=== PATIENT | male | born 1940 | race Caucasian/White ===

== ENCOUNTER 2019-03-30 12:53 | Outpatient (CLI) | payer MEDICARE, SELFPAY ==
--- NOTE | 2019-03-30 13:05 | XR_ITS ---
WS: [id number] Chest 2 views, 03/30/2019 Clinical Data: SHORTNESS OF BREATH Comparison: PA and lateral chest, 04/01/2018. Findings: No nodules, masses or effusions are seen. The heart is normal. The pulmonary vascularity is not increased. No pneumonia or pneumothorax is seen. There is scarring in the left upper lobe unchan ged. Multiple left rib fractures from the third to the 10th ribs has not changed. Aortic arch and chance cending aorta are slightly tortuous. XR/XR chest 2V* [id number] Impression: 1. Negative for acute cardiopulmonary disease. 2. No change in multiple left rib fractures and left upper lobe scarring.
== END 2019-03-30 12:54 | disposition home or self-care (01) ==
PROVIDERS: Family Provider Family Medicine; PCP Family Medicine; Visit Provider Family Medicine
DX: R06.02 Shortness of breath (principal)
CPT/HCPCS: 71046

== ENCOUNTER 2019-04-11 09:40 | Outpatient (CLI) | payer MEDICARE, SELFPAY ==
--- NOTE | 2019-04-11 09:30 | USCV_ITS ---
Elpidio Hoffmann Age: 78 Gender: M : 1940 Exam Date: 04/11/2019 09:46 Ordering Phys: Alicia Barrera DO Technologist: Claudia Arevalo Exam Location: [facility] – [place] Indication: DYSPNEA ON EXERTION BP: / HR: 74 Rhythm: Sinus Technical Quality: Adequate MEASUREMENTS (Male / Female) Normal Values 2D ECHO LV Diastolic Diameter PLAX 3.5 cm 4.2 - 5.9 / 3.9 - 5.3 cm LV Systolic Diameter PLAX 1.6 cm LV Chamber Size 2.9 cm IVS Diastolic Thickness 1.1 cm 0.6 - 1.0 / 0.6 - 0.9 cm IVS Systolic Thickness 1.6 cm LVPW Diastolic Thickness 1.8 cm 0.6 - 1.0 / 0.6 - 0.9 cm LVPW Systolic Thickness 2.1 cm RV Chamber Size 2.5 cm LVOT Diameter 2.0 cm LV Ejection Fraction 2D Teich 86.0 % LV Ejection Fraction MOD 2C 54.3 % LV Ejection Fraction 2C AL 52.4 % LA Diameter 3.0 cm LA Width 3.2 cm LA Height 5.0 cm RA Width 3.1 cm RA Height 3.9 cm Aorta at Sinotubular Diameter 2.9 cm M-MODE LV Diastolic Diameter MM 4.4 cm 4.2 - 5.9 / 3.9 - 5.3 cm LV Systolic Diameter MM 2.4 cm LV Ejection Fraction MM Teich 77.1 % IVS Diastolic Thickness MM 0.7 cm 0.6 - 1.0 / 0.6 - 0.9 cm IVS Systolic Thickness MM 1.2 cm LVPW Diastolic Thickness MM 1.2 cm 0.6 - 1.0 / 0.6 - 0.9 cm LVPW Systolic Thickness MM 1.3 cm Aortic Annulus Diameter 3.5 cm LA Ao Ratio MM 0.9 MV E Point Septal Separation 0.7 cm DOPPLER AV Peak Velocity 124.0 cm/s LVOT Peak Velocity 109.0 cm/s AV Area Cont Eq vti 3.0 cm squared AV Area Cont Eq pk 2.9 cm squared MV Area PHT 3.6 cm squared Mitral E to A Ratio 0.7 MV E' Velocity 14.0 cm/s Mitral E to MV E' Ratio 5.5 Mitral E to LV E' Lateral Ratio 4.6 Mitral E to LV E' Septal Ratio 7.0 TR Peak Velocity 135.0 cm/s TR Peak Gradient 7.3 mmHg TV Peak E Velocity 68.0 cm/s Right Atrial Pressure 3.0 mmHg Pulmonary Artery Systolic Pressu 10.3 mmHg PV Peak Velocity 91.0 cm/s RV Acceleration Time 0.2 s RV Ejection Time 0.3 s RV AcT/ET 0.5 FINDINGS Left Ventricle Normal left ventricular cavity size. Normal left ventricular systolic function. No regional wall motion abnormalities. Left ventricular ejection fraction is estimated at 65 %. Grade I/IV diastolic dysfunction (abnormal relaxation filling pattern), normal to mildly elevated filling pressures. Right Ventricle The right ventricle is normal in size and function. Right Atrium The right atrium is normal in size. Left Atrium The left atrium is normal in size. Mitral Valve Moderately thickened mitral valve. Mitral annular calcification. Mild mitral valve regurgitation. Aortic Valve Severe aortic valve calcification. No aortic valve stenosis. No aortic valve regurgitation. Tricuspid Valve Structurally normal tricuspid valve without significant stenosis or regurgitation. Pulmonary artery systolic pressure is normal. Pulmonic Valve Structurally normal pulmonic valve without significant stenosis. There is no pulmonic regurgitation. Pericardium Normal pericardium without effusion. Aorta Normal ascending aorta dimension. CONCLUSIONS 1-Normal left ventricular cavity size. Normal left ventricular systolic function. No regional wall motion abnormalities. Left ventricular ejection fraction is estimated at 65 %. Grade I/IV diastolic dysfunction (abnormal relaxation filling pattern), normal to mildly elevated filling pressures. 2-Severe aortic valve calcification. No aortic valve stenosis. No aortic valve regurgitation. 3-There is no pericardial effusion. 4-Right atrial pressure is around 5 mm of mercury. 5-When compared to the prior echocardiogram 08/10/2013 aortic valve appeared to be thickened calcified without any significant stenosis , otherwise there is no significant change Willard Day MD (Electronically Signed) Final Date: 11 April 2019 19:10 S
== END 2019-04-11 09:41 | disposition home or self-care (01) ==
LOC: RAD 09:44
PROVIDERS: Family Provider Family Medicine; PCP Family Medicine; Visit Provider Family Medicine
DX: I70.0 Atherosclerosis of aorta (principal); R06.09 Other forms of dyspnea
CPT/HCPCS: 93306

== ENCOUNTER 2019-04-14 11:31 | Outpatient (CLI) | payer MEDICARE, SELFPAY ==
[2019-04-14 12:02] LABS: Basophils % 0.6 %; Eosinophils # 0.1 10^3/uL (0.0-0.8); Eosinophils % 1.8 %; Hemoglobin 11.7 g/dL (11.7-16.6); Lymphocytes # 1.3 10^3/uL (0.8-4.8); Lymphocytes % 26.8 %; Mean Corpuscular HGB Conc 33.4 g/dL (30.0-36.0); Mean Corpuscular Hemoglobin 32.3 pg (28.0-34.0); Mean Corpuscular Volume 96.7 fL (80-94); Mean Platelet Volume 9.1 fL (7.4-10.4); Monocytes # 0.6 10^3/uL (0.2-0.9); Monocytes % 12.2 %; Neutrophils # 2.9 10^3/uL (1.8-7.7); Neutrophils % 58.6 %; Nucleated Red Blood Cells % 0 %; Platelet Count 180 10^3/cmm (130-400); Red Blood Count 3.62 10^6/uL (4.1-5.3); Red Cell Distribution Width 13.6 % (12.1-15.1); White Blood Count 4.9 10^3/uL (4.0-10.0)
[2019-04-14 12:19] LABS: Albumin Level 4.7 g/dL (3.5-5.2); Anion Gap 19.5 (5-19); Blood Urea Nitrogen 26 mg/dL (8-23); Carbon Dioxide 26 mmol/L (22-29); Chloride 101 mmol/L (98-107); Glucose 130 mg/dL (74-106); Phosphorus 3.8 mg/dL (2.5-4.5); Potassium 3.5 mmol/L (3.5-5.1); Sodium 143 mmol/L (136-145)
[2019-04-14 12:22] LABS: Urine Creatinine 253 mg/dL (39-259); Urine Protein Random 17 mg/dL
[2019-04-14 13:02] LABS: Calcium 9.8 mg/dL (8.8-10.2); Parathyroid Hormone 116.3 pg/mL (15-65)
[2019-04-14 13:03] LABS: UPRO/UCREAT Ratio 0.07 mg/mg CR
[2019-04-14 13:35] LABS: 25 Hydroxy Vitamin D 65 ng/mL (30-100)
== END 2019-04-14 11:32 | disposition home or self-care (01) ==
LOC: LAB 11:35
PROVIDERS: Family Provider Family Medicine; PCP Family Medicine; Visit Provider Nurse Practitioner Family
DX: I12.9 Hypertensive chronic kidney disease with stage 1 through stage 4 chronic kidney disease, or unspecified chronic kidney disease (principal); E11.22 Type 2 diabetes mellitus with diabetic chronic kidney disease; N18.3 Chronic kidney disease, stage 3 (moderate)
CPT/HCPCS: 80069; 82306; 82310; 82570; 83970; 84156; 85025

== ENCOUNTER 2019-05-04 19:36 | Inpatient (IN) | payer OTHER, MEDICARE, SELFPAY ==
[2019-05-04] VITALS (39 sets, daily range): BP systolic 106–142; BP diastolic 59–99; PULSE 77–88; RESP 16–18; TEMP 36.9; O2SAT 85–99; BMI 25.0
--- NOTE | 2019-05-04 19:45 | ED_ITS ---
Entered by Isabel Castellanos, acting as scribe for Rosina Ferris MD HPI - Abdominal Pain General: Chief Complaint: Abdominal Pain Stated Complaint: abd pain Time Seen by Provider: 05/04/19 19:45 Source: patient Mode of arrival: ambulatory Limitations: no limitations History of Present Illness: HPI narrative: 78 yo m came to the er pov for abd pain. Onset was tonight. Pt states that has been having some abd pain and that today the pain is almost severe. Pt states that he has had a bowel obstruction many times. Pt also has a colostomy at this time. MD elicited complaint: abdominal pain Pertinent past history: diverticulitis Location: RLQ and LLQ Severity: mild Quality: sharp Radiation: none Exacerbating factors: nothing Relieving factors: nothing Associated Symptoms: Reports vomiting; Denies chills, diarrhea, dysuria and fever(s) Related Data: Patient : No Review of Systems General: Reports: other (negative unless marked) Const: Denies: fever, chills, body aches or change in appetite Eyes: Denies: blurry vision or eye discomfort ENMT: Denies: throat pain or dental pain Card: Denies: chest pain Resp: Denies: shortness of breath GI: Reports: abdominal pain and vomiting; Denies: diarrhea : Denies: painful urination Musc: Denies: neck pain or back pain Skin/Breast: Denies: rash Neuro: Denies: headache Psych: Denies: depression Trae/Lymph: Denies: easy bruising All/Imm: Denies: hives PFSH ED PFSH: Statuses (acute, chronic, etc) shown below reflect problem list status as previously entered and may not be historically accurate Social History Smoking and tobacco status: former smoker Physical Exam Const: COMMON NORMALS: no apparent distress, oriented x3 and healthy appearing HENMT: COMMON NORMALS: normocephalic and head/scalp atraumatic HEAD & SCALP: normocephalic and atraumatic Eye: COMMON NORMALS: PERRL and EOMs intact bilaterally PUPIL: Yes PERRL Neck/C-Spine: COMMON NORMALS: full ROM and supple Chest: COMMONS NORMALS: inspection of chest normal and palpation of chest normal Resp: COMMON NORMALS: normal respiratory effort, no retractions, no use of accessory muscles and clear to auscultation bilaterally AUSCULTATION: clear to auscultation bilaterally Cardio: COMMON NORMALS: regular rate, regular rhythm and no murmurs RATE: regular rate RHYTHM: regular rhythm GI: COMMON NORMALS: soft to palpation, non-tender and no masses PALPATION: Yes soft OTHER: distention along with decreased bowel sounds Extremity: COMMON NORMALS: normal to inspection and full ROM Neuro: COMMON NORMALS: oriented x3, moves all extremities and no focal motor deficits Psych: COMMON NORMALS: mental status grossly normal, thought process normal and cooperative THOUGHT PROCESS: normal thought process Skin: COMMON NORMALS: no rashes or lesions noted and no wounds GENERAL SKIN EXAM: no rashes or lesions noted Course Vital Signs: Vital signs: Vital Signs Temperature 98.4 F 05/04/19 19:46 Pulse Rate 88 05/04/19 20:30 Respiratory Rate 16 05/04/19 23:42 Blood Pressure 121/82 05/04/19 22:35 Pulse Oximetry 90 05/04/19 22:35 MDM - Abdominal Pain MDM Narrative: Medical decision making narrative: Patient presents here with small bowel obstruction along with hernia. Spoke to hospitalist will admit. Spoke to surgeon Dr. 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 Patient has been stable while here. Lab Data: Labs: Lab Results 05/04/19 05/04/19 05/04/19 Range/Units 19:54 20:10 20:10 WBC 6.2 (4.0-10.0) 10^3/ uL RBC 4.10 (4.1-5.3) 10^6/u L Hgb 13.1 (11.7-16.6) g/dL Hct 38.0 L (42.0-52.0) % MCV 92.7 (80-94) fL MCH 32.0 (28.0-34.0) pg MCHC 34.5 (30.0-36.0) g/dL RDW 12.7 (12.1-15.1) % Plt Count 231 (130-400) 10^3/c mm MPV 8.8 (7.4-10.4) fL Neut % (Auto) 72.3 % Lymph % (Auto) 17.0 % Haskell % (Auto) 9.2 % Eos % (Auto) 0.8 % Baso % (Auto) 0.5 % Neut # (Auto) 4.5 (1.8-7.7) 10^3/u L Lymph # (Auto) 1.1 (0.8-4.8) 10^3/u L Haskell # (Auto) 0.6 (0.2-0.9) 10^3/u L Eos # (Auto) 0.1 (0.0-0.8) 10^3/u L Baso # (Auto) 0.0 (0.0-0.1) 10^3/u L Nucleated RBC % (a uto) 0 % Nucleated RBCs # 0.0 /100WBC Sodium 137 (136-145) mmol/L Potassium 3.1 L (3.5-5.1) mmol/L Chloride 94 L (98-107) mmol/L Carbon Dioxide 26 (22-29) mmol/L Anion Gap 20.1 H (5-19) BUN 28 H (8-23) mg/dL Creatinine 2.2 H (0.7-1.2) mg/dL Glucose 145 H (65-115) mg/dL Calcium 10.3 (8.5-10.5) mg/dL Total Bilirubin 0.7 (0.15-1.2) mg/dL AST 37 (0-40) U/L ALT 23 (0-41) U/L Alkaline Phosphata se 74 (40-130) IU/L Total Protein 8.3 (6.6-8.7) g/dL Albumin 4.6 (3.5-5.2) g/dL Globulin 3.7 (1.3-4.6) g/dL Lipase 16 (13-60) U/L Urine Color Yellow (Yellow) Urine Appearance Clear (CLEAR) Urine pH 5 (5-7) Ur Specific Gravit y 1.015 (1.005-1.030) Urine Protein Neg (Negative) Urine Glucose (UA) Norm (Normal) Urine Ketones Negative (Negative) Urine Occult Blood Neg (Negative) Urine Nitrate Negative (Negative) Urine Bilirubin Neg (NEGATIVE) Urine Urobilinogen Norm (Negative) mg/dL Ur Leukocyte Marianne ase Negative (Negative) Imaging Data ^: CT Abd/Pel: Radiologist's impression: [address] [address] [address] Scan Report Signed with Addjewel Patient: Elpidio Hoffmann #: [id number] : 1940Acct#:[id number] Age/Sex: 78 / MADM Date: 05/04/19 Loc: ERRoom/Bed: Attending Dr: Ordering Provider/Ordering MD: Rosina Ferris MD Date of Service: 05/04/19 Procedure(s): CT abdomen pelvis wo con [id number] Accession Number(s): [id number] Report Number: [id number]/CT abdomen pelvis wo con [id number] THIS REPORT CONTAINS FINDINGS THAT MAY BE CRITICAL TO PATIENT CARE. The findings were verbally communicated via telephone conference with rosina Ferris at 11:23 PM SCARFER on 05/04/2019. The findings were acknowledged and understood. Radiation Dose CTDIVOL = (mGy): DLP = 832.92 (mGy-cm) Addendum Dictated By: Lisandra Jim Addendum Signed By: Susan Jim Date/Time:05/04/192324 Addendum Cosigned By: PROCEDURE INFORMATION: Exam: CT Abdomen And Pelvis Without Contrast Exam date and time: 05/04/2019 8:55 PM Age: 78 years old Clinical indication: Abdominal pain; Prior surgery; Surgery type: Ileostomy, colon; Additional info: Abdominal pain possible sbo TECHNIQUE: Imaging protocol: Computed tomography of the abdomen and pelvis without contrast. Total DLP: 832.92 mGy-cm Radiation optimization: All CT scans at this facility use at least one of these dose optimization techniques: automated exposure control; mA and/or kV adjustment per patient size (includes targeted exams where dose is matched to clinical indication); or iterative reconstruction. COMPARISON: CT Chest/Abdomen/Pelvis wo IV 11/22/2018 12:25 PM FINDINGS: Lungs: Severe emphysematous changes are noted. There is mild basilar volume loss. Liver: There is a diffuse decrease in hepatic parenchymal density, consistent with fatty infiltration. Gallbladder and bile ducts: Multiple calcified gallstones are present. No evidence of cholecystitis. Pancreas: Normal. No ductal dilation. Spleen: Normal. No splenomegaly. Adrenals: Normal. No mass. Kidneys and ureters: There is punctate nephrolithiasis. No hydronephrosis. Stomach and bowel: There is a right lower quadrant ostomy. There is a large right peristomal hernia containing multiple loops of small bowel and mesenteric fat. The loops of bowel within the hernia are mildly dilated with air-fluid levels concerning for early partial small bowel obstruction of the loops of small bowel within the hernia. There is also induration of the fat adjacent to the loops of bowel within the hernia. There is some mild wall edema of a loop of small bowel within the hernia. The exiting loop of small bowel does not contain contrast and is collapsed. Diverticulosis without diverticulitis is identified. Appendix: No evidence of appendicitis. Intraperitoneal space: Unremarkable. No free air. No significant fluid collection. Vasculature: The aorta demonstrates mild atherosclerotic calcification. There are numerous benign phleboliths in the pelvis. Lymph nodes: Unremarkable.No enlarged lymph nodes. Bladder: There is nonspecific bladder wall thickening. This may be related to incomplete distention. Reproductive: Unremarkable as visualized. Bones/joints: Postoperative changes in the right femur/hip are noted. There are moderate degenerative changes in the hip joints and spine. No acute bony fracture. Soft tissues: Tiny fat filled inguinal hernias are noted. Other findings: Abdomen window CT/CT abdomen pelvis wo con [id number] IMPRESSION: Large right peristomal hernia containing high-grade partially obstructed loops of small with mild bowel wall edema and induration of the fat within the hernia concerning for early incarceration of the hernia contents. Radiation Dose CTDIVOL = (mGy): DLP = 832.92 (mGy-cm) Dictated By:Lisandra Jim Signed By:Susan Jim Date/Time:05/04/192322 DD/ 21 Discharge Plan Discharge Patient Disposition: Admitted As Inpatient Admit Provider: Murphy Mcgarry Clinical Impression: Small bowel obstruction Condition: Stable Coding Level of Care Code ED [employer] [place] Roller for Chg Fwd Exam Problem Focused The documentation recorded by the Emanuel harris Stephanie Lyn, accurately reflects the service I personally performed and the decisions made by Barrington so Korby, MD May 04, 2019 19:36
--- NOTE | 2019-05-04 19:50 | CTR_ITS ---
PROCEDURE INFORMATION: Exam: CT Abdomen And Pelvis Without Contrast Exam date and time: 05/04/2019 8:55 PM Age: 78 years old Clinical indication: Abdominal pain; Prior surgery; Surgery type: Ileostomy, colon; Additional info: Abdominal pain possible sbo TECHNIQUE: Imaging protocol: Computed tomography of the abdomen and pelvis without contrast. Total DLP: 832.92 mGy-cm Radiation optimization: All CT scans at this facility use at least one of these dose optimization techniques: automated exposure control; mA and/or kV adjustment per patient size (includes targeted exams where dose is matched to clinical indication); or iterative reconstruction. COMPARISON: CT Chest/Abdomen/Pelvis wo IV 11/22/2018 12:25 PM FINDINGS: Lungs: Severe emphysematous changes are noted. There is mild basilar volume loss. Liver: There is a diffuse decrease in hepatic parenchymal density, consistent with fatty infiltration. Gallbladder and bile ducts: Multiple calcified gallstones are present. No evidence of cholecystitis. Pancreas: Normal. No ductal dilation. Spleen: Normal. No splenomegaly. Adrenals: Normal. No mass. Kidneys and ureters: There is punctate nephrolithiasis. No hydronephrosis. Stomach and bowel: There is a right lower quadrant ostomy. There is a large right peristomal hernia containing multiple loops of small bowel and mesenteric fat. The loops of bowel within the hernia are mildly dilated with air-fluid levels concerning for early partial small bowel obstruction of the loops of small bowel within the hernia. There is also induration of the fat adjacent to the loops of bowel within the hernia. There is some mild wall edema of a loop of small bowel within the hernia. The exiting loop of small bowel does not contain contrast and is collapsed. Diverticulosis without diverticulitis is identified. Appendix: No evidence of appendicitis. Intraperitoneal space: Unremarkable. No free air. No significant fluid collection. Vasculature: The aorta demonstrates mild atherosclerotic calcification. There are numerous benign phleboliths in the pelvis. Lymph nodes: Unremarkable.No enlarged lymph nodes. Bladder: There is nonspecific bladder wall thickening. This may be related to incomplete distention. Reproductive: Unremarkable as visualized. Bones/joints: Postoperative changes in the right femur/hip are noted. There are moderate degenerative changes in the hip joints and spine. No acute bony fracture. Soft tissues: Tiny fat filled inguinal hernias are noted. Other findings: Abdomen window CT/CT abdomen pelvis wo con [id number] IMPRESSION: Large right peristomal hernia containing high-grade partially obstructed loops of small with mild bowel wall edema and induration of the fat within the hernia concerning for early incarceration of the hernia contents. Radiation Dose CTDIVOL = (mGy): DLP = 832.92 (mGy-cm)
--- NOTE | 2019-05-04 20:15 | PC.NURSE ---
Introduced self to patient and initiated vital signs. Pt is A&O x 4 and agreeable. Pt states that the reason for the ER visit today is due to abdominal pain bilaterally for 3 days which has progressed to a /. Reassured patient of needs and will continue to monitor. Awaiting provider at bedside.
[2019-05-04 20:17] LABS: Basophils % 0.5 %; Eosinophils # 0.1 10^3/uL (0.0-0.8); Eosinophils % 0.8 %; Hemoglobin 13.1 g/dL (11.7-16.6); Lymphocytes # 1.1 10^3/uL (0.8-4.8); Mean Corpuscular HGB Conc 34.5 g/dL (30.0-36.0); Mean Corpuscular Volume 92.7 fL (80-94); Mean Platelet Volume 8.8 fL (7.4-10.4); Monocytes # 0.6 10^3/uL (0.2-0.9); Monocytes % 9.2 %; Neutrophils # 4.5 10^3/uL (1.8-7.7); Neutrophils % 72.3 %; Nucleated Red Blood Cells % 0 %; Platelet Count 231 10^3/cmm (130-400); Red Cell Distribution Width 12.7 % (12.1-15.1); White Blood Count 6.2 10^3/uL (4.0-10.0)
[2019-05-04 20:21] LABS: Add Urine Microscopic? NO
[2019-05-04 20:29] LABS: Bilirubin Urine Neg (NEGATIVE); Blood Urine Neg (Negative); Glucose Urine UA Norm (Normal); Ketones Urine Negative (Negative); Leukocyte Esterase Urine Negative (Negative); Nitrate Urine Negative (Negative); Protein Urine Neg (Negative); Specific Gravity, Urine 1.015 (1.005-1.030); Urine Appearance Clear (CLEAR); Urine Color Yellow (Yellow); Urobilinogen Urine Norm (Negative); pH Urine 5 (5-7)
[2019-05-04 20:42] LABS: Alanine Aminotransferase 23 U/L (0-41); Albumin Level 4.6 g/dL (3.5-5.2); Alkaline Phosphatase 74 IU/L (40-130); Anion Gap 20.1 (5-19); Aspartate Amino Transferase 37 U/L (0-40); Blood Urea Nitrogen 28 mg/dL (8-23); Calcium 10.3 mg/dL (8.5-10.5); Carbon Dioxide 26 mmol/L (22-29); Chloride 94 mmol/L (98-107); Globulin 3.7 g/dL (1.3-4.6); Glucose 145 mg/dL (65-115); Lipase 16 U/L (13-60); Potassium 3.1 mmol/L (3.5-5.1); Sodium 137 mmol/L (136-145); Total Bilirubin 0.7 mg/dL (0.15-1.2); Total Protein 8.3 g/dL (6.6-8.7)
[2019-05-04] MEDS: HYDROmorphone 1 mg/mL INJ 1 mL IVP (23:42)
[2019-05-05] VITALS (52 sets, daily range): BP systolic 83–151; BP diastolic 60–93; PULSE 66–103; RESP 10–20; TEMP 36.5–37.3; O2SAT 75–100
--- NOTE | 2019-05-05 00:38 | PM.HP ---
Providers/Chief Complaint Admitting Physician: Murphy Mcgarry MD Primary Care Provider: Alicia Barrera DO Chief Complaint: abd pain History of Present Illness Elpidio Hoffmann is a 78 year old male with a past medical history of insulin-dependent type 2 diabetes mellitus, hypertension, hyperlipidemia, CKD stage III, history of anal squamous cell carcinoma (in 2013, status post chemotherapy and radiation), history of perforated diverticulitis status post Judd procedure, colostomy takedown with diverting ileostomy, history of Port-A-Cath placement and removal, right lower lobe squamous cell carcinoma status post status post wedge excisional biopsy, left upper lobe pulmonary nodule status post SBRT who presents to the emergency room due to complaints of abdominal pain. Patient states that he has history of small bowel obstruction in the past secondary to his parastomal hernia, patient states that 3 days ago he developed abdominal pain associate with some nausea, no vomiting, no fevers, no chills, he still continues good output from his colostomy. Patient states that this afternoon he had dinner, had [place] food, no nausea, no vomiting, continues to have colostomy output in the ER, abdominal pain he has improved with Dilaudid. Review of Systems Const: Denies: fever, chills, fatigue or malaise Eyes: Denies: change in vision or blurry vision ENMT: Denies: nasal congestion Resp: Denies: shortness of breath, productive cough, non-productive cough or wheezing GI: Reports: abdominal pain; Denies: nausea, vomiting, vomiting blood, diarrhea, constipation, blood in stool or black tarry stool : Denies: flank pain, difficulty urinating, painful urination or urinary frequency Musc: Denies: neck pain or back pain Skin/Breast: Denies: rash Neuro: Denies: headache, dizziness or vertigo Psych: Denies: anxiety or depression Endo: Denies: excessive urination or excessive thirst Medications/Allergies Allergies Allergy/AdvReac Type Severity Reaction Status Date / Time No Known Allergies Allergy Verified 05/04/19 19:46 Additional Medication Information Additional Medication Information: Aspirin 81 mg once daily Chlorthalidone 12.5 mg in the evening Norvasc 10 mg in the evening Crestor 10 mg in the evening Protonix 40 mg in the morning Novolin 20 units twice daily Vitamin E Vitamin A Vitamin C Vitamin B12 Multivitamin Cardizem 180 mg in the evening PFSH Acute PFSH: Statuses (acute, chronic, etc) shown below reflect problem list status as previously entered and may not be historically accurate Medical History (Updated 05/05/19 @ 01:05 by Murphy Mcgarry MD) Anal squamous cell carcinoma (Acute) Chronic kidney disease (Acute) GERD (gastroesophageal reflux disease) (Acute) Hyperlipidemia (Acute) Hypertension (Acute) Insulin dependent type 2 diabetes mellitus (Acute) Parastomal hernia (Acute) Perforation of intestine due to diverticulitis of gastrointestinal tract (Acute) 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) Surgical History (Updated 05/05/19 @ 01:05 by Murphy Mcgarry MD) S/P tonsillectomy (Acute) Status post Judd procedure (Acute) Family History (Updated 05/05/19 @ 01:05 by Murphy Mcgarry MD) Other Diabetes Hypertension Social History (Updated 05/05/19 @ 01:05 by Murphy Mcgarry MD) Smoking and tobacco status: former smoker Alcohol intake: current Alcohol intake frequency: 0-2 Drinks per Day Substance/Drug Use: never Vitals/I&O/Wt Last Vital Signs Temp 98.4 F 05/04/19 19:46 Pulse 75 05/05/19 00:31 Resp 16 05/04/19 23:42 BP 119/74 05/05/19 00:31 Pulse Ox 75 L 05/05/19 00:31 Weight last 48 hrs Weight 79.016 kg Physical Exam Const: COMMON NORMALS: no apparent distress and oriented x3 GENERAL APPEARANCE: cooperative and comfortable HENMT: COMMON NORMALS: normocephalic HEAD & SCALP: normocephalic Eye: COMMON NORMALS: PERRL, EOMs intact bilaterally and no papilledema GENERAL EYE: normal appearance of both eyes PUPIL: Yes PERRL DIRECT OPHTHALMOSCOPY: Yes no papilledema Neck/C-Spine: COMMON NORMALS: full ROM, no lymphadenopathy, no JVD and thyroid normal THYROID: thyroid normal Lymph: LYMPHATIC: no lymphadenopathy noted Resp: COMMON NORMALS: normal respiratory effort, no retractions, no use of accessory muscles and clear to auscultation bilaterally AUSCULTATION: clear to auscultation bilaterally Cardio: COMMON NORMALS: no JVD, regular rate, regular rhythm, S1 normal heart sound, S2 normal heart sound, no gallops, no clicks and no murmurs RATE: regular rate RHYTHM: regular rhythm HEART SOUNDS: S1 normal and S2 normal GI: COMMON NORMALS: normal to inspection, nondistended, normoactive bowel sounds, soft to palpation, non-tender and no hepatosplenomegaly OTHER: Colostomy in place, with good output Right parastomal hernia Extremity: COMMON NORMALS: normal to inspection, full ROM and no pedal edema Neuro: COMMON NORMALS: oriented x3, CN's II-XII intact bilaterally, moves all extremities and no focal motor deficits Psych: COMMON NORMALS: mental status grossly normal, thought process normal and cooperative THOUGHT PROCESS: normal thought process Data : 05/04/19 20:10 05/04/19 20:10 CT Abd/Pel: Radiologist's impression: Liver: There is a diffuse decrease in hepatic parenchymal density, consistent with fatty infiltration. Gallbladder and bile ducts: Multiple calcified gallstones are present. No evidence of cholecystitis. Pancreas: Normal. No ductal dilation. Spleen: Normal. No splenomegaly. Adrenals: Normal. No mass. Kidneys and ureters: There is punctate nephrolithiasis. No hydronephrosis. Stomach and bowel: There is a right lower quadrant ostomy. There is a large right peristomal hernia containing multiple loops of small bowel and mesenteric fat. The loops of bowel within the hernia are mildly dilated with air-fluid levels concerning for early partial small bowel obstruction of the loops of small bowel within the hernia. There is also induration of the fat adjacent to the loops of bowel within the hernia. There is some mild wall edema of a loop of small bowel within the hernia. The exiting loop of small bowel does not contain contrast and is collapsed. Diverticulosis without diverticulitis is identified. Appendix: No evidence of appendicitis. Intraperitoneal space: Unremarkable. No free air. No significant fluid collection. Vasculature: The aorta demonstrates mild atherosclerotic calcification. There are numerous benign phleboliths in the pelvis. Lymph nodes: Unremarkable.No enlarged lymph nodes. Bladder: There is nonspecific bladder wall thickening. This may be related to incomplete distention. Reproductive: Unremarkable as visualized. Bones/joints: Postoperative changes in the right femur/hip are noted. There are moderate degenerative changes in the hip joints and spine. No acute bony fracture. Soft tissues: Tiny fat filled inguinal hernias are noted. Other findings: Abdomen window CT/CT abdomen pelvis wo con [id number] IMPRESSION: Large right peristomal hernia containing high-grade partially obstructed loops of small with mild bowel wall edema and induration of the fat within the hernia concerning for early incarceration of the hernia contents. A&P Assessment and plan (1) Small bowel obstruction: -CT scan of the abdomen shows a large right parastomal hernia containing high-grade partially obstructed loops of small intestine with mild bowel wall edema and induration of fat within the hernia concerning for early castration of the hernia contents -Currently colostomy has good output -Patient is in minimal pain Plan: -Patient is n.p.o. -Receiving IV hydration, potassium replacement -Nausea medication, pain control -Surgery has been consulted, Dr. 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: Status: Acute Code(s): C34.31 - Malignant neoplasm of lower lobe, right bronchus or lung (3) Anal squamous cell carcinoma: Status: Acute Code(s): C21.0 - Malignant neoplasm of anus, unspecified (4) GERD (gastroesophageal reflux disease): Status: Acute Code(s): K21.9 - Gastro-esophageal reflux disease without esophagitis (5) Chronic kidney disease: Creatinine is 2.2, receiving IV hydration Status: Acute Code(s): N18.9 - Chronic kidney disease, unspecified (6) Insulin dependent type 2 diabetes mellitus: Moderate dose sliding scale Status: Acute Code(s): E11.9 - Type 2 diabetes mellitus without complications; Z79.4 - correction (current) use of insulin (7) Hyperlipidemia: Status: Acute Code(s): E78.5 - Hyperlipidemia, unspecified (8) Hypertension: Status: Acute Code(s): I10 - Essential (primary) hypertension (9) Perforation of intestine due to diverticulitis of gastrointestinal tract: Status post Judd procedure, colostomy takedown with diverting ileostomy Status: Acute Code(s): K57.80 - Diverticulitis of intestine, part unspecified, with perforation and abscess without bleeding (10) Parastomal hernia: Status: Acute Code(s): K43.5 - Parastomal hernia without obstruction or gangrene Attestations Medical Necessity Statement*: Patient requires hospitalization, inpatient, greater than 2 midnights, for partial small bowel obstruction Coding Level of Care Code 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
--- NOTE | 2019-05-05 01:06 | XR_ITS ---
WS: [id number] Portable AP upright chest, 05/05/2019 Clinical Data: ng Comparison: PA and lateral chest, 03/30/2019 Findings: Nasogastric tube appears to end in the stomach. The heart and lungs show no change from bef ore. Impression: Satisfactory placement of nasogastric tube.
[2019-05-05] MEDS: potassium chloride premix 40 MEQ/100 ML PREMIX 25 MEQ IV (02:35)
[2019-05-05] MEDS: sodium chloride 0.9% 1,000 ML 100 ML IV ×2 (02:35→11:58)
[2019-05-05 04:58] LABS: Basophils % 0.3 %; Eosinophils % 0.5 %; Hematocrit 36.2 % (42.0-52.0); Hemoglobin 12.4 g/dL (11.7-16.6); Lymphocytes # 0.9 10^3/uL (0.8-4.8); Lymphocytes % 15.7 %; Mean Corpuscular HGB Conc 34.3 g/dL (30.0-36.0); Mean Corpuscular Hemoglobin 32.9 pg (28.0-34.0); Monocytes # 0.6 10^3/uL (0.2-0.9); Monocytes % 9.9 %; Neutrophils # 4.2 10^3/uL (1.8-7.7); Neutrophils % 73.4 %; Nucleated Red Blood Cells % 0 %; Platelet Count 213 10^3/cmm (130-400); Red Blood Count 3.77 10^6/uL (4.1-5.3); Red Cell Distribution Width 12.9 % (12.1-15.1); White Blood Count 5.7 10^3/uL (4.0-10.0)
[2019-05-05 05:19] LABS: Alanine Aminotransferase 20 U/L (0-41); Albumin Level 3.8 g/dL (3.5-5.2); Alkaline Phosphatase 62 IU/L (40-130); Anion Gap 17.9 (5-19); Aspartate Amino Transferase 33 U/L (0-40); Blood Urea Nitrogen 23 mg/dL (8-23); Calcium 9.8 mg/dL (8.5-10.5); Carbon Dioxide 29 mmol/L (22-29); Chloride 92 mmol/L (98-107); Globulin 3.1 g/dL (1.3-4.6); Glucose 67 mg/dL (65-115); Potassium 2.9 mmol/L (3.5-5.1); Sodium 136 mmol/L (136-145); Total Bilirubin 0.7 mg/dL (0.15-1.2); Total Protein 6.9 g/dL (6.6-8.7)
[2019-05-05 05:22] LABS: Partial Thromboplastin Time 35.4 SECONDS (23.9-36.7)
[2019-05-05] MEDS: morphine 4 mg/mL SDV 1 mL 1 MG IVP (05:29)
[2019-05-05 05:47] LABS: Magnesium 1.6 mg/dL (1.7-2.3); Phosphorus 4.1 mg/dL (2.5-4.5)
[2019-05-05 07:39] LABS: Glucose Point of Care 108 mg/dL (70-110)
--- NOTE | 2019-05-05 07:39 | PC.NURSE ---
Physician in patient room assessing/discussing plan of care with patient. New orders received.
[2019-05-05] MEDS: ondansetron 2 mg/ML SDV 2 mL 4 MG IVP ×2 (07:43→15:15)
[2019-05-05] MEDS: morphine 4 mg/mL SDV 1 mL 2 MG IVP (07:44)
--- NOTE | 2019-05-05 10:18 | PC.NURSE ---
Pt pulled NG tube out on accident while sitting on side of bed urinating. 0 trauma noted to nare. Will replace NG tube
[2019-05-05 10:45] LABS: Glucose Point of Care 139 mg/dL (70-110)
--- NOTE | 2019-05-05 11:40 | XR_ITS ---
WS: [id number] PORTABLE CHEST HISTORY: NG placement COMPARISON: 6 05/05/2019. Nasogastric tube has been slightly retracted and needs to be advanced. The tip is just within the sto mach and the proximal port is in the distal esophagus. Recommend advancing at least 10 cm for more op timal positioning. Lungs are clear and well expanded. No pleural effusion or pneumothorax. Cardiac size: Mildly enlarged cardiac silhouette. Mediastinum/Aorta: Mild atherosclerosis aorta. Remote healed rib fractures in the posterior LEFT thorax. 2. NG tube has been retracted slightly since 05/05/2019 1:48 AM. XR/XR chest 1V portable [id number] IMPRESSION: 1. Nasogastric tube needs to be advanced at least 10 cm for more optimal posit ioning.
--- NOTE | 2019-05-05 11:52 | PC.NURSE ---
14 F NG tube placed at this time. Pt tolerated well.
--- NOTE | 2019-05-05 12:07 | PC.CHAP ---
Pastoral Care Encounter/Spiritual Assessment Type of Contact [] Declined section leader visit [] Patient/Family/Request visit [] Outpatient visit [] Follow-up visit [] Physician referral [] Code/Alert [] Routine visit [] Staff referral [] Actively dying [] Patient sleeping [] Family support [] [] Out of room [] Palliative care [] [] Receiving care in room [] Pre-surgical visit [] Trauma [] Long length of stay [] ICU visit [x] Other: Follow up visit needed Relational/Emotional Strength [] Patient feels connected with others/family/visitors/staff [] Distress [] Loneliness/isolation [] Abandonment Spirituality of Patient [] Person of Radha [] Attends Sikh of their Radha [] Believes in Prayer [] Reads Bible or Restorationism materials [] There are Spiritual issues to be addressed Sfdc Architect Interventions [] Prayer [] Active listening [] Non-anxious presence [] Spiritual/emotional support [] Crisis/trauma care [] Spiritual counseling [] Bereavement support [] Provided bereavement packet [] Provided Bible/devotional materials [] Provided toy/stuffed animal, coloring book to patient or family member [] Provided Communion [] Anointing/[place] [] Salvation [] Completed spiritual assessment [] Other: Impact on Illness or Injury [] Angry [] Fearful [] Anxious [] Often cries [] Exhaustion [] Unable to work [] Unable to attend anabaptist [] Unable to walk/stand [] Unable to read [] Unable to drive [] Unable to eat/drink [] Unable to sleep [] Unable to be with family [] Patient intubated [] Other: Summary Medical staff & equipment prevented section leader visit. Sfdc Architect Elvia Bledsoe Time spent with patient 2 min
--- NOTE | 2019-05-05 12:12 | XR_ITS ---
WS: [id number] PORTABLE CHEST HISTORY: NG advancement COMPARISON: Study earlier the same day. Advancement of the nasogastric tube. NG tube is now in good position with the proximal port and tip w ell within the stomach. LEFT upper lobe fibrotic changes has been present on prior exams. XR/XR chest 1V portable [id number] IMPRESSION: Nasogastric tube has been advanced into satisfactory position.
--- NOTE | 2019-05-05 12:23 | PC.NURSE ---
Dr Lay in patient room. New orders received.
[2019-05-05] MEDS: morphine 4 mg/mL SDV 1 mL 3 MG IVP (12:26)
[2019-05-05] MEDS: LORazepam 2 mg/mL INJ 1 mL 0.5 MG IVP (12:27)
--- NOTE | 2019-05-05 13:15 | P.CONIM_ITS ---
Providers/Reason For Consult Consulting Physican/Specialty*: Dr. Page Reason for Consult*: Small bowel obstruction secondary to incarcerated parastomal hernia Requesting Physcian: Parastomal hernia with small bowel obstruction Attending Physician: Kar Jensen MD Primary Care Provider: Alicia Barrera DO History of Present Illness History of Present Illness Elpidio Hoffmann is a 78 year old male who has had a complicated course the past. Patient had initially undergone sigmoid colectomy for diverticulitis with colostomy. 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 He subsequently developed bowel obstruction secondary to the stricture and he has been seen in [facility] where the stricture could not be repaired. Patient therefore had a loop ileostomy in place for a few years now. Patient presented to the hospital on multiple occasions with incarcerated parastomal hernia which is always been reduced. Considering his age, and the fact that he has always been able to reduce the hernia we have managed conservatively until now. He presented to the ER last night with pain, tender swelling around the ostomy. The ostomy itself is functioning. Review of Systems General: Reports: 10 or more systems reviewed and unremarkable except in HPI and below Meds/Allergies Home Medications and Allergies Home Medications Medication Instructions Recorded Confirmed Type aspirin 81 mg tablet,delayed 81 mg PO BEDTIME 05/03/19 05/05/19 History release chlorthalidone 25 mg tablet 25 mg PO BEDTIME 05/03/19 05/05/19 History diltiazem HCl 180 mg 180 mg PO BEDTIME 05/03/19 05/05/19 History tablet,extended release 24 hr insulin NPH isoph U-100 human 100 20 unit SUBCUT BID 05/03/19 05/05/19 History unit/mL (3 mL) subcutaneous pen pantoprazole 40 mg tablet,delayed 40 mg PO DAILY 05/03/19 05/05/19 History release rosuvastatin 10 mg tablet 5 mg PO BEDTIME 05/03/19 05/05/19 History acetaminophen 500 mg PO Q6H 05/05/19 05/05/19 History amlodipine 10 mg PO BEDTIME 05/05/19 05/05/19 History ascorbic acid (vitamin C) [Vitamin 1,000 mg PO 1315 05/05/19 05/05/19 History C] cholecalciferol (vitamin D3) 2,000 unit PO 1830 05/05/19 05/05/19 History [Vitamin D3] cyanocobalamin (vitamin B-12) 1,000 mcg PO 1315 05/05/19 05/05/19 History [Vitamin B-12] lisinopril 40 mg PO DAILY 05/05/19 05/05/19 History magnesium 250 mg PO BIDWM 05/05/19 05/05/19 History multivitamin 1 tab PO DAILY 05/05/19 05/05/19 History vitamin A 2,400 mcg PO 1830 05/05/19 05/05/19 History vitamin B complex 1 tab PO 0 05/05/19 05/05/19 History vitamin E 400 unit PO DAILY 05/05/19 05/05/19 History Allergies Allergy/AdvReac Type Severity Reaction Status Date / Time No Known Allergies Allergy Verified 05/04/19 19:46 Current Medications Current Medications Generic Name Dose Route Start Last Admin Trade Name Freq PRN Reason Stop Dose Admin Sodium Chloride 1,000 mls @ 100 mls/hr 05/05/19 02:08 05/05/19 11:58 Sodium Chloride 0.9% IV 100 mls/hr .Q10H ADAM Administration Insulin Aspart 0 unit 05/05/19 11:20 05/05/19 11:44 Novolog SUBCUT Not Given Q6H ADAM Protocol Morphine Sulfate 1 mg 05/05/19 02:08 05/05/19 05:29 Morphine IVP 1 mg Q4H PRN Administration SEVERE PAIN Ondansetron HCl 4 mg 05/05/19 02:08 05/05/19 07:43 Zofran IVP 4 mg Q8H PRN Administration vomiting, or N/V if npo PFSH Acute PFSH: Statuses (acute, chronic, etc) shown below reflect problem list status as previously entered and may not be historically accurate Medical History Anal squamous cell carcinoma (Acute) Chronic kidney disease (Acute) GERD (gastroesophageal reflux disease) (Acute) Hyperlipidemia (Acute) Hypertension (Acute) Insulin dependent type 2 diabetes mellitus (Acute) Para-ileostomy hernia (Acute) Parastomal hernia (Resolved) Perforation of intestine due to diverticulitis of gastrointestinal tract (Acute) 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) Surgical History H/O ileostomy (Acute) S/P colostomy takedown (Acute) S/P tonsillectomy (Acute) Status post Judd procedure (Acute) Family History Other Diabetes Hypertension Social History Smoking and tobacco status: former smoker Alcohol intake: current Alcohol intake frequency: 0-2 Drinks per Day Substance/Drug Use: never Vitals/I&O/Wt Last Vital Signs Temp 97.8 F 05/05/19 12:00 Pulse 97 05/05/19 12:00 Resp 16 05/05/19 12:26 BP 148/74 05/05/19 12:00 Pulse Ox 97 05/05/19 12:00 05/04/19 05/05/19 05/05/19 22:59 06:59 14:59 Intake Total 1038.333 / 1038.333 Output Total 125 / 125 300 / 300 Balance -125 / -125 738.333 / 738.333 Weight last 48 hrs Weight 174 lb 3.2 oz Physical Exam Narrative: EXAM NARRATIVE: HEENT: Normocephalic Eye: Sclera /conjunctiva normal Respiratory and chest: Bilateral clear breath sounds on auscultation Cardiovascular: Normal S1 and S2 heart sounds Abdomen: Soft to palpation, well-healed midline scar with an incarcerated parastomal hernia Neurological: Oriented to place person and time Skin: Intact, no lesions appreciated on gross exam review A&P Assessment and plan (1) Para-ileostomy hernia: Incarcerated parastomal hernia with small bowel obstruction. Attempted reduction at the bedside with morphine and Ativan which is unsuccessful. Plan for diagnostic laparoscopy, possible laparotomy, parastomal hernia repair, possible bowel resection Procedure, risks, benefits and alternatives have been discussed with the patient who wishes to proceed with surgery. 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
--- NOTE | 2019-05-05 13:31 | PC.NURSE ---
Consent for surgery signed and witnessed at this time
--- NOTE | 2019-05-05 14:22 | ANES.PREANE2 ---
Pre-Anesthetic Assessment Pre-Anesthetic Assessment: Height/Weight: Height 1.78 m Weight 79.016 kg Temp Pulse Resp BP Pulse Ox 97.8 F 97 16 148/74 97 05/05/19 12:00 05/05/19 12:00 05/05/19 12:26 05/05/19 12:00 05/05/19 12:00 Preop Diagnosis: sbo parastomal hernia Proposed Procedure: Operation Date: 05/05/19 14:15 Proposed Procedures p Laparoscopic parastomal Hernia Repair(Not Applicable) - Nishant Lay MD Last Intake: 18:00 Social: Packs per day: 1 Pack years: 56 Comment: quit 12y Exam: Pre-Anes Outpt Exam: alert and oriented x 3 Pulmonary: Comments: hx lung CA rx'd c/XRT CV/HEM: CV/HEM: HTN GI: Comments: bowel obstruction s/p colon rection and ileostomy Metabolic: Metabolic: DM (rx'd 40y) Musc/skel: Musc/skel: Lower Back Pain Anesthetic Plan: ASA status: 3E Anesthesia: General Meds/Allergies Current Medications: Current Medications Generic Name Dose Route Start Last Admin Trade Name Freq PRN Reason Stop Dose Admin Sodium Chloride 1,000 mls @ 100 m ls/hr 05/05/19 02:08 05/05/19 11:58 Sodium Chloride 0.9% IV 100 mls/hr .Q10H ADAM Administration Insulin Aspart 0 unit 05/05/19 11:20 05/05/19 11:44 Novolog SUBCUT Not Given Q6H ADAM Protocol Morphine Sulfate 1 mg 05/05/19 02:08 05/05/19 05:29 Morphine IVP 1 mg Q4H PRN Administration SEVERE PAIN Ondansetron HCl 4 mg 05/05/19 02:08 05/05/19 07:43 Zofran IVP 4 mg Q8H PRN Administration vomiting, or N/V if npo PFSH Anesthesia PFSH: Medical History Anal squamous cell carcinoma (Acute) Chronic kidney disease (Acute) GERD (gastroesophageal reflux disease) (Acute) Hyperlipidemia (Acute) Hypertension (Acute) Insulin dependent type 2 diabetes mellitus (Acute) Para-ileostomy hernia (Acute) Parastomal hernia (Resolved) Perforation of intestine due to diverticulitis of gastrointestinal tract (Acute) 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) Surgical History H/O ileostomy (Acute) S/P colostomy takedown (Acute) S/P tonsillectomy (Acute) Status post Judd procedure (Acute) Family History Other Diabetes Hypertension Social History Smoking and tobacco status: former smoker Alcohol intake: current Alcohol intake frequency: 0-2 Drinks per Day Substance/Drug Use: never Data Anesthesia CBC & Chem 7: 05/05/19 04:00 05/05/19 08:34 Other Labs: Laboratory Results - last 48 hr 05/04/19 05/04/19 05/04/19 19:54 20:10 20:10 WBC 6.2 RBC 4.10 Hgb 13.1 Hct 38.0 L MCV 92.7 MCH 32.0 MCHC 34.5 RDW 12.7 Plt Count 231 MPV 8.8 Neut % (Auto) 72.3 Lymph % (Auto) 17.0 [place] % (Auto) 9.2 Eos % (Auto) 0.8 Baso % (Auto) 0.5 Neut # (Auto) 4.5 Lymph # (Auto) 1.1 [place] # (Auto) 0.6 Eos # (Auto) 0.1 Baso # (Auto) 0.0 Nucleated RBC % (auto) 0 Nucleated RBCs # 0.0 APTT Sodium 137 Potassium 3.1 L Chloride 94 L Carbon Dioxide 26 Anion Gap 20.1 H BUN 28 H Creatinine 2.2 H Glucose 145 H POC Glucose Calcium 10.3 Phosphorus Magnesium Total Bilirubin 0.7 AST 37 ALT 23 Alkaline Phosphatase 74 Total Protein 8.3 Albumin 4.6 Globulin 3.7 Lipase 16 Urine Color Yellow Urine Appearance Clear Urine pH 5 Ur Specific [place] 1.015 Urine Protein Neg Urine Glucose (UA) Norm Urine Ketones Negative Urine Occult Blood Neg Urine Nitrate Negative Urine Bilirubin Neg Urine Urobilinogen Norm Ur Leukocyte Esterase Negative 05/05/19 05/05/19 05/05/19 04:00 04:00 04:00 WBC 5.7 RBC 3.77 L Hgb 12.4 Hct 36.2 L MCV 96.0 H MCH 32.9 MCHC 34.3 RDW 12.9 Plt Count 213 MPV 9.0 Neut % (Auto) 73.4 Lymph % (Auto) 15.7 [place] % (Auto) 9.9 Eos % (Auto) 0.5 Baso % (Auto) 0.3 Neut # (Auto) 4.2 Lymph # (Auto) 0.9 [place] # (Auto) 0.6 Eos # (Auto) 0.0 Baso # (Auto) 0.0 Nucleated RBC % (auto) 0 Nucleated RBCs # 0.0 APTT 35.4 Sodium 136 Potassium 2.9 L Chloride 92 L Carbon Dioxide 29 Anion Gap 17.9 BUN 23 Creatinine 1.9 H Glucose 67 POC Glucose Calcium 9.8 Phosphorus Magnesium Total Bilirubin 0.7 AST 33 ALT 20 Alkaline Phosphatase 62 Total Protein 6.9 Albumin 3.8 Globulin 3.1 Lipase Urine Color Urine Appearance Urine pH Ur Specific [place] Urine Protein Urine Glucose (UA) Urine Ketones Urine Occult Blood Urine Nitrate Urine Bilirubin Urine Urobilinogen Ur Leukocyte Esterase 05/05/19 05/05/19 05/05/19 04:00 07:37 08:34 WBC RBC Hgb Hct MCV MCH MCHC RDW Plt Count MPV Neut % (Auto) Lymph % (Auto) [place] % (Auto) Eos % (Auto) Baso % (Auto) Neut # (Auto) Lymph # (Auto) [place] # (Auto) Eos # (Auto) Baso # (Auto) Nucleated RBC % (auto) Nucleated RBCs # APTT Sodium Potassium 3.0 L Chloride Carbon Dioxide Anion Gap BUN Creatinine Glucose POC Glucose 108 Calcium Phosphorus 4.1 Magnesium 1.6 L Total Bilirubin AST ALT Alkaline Phosphatase Total Protein Albumin Globulin Lipase Urine Color Urine Appearance Urine pH Ur Specific [place] Urine Protein Urine Glucose (UA) Urine Ketones Urine Occult Blood Urine Nitrate Urine Bilirubin Urine Urobilinogen Ur Leukocyte Esterase 05/05/19 10:36 WBC RBC Hgb Hct MCV MCH MCHC RDW Plt Count MPV Neut % (Auto) Lymph % (Auto) [place] % (Auto) Eos % (Auto) Baso % (Auto) Neut # (Auto) Lymph # (Auto) [place] # (Auto) Eos # (Auto) Baso # (Auto) Nucleated RBC % (auto) Nucleated RBCs # APTT Sodium Potassium Chloride Carbon Dioxide Anion Gap BUN Creatinine Glucose POC Glucose 139 Calcium Phosphorus Magnesium Total Bilirubin AST ALT Alkaline Phosphatase Total Protein Albumin Globulin Lipase Urine Color Urine Appearance Urine pH Ur Specific [place] Urine Protein Urine Glucose (UA) Urine Ketones Urine Occult Blood Urine Nitrate Urine Bilirubin Urine Urobilinogen Ur Leukocyte Esterase Cardiac Studies: No Data to Display
--- NOTE | 2019-05-05 14:26 | PC.NURSE ---
Pt to OR at this time for scheduled procedure
[2019-05-05] MEDS: sodium chloride 0.9% 1,000 ML 30 ML IV (14:41)
[2019-05-05] MEDS: metroNIDAZOLE IV 500 MG/100 ML PREMIX 100 MG IV (15:25)
--- NOTE | 2019-05-05 18:00 | P.OP_ITS ---
Operative Report Date of procedure: May 05, 2019 Pre-op Diagnosis: sbo parastomal hernia Post-op Diagnosis: Incarcerated parastomal hernia causing small bowel obstruction Procedure Done: Laparoscopic lysis of adhesions for 1 hour Laparoscopic repair of incarcerated parastomal hernia with [place] mesh Pathology: none sent Surgeon: Nishant Lay Anesthesia: General Estimated blood loss (mL): 25 IV fluids (mL): 800 Condition: stable Disposition: floor Procedure: The patient was taken to the operating room and intubated under general anesthesia after IV antibiotic had been administered. A Galaviz catheter was placed and NG tube was already in place. The abdomen was prepped and draped in a sterile manner after the ostomy had been covered with 4 x 4 gauze and Tegaderm. Using 15 blade 1 cm incision was made in the left upper quadrant and using open [place] technique the peritoneal cavity was entered and a 10 mm port was placed and 15 mm of pneumoperitoneum was created. A 10 mm 30 degree scope was introduced and examination of the peritoneal cavity revealed dense adhesions of the transverse colon as well as small bowel loops along with the omentum to the abdominal wall. Using LigaSure lysis of adhesions was performed for 1 hour until the adhesions of the small bowel loops to the abdominal wall were taken down and the parastomal hernia was identified. The parastomal hernia was reduced without much difficulty and the couple of segments of small bowel which were dusky initially but appeared to be viable on later observation. The abdominal wall around the hernia defect was then freed up from the adherent omentum using LigaSure. The hernia defect measured about 5 x 5 cm after the loop ileostomy was pulled to the medial edge of the defect. 2-0 [place] sutures were passed through the skin and through the abdominal wall to approximate the edges of the hernia defect. A [place] bioabsorbable mesh was introduced approximated to the abdominal wall using Securestraps after creating a tunnel for the loop ileostomy on the medial aspect of the hernia defect. 20 cc of saline mixed with 20 0.5% Marcaine mixed with 20 cc of Exparel was injected under laparoscopic visualization in the midclavicular line bilaterally for a TAP block. The ports were removed under direct visualization and there was no bleeding from the port sites. The fascia of the 1cm port in the left upper quadrant was closed using [id number] Vicryl suture, subcutaneous tissue approximated using interrupted 3-0 Vicryl suture and skin was closed using running subcuticular 4-0 Monocryl suture and surgical glue. The patient was extubated and transferred to recovery room in stable condition
--- NOTE | 2019-05-05 18:02 | SUR.PHASEI ---
1753 PATIENT TO PACU AT THIS TIME. RR EVEN AND UNLABORED. PLACED ON SIMPLE MASK AT 8L, SPO2 99%. NG TUBE IN PLACE TO R NARE, PLACED TO LIS. MODI IN PLACE, DRAINING CLEAR YELLOW URINE, SECURED TO LEFT LEG. 3 STABS NOTED TO ABDOMEN, COLOSTOMY BAG NOTED. PATIENT OPENS EYES TO VERBAL STIMULI, DENIES PAIN.
--- NOTE | 2019-05-05 18:20 | SUR.PHASEI ---
NO FAMILY IN THE WAITING ROOM TO UPDATE.
--- NOTE | 2019-05-05 18:43 | P.PN_ITS ---
Subjective Subjective: Interval history: Admitted last night. H&P and labs noted. This morning on evaluation patient is sitting comfortably in bed. Patient has an NG tube. Earlier this morning patient was seen by Dr. Lay who will try to manually reduce the hernia but was not able to. At present patient complains of mild abdominal pain but denies of having any nausea vomiting, headache, palpitations, shortness of breath. Medications: Medication Review Details: Aspirin 81 mg once daily Chlorthalidone 12.5 mg in the evening Norvasc 10 mg in the evening Crestor 10 mg in the evening Protonix 40 mg in the morning Novolin 20 units twice daily Vitamin E Vitamin A Vitamin C Vitamin B12 Multivitamin Cardizem 180 mg in the evening Vitals/I&O/Wt Last Vital Signs Temp 99.1 F 05/05/19 18:40 Pulse 95 05/05/19 18:40 Resp 10 L 05/05/19 18:40 BP 117/69 05/05/19 18:40 Pulse Ox 93 05/05/19 18:40 05/05/19 05/05/19 05/05/19 06:59 14:59 22:59 Intake Total 1038.333 / 1038.333 150 / 1188.333 Output Total 125 / 125 300 / 300 525 / 825 Balance -125 / -125 738.333 / 738.333 -375 / 363.333 Weight last 48 hrs Weight 79.016 kg Physical Exam Narrative: EXAM NARRATIVE: HEENT: Normocephalic Eye: Sclera /conjunctiva normal Respiratory and chest: Bilateral clear breath sounds on auscultation Cardiovascular: Normal S1 and S2 heart sounds Abdomen: Soft to palpation, well-healed midline scar with an incarcerated parastomal hernia Neurological: Oriented to place person and time Skin: Intact, no lesions appreciated on gross exam review Urinary Catheter Management^: Galaviz Latex: Cath Placed During This Visit: yes Urethral Indwelling: No Urinary Catheter Date of Insertion: 05/05/19 Urinary Catheter Time of Insertion: 15:45 Data : 05/05/19 04:00 05/05/19 08:34 A&P Assessment and plan (1) Para-ileostomy hernia: Status: Acute Code(s): K94.19 - Other complications of enterostomy (2) Incarcerated hernia: Status: Acute Code(s): K46.0 - Unspecified abdominal hernia with obstruction, without gangrene (3) Small bowel obstruction: Status: Acute Code(s): K56.609 - Unspecified intestinal obstruction, unspecified as to partial versus complete obstruction (4) GERD (gastroesophageal reflux disease): Status: Acute Code(s): K21.9 - Gastro-esophageal reflux disease without esophagitis (5) Chronic kidney disease: Status: Acute Code(s): N18.9 - Chronic kidney disease, unspecified (6) Insulin dependent type 2 diabetes mellitus: Status: Acute Code(s): E11.9 - Type 2 diabetes mellitus without complications; Z79.4 - detention (current) use of insulin (7) Hyperlipidemia: Status: Acute Code(s): E78.5 - Hyperlipidemia, unspecified (8) Hypertension: Status: Acute Code(s): I10 - Essential (primary) hypertension (9) H/O ileostomy: Status: Acute Code(s): Z98.890 - Other specified postprocedural states Additional A&P Information Incarcerated hernia: Patient seen by Dr. Lay. If hernia remains unreducible patient would most li romeo rate surgery today. Surgical recommendations appreciated. Keep n.p.o. Continue with NGT. Continue IV hydration with normal saline at 75 cc/h. Zofran 4 mg IV every 6 hours as needed for nausea. Morphine 1 mg every 4 hours as needed for pain control. Type 2 diabetes mellitus: We will change fingersticks to every 6 hours as patient is n.p.o. Continue with insulin sliding scale at moderate sliding scale. N.p.o. status. Hypertension: Patient at home is on amlodipine, lisinopril for hypertension. We will hold off on antihypertensives right now given the n.p.o. status to avoid hypotension for possible surgery. We will monitor blood pressures. Can start patient on hydralazine 5 mg as needed every 4 hours for blood pressure more than 160 systolics. Patient is on Cardizem at home. Patient can go into withdrawal tachycardia. We will start patient on Lopressor 5 mg every 4 hours as needed for heart rate of more than 110 with systolic blood pressure more than 110 as well. Full code N.p.o. SCDs for DVT prophylaxis. Will avoid any therapeutic DVT prophylaxis right now for possible surgery later in the day. Attestations Medical Necessity Statement*: Incarcerated hernia Time Spent in Patient Care: 16 - 35 minutes Coding Level of Care Code Acute Hims Manager for [facility] Fwd Diagnoses Para-ileostomy hernia K94.19 Incarcerated hernia K46.0 Small bowel obstruction K56.609 GERD (gastroesophageal reflux disease) K21.9 Chronic kidney disease N18.9 Insulin dependent type 2 diabetes mellitus E11.9; Z79.4 Hyperlipidemia E78.5 Hypertension I10 H/O ileostomy Z98.890
--- NOTE | 2019-05-05 19:07 | SUR.PHASEI ---
1844 PATIENT TO MED SURG AT THIS TIME. RR EVEN AND UNLABORED. PWD. RATES PAIN 4/10, DOESN'T WANT IV PAIN MEDICATION. NG TUBE TO RIGHT NARE. 3 STABS TO ABDOMEN, CDI. MODI IN PLACE AND SECURED TO LEFT LEG.
[2019-05-05 20:41] LABS: Glucose Point of Care 207 mg/dL (70-110)
[2019-05-05 23:39] LABS: Glucose Point of Care 218 mg/dL (70-110)
[2019-05-06] VITALS (15 sets, daily range): BP systolic 90–134; BP diastolic 60–78; PULSE 80–104; RESP 14–20; TEMP 36.3–37.5; O2SAT 90–99
[2019-05-06] MEDS: metroNIDAZOLE IV 500 MG/100 ML PREMIX 100 MG IV ×2 (01:56→10:08)
[2019-05-06 02:03] LABS: Albumin Level 3.1 g/dL (3.5-5.2); Anion Gap 17.4 (5-19); Blood Urea Nitrogen 36 mg/dL (8-23); Calcium 8.4 mg/dL (8.5-10.5); Carbon Dioxide 26 mmol/L (22-29); Chloride 97 mmol/L (98-107); Glucose 216 mg/dL (65-115); Phosphorus 4.6 mg/dL (2.5-4.5); Potassium 3.4 mmol/L (3.5-5.1); Sodium 137 mmol/L (136-145)
[2019-05-06 05:05] LABS: Glucose Point of Care 211 mg/dL (70-110)
[2019-05-06] MEDS: sodium chloride 0.9% 1,000 ML 100 ML IV ×2 (05:09→15:45)
[2019-05-06 06:10] LABS: Basophils % 0.2 %; Hematocrit 26.5 % (42.0-52.0); Hemoglobin 8.8 g/dL (11.7-16.6); Lymphocytes # 0.8 10^3/uL (0.8-4.8); Lymphocytes % 12.7 %; Mean Corpuscular HGB Conc 33.2 g/dL (30.0-36.0); Mean Corpuscular Hemoglobin 31.5 pg (28.0-34.0); Mean Platelet Volume 9.6 fL (7.4-10.4); Monocytes # 0.8 10^3/uL (0.2-0.9); Monocytes % 12.9 %; Neutrophils # 4.7 10^3/uL (1.8-7.7); Nucleated Red Blood Cells % 0 %; Platelet Count 206 10^3/cmm (130-400); Red Blood Count 2.79 10^6/uL (4.1-5.3); Red Cell Distribution Width 13.3 % (12.1-15.1); White Blood Count 6.3 10^3/uL (4.0-10.0)
[2019-05-06 06:35] LABS: Alanine Aminotransferase 11 U/L (0-41); Albumin Level 3.1 g/dL (3.5-5.2); Alkaline Phosphatase 46 IU/L (40-130); Anion Gap 18.4 (5-19); Aspartate Amino Transferase 20 U/L (0-40); Carbon Dioxide 26 mmol/L (22-29); Chloride 97 mmol/L (98-107); Globulin 2.9 g/dL (1.3-4.6); Glucose 202 mg/dL (65-115); Phosphorus 5.1 mg/dL (2.5-4.5); Potassium 3.4 mmol/L (3.5-5.1); Sodium 138 mmol/L (136-145); Total Bilirubin 0.5 mg/dL (0.15-1.2)
[2019-05-06 06:57] LABS: Blood Urea Nitrogen 40 mg/dL (8-23); Calcium 8.5 mg/dL (8.5-10.5); Magnesium 1.6 mg/dL (1.7-2.3)
[2019-05-06 12:32] LABS: Glucose Point of Care 202 mg/dL (70-110)
[2019-05-06] MEDS: sodium chloride 0.9% 500 ML 999 ML IV (13:09)
[2019-05-06] MEDS: sodium chloride 0.9% 100 ML 125 ML (15:44)
[2019-05-06 17:15] LABS: Glucose Point of Care 217 mg/dL (70-110)
--- NOTE | 2019-05-06 17:37 | PC.NURSE ---
SHIFT SUMMARY PATIENT HAS RESTED THE MAJORITY OF THE DAY. I ATTEMPTED TO AMBULATE PATIENT AND PATIENT WAS ONLY ABLE TO MAKE IT TO THE DOOR AND BACK. PATIENT BECAME VERY WEAK AND SHORT OF BREATH. BLOOD PRESSURE ON THE LOW SIDE (90'S/60'S). DR. EWING CONTACTED. 500ML BOLUS ORDERED AND FLUID RATE CHANGED TO 150ML/HR. DR. CARDOZA ALSO ORDERED 1 UNIT OF PRBC'S TO BE GIVEN. AFTER ADMINISTRATION PATIENT'S BP NOW 114/71. PATIENT HAS ONLY HAD 250ML OF URINE OUTPUT. DR. CARDOZA NOTIFIED. PATIENT'S NG TUBE HAS BEEN CLAMPED SINCE 914. PATIENT TOLERATING WELL. PATIENT STARTED ON CLEAR LIQUID DIET AND TOLERATING WELL. ACTIVE BOWEL SOUNDS. 550ML OF STOOL OUTPUT THROUGH ILEOSTOMY. PATIENT CURRENTLY RESTING IN BED. NO COMPLAINTS AT THIS TIME.
--- NOTE | 2019-05-06 17:57 | P.PN_ITS ---
Subjective Subjective: Interval history: In last 24 hours as patient's incarcerated hernia could not be reduced manually patient was taken to the OR. His surgery was unremarkable. Overnight patient's blood pressure has remained soft with occasional episodes of tachycardia. His urine output since last night has been on lower side and was 200 cc. Labs today morning reviewed and consistent for postoperative anemia. Medications: Medication Review Details: Aspirin 81 mg once daily Chlorthalidone 12.5 mg in the evening Norvasc 10 mg in the evening Crestor 10 mg in the evening Protonix 40 mg in the morning Novolin 20 units twice daily Vitamin E Vitamin A Vitamin C Vitamin B12 Multivitamin Cardizem 180 mg in the evening Vitals/I&O/Wt Last Vital Signs Temp 98.2 F 05/06/19 17:26 Pulse 93 05/06/19 17:26 Resp 16 05/06/19 17:26 BP 114/71 05/06/19 17:26 Pulse Ox 98 05/06/19 17:26 05/06/19 05/06/19 05/06/19 06:59 14:59 22:59 Intake Total 150 / 2338.333 890 / 890 1350 / 2240 Output Total 380 / 1480 650 / 650 Balance -230 / 858.333 890 / 890 700 / 1590 Weight last 48 hrs Weight 79.016 kg Physical Exam Narrative: EXAM NARRATIVE: HEENT: Normocephalic Eye: Sclera /conjunctiva normal, pallor present Respiratory and chest: Bilateral clear breath sounds on auscultation Cardiovascular: Normal S1 and S2 heart sounds Abdomen: Soft to palpation, bowel sounds sluggish. Neurological: Oriented to place person and time Skin: Intact, no lesions appreciated on gross exam review Urinary Catheter Management^: Galaviz Latex: Cath Placed During This Visit: yes Urethral Indwelling: No Reason for Continuing Indwelling Catheter: Acute Urinary Retention or Obstruction Urinary Catheter Date of Insertion: 05/05/19 Urinary Catheter Time of Insertion: 15:45 Data : 05/06/19 05:39 05/06/19 05:39 A&P Assessment and plan (1) Para-ileostomy hernia: Status: Acute Code(s): K94.19 - Other complications of enterostomy (2) Incarcerated hernia: Status: Acute Code(s): K46.0 - Unspecified abdominal hernia with obstruction, without gangrene (3) Small bowel obstruction: Status: Acute Code(s): K56.609 - Unspecified intestinal obstruction, unspecified as to partial versus complete obstruction (4) GERD (gastroesophageal reflux disease): Status: Acute Code(s): K21.9 - Gastro-esophageal reflux disease without esophagitis (5) Chronic kidney disease: Creatinine is 2.2, receiving IV hydration Status: Acute Code(s): N18.9 - Chronic kidney disease, unspecified (6) Insulin dependent type 2 diabetes mellitus: Moderate dose sliding scale Status: Acute Code(s): E11.9 - Type 2 diabetes mellitus without complications; Z79.4 - retirement (current) use of insulin (7) Hyperlipidemia: Status: Acute Code(s): E78.5 - Hyperlipidemia, unspecified (8) Hypertension: Status: Acute Code(s): I10 - Essential (primary) hypertension (9) H/O ileostomy: Status: Acute Code(s): Z98.890 - Other specified postprocedural states Additional A&P Information Incarcerated hernia: Postop day 1. Patient underwent Laparoscopic lysis of adhesions along with Laparoscopic repair of incarcerated parastomal hernia with [place] mesh Keep n.p.o. Continue with NGT. Diet advancement as per Dr. Lay. Increased IV hydration to 125 cc/h. Zofran 4 mg IV every 6 hours as needed for nausea. Morphine 1 mg every 4 hours as needed for pain control. Anemia: Postoperatively patient's hemoglobin today morning is 8.8. Given the soft blood pressures will transfuse patient 1 unit of PRBC. We will recheck hemoglobin after 1 unit of transfusion. Check iron panel. Will replace iron as per the results. Type 2 diabetes mellitus: Continue fingerstick every 6 hours along with moderate sliding scale. N.p.o. status. Hypertension: Patient at home is on amlodipine, lisinopril for hypertension. We will hold off on antihypertensives right now given the n.p.o. status and soft blood pressure. We will monitor blood pressures. Patient is on Cardizem at home. Patient can go into withdrawal tachycardia. We will start patient on Lopressor 5 mg every 4 hours as needed for heart rate of more than 110 with systolic blood pressure more than 110 as well. Full code N.p.o. SCDs for DVT prophylaxis. Will avoid any therapeutic DVT prophylaxis right now for possible surgery later in the day. Attestations Medical Necessity Statement*: Further hospitalization for postoperative management of incarcerated hernia repair. Time Spent in Patient Care: 16 - 35 minutes Coding Level of Care Code Acute Technology Integration Specialist for [facility] Fwd Diagnoses Para-ileostomy hernia K94.19 Incarcerated hernia K46.0 Small bowel obstruction K56.609 GERD (gastroesophageal reflux disease) K21.9 Chronic kidney disease N18.9 Insulin dependent type 2 diabetes mellitus E11.9; Z79.4 Hyperlipidemia E78.5 Hypertension I10 H/O ileostomy Z98.890
[2019-05-06 18:45] LABS: Iron 19 ug/dL (59-158); Total Iron Binding Capacity 210 mcg/dl; Unsaturated Iron Binding 191 ug/dL (112-347)
[2019-05-06 20:59] LABS: Glucose Point of Care 185 mg/dL (70-110)
[2019-05-06] MEDS: morphine 4 mg/mL SDV 1 mL 1 MG IVP (21:31)
[2019-05-06] MEDS: sodium chloride 0.9% 1,000 ML 150 ML IV (22:06)
--- NOTE | 2019-05-06 22:12 | P.PN_ITS ---
Subjective Subjective: Interval history: Patient denies any significant abdominal pain, stoma is functioning, but sleepy today. NG output is not significant. Medications: Reviewed: Yes Vitals/I&O/Wt Last Vital Signs Temp 99.2 F 05/06/19 20:00 Pulse 97 05/06/19 20:00 Resp 20 H 05/06/19 21:31 BP 112/71 05/06/19 20:00 Pulse Ox 95 05/06/19 20:00 05/06/19 05/06/19 05/06/19 06:59 14:59 22:59 Intake Total 150 / 2338.333 890 / 2875 1985 / 2875 Output Total 380 / 1480 950 / 950 Balance -230 / 858.333 890 / 1925 1035 / 1925 Physical Exam Narrative: EXAM NARRATIVE: Abdomen: Soft, slightly distended, tender, incision clean dry and intact, stoma is functioning Urinary Catheter Management^: Galaviz Latex: Cath Placed During This Visit: yes Urethral Indwelling: No Reason for Continuing Indwelling Catheter: Acute Urinary Retention or Obstruction Urinary Catheter Date of Insertion: 05/05/19 Urinary Catheter Time of Insertion: 15:45 Data : 05/07/19 06:32 05/07/19 06:32 A&P Assessment and plan (1) History of hernia repair: Postop day 1 status post laparoscopic repair of incarcerated parastomal hernia Clamp NG tube, start clear liquid diet Continue IV fluids Heparin for DVT prophylaxis Ambulate with physical therapy Status: Acute Code(s): Z98.890 - Other specified postprocedural states; Z87.19 - Personal history of other diseases of the digestive system Attestations Medical Necessity Statement*: Patient will need 2 nights of inpatient stent to resolution of ileus Coding Level of Care Code Acute Table Games Dealer for [facility] Fwd Diagnoses History of hernia repair Z98.890; Z87.19
[2019-05-07] MEDS: famotidine 20 mg Tablet PO (00:35)
[2019-05-07 04:00] VITALS: BP 134/69; PULSE 95; RESP 18; TEMP 37.2; O2SAT 94
[2019-05-07] MEDS: sodium chloride 0.9% 1,000 ML 150 ML IV ×3 (04:30→16:56)
[2019-05-07 05:05] LABS: Glucose Point of Care 173 mg/dL (70-110)
[2019-05-07 05:05] LABS: Glucose Point of Care 189 mg/dL (70-110)
[2019-05-07 06:48] LABS: Basophils % 0.2 %; Hemoglobin 9.4 g/dL (11.7-16.6); Lymphocytes # 0.8 10^3/uL (0.8-4.8); Lymphocytes % 15.9 %; Mean Corpuscular HGB Conc 33.6 g/dL (30.0-36.0); Mean Corpuscular Hemoglobin 32.4 pg (28.0-34.0); Mean Corpuscular Volume 96.6 fL (80-94); Mean Platelet Volume 9.2 fL (7.4-10.4); Monocytes % 18.8 %; Neutrophils # 3.4 10^3/uL (1.8-7.7); Neutrophils % 64.3 %; Nucleated Red Blood Cells % 0 %; Platelet Count 168 10^3/cmm (130-400); White Blood Count 5.2 10^3/uL (4.0-10.0)
[2019-05-07 07:05] LABS: Alanine Aminotransferase 6 U/L (0-41); Albumin Level 3.2 g/dL (3.5-5.2); Alkaline Phosphatase 44 IU/L (40-130); Anion Gap 16.1 (5-19); Aspartate Amino Transferase 27 U/L (0-40); Blood Urea Nitrogen 49 mg/dL (8-23); Calcium 8.3 mg/dL (8.5-10.5); Carbon Dioxide 24 mmol/L (22-29); Chloride 103 mmol/L (98-107); Globulin 2.7 g/dL (1.3-4.6); Glucose 142 mg/dL (65-115); Magnesium 1.7 mg/dL (1.7-2.3); Phosphorus 3.1 mg/dL (2.5-4.5); Potassium 3.1 mmol/L (3.5-5.1); Sodium 140 mmol/L (136-145); Total Bilirubin 0.8 mg/dL (0.15-1.2); Total Protein 5.9 g/dL (6.6-8.7)
[2019-05-07 07:31] VITALS: BP 122/71; PULSE 102; RESP 20; TEMP 36.6; O2SAT 96
[2019-05-07 10:52] LABS: Glucose Point of Care 183 mg/dL (70-110)
[2019-05-07 11:18] VITALS: BP 138/82; PULSE 97; RESP 18; TEMP 37; O2SAT 97
--- NOTE | 2019-05-07 11:25 | PC.SOCIAL ---
IMM Page 2 of IMM explained to and signed by patient. He verbalizes understanding. Initialed, dated, and timed and placed in chart. Copy provided to patient.
--- NOTE | 2019-05-07 11:50 | PM.PN ---
Subjective Subjective: Interval history: Patient denies any significant abdominal pain, stoma is functioning, but sleepy today. Patient denies any nausea or vomiting, pulled his NG tube out Medications: Reviewed: Yes Vitals/I&O/Wt Last Vital Signs Temp 98.6 F 05/07/19 11:18 Pulse 97 05/07/19 11:18 Resp 18 05/07/19 11:18 BP 138/82 05/07/19 11:18 Pulse Ox 97 05/07/19 11:18 05/06/19 05/07/19 05/07/19 22:59 06:59 14:59 Intake Total 2085 / 4685 1710 / 4685 2009 Output Total 950 / 1550 600 / 1550 400 / 400 Balance 1135 / 3135 1110 / 3135 1610 / 1610 Physical Exam Narrative: EXAM NARRATIVE: Abdomen: Soft, distended, nontender, incision clean dry intact, stoma appears to be functioning Urinary Catheter Management^: Galaviz Latex: Cath Placed During This Visit: yes Urethral Indwelling: No Reason for Continuing Indwelling Catheter: Acute Urinary Retention or Obstruction Urinary Catheter Date of Insertion: 05/05/19 Urinary Catheter Time of Insertion: 15:45 Data : 05/07/19 06:32 05/07/19 06:32 A&P Assessment and plan (1) History of hernia repair: Postop day 2 status post laparoscopic repair of incarcerated parastomal hernia Continue clear liquid diet, leave NG tube out for now since patient is not nauseated Continue IV fluids Heparin for DVT prophylaxis Ambulate with physical therapy Status: Acute Code(s): Z98.890 - Other specified postprocedural states; Z87.19 - Personal history of other diseases of the digestive system Attestations Medical Necessity Statement*: Patient will need continued inpatient stay until resolution of obstruction Coding Level of Care Code Acute Analytical Lab Technician for [facility] Fwthomas Diagnoses History of hernia repair Z98.890; Z87.19
--- NOTE | 2019-05-07 13:18 | P.PN_ITS ---
Subjective Subjective: Interval history: No acute events overnight. Patient is doing a lot better today morning. His vitals have improved. In last 24 hours patient required transfusion of 1 unit of PRBC for postoperative anemia. On examination this morning patient complains of feeling weak but states have improved since yesterday. He had a bowel movement yesterday evening. NG tube was pulled earlier this morning but as patient is tolerating clear liquid diet well has been advanced to full liquid diet as per surgical recommendations. Patient denies of having any nausea, vomiting, abdominal pain. States he is passing flatus on and off and is having dyspepsia. Medications: Medication Review Details: Aspirin 81 mg once daily Chlorthalidone 12.5 mg in the evening Norvasc 10 mg in the evening Crestor 10 mg in the evening Protonix 40 mg in the morning Novolin 20 units twice daily Vitamin E Vitamin A Vitamin C Vitamin B12 Multivitamin Cardizem 180 mg in the evening Vitals/I&O/Wt Last Vital Signs Temp 98.6 F 05/07/19 11:18 Pulse 97 05/07/19 11:18 Resp 18 05/07/19 11:18 BP 138/82 05/07/19 11:18 Pulse Ox 97 05/07/19 11:18 05/06/19 05/07/19 05/07/19 22:59 06:59 14:59 Intake Total 2085 / 2975 1710 / 4685 2009 Output Total 950 / 950 600 / 1550 400 / 400 Balance 1135 / 2025 1110 / 3135 1610 / 1610 Physical Exam Narrative: EXAM NARRATIVE: HEENT: Normocephalic Eye: Sclera /conjunctiva normal, pallor present Respiratory and chest: Bilateral clear breath sounds on auscultation Cardiovascular: Normal S1 and S2 heart sounds Abdomen: Soft to palpation, bowel sounds present . Neurological: Oriented to place person and time Skin: Intact, no lesions appreciated on gross exam review Urinary Catheter Management^: Galaviz Latex: Cath Placed During This Visit: yes Urethral Indwelling: No Reason for Continuing Indwelling Catheter: Acute Urinary Retention or Obstruction Urinary Catheter Date of Insertion: 05/05/19 Urinary Catheter Time of Insertion: 15:45 Data : 05/07/19 06:32 05/07/19 06:32 A&P Assessment and plan (1) Para-ileostomy hernia: Status: Acute Code(s): K94.19 - Other complications of enterostomy (2) Incarcerated hernia: Status: Acute Code(s): K46.0 - Unspecified abdominal hernia with obstruction, without gangrene (3) Small bowel obstruction: Status: Acute Code(s): K56.609 - Unspecified intestinal obstruction, unspecified as to partial versus complete obstruction (4) GERD (gastroesophageal reflux disease): Status: Acute Code(s): K21.9 - Gastro-esophageal reflux disease without esophagitis (5) Chronic kidney disease: Creatinine is 2.2, receiving IV hydration Status: Acute Code(s): N18.9 - Chronic kidney disease, unspecified (6) Insulin dependent type 2 diabetes mellitus: Moderate dose sliding scale Status: Acute Code(s): E11.9 - Type 2 diabetes mellitus without complications; Z79.4 - [facility] (current) use of insulin (7) Hyperlipidemia: Status: Acute Code(s): E78.5 - Hyperlipidemia, unspecified (8) Hypertension: Status: Acute Code(s): I10 - Essential (primary) hypertension (9) H/O ileostomy: Status: Acute Code(s): Z98.890 - Other specified postprocedural states Additional A&P Information Incarcerated hernia: Postop day 2. Patient underwent Laparoscopic lysis of adhesions along with Laparoscopic repair of incarcerated parastomal hernia with Laurel mesh Keep n.p.o. Continue with NGT. Diet advancement as per Dr. Lay. Patient is tolerating diet today. Diet advanced to clear liquid diet as per surgical recommendations We will decrease IV hydration to 100 cc/h. Zofran 4 mg IV every 6 hours as needed for nausea. Morphine 1 mg every 4 hours as needed for pain control. Anemia: Hemoglobin has improved appropriately after 1 unit of transfusion yesterday. Iron pressure stable severe iron deficiency anemia. We will start patient on Venofer today and can plan to discharge on oral iron supplementation We will continue to trend CBC daily. Type 2 diabetes mellitus: Can change fingersticks to AC at bedtime. Continue with insulin sliding scale at mild protocol. N.p.o. status. Hypertension: As patient is tolerating oral well will start patient on home dose of Cardizem but in divided doses. We will hold off on starting lisinopril and amlodipine for now to avoid hypotension and as kidney functions are resolving now. Given the fluctuance in the kidney functions in the last 1 year as per the old records patient should most likely be discharged on only amlodipine and lisinopril should be discontinued. Will discuss this with patient in detail. Full code Clear liquid diet Heparin for DVT prophylaxis Attestations Medical Necessity Statement*: Needs further hospitalization for postoperative management. Time Spent in Patient Care: 16 - 35 minutes Coding Level of Care Code Acute Loss Control Representative for [facility] Fwd Diagnoses Para-ileostomy hernia K94.19 Incarcerated hernia K46.0 Small bowel obstruction K56.609 GERD (gastroesophageal reflux disease) K21.9 Chronic kidney disease N18.9 Insulin dependent type 2 diabetes mellitus E11.9; Z79.4 Hyperlipidemia E78.5 Hypertension I10 H/O ileostomy Z98.890
[2019-05-07] MEDS: docusate sodium 100 mg Capsule PO (13:32)
[2019-05-07] MEDS: sennosides-docusate Tablet 1 TAB PO (13:32)
[2019-05-07] MEDS: heparin 5,000 unit/mL INJ 1 mL 5000 UNIT SUBCUT (14:12)
[2019-05-07] MEDS: dilTIAZem 60 mg Tablet PO ×2 (14:12→22:09)
[2019-05-07 15:52] VITALS: BP 129/72; PULSE 79; RESP 18; TEMP 36.7; O2SAT 98
[2019-05-07 16:42] LABS: Glucose Point of Care 200 mg/dL (70-110)
[2019-05-07] MEDS: ondansetron 2 mg/ML SDV 2 mL 4 MG IVP (17:07)
--- NOTE | 2019-05-07 17:50 | NUR.SHIFT ---
PATIENT HAS DONE BETTER TODAY. HE HAS AMBULATED IN THE [facility] TODAY. PATIENT IS PASSING GAS AND HAS HAD 100ML OF STOOL OUTPUT IN ILEOSTOMY. PATIENT IS SLIGHTLY DISTENDED AND DID HAVE 150ML OF EMESIS. DR. EWING NOTIFIED. ORDERS TO KEEP NG OUT AT THIS TIME. GOOD URINE OUTPUT. 1000ML TOTAL. CONTINUE TO ENCOURAGE AMBULATION. BP MUCH BETTER TODAY.
[2019-05-07 20:00] VITALS: BP 125/75; PULSE 81; RESP 24; TEMP 37.3; O2SAT 94
[2019-05-07 21:48] LABS: Glucose Point of Care 126 mg/dL (70-110)
[2019-05-08] VITALS (7 sets, daily range): BP systolic 108–133; BP diastolic 54–73; PULSE 73–85; RESP 16–28; TEMP 36.7–37.6; O2SAT 91–97
[2019-05-08] MEDS: heparin 5,000 unit/mL INJ 1 mL 5000 UNIT SUBCUT ×2 (01:48→13:26)
[2019-05-08] MEDS: sodium chloride 0.9% 1,000 ML 150 ML IV (04:08)
[2019-05-08 05:06] LABS: Glucose Point of Care 133 mg/dL (70-110)
[2019-05-08 09:10] LABS: Basophils % 0.2 %; Eosinophils % 0.2 %; Hematocrit 27.6 % (42.0-52.0); Hemoglobin 9.3 g/dL (11.7-16.6); Lymphocytes # 1.1 10^3/uL (0.8-4.8); Lymphocytes % 16.7 %; Mean Corpuscular HGB Conc 33.7 g/dL (30.0-36.0); Mean Corpuscular Hemoglobin 31.7 pg (28.0-34.0); Mean Corpuscular Volume 94.2 fL (80-94); Mean Platelet Volume 9.2 fL (7.4-10.4); Monocytes # 0.9 10^3/uL (0.2-0.9); Monocytes % 14.3 %; Neutrophils # 4.3 10^3/uL (1.8-7.7); Neutrophils % 67.8 %; Nucleated Red Blood Cells % 0 %; Platelet Count 193 10^3/cmm (130-400); Red Blood Count 2.93 10^6/uL (4.1-5.3); Red Cell Distribution Width 15.4 % (12.1-15.1); White Blood Count 6.3 10^3/uL (4.0-10.0)
[2019-05-08] MEDS: docusate sodium 100 mg Capsule PO (09:24)
[2019-05-08] MEDS: dilTIAZem 60 mg Tablet PO ×3 (09:24→21:51)
[2019-05-08 09:25] LABS: Blood Urea Nitrogen 36 mg/dL (8-23); Calcium 8.7 mg/dL (8.5-10.5); Carbon Dioxide 25 mmol/L (22-29); Chloride 100 mmol/L (98-107); Glucose 174 mg/dL (65-115); Osmolality Calculated 290 mOsm/kg (285-295); Sodium 139 mmol/L (136-145)
[2019-05-08] MEDS: sennosides-docusate Tablet 1 TAB PO (09:25)
[2019-05-08 11:11] LABS: Glucose Point of Care 211 mg/dL (70-110)
--- NOTE | 2019-05-08 11:22 | P.PN_ITS ---
Subjective Subjective: Interval history: Patient had about 1200 cc out of the ostomy, abdominal distention is better, denies any nausea or vomiting, tolerating clear liquid diet. Improved urine output Medications: Reviewed: Yes Vitals/I&O/Wt Last Vital Signs Temp 98.3 F 05/08/19 07:31 Pulse 76 05/08/19 07:31 Resp 16 05/08/19 07:31 BP 108/54 05/08/19 07:31 Pulse Ox 95 05/08/19 07:31 05/07/19 05/08/19 05/08/19 22:59 06:59 14:59 Intake Total 1145 / 4265 1000 / 4265 1320 / 1320 Output Total 850 / 3050 1800 / 3050 400 / 400 Balance 295 / 1215 -800 / 1215 920 / 920 Physical Exam Narrative: EXAM NARRATIVE: Abdomen: Soft, less distended, minimally tender, incision clean dry and intact, ostomy pink and functioning Urinary Catheter Management^: Galaviz Latex: Cath Placed During This Visit: yes Urethral Indwelling: No Reason for Continuing Indwelling Catheter: Acute Urinary Retention or Obstruction Urinary Catheter Date of Insertion: 05/05/19 Urinary Catheter Time of Insertion: 15:45 Data : 05/08/19 08:54 05/08/19 08:54 A&P Assessment and plan (1) History of hernia repair: Advance to full liquid diet DC IV fluids since creatinine is down to 1.6 Ambulate with physical therapy KCl 80 mEq p.o. x1 for hypokalemia Bronson for pain control Senna for bowel regimen DC Galaviz Status: Acute Code(s): Z98.890 - Other specified postprocedural states; Z87.19 - Personal history of other diseases of the digestive system Attestations Medical Necessity Statement*: Hopefully I I can advance him to GI soft diet with planned discharge tomorrow Coding Level of Care Code Acute New Patient Escort for Stephanie Fwd Diagnoses History of hernia repair Z98.890; Z87.19
[2019-05-08 17:15] LABS: Glucose Point of Care 153 mg/dL (70-110)
--- NOTE | 2019-05-08 18:35 | P.PN_ITS ---
Subjective Subjective: Interval history: Elpidio reports he is feeling better. No nausea. Tolerating liquid diet. Medications: Reviewed: Yes Vitals/I&O/Wt Last Vital Signs Temp 98.7 F 05/08/19 16:00 Pulse 73 05/08/19 16:00 Resp 16 05/08/19 16:00 BP 125/71 05/08/19 16:00 Pulse Ox 96 05/08/19 16:00 05/08/19 05/08/19 05/08/19 06:59 14:59 22:59 Intake Total 1000 / 4265 2110 / 2110 240 / 2350 Output Total 1800 / 3050 1350 / 1350 525 / 1875 Balance -800 / 1215 760 / 760 -285 / 475 Physical Exam Narrative: EXAM NARRATIVE: General exam no apparent distress Cardiovascular regular rate and rhythm without murmur Lungs clear Abdomen is soft, positive bowel sounds Extremities no cyanosis clubbing or edema Urinary Catheter Management^: Galaviz Latex: Cath Placed During This Visit: yes, but has since been removed by the nurse Urethral Indwelling: No Reason for Continuing Indwelling Catheter: Acute Urinary Retention or Obstruction Urinary Catheter Date of Insertion: 05/05/19 Urinary Catheter Time of Insertion: 15:45 Date Urinary Catheter Removed: 05/08/19 Time Urinary Catheter Discontinued: 12:42 Data : 05/08/19 08:54 05/08/19 08:54 A&P Assessment and plan (1) Para-ileostomy hernia: Status post hernia repair laparoscopically with adhesion lysis Status: Resolved Code(s): K94.19 - Other complications of enterostomy (2) Incarcerated hernia: See above, postoperative day #3 Status: Resolved Code(s): K46.0 - Unspecified abdominal hernia with obstruction, without gangrene (3) Small bowel obstruction: Resolved following surgery. Reintroducing diet. Tolerating well. Status: Resolved Code(s): K56.609 - Unspecified intestinal obstruction, unspecified as to partial versus complete obstruction (4) GERD (gastroesophageal reflux disease): Stable Status: Acute Code(s): K21.9 - Gastro-esophageal reflux disease without esophagitis (5) Chronic kidney disease: Acute on chronic kidney failure, improving Status: Acute Code(s): N18.9 - Chronic kidney disease, unspecified (6) Insulin dependent type 2 diabetes mellitus: Sliding scale insulin Status: Acute Code(s): E11.9 - Type 2 diabetes mellitus without complications; Z79.4 - care home (current) use of insulin (7) Hyperlipidemia: Status: Acute Code(s): E78.5 - Hyperlipidemia, unspecified (8) Hypertension: Stable Status: Acute Code(s): I10 - Essential (primary) hypertension (9) H/O ileostomy: Status: Acute Code(s): Z98.890 - Other specified postprocedural states Additional A&P Information Anemia. Status post transfusion. Now appears stable Hypokalemia, supplemented this morning by surgery Heparin for DVT prophylaxis Attestations Medical Necessity Statement*: Needs continued hospitalization for close monitoring following hernia surgery. Likely DC tomorrow. Coding Level of Care Code Acute Granulating Machine Operator for [facility] Fwd Diagnoses Para-ileostomy hernia K94.19 Incarcerated hernia K46.0 Small bowel obstruction K56.609 GERD (gastroesophageal reflux disease) K21.9 Chronic kidney disease N18.9 Insulin dependent type 2 diabetes mellitus E11.9; Z79.4 Hyperlipidemia E78.5 Hypertension I10 H/O ileostomy Z98.890
[2019-05-08 20:46] LABS: Glucose Point of Care 179 mg/dL (70-110)
[2019-05-09] MEDS: heparin 5,000 unit/mL INJ 1 mL 5000 UNIT SUBCUT (01:01)
[2019-05-09 05:00] VITALS: BP 112/68; PULSE 75; RESP 18; TEMP 36.9; O2SAT 92
[2019-05-09 06:57] LABS: Basophils % 0.2 %; Eosinophils % 0.6 %; Hematocrit 25.2 % (42.0-52.0); Hemoglobin 8.3 g/dL (11.7-16.6); Lymphocytes # 1.1 10^3/uL (0.8-4.8); Lymphocytes % 17.1 %; Mean Corpuscular HGB Conc 32.9 g/dL (30.0-36.0); Mean Corpuscular Hemoglobin 32.2 pg (28.0-34.0); Mean Corpuscular Volume 97.7 fL (80-94); Monocytes # 0.9 10^3/uL (0.2-0.9); Monocytes % 13.2 %; Neutrophils # 4.3 10^3/uL (1.8-7.7); Neutrophils % 67.5 %; Nucleated Red Blood Cells % 0.3 %; Platelet Count 168 10^3/cmm (130-400); Red Blood Count 2.58 10^6/uL (4.1-5.3); Red Cell Distribution Width 14.8 % (12.1-15.1); White Blood Count 6.4 10^3/uL (4.0-10.0)
[2019-05-09 07:08] LABS: Anion Gap 16.7 (5-19); Blood Urea Nitrogen 28 mg/dL (8-23); Calcium 8.7 mg/dL (8.5-10.5); Carbon Dioxide 23 mmol/L (22-29); Chloride 102 mmol/L (98-107); Glucose 126 mg/dL (65-115); Magnesium 1.7 mg/dL (1.7-2.3); Osmolality Calculated 285 mOsm/kg (285-295); Potassium 3.7 mmol/L (3.5-5.1); Sodium 138 mmol/L (136-145)
[2019-05-09 07:12] LABS: Glucose Point of Care 194 mg/dL (70-110)
[2019-05-09 07:14] LABS: Glucose Point of Care 113 mg/dL (70-110)
[2019-05-09 07:52] VITALS: BP 131/68; PULSE 72; RESP 18; TEMP 37.2; O2SAT 96
[2019-05-09] MEDS: sennosides-docusate Tablet 1 TAB PO (08:30)
[2019-05-09] MEDS: dilTIAZem 60 mg Tablet PO (08:30)
[2019-05-09] MEDS: docusate sodium 100 mg Capsule PO (08:30)
--- NOTE | 2019-05-09 09:14 | PM.DCS ---
Discharge Providers Date of Admission: 05/04/19 23:35 Date of Discharge: May 09, 2019 Attending Provider at Admission: Murphy Mcgarry MD Attending Provider at Discharge: Amado Ely MD Primary Care Provider: Alicia Barrera DO Diagnoses at Discharge Discharge Diagnosis (1) Para-ileostomy hernia: Status: Resolved Problem details: Postoperative surgical repair, by Dr. Lay. Now tolerating p.o. feedings without difficulty. (2) Incarcerated hernia: Status: Resolved Problem details: See above (3) Small bowel obstruction: Status: Resolved Problem details: See above (4) GERD (gastroesophageal reflux disease): Status: Acute Problem details: Continue home medication (5) Chronic kidney disease: Status: Acute Problem details: Renal function stable (6) Insulin dependent type 2 diabetes mellitus: Status: Acute Problem details: Bring list of blood sugars to primary care provider (7) Hyperlipidemia: Status: Acute Problem details: Continue current meds (8) Hypertension: Status: Acute Problem details: Continue current medications (9) H/O ileostomy: Status: Acute Reason for Visit Reason for Visit: Reason For Visit: abd pain Hospital Course Hospital Course: Elpidio is a 78-year-old white male who presented to the hospital with a small bowel obstruction, right parastomal hernia. He was placed on hydration, and surgical consultation was obtained. Surgery performed hernia reduction and repair, laparoscopic lysis of adhesions, on May 05. Postoperatively patient required 1 unit of blood secondary to anemia. He steadily progressed as far as his ability to tolerate p.o. intake and was discharged on May 09. Physical Exam Narrative: EXAM NARRATIVE: General exam no apparent distress Cardiovascular regular in rhythm without murmur Lungs clear Abdomen is soft, stoma pink and viable. Stool in bag. Extremities no cyanosis clubbing or edema Urinary Catheter Management^: Galaviz Latex: Cath Placed During This Visit: yes, but has since been removed by the nurse Urethral Indwelling: No Reason for Continuing Indwelling Catheter: Acute Urinary Retention or Obstruction Urinary Catheter Date of Insertion: 05/05/19 Urinary Catheter Time of Insertion: 15:45 Date Urinary Catheter Removed: 05/08/19 Time Urinary Catheter Discontinued: 12:42 Discharge Data Data Completed and Pending: Completed Studies During Hospitalization Category Date Time Status CT abdomen pelvis wo con [id number] Urge nt Cat Scan 05/04/19 19:50 Completed XR chest 1V sita ble [id number] Routine Exams 05/05/19 01:06 Completed XR chest 1V sita ble [id number] Stat Exams 05/05/19 11:40 Completed XR chest 1V sita ble [id number] Stat Exams 05/05/19 12:12 Completed Labs from last 24 hours 05/09/19 05/09/19 05/09/19 07:12 06:32 06:32 WBC 6.4 RBC 2.58 L Hgb 8.3 L Hct 25.2 L MCV 97.7 H MCH 32.2 MCHC 32.9 RDW 14.8 Plt Count 168 MPV 10.0 Neut % (Auto) 67.5 Lymph % (Auto) 17.1 [place] % (Auto) 13.2 Eos % (Auto) 0.6 Baso % (Auto) 0.2 Neut # (Auto) 4.3 Lymph # (Auto) 1.1 [place] # (Auto) 0.9 Eos # (Auto) 0.0 Baso # (Auto) 0.0 Nucleated RBC % (a uto) 0.3 Nucleated RBCs # 0.0 Sodium 138 Potassium 3.7 Chloride 102 Carbon Dioxide 23 Anion Gap 16.7 BUN 28 H Creatinine 1.3 H Glucose 126 H POC Glucose 113 Calculated Osmolal ity 285 Calcium 8.7 Magnesium 1.7 05/08/19 05/08/19 05/08/19 23:08 20:43 16:56 WBC RBC Hgb Hct MCV MCH MCHC RDW Plt Count MPV Neut % (Auto) Lymph % (Auto) [place] % (Auto) Eos % (Auto) Baso % (Auto) Neut # (Auto) Lymph # (Auto) [place] # (Auto) Eos # (Auto) Baso # (Auto) Nucleated RBC % (a uto) Nucleated RBCs # Sodium Potassium Chloride Carbon Dioxide Anion Gap BUN Creatinine Glucose POC Glucose 194 179 153 Calculated Osmolal ity Calcium Magnesium 05/08/19 05/08/19 11:00 08:54 WBC RBC Hgb Hct MCV MCH MCHC RDW Plt Count MPV Neut % (Auto) Lymph % (Auto) [place] % (Auto) Eos % (Auto) Baso % (Auto) Neut # (Auto) Lymph # (Auto) [place] # (Auto) Eos # (Auto) Baso # (Auto) Nucleated RBC % (a uto) Nucleated RBCs # Sodium 139 Potassium 3.0 L Chloride 100 Carbon Dioxide 25 Anion Gap 17.0 BUN 36 H Creatinine 1.6 H Glucose 174 H POC Glucose 211 Calculated Osmolal ity 290 Calcium 8.7 Magnesium Vitals: Last Vital Signs Temp 99.0 F 05/09/19 07:52 Pulse 72 05/09/19 07:52 Resp 18 05/09/19 07:52 BP 131/68 05/09/19 07:52 Pulse Ox 96 05/09/19 07:52 Discharge Plan Discharge Patient Disposition: Home Health Service Condition: Stable Prescriptions: [place] 5-325 mg tablet 1 tab PO Q6H 7 Days Qty: 20 RF: 0 Continued aspirin [Adult Low Dose Aspirin] 81 mg tablet,delayed release (DR/EC) 81 mg PO BEDTIME RF: 0 diltiazem HCl [Cardizem LA] 180 mg tablet extended release 24 hr 180 mg PO BEDTIME RF: 0 chlorthalidone 25 mg tablet 25 mg PO BEDTIME RF: 0 rosuvastatin [Crestor] 10 mg tablet 5 mg PO BEDTIME RF: 0 Humulin N NPH Insulin KwikPen 100 unit/mL (3 mL) insulin pen 20 unit SUBCUT BID RF: 0 pantoprazole [Protonix] 40 mg tablet,delayed release (DR/EC) 40 mg PO DAILY RF: 0 (DME) Accu-Chek Guide Strip See Rx Instructions .ROUTE .MEDSUPPLY Qty: 50 RF: 3 acetaminophen 500 mg Tablet 500 mg PO Q6H RF: 0 multivitamin Tablet 1 tab PO DAILY RF: 0 ascorbic acid (vitamin C) [Vitamin C] 1,000 mg Tablet 1,000 mg PO 1315 RF: 0 cyanocobalamin (vitamin B-12) [Vitamin B-12] 1,000 mcg Tablet 1,000 mcg PO 1315 RF: 0 amlodipine 10 mg Tablet 10 mg PO BEDTIME RF: 0 vitamin B complex Tablet 1 tab PO 1830 RF: 0 magnesium 250 mg Tablet 250 mg PO BIDWM RF: 0 vitamin E 400 unit Capsule 400 unit PO DAILY RF: 0 cholecalciferol (vitamin D3) [Vitamin D3] 2,000 unit Tablet 2,000 unit PO 1830 RF: 0 vitamin A 2,400 mcg PO 1830 RF: 0 Discontinued lisinopril 40 mg Tablet 40 mg PO DAILY RF: 0 Discharge Orders: Discharge Order (Routine); Ordered 05/09/19 Ordered By: Amado Ely Referrals: [facility] [Outside] Nishant Lay MD [Physician] - 2 weeks Alicia Barrera DO [Primary Care Provider] - 4-7 days Discharge Diet: GI Soft Discharge Activity: Increase activity as tolerated Activity Restrictions/Additional Instructions: Take all medicine as prescribed. Discharge Attestations Time Spent in Discharge Care*: greater than 30 min Quality Metrics Clinical Quality Measures During this hospital stay, did patient experience: None Coding Level of Care Code Acute Insurance Account Representative for [facility] Fwd Diagnoses Para-ileostomy hernia K94.19 Incarcerated hernia K46.0 Small bowel obstruction K56.609 GERD (gastroesophageal reflux disease) K21.9 Chronic kidney disease N18.9 Insulin dependent type 2 diabetes mellitus E11.9; Z79.4 Hyperlipidemia E78.5 Hypertension I10 H/O ileostomy Z98.890
[2019-05-09 09:44] VITALS: BP 131/68; PULSE 72; RESP 18; TEMP 37.2; O2SAT 96
--- NOTE | 2019-05-09 09:50 | PC.SOCIAL ---
IMM Updated Page 2 of IMM updated and given to patient. Initialed, dated, and timed and placed back in chart.
--- NOTE | 2019-05-09 10:25 | PC.NURSE ---
Discharge Discharge instructions given per physician's orders. Patient verbalized understanding and did not have any further questions.
[2019-05-09 11:25] VITALS: BP 128/75; PULSE 76; RESP 18; TEMP 36.8; O2SAT 98
[2019-05-09 12:03] LABS: Glucose Point of Care 217 mg/dL (70-110)
--- NOTE | 2019-05-09 12:08 | PC.NURSE ---
0800. Ostomy bag leaking. Former bag removed. Stoma beefy red, asymptomatic. Site cleansed and patted dry. Skin prep and new ostomy kit applied. Patient tolerated well.
--- NOTE | 2019-05-09 12:10 | PC.NURSE ---
Ostomy bag leaking. Former bag removed, site cleansed and patted dry. Skin prep and new ostomy kit applied. Patient tolerated well.
--- NOTE | 2019-05-09 12:11 | P.PN_ITS ---
Subjective Subjective: Interval history: Patient did well overnight, no nausea or vomiting, tolerating GI soft diet, had large ostomy output Vitals/I&O/Wt Last Vital Signs Temp 98.3 F 05/09/19 11:25 Pulse 76 05/09/19 11:25 Resp 18 05/09/19 11:25 BP 128/75 05/09/19 11:25 Pulse Ox 98 05/09/19 11:25 05/08/19 05/09/19 05/09/19 22:59 06:59 14:59 Intake Total 840 / 2950 360 / 360 Output Total 1225 / 2850 275 / 2850 Balance -385 / 100 -275 / 100 360 / 360 Physical Exam Narrative: EXAM NARRATIVE: Abdomen: Soft, nontender, nondistended incisions healing well, ostomy pink and functioning Urinary Catheter Management^: Galaviz Latex: Cath Placed During This Visit: yes, but has since been removed by the nurse Urethral Indwelling: No Reason for Continuing Indwelling Catheter: Acute Urinary Retention or Obstruction Urinary Catheter Date of Insertion: 05/05/19 Urinary Catheter Time of Insertion: 15:45 Date Urinary Catheter Removed: 05/08/19 Time Urinary Catheter Discontinued: 12:42 Data : 05/09/19 06:32 05/09/19 06:32 A&P Assessment and plan (1) History of hernia repair: Doing well Follow-up 2 weeks Status: Resolved Code(s): Z98.890 - Other specified postprocedural states; Z87.19 - Personal history of other diseases of the digestive system Attestations Medical Necessity Statement*: DC home today Coding Level of Care Code Acute [employer] Practitioner for Stephanie Mazariegos Diagnoses History of hernia repair Z98.890; Z87.19
== END 2019-05-09 12:30 | disposition home health service (06) | DRG 336 ==
LOC: ER 19:55 → MEDSURG 23:43
PROVIDERS: Student in an Organized Health Care Education/Training Program; Surgery; Admitting Provider Family Medicine; Emergency Provider Emergency Medicine; Family Provider Family Medicine; PCP Family Medicine; Visit Provider Internal Medicine
PROC: 0WQF4ZZ Repair Abdominal Wall, Percutaneous Endoscopic Approach (ICD-10-PCS; principal; 2019-05-05 14:15)
DX: K43.5 Parastomal hernia without obstruction or gangrene (principal); K56.609 Unspecified intestinal obstruction, unspecified as to partial versus complete obstruction; C34.31 Malignant neoplasm of lower lobe, right bronchus or lung; C21.0 Malignant neoplasm of anus, unspecified; K57.80 Diverticulitis of intestine, part unspecified, with perforation and abscess without bleeding; D62 Acute posthemorrhagic anemia; K21.9 Gastro-esophageal reflux disease without esophagitis; E11.22 Type 2 diabetes mellitus with diabetic chronic kidney disease; I12.9 Hypertensive chronic kidney disease with stage 1 through stage 4 chronic kidney disease, or unspecified chronic kidney disease; Z79.4 Long term (current) use of insulin; E78.5 Hyperlipidemia, unspecified; Z79.82 Long term (current) use of aspirin; E87.6 Hypokalemia; N18.3 Chronic kidney disease, stage 3 (moderate); Z92.21 Personal history of antineoplastic chemotherapy; Z92.3 Personal history of irradiation; Z87.891 Personal history of nicotine dependence
CPT/HCPCS: 12345; 36415; 36416; 51702; 71045; 74176; 80048; 80053; 80069; 81003; 82962; 83540; 83550; 83690; 83735; 84100; 84132; 85025; 85730; 86850; 86900; 94664; 96372; 96374; 96375; 99284; C1713; C9290; J0330; J0690; J1170; J1644; J1756; J1815; J2060; J2270; J2370; J2405; J2704; J2710; J3010; J3480; J3490; J7030; J7040; P9016; S0030

== ENCOUNTER 2019-05-26 09:14 | Outpatient (CLI) | payer MEDICARE, SELFPAY ==
[2019-05-26 09:57] LABS: Basophils % 0.2 %; Eosinophils # 0.1 10^3/uL (0.0-0.8); Eosinophils % 1.6 %; Hematocrit 31.5 % (42.0-52.0); Lymphocytes # 0.9 10^3/uL (0.8-4.8); Mean Corpuscular HGB Conc 31.7 g/dL (30.0-36.0); Mean Corpuscular Hemoglobin 32.4 pg (28.0-34.0); Mean Corpuscular Volume 101.9 fL (80-94); Mean Platelet Volume 9.4 fL (7.4-10.4); Monocytes # 0.7 10^3/uL (0.2-0.9); Monocytes % 15.1 %; Neutrophils # 2.8 10^3/uL (1.8-7.7); Neutrophils % 62.9 %; Nucleated Red Blood Cells % 0 %; Platelet Count 308 10^3/cmm (130-400); Red Blood Count 3.09 10^6/uL (4.1-5.3); Red Cell Distribution Width 15.8 % (12.1-15.1); White Blood Count 4.5 10^3/uL (4.0-10.0)
[2019-05-26 10:09] LABS: Alanine Aminotransferase 15 U/L (0-41); Albumin Level 3.6 g/dL (3.5-5.2); Alkaline Phosphatase 74 IU/L (40-130); Anion Gap 16.8 (5-19); Aspartate Amino Transferase 23 U/L (0-40); Blood Urea Nitrogen 26 mg/dL (8-23); Calcium 9.4 mg/dL (8.5-10.5); Carbon Dioxide 25 mmol/L (22-29); Chloride 101 mmol/L (98-107); Globulin 3.3 g/dL (1.3-4.6); Glucose 102 mg/dL (65-115); Potassium 3.8 mmol/L (3.5-5.1); Sodium 139 mmol/L (136-145); Total Bilirubin 0.6 mg/dL (0.15-1.2); Total Protein 6.9 g/dL (6.6-8.7)
--- NOTE | 2019-05-26 11:00 | ONC FU_ITS ---
Dr. 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 He subsequently had biopsy-proven recurrent disease in lung. He has multiple medical problems including insulin dependent diabetes and hypertension. He has a prior history of perforated diverticulitis, status post Judd's procedure in 2010 followed by unsuccessful colostomy revision due to significant bowel stricture, requiring ileostomy placement in 2011. The patient had presented with a three-month history of anal pruritis, irritation, pain and occasional bleeding. His anoscopy under anesthesia on 04/21/13 showed 4 x 3 cm mass firmly adherent to the anal wall at 9 -12 o'clock position extending from anal verge to 4 cm. The biopsy revealed squamous cell carcinoma with basilar growth pattern. He was first seen by Dr. Montague on 05/08/13. He had significant renal insufficiency with GFR of about 40 mg/dL. PET/CT on 05/17/13 showed an uptake in the anal region and the right inguinal nodes with SUV of 13.8. Thus, clinical stage IIIB (T2, N2, M0). HIV screen was negative. Concurrent radiation treatment together with mitomycin and infusional 5-FU was initiated on 05/25/13. Day 29 on 06/19/2013 was complicated with significant hematological toxicities including neutropenic fever, anemia, thrombocytopenia, and diarrhea. He eventually completed 5400 cGy radiation treatment on 07/18/2013. He established care with a [employer] for the renal insufficiency. PET/CT on 11/15/2013 showed a complete response to treatment. He underwent endoscopy on 05/28/14 which was negative for recurrent disease. The patient presented with a small bowel obstruction in September of 2014. A CT of the abdomen and pelvis on 10/06/2014 showed parastomal hernia which improved and resolved with mechanical manipulation. However, the patient was found to have an asymptomatic right lower lobe nodule. PET/CT was performed on 01/05/2015, concerning for malignant disease. It showed 2 FDG positive pulmonary nodules, 1.1 cm in the left upper lobe and 1.0 cm in the right lower lobe. An open excisional wedge biopsy of the right lower lobe nodule on 04/08/2015 revealed 1.5 cm poorly differentiated squamous cell carcinoma, completely excised. A post-operative CT of the chest, abdomen, and pelvis on 04/24/2014 showed smaller left upper lobe pulmonary nodule measuring 12 mm. There was no disease progression in the abdomen. The patient completed SBRT to the left upper lobe lesion on 05/22/2015. A follow-up CT of the chest, abdomen, and pelvis on 07/31/2015 showed decrease in the left upper lobe nodule down to 10 mm, but there was new interstitial opacity surrounding it which was nonspecific. Restaging CT of the chest performed on 11/05/2015 showed left upper lobe bandlike patchy groundglass attenuation, which appeared more consolidated, but with similar extent. Primary consideration felt to be progression of post therapeutic change or subsegmental atelectasis. There were no definite findings of disease progression in the chest. Restaging CT of the chest performed on 02/11/2016 showed a very minimal increase in the soft tissue in the left apex at the postsurgical and post radiation site. There was no adenopathy noted. CT scan of chest abdomen pelvis done on 10/28/2017 showed postoperative changes of rectosigmoid region of colon. Right lower quadrant loop ileostomy and with parastomal herniation of small ball and postradiation changes left upper lobe of lung stable from 11/19/2016. Postoperative changes right lower lobe Healed left third sixth rib fracture and ununited remote left seventh and eighth rib fractures. CT scan of the chest without contrast done on 11/22/2018 showed stable left upper lobe area fibrosis and consolidation over multiple prior studies dating back to 11/19/2016, No recurrent mass or new nodule in the lungs and no adenopathy in the chest abdomen or pelvis. 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 No metastatic disease to the liver or adrenal gland .Recently diagnosed with renal insufficiency now being followed by [employer]. Came for follow-up, complaining of generalized weakness and fatigue, no melena or hematochezia, no nausea or vomiting, no hemoptysis or hematemesis, no jaundice, chronic muscle skeleton pain. Colostomy bag is functioning fine. No palpitation or shortness of breath at rest.taking B12 supplement home. But not taking oral iron . Medications: Acetaminophen 1 (325 mg) Tablet Oral PRN, amLODIPine Besylate 1 Tablet (of 10 mg) Oral daily, Aspirin 1 Tablet (of 81 mg) Tablet, chewable Oral at bedtime, CeleBREX 1 Capsule (of 200 mg) Oral daily, [facility] Vitamin E 1 (1000 Units) Capsule Oral daily, Daily Vitamin 1 Tablet Oral daily, DiltiaZEM HCl ER 1 Tablet (of 180 mg) Capsule SR 12 HR Oral daily, HumuLIN N 20 Units Subcutaneous daily PRN, Magnesium Tablet Oral daily, Protonix Tablet, enteric coated Oral daily, Vitamin A 1 (06879 Units) Tablet Oral daily, Vitamin B-12 Tablet Oral daily, Vitamin C 1 Capsule (of 500 mg) Oral daily, Vitamin D3 1 Tablet (of 1000 Units) Capsule Oral b.i.d. Allergies: No Known Allergies. Review of Systems: Constitutional - His energy level is good. His appetite is good and weight is stable. No fever, chills, hot flashes, or night sweats, ENMT - He has sinus congestion/drainage. No mouth sores. No sore throat or difficulty swallowing, Hematologic/Lymphatic - No abnormal bruising or bleeding, Respiratory - He has shortness of breath with exertion. No cough. No pleuritic pain, Cardiovascular - No angina pain, Gastrointestinal - No nausea or vomiting. No heartburn or acid reflux. Pt has colostomy, Genitourinary (M) - No dysuria or hematuria. No urinary frequency. No urgency or incontinence, Musculoskeletal - No joint or bone pain, Neurologic - No headache or dizziness. He has neuropathy in his feet, Psychiatric - No anxiety or depression. No insomnia. Vital Signs: Performed on May 26, 2019 10:26 Height - 70.00 in Weight - 171.0 lbs (LOW) BSA - 1.95 sq.m BMI - 24.54 Temperature - 97.8 F (LOW) Pulse - 97 /min Respiration - 24 /min BP - 112/66 mm(hg) O2 Sat - 100 % Pain - 5 Performance Status: 0 - Fully active, able to carry on all predisease activities without restrictions. (ECOG) Physical Examination: ENMT - No oral exudates, ulcers, masses, thrush or mucositis. Oropharynx clear. Tongue normal, Respiratory - Lungs are clear to auscultation without rhonchi or wheezing, Cardiovascular - Regular rate and rhythm of heart, Abdomen - Non-tender, non-distended, no masses, . Good bowel sounds. No guarding or rebound tenderness. No pulsatile masses., colostomy bag functioning fine, Extremities - no edema. Lab/Imaging: Most recent lab results are not available for this patient. Impression: 1. Patient with squamous cell carcinoma of the anal canal, clinical stage IIIB (T2, N2, M0) at initial diagnosis in March 2013. He completed definitive chemotherapy and radiation treatment with infusional 5-FU and mitomycin from 05/25/13 to 07/18/13. It was complicated with significant hematological toxicities including neutropenic fever, anemia, thrombocytopenia, and by diarrhea and worsening renal disease. PET/CT on 11/15/13 showed complete response. 2. Right lower lobe squamous cell ca of lung. Restaging PET/CT on 01/05/2015 revealed 2 suspicious FDG positive pulmonary nodules. A wedge excisional biopsy of the right lower lobe nodule on 04/08/2014 confirmed poorly differentiated squamous cell carcinoma. 3. Repeat CT scans on 04/24/2014 showed single left upper lobe pulmonary nodule measuring 12 mm and no disease progression in the abdomen/pelvis. He received SBRT to the left lung lesion on 05/22/2015. He has since then been followed on observation. CT scan of Chest abdomen pelvis done on 11/19/2016 showed no new changes except subacute left third through eighth rib fractures compared to CT scan on 06/02/2016 otherwise no new lesion seen His other medical illnesses include: 4. Hypertension. 5. Hyperlipidemia. 6. Type II diabetes, insulin-dependent. 7. Chronic kidney disease. 8. GERD. 9. Degenerative arthritis. 10. He underwent a Camarena's procedure for perforated diverticulitis in 2010. He required ileostomy placement 2011 following unsuccessful colostomy revision. Overall, his clinical status remains stable with no evidence of further progression of the anal canal cancer. CT scan of the chest done on 11/08/2017 showed postradiation changes left upper lobe and right lower lobe, stable from 11/19/2016 healed left third through sixth rib fractures and unUnited remote left seventh and eighth rib fractures, extensive thoracic and upper lumbar spondylosis and intervertebral osteochondrosis with associated spinal canal encroachment at T8 and L1-L2 .Macrocytic anemia etiology unclear could be B12 deficiency or considering his age early myelodysplasia cannot be ruled out. CT scan of chest done without contrast on 11/22/2018 showed stable left upper lobe area fibrosis and consolidation probably posttreatment fibrosis No recent mass or new nodule in the lungs No adenopathy in the chest abdomen pelvis, no metastatic disease to the liver or adrenal glands. Mild renal insufficiency, now being followed by nephrology. 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 No obstruction. Plan: Discussed with patient regarding his labs white blood count 4.5 hemoglobin 10 g compared to 12.3 g on 11/22/2018 crit 31.5 platelets 300,000 MCV 101.9 Clinically, patient is doing well now with generalized weakness and fatigue could be due to progressive anemia, his follow-up lab showed hemoglobin 10 g compared to 12.3 g in October 2018. Patient denies any evidence of gross bleeding or jaundice. Etiology could be multifactorial including anemia due to chronic renal insufficiency or considering his age underlying myelodysplasia cannot be ruled out or nutritional like iron or B12 deficiency. At this point we'll check his iron and B12 folic acid level reticulocyte count and if it shows deficiency consider supplements, patient is on oral B12 supplements and used to take iron before but not in recent past. We will also schedule him for follow-up CT scan of chest abdomen, and pelvis patient has history of lung cancer and anal cancer, Return to clinic in one month with CT scan of chest abdomen pelvis and CBC. If his anemia workup shows deficiency we'll call him for supplements. Signed By: Gita Ariza M.D. <<Signature on File>>
[2019-05-26 11:53] LABS: Ferritin 750 ng/mL (30-400); Iron 44 ug/dL (59-158); Percent Saturation 20.5 % (20-50); Total Iron Binding Capacity 214 mcg/dl; Unsaturated Iron Binding 170 ug/dL (112-347)
[2019-05-26 12:10] LABS: Vitamin B12 1773 pg/mL (232-1245)
== END 2019-05-26 09:15 | disposition home or self-care (01) ==
LOC: ONCMED 09:15
PROVIDERS: Family Provider Family Medicine; PCP Family Medicine; Visit Provider Internal Medicine Hematology & Oncology
DX: Z08 Encounter for follow-up examination after completed treatment for malignant neoplasm (principal); Z85.048 Personal history of other malignant neoplasm of rectum, rectosigmoid junction, and anus; E11.22 Type 2 diabetes mellitus with diabetic chronic kidney disease; I12.9 Hypertensive chronic kidney disease with stage 1 through stage 4 chronic kidney disease, or unspecified chronic kidney disease; N18.2 Chronic kidney disease, stage 2 (mild); D64.9 Anemia, unspecified; Z79.4 Long term (current) use of insulin; Z79.82 Long term (current) use of aspirin; Z93.2 Ileostomy status; Z90.2 Acquired absence of lung [part of]; Z92.3 Personal history of irradiation
CPT/HCPCS: 36415; 80053; 82607; 82728; 83540; 83550; 85025; 85045; G0463

== ENCOUNTER 2019-06-14 08:53 | Outpatient (CLI) | payer MEDICARE, SELFPAY ==
[2019-06-14 09:15] VITALS: BMI 28.6
--- NOTE | 2019-06-14 09:20 | ECG_ITS ---
NAME OF STUDY: LEXISCAN SESTAMIBI STRESS TEST INDICATION: [Shortness of Breath] Please note that this is a electrocardiogram portion of the Lexiscan sestamibi stress test. Perfusion imaging will be documented on a separate report. Data At baseline heart rate was noted to be 118 bpm. Baseline blood pressure noted to be 153/78 Target heart rate was 120. Maximum Heart rate achieved was 88. Maximum blood pressure achieved pia753/80 mmHg. Reason for, ending this test was completion of the stress protocol. Patient did not have any symptoms during this procedure Electrocardiogram Baseline atrial fibrillation with rapid response with no ST changes. Exercise EKG at peak exercise reveals Atrial fibrillation with no new ST changes . No cardiac arrhythmias noted. Conclusions 1. Electrocardiographic component of this cardiac stress test is negative for cardiac ischemia. 2. Please see separate report for report for the myocardial perfusion imaging Electronically Signed On 06-15-2019 12:12:33 CDT by Eli Day [id number]
--- NOTE | 2019-06-14 09:20 | NMCV_ITS ---
NM salvador perf SPECT r/s* [id number] Elpidio Hoffmann Age: 78 Gender: M : 1940 Exam Date: 06/14/2019 09:20 Ordering Phys: Willard Day MD ([email or web address]) Technologist: CHICA Norwood Exam Location: [facility] Indications: SOB STRESS TEST Please see separate stress test report in [facility] for full findings IMAGE PROTOCOL Rest/Stress 1 Lexiscan Day Radiopharmaceutical Dose (mCi) Administration Site Administered by Rest: Tc-99m 10.8 IV CHICA Norwood Sestamibi Stress:Tc-99m 32.7 IV CHICA Norwood Sestamibi Rest: 14-Jun-2019 60 Discovery 630 Stress: 14-Jun-2019 30 Discovery 630 0.4mg Lexiscan. Supine position only as patient was unable to lay prone. SPECT RESULTS Technical Quality: Excellent Raw Data Analysis: Normal Image Corrections: No attenuation or motion correction applied Summed Stress Score: 3 Summed Rest Score: 2 Summed Difference Score: 1 PERFUSION FINDINGS Small area of fixed perfusion defect noted in the apical region of the left ventricle suggestive of apical thinning artifact. FUNCTIONAL RESULTS (calculated via Gated SPECT) Stress Image LV EF (%): 73 Stress EDV (mL):80 TID: 0.89 Stress ESV (mL):22 Rest Image LV EF (%): 73 FUNCTIONAL FINDINGS: There is normal left ventricular systolic function. IMPRESSIONS Myocardial perfusion imaging is normal and low probability of obstructive coronary artery disease. EKG segment will be documented separately. Willard Day MD (Electronically Signed) Final Date: 15 June 2019 13:33 S
--- NOTE | 2019-06-14 11:23 | SUR.PREOP ---
Patient reports no pain or discomfort prior to the start of the procedure.
[2019-06-14] MEDS: regadenoson 0.4 Mg/5 ml Syringe IVP (11:26)
[2019-06-14 11:48] VITALS: BP 121/78; PULSE 77
== END 2019-06-14 08:54 | disposition home or self-care (01) ==
LOC: CDL 08:58
PROVIDERS: Family Provider Family Medicine; PCP Family Medicine; Visit Provider Internal Medicine Cardiovascular Disease
DX: R06.02 Shortness of breath (principal)
CPT/HCPCS: 78452; 93017; A9500; J2785

== ENCOUNTER 2019-06-21 14:28 | Outpatient (CLI) | payer MEDICARE, SELFPAY ==
--- NOTE | 2019-06-21 15:00 | USCV_ITS ---
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
== END 2019-06-21 14:29 | disposition home or self-care (01) ==
LOC: RAD 14:33
PROVIDERS: Family Provider Family Medicine; PCP Family Medicine; Visit Provider Internal Medicine Cardiovascular Disease
DX: I73.9 Peripheral vascular disease, unspecified (principal)
CPT/HCPCS: 93922

== ENCOUNTER 2019-06-23 12:27 | Outpatient (CLI) | payer MEDICARE, SELFPAY ==
--- NOTE | 2019-06-23 12:43 | CT_ITS ---
WS: [id number] CT scan of the chest With IV contrast, CT scan of the abdomen and pelvis with IV contrast and with oral contrast. Additional two-dimensional coronal and sagittal reconstruction was performed. 0 Clinical Data: LUNG CANCER Comparison: CT abdomen pelvis, 05/04/2019, CT chest abdomen pelvis, 11/22/2018. DLP: 2224.[address] scans at [facility] use at least one of these dose optimization techniques: automat ed exposure control; mA and/or kV adjustment per patient size (includes targeted exams where dose is matched to clinical indication); or iterative reconstruction. Findings: Chest: There is a left upper lobe mass which is approximately 2.0 x 3.3 cm unchanged. This probably represen ts residual fibrosis. The remainder of the lungs shows no nodules, masses or effusions. The heart size is normal with no pericardial effusion. There is coronary artery calcification. The tr achea bifurcates normally into the bronchi. The pulmonary arterial system and thoracic aorta demonstrate no abnormalities or dilatations. There is no axillary or significant mediastinal adenopathy. Thyroid gland shows normal enhancement. Abdomen/pelvis: The liver, spleen, adrenal glands and pancreas are normal. There are densely packed gallstones withi n the gallbladder. The kidneys show equal bilateral contrast excretion with small cortical cysts but no mass, hydronephr osis or renal calculi. The abdominal aorta is normal in size with calcification in the wall. No appendicitis or diverticulitis is seen. Oral contrast is in small bowel and there is no bowel dila tation. In the subcutaneous tissue of the lower right pelvis there is now fluid-containing structure measuring 16.06 cm. This may represent a postoperative seroma. This structure occupies the site of th e right lower quadrant ileostomy. There is no longer herniated bowel in this location. No adenopathy, ascites, mass, obstruction or free air is seen. The colon still retains fecal material. The bladder is unremarkable. No inguinal hernia is seen. The prostates enlarged with calcifications. The thoracic and lumbar spines demonstrate severe osteoarthritic change with multiple levels of degen erative disc disease. There is a right hip nail. CT/CT chest abd pel w con* Impression: 1. Development of fluid filled structure in the subcutaneous tissue of the righ t lower pelvis which may represent a seroma. 2. Right lower quadrant ileostomy is noted. 3. No change in spiculated left upper lobe mass which may represent fibrosis. 4. Cholelithiasis.
[2019-06-23] MEDS: iohexol 300 mg/mL 50 mL Btl PO (13:50)
[2019-06-23 14:21] LABS: Blood Urea Nitrogen 22 mg/dL (8-23)
[2019-06-23] MEDS: iodixanol 320 mg/mL 100mL Btl IV (14:30)
== END 2019-06-23 12:28 | disposition home or self-care (01) ==
LOC: RADWPI 12:33
PROVIDERS: Family Provider Family Medicine; PCP Family Medicine; Visit Provider Internal Medicine Hematology & Oncology
DX: C34.90 Malignant neoplasm of unspecified part of unspecified bronchus or lung (principal); K80.20 Calculus of gallbladder without cholecystitis without obstruction
CPT/HCPCS: 71260; 74177; 82565; 84520; Q9967

== ENCOUNTER 2019-06-28 11:45 | Outpatient (CLI) | payer MEDICARE, SELFPAY ==
[2019-06-28 15:41] LABS: Basophils % 0.4 %; Eosinophils # 0.1 10^3/uL (0.0-0.8); Eosinophils % 0.9 %; Hematocrit 32.9 % (42.0-52.0); Hemoglobin 10.4 g/dL (11.7-16.6); Lymphocytes # 1.1 10^3/uL (0.8-4.8); Lymphocytes % 19.3 %; Mean Corpuscular HGB Conc 31.6 g/dL (30.0-36.0); Mean Corpuscular Hemoglobin 31.5 pg (28.0-34.0); Mean Corpuscular Volume 99.7 fL (80-94); Mean Platelet Volume 9.5 fL (7.4-10.4); Monocytes # 0.6 10^3/uL (0.2-0.9); Monocytes % 10.3 %; Neutrophils # 3.7 10^3/uL (1.8-7.7); Neutrophils % 68.7 %; Nucleated Red Blood Cells % 0 %; Platelet Count 279 10^3/cmm (130-400); White Blood Count 5.4 10^3/uL (4.0-10.0)
[2019-06-28 16:11] LABS: Alanine Aminotransferase 12 U/L (0-41); Albumin Level 3.8 g/dL (3.5-5.2); Alkaline Phosphatase 69 IU/L (40-130); Anion Gap 20.8 (5-19); Aspartate Amino Transferase 22 U/L (0-40); Blood Urea Nitrogen 20 mg/dL (8-23); Calcium 9.3 mg/dL (8.5-10.5); Carbon Dioxide 20 mmol/L (22-29); Chloride 104 mmol/L (98-107); Globulin 3.2 g/dL (1.3-4.6); Glucose 165 mg/dL (65-115); Osmolality Calculated 292 mOsm/kg (285-295); Potassium 3.8 mmol/L (3.5-5.1); Sodium 141 mmol/L (136-145); Total Bilirubin 0.4 mg/dL (0.15-1.2)
[2019-06-28 16:36] LABS: Folate Level > 20.0 ng/mL (4.5-32.2)
== END 2019-06-28 11:46 | disposition home or self-care (01) ==
LOC: ONCMED 15:55
PROVIDERS: Family Provider Family Medicine; PCP Family Medicine; Visit Provider Internal Medicine Hematology & Oncology
DX: D64.9 Anemia, unspecified (principal); C78.02 Secondary malignant neoplasm of left lung; C21.1 Malignant neoplasm of anal canal; M15.9 Polyosteoarthritis, unspecified
CPT/HCPCS: 80053; 82746; 85025

== ENCOUNTER 2019-06-29 14:36 | Outpatient (CLI) | payer MEDICARE, SELFPAY ==
--- NOTE | 2019-06-29 16:10 | ONC FU_ITS ---
Dr. 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 He subsequently had biopsy-proven recurrent disease in lung. He has multiple medical problems including insulin dependent diabetes and hypertension. He has a prior history of perforated diverticulitis, status post Judd's procedure in 2010 followed by unsuccessful colostomy revision due to significant bowel stricture, requiring ileostomy placement in 2011. The patient had presented with a three-month history of anal pruritis, irritation, pain and occasional bleeding. His anoscopy under anesthesia on 04/21/13 showed 4 x 3 cm mass firmly adherent to the anal wall at 9 -12 o'clock position extending from anal verge to 4 cm. The biopsy revealed squamous cell carcinoma with basilar growth pattern. He was first seen by Dr. Montague on 05/08/13. He had significant renal insufficiency with GFR of about 40 mg/dL. PET/CT on 05/17/13 showed an uptake in the anal region and the right inguinal nodes with SUV of 13.8. Thus, clinical stage IIIB (T2, N2, M0). HIV screen was negative. Concurrent radiation treatment together with mitomycin and infusional 5-FU was initiated on 05/25/13. Day 29 on 06/19/2013 was complicated with significant hematological toxicities including neutropenic fever, anemia, thrombocytopenia, and diarrhea. He eventually completed 5400 cGy radiation treatment on 07/18/2013. He established care with a clinical quality manager for the renal insufficiency. PET/CT on 11/15/2013 showed a complete response to treatment. He underwent endoscopy on 05/28/14 which was negative for recurrent disease. The patient presented with a small bowel obstruction in September of 2014. A CT of the abdomen and pelvis on 10/06/2014 showed parastomal hernia which improved and resolved with mechanical manipulation. However, the patient was found to have an asymptomatic right lower lobe nodule. PET/CT was performed on 01/05/2015, concerning for malignant disease. It showed 2 FDG positive pulmonary nodules, 1.1 cm in the left upper lobe and 1.0 cm in the right lower lobe. An open excisional wedge biopsy of the right lower lobe nodule on 04/08/2015 revealed 1.5 cm poorly differentiated squamous cell carcinoma, completely excised. A post-operative CT of the chest, abdomen, and pelvis on 04/24/2014 showed smaller left upper lobe pulmonary nodule measuring 12 mm. There was no disease progression in the abdomen. The patient completed SBRT to the left upper lobe lesion on 05/22/2015. A follow-up CT of the chest, abdomen, and pelvis on 07/31/2015 showed decrease in the left upper lobe nodule down to 10 mm, but there was new interstitial opacity surrounding it which was nonspecific. Restaging CT of the chest performed on 11/05/2015 showed left upper lobe bandlike patchy groundglass attenuation, which appeared more consolidated, but with similar extent. Primary consideration felt to be progression of post therapeutic change or subsegmental atelectasis. There were no definite findings of disease progression in the chest. Restaging CT of the chest performed on 02/11/2016 showed a very minimal increase in the soft tissue in the left apex at the postsurgical and post radiation site. There was no adenopathy noted. CT scan of chest abdomen pelvis done on 10/28/2017 showed postoperative changes of rectosigmoid region of colon. Right lower quadrant loop ileostomy and with parastomal herniation of small ball and postradiation changes left upper lobe of lung stable from 11/19/2016. Postoperative changes right lower lobe Healed left third sixth rib fracture and ununited remote left seventh and eighth rib fractures. CT scan of the chest without contrast done on 11/22/2018 showed stable left upper lobe area fibrosis and consolidation over multiple prior studies dating back to 11/19/2016, No recurrent mass or new nodule in the lungs and no adenopathy in the chest abdomen or pelvis. 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 No metastatic disease to the liver or adrenal gland .Recently diagnosed with renal insufficiency now being followed by clinical quality manager. Follow-up CT scan of chest abdomen done on 06/23/2019 showed, no change in spiculated left upper lobe mass which may represent fibrosis. Right lower quadrant ileostomy, with chronic swelling due to subcutaneous seroma,, liver and adrenal glands are normal the visualized bone abnormality. Came for follow-up, denies any specific complaints, no fever or chills, no nausea or vomiting, no diarrhea constipation, no melena hematochezia, no palpitation or shortness of breath. . Medications: Acetaminophen 1 (325 mg) Tablet Oral PRN, amLODIPine Besylate 1 Tablet (of 10 mg) Oral daily, Aspirin 1 Tablet (of 81 mg) Tablet, chewable Oral at bedtime, CeleBREX 1 Capsule (of 200 mg) Oral daily, [employer] Vitamin E 1 (1000 Units) Capsule Oral daily, Daily Vitamin 1 Tablet Oral daily, DiltiaZEM HCl ER 1 Tablet (of 180 mg) Capsule SR 12 HR Oral daily, Furosemide 1 Tablet (of 20 mg) Oral daily, HumuLIN N 20 Units Subcutaneous daily PRN, Magnesium Tablet Oral daily, Protonix Tablet, enteric coated Oral daily, Vitamin A 1 (76330 Units) Tablet Oral daily, Vitamin B-12 Tablet Oral daily, Vitamin C 1 Capsule (of 500 mg) Oral daily, Vitamin D3 1 Tablet (of 1000 Units) Capsule Oral b.i.d. Allergies: No Known Allergies. Review of Systems: Review of Systems is not available for this patient. Vital Signs: Performed on Jun 29, 2019 14:45 Height - 70.00 in Weight - 169.2 lbs (LOW) BSA - 1.94 sq.m BMI - 24.28 Temperature - 97.8 F (LOW) Pulse - 82 /min Respiration - 24 /min BP - 104/67 mm(hg) O2 Sat - 99 % Pain - 0 Performance Status: 0 - Fully active, able to carry on all predisease activities without restrictions. (ECOG) Physical Examination: ENMT - No oral exudates, ulcers, masses, thrush or mucositis. Oropharynx clear. Tongue normal, Respiratory - Lungs, no wheezing, Extremities - no edema. Lab/Imaging: Test performed on May 26, 2019 09:22 Ferritin 750 ng/mL Iron 44 ug/dL Sodium 139 mmol/L Vitamin B12 1773 pg/mL Potassium 3.8 mmol/L Chloride 101 mmol/L CO2 25 mmol/L UIBC 170 ug/dL Anion Gap 16.8 BUN 26 mg/dL Creatinine 2.2 mg/dL Cr Clearance (Est) 32.2500 mL/min Glucose 102 mg/dL Calcium 9.4 mg/dL Protein, Total 6.9 g/dL Albumin 3.6 g/dL Globulin 3.3 g/dL Bilirubin, Total 0.6 mg/dL ALT (SGPT) 15 U/L AST (SGOT) 23 U/L Alkaline Phosphatase 74 IU/L WBC 4.5 10 3/uL RBC 3.09 10 6/uL HGB 10.0 g/dL HCT 31.5 % MCV 101.9 fL MCH 32.4 pg MCHC 31.7 g/dL RDW 15.8 % Platelet Count 308 10 3/cmm MPV 9.4 fL Neutrophils 2.8 10 3/uL Lymphocytes 0.9 10 3/uL Monocytes 0.7 10 3/uL Eosinophils 0.1 10 3/uL Basophils 0.0 10 3/uL Neutrophil % 62.9 % Lymphocyte % 20.0 % Monocyte % 15.1 % Eosinophil % 1.6 % Basophils % 0.2 % Impression: 1. Patient with squamous cell carcinoma of the anal canal, clinical stage IIIB (T2, N2, M0) at initial diagnosis in March 2013. He completed definitive chemotherapy and radiation treatment with infusional 5-FU and mitomycin from 05/25/13 to 07/18/13. It was complicated with significant hematological toxicities including neutropenic fever, anemia, thrombocytopenia, and by diarrhea and worsening renal disease. PET/CT on 11/15/13 showed complete response. 2. Right lower lobe squamous cell ca of lung. Restaging PET/CT on 01/05/2015 revealed 2 suspicious FDG positive pulmonary nodules. A wedge excisional biopsy of the right lower lobe nodule on 04/08/2014 confirmed poorly differentiated squamous cell carcinoma. 3. Repeat CT scans on 04/24/2014 showed single left upper lobe pulmonary nodule measuring 12 mm and no disease progression in the abdomen/pelvis. He received SBRT to the left lung lesion on 05/22/2015. He has since then been followed on observation. CT scan of Chest abdomen pelvis done on 11/19/2016 showed no new changes except subacute left third through eighth rib fractures compared to CT scan on 06/02/2016 otherwise no new lesion seen His other medical illnesses include: 4. Hypertension. 5. Hyperlipidemia. 6. Type II diabetes, insulin-dependent. 7. Chronic kidney disease. 8. GERD. 9. Degenerative arthritis. 10. He underwent a Camarena's procedure for perforated diverticulitis in 2010. He required ileostomy placement 2011 following unsuccessful colostomy revision. Overall, his clinical status remains stable with no evidence of further progression of the anal canal cancer. CT scan of the chest done on 11/08/2017 showed postradiation changes left upper lobe and right lower lobe, stable from 11/19/2016 healed left third through sixth rib fractures and unUnited remote left seventh and eighth rib fractures, extensive thoracic and upper lumbar spondylosis and intervertebral osteochondrosis with associated spinal canal encroachment at T8 and L1-L2 .Macrocytic anemia etiology unclear could be B12 deficiency or considering his age early myelodysplasia cannot be ruled out. CT scan of chest done without contrast on 11/22/2018 showed stable left upper lobe area fibrosis and consolidation probably posttreatment fibrosis No recent mass or new nodule in the lungs No adenopathy in the chest abdomen pelvis, no metastatic disease to the liver or adrenal glands. Mild renal insufficiency, now being followed by nephrology. 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 No obstruction. Plan: Discussed with patient regarding his labs white blood count 5.4 hemoglobin 10.4 crit 32.9 platelets 279,000 CMP within normal limit except creatinine 1.8 and glucose 165 and his ferritin was 750, iron 44 (normal 59 -158 . Vitamin B12 1773, and CT scan of chest abdomen findings which showed no evidence of recurrence of disease Clinically, patient is doing well now with was compensated mild anemia which could be multifactorial including, iron deficiency as his iron studies shows iron level 44 when his ferritin is 750 could be as acute phase reactant. Patient is on oral iron, as hemoglobin has gone up to 10.4 compared to 10 g on 05/26/2019. At this point we'll continue oral iron and monitor and return to clinic in 2 months with CBC and iron studies if there is no improvement and iron studies shows iron deficiency then we may consider parenteral iron. Otherwise as mentioned above, considering his age underlying myelodysplasia cannot be ruled out. Follow-up CT scan of chest abdomen was done as patient has history of non-small cell lung cancer CT scan showed no evidence of recurrence of disease. Next Patient return to clinic in 2 months with CBC and iron studies. Signed By: Gita Ariza M.D. <<Signature on File>>
== END 2019-06-29 14:37 | disposition home or self-care (01) ==
LOC: ONCMED 14:41
PROVIDERS: Family Provider Family Medicine; PCP Family Medicine; Visit Provider Internal Medicine Hematology & Oncology
DX: Z08 Encounter for follow-up examination after completed treatment for malignant neoplasm (principal); Z85.118 Personal history of other malignant neoplasm of bronchus and lung; D64.9 Anemia, unspecified; Z85.048 Personal history of other malignant neoplasm of rectum, rectosigmoid junction, and anus; I10 Essential (primary) hypertension; E78.5 Hyperlipidemia, unspecified; E11.22 Type 2 diabetes mellitus with diabetic chronic kidney disease; I12.9 Hypertensive chronic kidney disease with stage 1 through stage 4 chronic kidney disease, or unspecified chronic kidney disease; N18.9 Chronic kidney disease, unspecified; Z79.4 Long term (current) use of insulin; K21.9 Gastro-esophageal reflux disease without esophagitis; M19.90 Unspecified osteoarthritis, unspecified site; Z93.2 Ileostomy status
CPT/HCPCS: G0463

== ENCOUNTER 2019-07-21 08:33 | Outpatient (CLI) | payer MEDICARE, SELFPAY ==
--- NOTE | 2019-07-21 09:00 | CT_ITS ---
WS: [id number] CT ANGIOGRAPHY OF THE ABDOMINAL AORTA WITH RUNOFF TO THE ANKLES HISTORY: Abnormal ALO TECHNIQUE: Arterial injection is performed during imaging to evaluate the aorta and runoff vessels to the ankles. MIP and volume rendering imaging has also been performed. All images are reviewed. All C T scans at [facility] use at least one of these dose optimization techniques: automated ex posure control; mA and/or kV adjustment per patient size (includes targeted exams where dose is match ed to clinical indication); or iterative reconstruction. Contrast: Visipaque 320; 95 mL IV. DLP: 1384.11 mGycm COMPARISON: None available. Aorta: Mild scattered atherosclerotic plaque. No aneurysm or significant stenosis. Celiac axis, SMA a nd CATHRYN are patent. There is scattered calcification within the splenic artery and hepatic artery and branches of the mid to distal SMA. RIGHT lower extremity arterial system: Moderate plaque continues into the RIGHT common iliac artery. External iliac artery, femoral and superficial and popliteal arteries are patent. There is moderate s tenosis in the superficial femoral artery near Samir's canal. Increase in calcification near the dis kari popliteal artery and at the tibial peroneal trunk. There is significant calcification obscuring t he lumen involving all 3 arteries below the knee. RIGHT distal SFA stenosis 53%. LEFT lower extremity arterial system: Calcified plaque scattered within the common iliac artery. Exte rnal iliac artery is patent. Common femoral and superficial femoral artery contains various levels of calcification and luminal narrowing. No high-grade stenosis is evident. At the tibioperoneal trunk c alcific burden increases obscuring the lumen three-vessel runoff to the ankle. There are areas of hig h-grade stenosis likely. LEFT distal SFA stenosis 50%. No abnormality at the lung bases. Appearance of the liver similar to prior studies. Cholelithiasis wi thout acute cholecystitis. Atrophic pancreas. Kidneys are atrophic bilaterally but enhancing. No teresa opathy or ascites. Again noted is the large thick-walled fluid collection in the RIGHT lower quadrant ostomy site. Overall decreased in size since 06/23/2019. Parastomal benign fluid collection or absces s should be considered. Again decreased in size significantly since the prior examination. These find ings have been recently described on a prior CT of 06/23/2019. Large amount of soft tissue edema around the lower extremities. CT/CT angio abd aorta runof 32060 IMPRESSION: 1. Distal RIGHT SFA stenosis 53%. 2. Distal LEFT SFA stenosis 50%. 3. Significant bilateral areas of stenosis distal to the tibial peroneal trunk . Extensive plaque obscuring the lumen. Intermittently visualized tibial and pe roneal arteries below the knee. Anterior tibial arteries are both patent but sm all caliber below the knees. Posterior tibial and peroneal arteries are less we ll visualized secondary to stenoses and obscuring plaque.
[2019-07-21] MEDS: iodixanol 320 mg/mL 100mL Btl IV (09:08)
== END 2019-07-21 08:34 | disposition home or self-care (01) ==
LOC: RADWPI 08:37
PROVIDERS: Family Provider Family Medicine; PCP Family Medicine; Visit Provider Internal Medicine Cardiovascular Disease
DX: R94.39 Abnormal result of other cardiovascular function study (principal); I70.8 Atherosclerosis of other arteries
CPT/HCPCS: 75635; Q9967

== ENCOUNTER 2019-08-10 07:58 | Outpatient (CLI) | payer MEDICARE, SELFPAY | END 2019-08-10 07:59 | disposition home or self-care (01) | LOC: WOUND 08:00 | PROVIDERS: Family Provider Family Medicine; PCP Family Medicine; Visit Provider Nurse Practitioner Family | DX: S30.821A Blister (nonthermal) of abdominal wall, initial encounter (principal); X58.XXXA Exposure to other specified factors, initial encounter | CPT/HCPCS: 87070; 87077; 87186; 87205; 99214 ==

== ENCOUNTER 2019-08-17 08:23 | Outpatient (RCR) | payer OTHER, SELFPAY | END 2019-08-27 23:59 | disposition home or self-care (01) | LOC: WOUND 08:23 | PROVIDERS: Family Provider Family Medicine; PCP Family Medicine; Visit Provider Nurse Practitioner Family | DX: L98.491 Non-pressure chronic ulcer of skin of other sites limited to breakdown of skin (principal) | CPT/HCPCS: 99214; G0463 ==

== ENCOUNTER 2019-08-24 13:52 | Outpatient (CLI) | payer MEDICARE, SELFPAY | END 2019-08-24 13:53 | disposition home or self-care (01) | LOC: WOUND 13:53 | PROVIDERS: Family Provider Family Medicine; PCP Family Medicine; Visit Provider Nurse Practitioner Family | DX: I96 Gangrene, not elsewhere classified (principal); L98.491 Non-pressure chronic ulcer of skin of other sites limited to breakdown of skin | CPT/HCPCS: G0463 ==

== ENCOUNTER 2019-08-31 05:39 | Outpatient (RCR) | payer MEDICARE, SELFPAY ==
[2019-08-30 12:18] LABS: Basophils % 0.5 %; Eosinophils # 0.2 10^3/uL (0.0-0.8); Eosinophils % 3.1 %; Hematocrit 31.1 % (42.0-52.0); Hemoglobin 9.9 g/dL (11.7-16.6); Lymphocytes # 1.3 10^3/uL (0.8-4.8); Lymphocytes % 21.7 %; Mean Corpuscular HGB Conc 31.8 g/dL (30.0-36.0); Mean Corpuscular Hemoglobin 31.7 pg (28.0-34.0); Mean Corpuscular Volume 99.7 fL (80-94); Mean Platelet Volume 9.3 fL (7.4-10.4); Monocytes # 0.6 10^3/uL (0.2-0.9); Monocytes % 10.2 %; Neutrophils # 3.9 10^3/uL (1.8-7.7); Neutrophils % 64.2 %; Nucleated Red Blood Cells % 0 %; Platelet Count 216 10^3/cmm (130-400); Red Blood Count 3.12 10^6/uL (4.1-5.3); Red Cell Distribution Width 16.7 % (12.1-15.1); White Blood Count 6.1 10^3/uL (4.0-10.0)
[2019-08-30 13:39] LABS: Ferritin 350 ng/mL (30-400); Iron 56 ug/dL (59-158); Percent Saturation 24.3 % (20-50); Total Iron Binding Capacity 230 mcg/dl; Unsaturated Iron Binding 174 ug/dL (112-347)
--- NOTE | 2019-08-31 16:40 | ONC FU_ITS ---
Dr. 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 He subsequently had biopsy-proven recurrent disease in lung. He has multiple medical problems including insulin dependent diabetes and hypertension. He has a prior history of perforated diverticulitis, status post Judd's procedure in 2010 followed by unsuccessful colostomy revision due to significant bowel stricture, requiring ileostomy placement in 2011. The patient had presented with a three-month history of anal pruritis, irritation, pain and occasional bleeding. His anoscopy under anesthesia on 04/21/13 showed 4 x 3 cm mass firmly adherent to the anal wall at 9 -12 o'clock position extending from anal verge to 4 cm. The biopsy revealed squamous cell carcinoma with basilar growth pattern. He was first seen by Dr. Montague on 05/08/13. He had significant renal insufficiency with GFR of about 40 mg/dL. PET/CT on 05/17/13 showed an uptake in the anal region and the right inguinal nodes with SUV of 13.8. Thus, clinical stage IIIB (T2, N2, M0). HIV screen was negative. Concurrent radiation treatment together with mitomycin and infusional 5-FU was initiated on 05/25/13. Day 29 on 06/19/2013 was complicated with significant hematological toxicities including neutropenic fever, anemia, thrombocytopenia, and diarrhea. He eventually completed 5400 cGy radiation treatment on 07/18/2013. He established care with a advertising project manager for the renal insufficiency. PET/CT on 11/15/2013 showed a complete response to treatment. He underwent endoscopy on 05/28/14 which was negative for recurrent disease. The patient presented with a small bowel obstruction in September of 2014. A CT of the abdomen and pelvis on 10/06/2014 showed parastomal hernia which improved and resolved with mechanical manipulation. However, the patient was found to have an asymptomatic right lower lobe nodule. PET/CT was performed on 01/05/2015, concerning for malignant disease. It showed 2 FDG positive pulmonary nodules, 1.1 cm in the left upper lobe and 1.0 cm in the right lower lobe. An open excisional wedge biopsy of the right lower lobe nodule on 04/08/2015 revealed 1.5 cm poorly differentiated squamous cell carcinoma, completely excised. A post-operative CT of the chest, abdomen, and pelvis on 04/24/2014 showed smaller left upper lobe pulmonary nodule measuring 12 mm. There was no disease progression in the abdomen. The patient completed SBRT to the left upper lobe lesion on 05/22/2015. A follow-up CT of the chest, abdomen, and pelvis on 07/31/2015 showed decrease in the left upper lobe nodule down to 10 mm, but there was new interstitial opacity surrounding it which was nonspecific. Restaging CT of the chest performed on 11/05/2015 showed left upper lobe bandlike patchy groundglass attenuation, which appeared more consolidated, but with similar extent. Primary consideration felt to be progression of post therapeutic change or subsegmental atelectasis. There were no definite findings of disease progression in the chest. Restaging CT of the chest performed on 02/11/2016 showed a very minimal increase in the soft tissue in the left apex at the postsurgical and post radiation site. There was no adenopathy noted. CT scan of chest abdomen pelvis done on 10/28/2017 showed postoperative changes of rectosigmoid region of colon. Right lower quadrant loop ileostomy and with parastomal herniation of small ball and postradiation changes left upper lobe of lung stable from 11/19/2016. Postoperative changes right lower lobe Healed left third sixth rib fracture and ununited remote left seventh and eighth rib fractures. CT scan of the chest without contrast done on 11/22/2018 showed stable left upper lobe area fibrosis and consolidation over multiple prior studies dating back to 11/19/2016, No recurrent mass or new nodule in the lungs and no adenopathy in the chest abdomen or pelvis. 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 No metastatic disease to the liver or adrenal gland .Recently diagnosed with renal insufficiency now being followed by advertising project manager. Follow-up CT scan of chest abdomen done on 06/23/2019 showed, no change in spiculated left upper lobe mass which may represent fibrosis. Right lower quadrant ileostomy, with chronic swelling due to subcutaneous seroma,, liver and adrenal glands are normal the visualized bone abnormality. Came for follow-up, denies any specific complaint except infection around ileostomy stoma with Klebsiella and started on Levaquin by his PMD. Patient also complaining of off and on bleeding from stoma site but most the time in a small amount. No fever or chills, no nausea or vomiting, no diarrhea. No mouth sores. No jaundice. No shortness of breath or palpitation at rest. Overall doing reasonably well. . Medications: Acetaminophen 1 (325 mg) Tablet Oral PRN, amLODIPine Besylate 1 Tablet (of 10 mg) Oral daily, Aspirin 1 Tablet (of 81 mg) Tablet, chewable Oral at bedtime, CeleBREX 1 Capsule (of 200 mg) Oral daily, Cetirizine HCl 1 Tablet (of 10 mg) Oral daily, [facility] Vitamin E 1 (1000 Units) Capsule Oral daily, Daily Vitamin 1 Tablet Oral daily, DiltiaZEM HCl ER 1 Tablet (of 180 mg) Capsule SR 12 HR Oral daily, Ferrous Sulfate 1 Tablet (of 325 (65 fe) mg) Oral daily, Furosemide 1 Tablet (of 20 mg) Oral daily, HumuLIN N 20 Units Subcutaneous daily PRN, levoFLOXacin 1 Tablet (of 750 mg) Oral daily, Magnesium Tablet Oral daily, Protonix 1 (40 mg) Tablet, enteric coated Oral daily, Vitamin A 1 (02036 Units) Tablet Oral daily, Vitamin B Complex 1 Tablet Oral daily, Vitamin B-12 Tablet Oral daily, Vitamin C 1 Capsule (of 500 mg) Oral daily, Vitamin D3 1 Tablet (of 1000 Units) Capsule Oral b.i.d. Allergies: No Known Allergies. Review of Systems: Review of Systems is not available for this patient. Vital Signs: Performed on Aug 31, 2019 16:03 Height - 70.00 in Weight - 170.2 lbs (HIGH) BSA - 1.95 sq.m BMI - 24.42 Temperature - 97.4 F (LOW) Pulse - 71 /min Respiration - 22 /min BP - 112/63 mm(hg) O2 Sat - 100 % Pain - 3 Performance Status: 1 - No physically strenuous activity, but ambulatory and able to carry out light or sedentary work (e.g. office work, light house work). (ECOG) Physical Examination: ENMT - No mouth sores, no thrush, no jaundice, Respiratory - Lungs are clear, Cardiovascular - Regular rate and rhythm of heart, Abdomen - Ileostomy stoma shows mild erythema no pus or bleeding, bowel sounds present, abdomen is soft, Extremities - 1+ edema bilaterally,. Lab/Imaging: Test performed on Aug 30, 2019 11:10 Ferritin 350 ng/mL Iron 56 mcg/dL Iron Binding Capacity (TIBC) 230 mcg/dl % Iron Saturation 24.3 % UIBC 174 mcg/dL WBC 6.1 10 3/uL RBC 3.12 10 6/uL HGB 9.9 g/dL HCT 31.1 % MCV 99.7 fL MCH 31.7 pg MCHC 31.8 g/dL RDW 16.7 % Platelet Count 216 10 3/cmm MPV 9.3 fL Neutrophils 3.9 10 3/uL Lymphocytes 1.3 10 3/uL Monocytes 0.6 10 3/uL Eosinophils 0.2 10 3/uL Basophils 0.0 10 3/uL Neutrophil % 64.2 % Lymphocyte % 21.7 % Monocyte % 10.2 % Eosinophil % 3.1 % Basophils % 0.5 % Test performed on Jun 28, 2019 11:45 Sodium 141 mmol/L Potassium 3.8 mmol/L Chloride 104 mmol/L CO2 20 mmol/L Anion Gap 20.8 BUN 20 mg/dL Creatinine 1.8 mg/dL Cr Clearance (Est) 39.4100 mL/min Glucose 165 mg/dL Calcium 9.3 mg/dL Protein, Total 7.0 g/dL Albumin 3.8 g/dL Globulin 3.2 g/dL Bilirubin, Total 0.4 mg/dL ALT (SGPT) 12 U/L AST (SGOT) 22 U/L Alkaline Phosphatase 69 IU/L Test performed on May 26, 2019 09:22 Vitamin B12 1773 pg/mL Impression: 1. Patient with squamous cell carcinoma of the anal canal, clinical stage IIIB (T2, N2, M0) at initial diagnosis in March 2013. He completed definitive chemotherapy and radiation treatment with infusional 5-FU and mitomycin from 05/25/13 to 07/18/13. It was complicated with significant hematological toxicities including neutropenic fever, anemia, thrombocytopenia, and by diarrhea and worsening renal disease. PET/CT on 11/15/13 showed complete response. 2. Right lower lobe squamous cell ca of lung. Restaging PET/CT on 01/05/2015 revealed 2 suspicious FDG positive pulmonary nodules. A wedge excisional biopsy of the right lower lobe nodule on 04/08/2014 confirmed poorly differentiated squamous cell carcinoma. 3. Repeat CT scans on 04/24/2014 showed single left upper lobe pulmonary nodule measuring 12 mm and no disease progression in the abdomen/pelvis. He received SBRT to the left lung lesion on 05/22/2015. He has since then been followed on observation. CT scan of Chest abdomen pelvis done on 11/19/2016 showed no new changes except subacute left third through eighth rib fractures compared to CT scan on 06/02/2016 otherwise no new lesion seen His other medical illnesses include: 4. Hypertension. 5. Hyperlipidemia. 6. Type II diabetes, insulin-dependent. 7. Chronic kidney disease. 8. GERD. 9. Degenerative arthritis. 10. He underwent a C[place]rena's procedure for perforated diverticulitis in 2010. He required ileostomy placement 2011 following unsuccessful colostomy revision. Overall, his clinical status remains stable with no evidence of further progression of the anal canal cancer. CT scan of the chest done on 11/08/2017 showed postradiation changes left upper lobe and right lower lobe, stable from 11/19/2016 healed left third through sixth rib fractures and unUnited remote left seventh and eighth rib fractures, extensive thoracic and upper lumbar spondylosis and intervertebral osteochondrosis with associated spinal canal encroachment at T8 and L1-L2 .Macrocytic anemia etiology unclear could be B12 deficiency or considering his age early myelodysplasia cannot be ruled out. CT scan of chest done without contrast on 11/22/2018 showed stable left upper lobe area fibrosis and consolidation probably posttreatment fibrosis No recent mass or new nodule in the lungs No adenopathy in the chest abdomen pelvis, no metastatic disease to the liver or adrenal glands. Mild renal insufficiency, now being followed by nephrology. 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 No obstruction. Plan: Discussed with patient regarding his labs white blood count 6.1 hemoglobin 9.9 hematocrit 31.1 platelets 216,000 iron saturation 24.3% ferritin 350 compared to 750 on May 26, 2019 TIBC 230 Clinically, patient is doing reasonably well with No signs symptoms suggestive of recurrence of lung cancer or anal cancer now with progressive but compensated anemia, his hemoglobin is 9.9 g compared to 10.4 on June 28, 2019 and 12.3 on November 22, 2018. Patient is on oral iron supplements, tolerating reasonably well and, his iron studies shows iron levels within normal range but on the lower side, his drop in his hemoglobin could be due to chronic blood loss from ileostomy stoma or considering his age underlying myelodysplasia cannot be ruled out in addition to that persistent infection with Klebsiella may be causing bone marrow suppression. Patient was advised to continue oral iron along with vitamin C for better absorption and then return to clinic in 2 months with CBC and iron studies, if there is no improvement or further progression we may consider bone marrow evaluation. Signed By: Gita Ariza M.D. <<Signature on File>>
== END 2019-09-26 23:59 | disposition home or self-care (01) ==
LOC: ONCMED 05:39
PROVIDERS: PCP Family Medicine; Visit Provider Internal Medicine Hematology & Oncology
DX: C21.1 Malignant neoplasm of anal canal (principal); C78.02 Secondary malignant neoplasm of left lung; D50.9 Iron deficiency anemia, unspecified; M15.9 Polyosteoarthritis, unspecified; I10 Essential (primary) hypertension; E78.5 Hyperlipidemia, unspecified; E11.9 Type 2 diabetes mellitus without complications; Z79.4 Long term (current) use of insulin; N18.9 Chronic kidney disease, unspecified; K21.9 Gastro-esophageal reflux disease without esophagitis; Z92.3 Personal history of irradiation
CPT/HCPCS: 36415; 82728; 83540; 83550; 85025; 99214

== ENCOUNTER 2019-08-31 13:45 | Outpatient (CLI) | payer MEDICARE, SELFPAY | END 2019-08-31 13:46 | disposition home or self-care (01) | LOC: WOUND 13:46 | PROVIDERS: PCP Family Medicine; Visit Provider Nurse Practitioner Family | DX: I96 Gangrene, not elsewhere classified (principal); L98.491 Non-pressure chronic ulcer of skin of other sites limited to breakdown of skin | CPT/HCPCS: G0463 ==

== ENCOUNTER 2019-09-14 14:13 | Outpatient (CLI) | payer MEDICARE, SELFPAY | END 2019-09-14 14:14 | disposition home or self-care (01) | LOC: WOUND 14:15 | PROVIDERS: PCP Family Medicine; Visit Provider Nurse Practitioner Family | DX: I96 Gangrene, not elsewhere classified (principal); L98.491 Non-pressure chronic ulcer of skin of other sites limited to breakdown of skin; L97.822 Non-pressure chronic ulcer of other part of left lower leg with fat layer exposed | CPT/HCPCS: G0463 ==

== ENCOUNTER 2019-09-21 13:52 | Outpatient (CLI) | payer MEDICARE, SELFPAY | END 2019-09-21 13:53 | disposition home or self-care (01) | LOC: WOUND 13:55 | PROVIDERS: PCP Family Medicine; Visit Provider Nurse Practitioner Family | DX: I96 Gangrene, not elsewhere classified (principal); L97.822 Non-pressure chronic ulcer of other part of left lower leg with fat layer exposed; L98.491 Non-pressure chronic ulcer of skin of other sites limited to breakdown of skin | CPT/HCPCS: 99214 ==

== ENCOUNTER 2019-09-23 11:04 | Inpatient (IN) | payer OTHER, MEDICARE, SELFPAY ==
[2019-09-23] VITALS (11 sets, daily range): BP systolic 90–130; BP diastolic 53–78; PULSE 65–78; RESP 14–20; TEMP 36.4–36.7; O2SAT 98–100; BMI 24.6
--- NOTE | 2019-09-23 11:26 | PC.NURSE ---
EKG done at 1116 and shown to ER doctor
--- NOTE | 2019-09-23 11:44 | XRR_ITS ---
PROCEDURE INFORMATION: Exam: XR Right Foot Complete Exam date and time: 09/23/2019 12:08 PM Age: 78 years old Clinical indication: Swelling, leg or foot; Additional info: Infection TECHNIQUE: Imaging protocol: XR Right foot. Views: 3 or more views. COMPARISON: No relevant prior studies available. FINDINGS: Bones/joints: Osteopenia and degenerative change. Anatomic alignment. Soft tissues: Soft tissue swelling. Calcification at the Achilles tendon attachment site. Vasculature: Arterial calcifications suggesting underlying diabetes. XR/XR foot RT min 3V* 33096 IMPRESSION: 1. Soft tissue swelling. 2. Osteopenia and degenerative change.
--- NOTE | 2019-09-23 12:00 | PC.NURSE ---
XR performed at bedside.
--- NOTE | 2019-09-23 12:16 | PC.NURSE ---
Pt provided with urinal and instructed to give urine sample when able.
[2019-09-23 12:25] LABS: Basophils % 0.1 %; Eosinophils # 0.1 10^3/uL (0.0-0.8); Eosinophils % 0.6 %; Hematocrit 28.6 % (42.0-52.0); Hemoglobin 9.2 g/dL (11.7-16.6); Lymphocytes # 1.3 10^3/uL (0.8-4.8); Mean Corpuscular HGB Conc 32.2 g/dL (30.0-36.0); Mean Corpuscular Hemoglobin 32.2 pg (28.0-34.0); Mean Platelet Volume 9.3 fL (7.4-10.4); Monocytes # 0.8 10^3/uL (0.2-0.9); Monocytes % 8.7 %; Neutrophils # 7.1 10^3/uL (1.8-7.7); Nucleated Red Blood Cells % 0 %; Platelet Count 236 10^3/cmm (130-400); Red Blood Count 2.86 10^6/uL (4.1-5.3); Red Cell Distribution Width 16.4 % (12.1-15.1); White Blood Count 9.4 10^3/uL (4.0-10.0)
[2019-09-23 12:40] LABS: Lactate (Lactic Acid level) 2.4 mmol/L (0.5-2.2)
[2019-09-23 12:50] LABS: Procalcitonin 0.16 ng/mL (0-0.5)
--- NOTE | 2019-09-23 12:50 | W.ED.EXTPRO ---
HPI - Extremity Problem General: Chief complaint: Extremity Problem,Nontraumatic Stated complaint: INFECTION IN FEET Time Seen by Provider: 09/23/19 11:25 History of Present Illness: HPI Narrative: This patient is a very pleasant 78-year-old male presenting today with a rash that is been going on for several months. He reports that overall the rash is improving however his right foot has increased redness, swelling, pain. His home health nurse today told him that he had better come into the ER. This all started when he developed blisters on his abdomen around the area of his ileostomy. The spread across his entire abdomen and now also appear on his arms, legs and feet. He said blisters appeared on his left foot about 3 weeks ago and has almost healed. His right foot started up shortly after that with blisters but has continued to worsen and is developed associated redness and drainage. He is a diabetic but is very well controlled. He does have some neuropathy in his feet. He went to wound care for this and has been seen there a few times, most recently about 2 weeks ago. He had cultures done on the first visit which grew Klebsiella from his abdominal blisters. He was treated with levofloxacin. He also has been on fluconazole and topical antibiotics. He denies fever or severe complaints but is concerned that he may have an infection in his right foot. He is not currently on any antibiotics. He has been referred to [place] to see infectious disease. Associated symptoms: Reports rash; Deny chest pain or fever(s) Review of Systems General: Reports: 10 or more systems reviewed and unremarkable except in HPI and below Const: Denies: fever(s), chills, fatigue or malaise Eyes: Denies: change in vision ENMT: Denies: odynophagia Card: Denies: chest pain or swelling of feet/ankles Resp: Denies: dyspnea, productive cough or non-productive cough GI: Denies: abdominal pain, nausea or vomiting : Denies: flank pain Musc: Denies: neck pain or back pain Skin/Breast: Reports: rash, pruritus and erythema Neuro: Denies: headache(s), numbness in extremities or weakness in extremities Trae/Lymph: Denies: easy bruising or easy bleeding PFS ED PFSH: Medical History (Updated 09/23/19 @ 14:55 by Amado Ely MD) Anal squamous cell carcinoma Chronic kidney disease Renal function stable GERD (gastroesophageal reflux disease) Continue home medication Hyperlipidemia Continue current meds Hypertension Continue current medications Insulin dependent type 2 diabetes mellitus Bring list of blood sugars to primary care provider Para-ileostomy hernia Postoperative surgical repair, by Dr. Lay. Now tolerating p.o. feedings without difficulty. 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 Surgical History H/O ileostomy History of hernia repair 05/05/2019: Laparoscopic parastomal hernia repair S/P colostomy takedown S/P tonsillectomy Status post Judd procedure Family History Other Diabetes Hypertension Social History (Updated 09/23/19 @ 14:48 by Amado Ely MD) Smoking and tobacco status: former smoker Alcohol intake: current Alcohol intake frequency: 0-2 Drinks per Day Substance/Drug Use: never Physical Exam Const: COMMON NORMALS: no acute distress, patient oriented x3, no limitations and alert GENERAL APPEARANCE: cooperative and comfortable HENMT: HEAD & SCALP: normal to inspection FACE & SINUS: normal facial exam Eye: GENERAL EYE: appearance normal, both eyes and all related structures Neck/C-Spine: COMMON NORMALS: supple, no meningeal signs and no JVD Chest: COMMONS NORMALS: normal inspection of the chest Resp: COMMON NORMALS: normal respiratory effort, No use of accessory muscles and clear to auscultation bilaterally AUSCULTATION: clear to auscultation bilaterally Cardio: COMMON NORMALS: no JVD, regular rate, regular rhythm and No murmurs present (Cardio) RATE: regular rate RHYTHM: regular rhythm GI: COMMON NORMALS: Soft to palpation and non-tender INSPECTION: Yes normal to inspection and Yes other (Ileostomy, right abdomen. Multiple areas of excoriation and eschar without surrounding erythema or drainage) AUSCULTATION: Yes normoactive bowel sounds PALPATION: Yes Soft to palpation Back/Pelvis: COMMON NORMALS: thoracic and lumbar spine normal to inspection Extremity: COMMON NORMALS: normal to inspection Neuro: COMMON NORMALS: patient oriented x3, moves all extremities, no focal motor deficits and no sensory deficits noted SENSORIUM/ORIENTATION: Yes alert MENINGEAL SIGNS: Yes no meningeal signs Psych: COMMON NORMALS: mental status grossly normal, cooperative and normal affect Skin: COMMON NORMALS: turgor normal NARRATIVE SKIN EXAM: Multiple lesions on the trunk, hands, arms, legs, feet. These appear to be blisters that have become unroofed and eschared. For the most part they do not have surrounding erythema or drainage. The exception to this is the right foot which has multiple lesions on the dorsal surface of the foot and toes. There is warmth, redness, swelling and drainage. GENERAL SKIN EXAM: turgor normal Course Vital Signs: Vital signs: Vital Signs Temperature 97.5 F L 09/23/19 15:25 Pulse Rate 77 09/23/19 15:25 Respiratory Rate 18 09/23/19 15:25 Blood Pressure 123/77 09/23/19 15:25 Pulse Oximetry 100 09/23/19 15:25 MDM - Extremity (Nontraumatic) MDM Narrative: Medical decision making narrative: Patient has a very nonspecific rash all over his body. Most of it does not look acutely infected to me however the right foot does appear to have cellulitis related to that, most likely is a secondary infection. He also has some acute on chronic renal failure. His BUN is 48 with a creatinine of 4.2 and a CO2 of 16. He has had elevated creatinines in the past but the CO2 being so low is concerning to me. He also has some anemia which seems to be closer to baseline. He was seen in the ED by Dr. Ely and he will admit him to the hospital for IV antibiotics and close monitoring of his renal function. Lab Data: Labs: Lab Results 09/23/19 09/23/19 09/23/19 Range/Units 12:10 12:10 12:10 WBC 9.4 (4.0-10.0) 10^3/ uL RBC 2.86 L (4.1-5.3) 10^6/u L Hgb 9.2 L (11.7-16.6) g/dL Hct 28.6 L (42.0-52.0) % MCV 100.0 H (80-94) fL MCH 32.2 (28.0-34.0) pg MCHC 32.2 (30.0-36.0) g/dL RDW 16.4 H (12.1-15.1) % Plt Count 236 (130-400) 10^3/c mm MPV 9.3 (7.4-10.4) fL Neut % (Auto) 76.0 % Lymph % (Auto) 14.0 % [place] % (Auto) 8.7 % Eos % (Auto) 0.6 % Baso % (Auto) 0.1 % Neut # (Auto) 7.1 (1.8-7.7) 10^3/u L Lymph # (Auto) 1.3 (0.8-4.8) 10^3/u L [place] # (Auto) 0.8 (0.2-0.9) 10^3/u L Eos # (Auto) 0.1 (0.0-0.8) 10^3/u L Baso # (Auto) 0.0 (0.0-0.1) 10^3/u L Nucleated RBC % (a uto) 0 % Nucleated RBCs # 0.0 /100WBC ESR 63 H (0-10) mm/hr Sodium 138 (136-145) mmol/L Potassium 4.2 (3.5-5.1) mmol/L Chloride 105 (98-107) mmol/L Carbon Dioxide 16 L (22-29) mmol/L Anion Gap 21.2 H (5-19) BUN 48 H (8-23) mg/dL Creatinine 2.4 H (0.7-1.2) mg/dL GFR Calculation Not Reportable Glucose 182 H (65-115) mg/dL Calculated Osmolal ity 289 (285-295) mOsm/k g Lactate (0.5-2.2) mmol/L Calcium 8.8 (8.5-10.5) mg/dL Total Bilirubin 0.3 (0.15-1.2) mg/dL AST 20 (0-40) U/L ALT 12 (0-41) U/L Alkaline Phosphata se 60 (40-130) IU/L C-Reactive Protein 33.5 H (0.0-4.9) mg/L Total Protein 6.4 L (6.6-8.7) g/dL Albumin 3.3 L (3.5-5.2) g/dL Globulin 3.1 (1.3-4.6) g/dL Procalcitonin 0.16 (0-0.5) ng/mL Urine Color (Yellow) Urine Appearance (CLEAR) Urine pH (5-7) Ur Specific Gravit y (1.005-1.030) Urine Protein (Negative) Urine Glucose (UA) (Normal) Urine Ketones (Negative) Urine Blood (Negative) Urine Nitrate (Negative) Urine Bilirubin (NEGATIVE) Urine Urobilinogen (Negative) mg/dL Ur Leukocyte Marianne ase (Negative) 09/23/19 09/23/19 Range/Units 12:10 13:19 WBC (4.0-10.0) 10^3/ uL RBC (4.1-5.3) 10^6/u L Hgb (11.7-16.6) g/dL Hct (42.0-52.0) % MCV (80-94) fL MCH (28.0-34.0) pg MCHC (30.0-36.0) g/dL RDW (12.1-15.1) % Plt Count (130-400) 10^3/c mm MPV (7.4-10.4) fL Neut % (Auto) % Lymph % (Auto) % [place] % (Auto) % Eos % (Auto) % Baso % (Auto) % Neut # (Auto) (1.8-7.7) 10^3/u L Lymph # (Auto) (0.8-4.8) 10^3/u L [place] # (Auto) (0.2-0.9) 10^3/u L Eos # (Auto) (0.0-0.8) 10^3/u L Baso # (Auto) (0.0-0.1) 10^3/u L Nucleated RBC % (a uto) % Nucleated RBCs # /100WBC ESR (0-10) mm/hr Sodium (136-145) mmol/L Potassium (3.5-5.1) mmol/L Chloride (98-107) mmol/L Carbon Dioxide (22-29) mmol/L Anion Gap (5-19) BUN (8-23) mg/dL Creatinine (0.7-1.2) mg/dL GFR Calculation Glucose (65-115) mg/dL Calculated Osmolal ity (285-295) mOsm/k g Lactate 2.4 H (0.5-2.2) mmol/L Calcium (8.5-10.5) mg/dL Total Bilirubin (0.15-1.2) mg/dL AST (0-40) U/L ALT (0-41) U/L Alkaline Phosphata se (40-130) IU/L C-Reactive Protein (0.0-4.9) mg/L Total Protein (6.6-8.7) g/dL Albumin (3.5-5.2) g/dL Globulin (1.3-4.6) g/dL Procalcitonin (0-0.5) ng/mL Urine Color Yellow (Yellow) Urine Appearance Clear (CLEAR) Urine pH 5 (5-7) Ur Specific Gravit y 1.025 (1.005-1.030) Urine Protein Neg (Negative) Urine Glucose (UA) Norm (Normal) Urine Ketones Negative (Negative) Urine Blood Neg (Negative) Urine Nitrate Negative (Negative) Urine Bilirubin Neg (NEGATIVE) Urine Urobilinogen Norm (Negative) mg/dL Ur Leukocyte Marianne ase Negative (Negative) Discharge Plan Discharge Patient Disposition: Admitted As Inpatient Admit Provider: Amado Ely Clinical Impression: Cellulitis of foot, right, Acute blistering eruption of skin Chronic kidney disease Qualifiers: Chronic kidney disease stage: unspecified stage Qualified Code(s): N18.9 - Chronic kidney disease, unspecified Condition: Stable Referrals: Alicia Barrera DO [Primary Care Provider] - Discharge Date/Time: 09/23/19 15:10 Coding Level of Care Code ED Quality Internship for g Fwd Exam Comprehensive
[2019-09-23 13:01] LABS: Alanine Aminotransferase 12 U/L (0-41); Albumin Level 3.3 g/dL (3.5-5.2); Alkaline Phosphatase 60 IU/L (40-130); Anion Gap 21.2 (5-19); Aspartate Amino Transferase 20 U/L (0-40); Blood Urea Nitrogen 48 mg/dL (8-23); C Reactive Protein 33.5 mg/L (0.0-4.9); Calcium 8.8 mg/dL (8.5-10.5); Carbon Dioxide 16 mmol/L (22-29); Chloride 105 mmol/L (98-107); Globulin 3.1 g/dL (1.3-4.6); Glucose 182 mg/dL (65-115); Osmolality Calculated 289 mOsm/kg (285-295); Potassium 4.2 mmol/L (3.5-5.1); Sodium 138 mmol/L (136-145); Total Bilirubin 0.3 mg/dL (0.15-1.2); Total Protein 6.4 g/dL (6.6-8.7)
--- NOTE | 2019-09-23 13:10 | PC.NURSE ---
Pt asked if he could void yet, pt states I have had too much company . optical laboratory technician at bedside.
[2019-09-23 13:19] LABS: Erythrocyte Sedimentation Rate 63 mm/hr (0-10)
--- NOTE | 2019-09-23 13:25 | PC.NURSE ---
Pt using his own supplies to change his ostomy bag.
[2019-09-23 13:34] LABS: Add Urine Microscopic? NO
[2019-09-23 13:42] LABS: Bilirubin Urine Neg (NEGATIVE); Blood Urine Neg (Negative); Glucose Urine UA Norm (Normal); Ketones Urine Negative (Negative); Leukocyte Esterase Urine Negative (Negative); Nitrate Urine Negative (Negative); Protein Urine Neg (Negative); Specific Gravity, Urine 1.025 (1.005-1.030); Urine Appearance Clear (CLEAR); Urine Color Yellow (Yellow); Urobilinogen Urine Norm (Negative); pH Urine 5 (5-7)
--- NOTE | 2019-09-23 14:24 | PM.HP ---
Providers/Chief Complaint Primary Care Provider: Alicia Barrera DO Chief Complaint: INFECTION IN FEET History of Present Illness Elpidio Hoffmann is a 78 year old male who presents with concerns of redness in his right foot, worsening in the last 2 to 5 days. He has had a widespread bullous rash about 6 weeks ago for which he has been followed by wound care and a culture demonstrated Klebsiella. Most of these have now scabbed. He has been on Levaquin recently for this. It also appears he is on Celebrex for some discomfort. This is PRN but patient reports he has been taking it twice a day. He denies any nausea and vomiting. He reports his lower extremity edema is chronic and about the same. He denies any shortness of breath or chest pain. He has had no fever. He reports that his foot may be infected by some sandals he was wearing rubbing across the top. He denies any severe discomfort foot. Review of Systems General: Reports: 10 or more systems reviewed and unremarkable except in HPI and below Const: Denies: fever(s) or chills Eyes: Denies: change in vision ENMT: Denies: throat pain Card: Denies: chest pain Resp: Denies: dyspnea GI: Denies: abdominal pain : Denies: flank pain Musc: Denies: neck pain Skin/Breast: Reports: rash (Right foot) Neuro: Denies: headache(s) Psych: Denies: anxiety Endo: Denies: polyuria Trae/Lymph: Denies: easy bruising All/Imm: Denies: urticaria Medications/Allergies Home Medications Medication Instructions Recorded Confirmed Last Taken Type aspirin 81 mg tablet,delayed 81 mg PO BEDTIME 05/03/19 09/23/19 09/22/19 History release diltiazem HCl 180 mg 180 mg PO BEDTIME 05/03/19 09/23/19 09/22/19 History tablet,extended release 24 hr pantoprazole 40 mg tablet,delayed 40 mg PO DAILY 05/03/19 09/23/19 09/23/19 History release amlodipine 10 mg PO BEDTIME 05/05/19 09/23/19 09/22/19 History ascorbic acid (vitamin C) [Vitamin 1,000 mg PO 1315 05/05/19 09/23/19 09/22/19 History C] cholecalciferol (vitamin D3) 2,000 unit PO 1830 05/05/19 09/23/19 09/22/19 History [Vitamin D3] cyanocobalamin (vitamin B-12) 1,000 mcg PO 1315 05/05/19 09/23/19 09/22/19 History [Vitamin B-12] multivitamin 1 tab PO DAILY 05/05/19 09/23/19 09/23/19 History vitamin A 2,400 mcg PO 1830 05/05/19 09/23/19 09/22/19 History vitamin B complex 1 tab PO 1830 05/05/19 09/23/19 09/22/19 History vitamin E 400 unit PO DAILY 05/05/19 09/23/19 09/23/19 History SHOWER CHAIR #1 ea 05/12/19 09/23/19 Unknown Rx celecoxib 200 mg capsule 200 mg PO BID PRN #60 cap 05/23/19 09/23/19 09/23/19 Rx acetaminophen 500 mg tablet 500 - 1,000 mg PO PRN tab 05/25/19 09/23/19 09/23/19 History 500 mg furosemide 20 mg tablet 20 mg PO DAILY #30 tab 05/26/19 09/23/19 09/23/19 Rx levofloxacin 750 mg PO DAILY 08/22/19 09/23/19 09/21/19 History blood sugar diagnostic #300 each 08/24/19 09/23/19 Unknown Rx nystatin 100,000 unit/gram topical 1 applic TOPICAL BID PRN #15 gm 09/05/19 09/23/19 Unknown Rx powder cetirizine 10 mg capsule 10 mg PO DAILY #30 cap 09/13/19 09/23/19 09/23/19 Rx insulin NPH isoph U-100 human 20 unit SUBCUT BID 09/23/19 09/23/19 09/23/19 History [Humulin N NPH U-100 Insulin] 15 units iron 325 mg PO DAILY 09/23/19 09/23/19 09/22/19 History mupirocin 1 applic TOPICAL BID 09/23/19 09/23/19 Unknown History triamcinolone acetonide 1 applic TOPICAL BID 09/23/19 09/23/19 Unknown History Allergies Allergy/AdvReac Type Severity Reaction Status Date / Time No Known Allergies Allergy Verified 09/23/19 13:21 PFSH Acute PFSH: Medical History (Updated 09/23/19 @ 14:55 by Amado Ely MD) Anal squamous cell carcinoma Chronic kidney disease Renal function stable GERD (gastroesophageal reflux disease) Continue home medication Hyperlipidemia Continue current meds Hypertension Continue current medications Insulin dependent type 2 diabetes mellitus Bring list of blood sugars to primary care provider Para-ileostomy hernia Postoperative surgical repair, by Dr. Lay. Now tolerating p.o. feedings without difficulty. 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 Surgical History H/O ileostomy History of hernia repair 05/05/2019: Laparoscopic parastomal hernia repair S/P colostomy takedown S/P tonsillectomy Status post Judd procedure Family History Other Diabetes Hypertension Social History (Updated 09/23/19 @ 14:48 by Amado Ely MD) Smoking and tobacco status: former smoker Alcohol intake: current Alcohol intake frequency: 0-2 Drinks per Day Substance/Drug Use: never Vitals/I&O/Wt Last Vital Signs Temp 97.8 F 09/23/19 11:16 Pulse 71 09/23/19 14:01 Resp 14 09/23/19 14:01 BP 130/77 09/23/19 14:01 Pulse Ox 99 09/23/19 14:01 Weight last 48 hrs Weight 73.482 kg Physical Exam Narrative: EXAM NARRATIVE: General exam is no apparent distress HEENT: Pupils equally round. Oropharynx is clear. No mucous membrane lesions are noted. Neck is supple no lymphadenopathy or thyromegaly Cardiovascular regular rate and rhythm without murmur. No S3 or S4 Lungs are clear no wheezing or crackles Abdomen is soft, positive bowel sounds. No obvious organomegaly. Ostomy site is noted. was deferred Extremities 1+ edema bilaterally. Right foot demonstrates erythema on the dorsal surface. Cap refill less than 2 seconds with pulses difficult to feel bilaterally. Right second toe with some erythema as well. Skin demonstrates some widespread black eschar with occasional reddish area but no significant drainage from any lesions currently Neuro no obvious focal deficits Data : 09/23/19 12:10 09/23/19 12:10 Other data: X-ray of his foot demonstrates soft tissue swelling, no evidence of osteomyelitis. Sedimentation rate elevated at 63, lactate level elevated at 2.4, LFTs normal, urinalysis without evidence of infection, pro calcitonin level not elevated. CRP elevated at 33.5 A&P Assessment and plan (1) Cellulitis of foot, right: Initiate Zosyn, linezolid. Vancomycin avoided secondary to renal dysfunction. Status: Acute (2) Acute renal failure: Acute renal failure superimposed on chronic kidney disease. Exacerbating factors could be Celebrex which he has been using regularly. Status: Acute (3) Acute blistering eruption of skin: Treated for Klebsiella based on skin culture. Overall it appears improved from what the patient tells me. Status: Acute Additional A&P Information Metabolic acidosis, secondary to renal failure Elevated lactate level, secondary to renal failure. No evidence of sepsis currently. Borderline hypotension. Discontinue Norvasc. From our list here it appears he is on Norvasc and diltiazem. Both calcium channel blockers are not needed and Norvasc could contribute to relative hypotension or peripheral edema History of hypertension Hyperlipidemia, continue home meds Peripheral vascular disease with CTA abdominal aorta runoff June 2019 Type 2 diabetes. Sliding scale insulin DJD History of squamous cell carcinoma of the anus Multiple other medical problems as listed in past medical history DNR Heparin for DVT prophylaxis Attestations Medical Necessity Statement*: Will need greater than 2 midnight stay for treatment of cellulitis with IV antibiotics Time Spent in Patient Care: Greater than 35 minutes Coding Level of Care Code Acute Cooker Loader for [facility] Diagnoses Cellulitis of foot, right L03.115 Acute renal failure N17.9 Acute blistering eruption of skin R21
[2019-09-23 16:46] LABS: Glucose Point of Care 68 mg/dL (70-110)
[2019-09-23] MEDS: linezolid premix 600 MG/300 ML PREMIX 300 MG IV (17:00)
[2019-09-23] MEDS: heparin 5,000 unit/mL INJ 1 mL 5000 UNIT SUBCUT (17:01)
[2019-09-23] MEDS: sodium chloride 0.9% 1,000 ML 50 ML IV (17:01)
[2019-09-23] MEDS: mupirocin oint 22 gm 1 APPLIC TOPICAL (18:24)
[2019-09-23] MEDS: piperacillin-tazobactam 3.375 GM in sodium chloride 0.9% (plus) 50 ML IV (18:24)
[2019-09-23 21:02] LABS: Glucose Point of Care 230 mg/dL (70-110)
[2019-09-23] MEDS: aspirin 81 mg EC Tablet PO (22:52)
[2019-09-23] MEDS: dilTIAZem ER (24HR) 180 mg Capsule PO (22:53)
[2019-09-24] VITALS (8 sets, daily range): BP systolic 84–119; BP diastolic 48–72; PULSE 62–76; RESP 16–22; TEMP 36.4–37.1; O2SAT 98–100
[2019-09-24] MEDS: piperacillin-tazobactam 3.375 GM in sodium chloride 0.9% (plus) 50 ML IV ×3 (01:24→16:56)
[2019-09-24] MEDS: heparin 5,000 unit/mL INJ 1 mL 5000 UNIT SUBCUT ×2 (05:08→15:36)
[2019-09-24] MEDS: linezolid premix 600 MG/300 ML PREMIX 300 MG IV ×2 (05:08→15:35)
[2019-09-24 05:44] LABS: Basophils % 0.1 %; Eosinophils # 0.1 10^3/uL (0.0-0.8); Eosinophils % 1.6 %; Hematocrit 27.6 % (42.0-52.0); Hemoglobin 8.9 g/dL (11.7-16.6); Lymphocytes # 2.2 10^3/uL (0.8-4.8); Lymphocytes % 27.8 %; Mean Corpuscular HGB Conc 32.2 g/dL (30.0-36.0); Mean Corpuscular Hemoglobin 32.1 pg (28.0-34.0); Mean Corpuscular Volume 99.6 fL (80-94); Mean Platelet Volume 9.5 fL (7.4-10.4); Monocytes # 0.8 10^3/uL (0.2-0.9); Monocytes % 10.3 %; Neutrophils # 4.8 10^3/uL (1.8-7.7); Neutrophils % 59.8 %; Nucleated Red Blood Cells % 0 %; Platelet Count 235 10^3/cmm (130-400); Red Blood Count 2.77 10^6/uL (4.1-5.3); Red Cell Distribution Width 16.3 % (12.1-15.1)
[2019-09-24 05:59] LABS: Anion Gap 15.8 (5-19); Blood Urea Nitrogen 43 mg/dL (8-23); Calcium 8.6 mg/dL (8.5-10.5); Carbon Dioxide 20 mmol/L (22-29); Chloride 110 mmol/L (98-107); Osmolality Calculated 288 mOsm/kg (285-295); Potassium 3.8 mmol/L (3.5-5.1); Sodium 142 mmol/L (136-145)
--- NOTE | 2019-09-24 06:01 | PC.NURSE ---
Shift Summary pt slept well throughout the night with no c/o pain. pt's BP had dropped to 84/48 at 0400 VS, Dr notified with no new orders. pt remained alert and oriented, just tired from being woke up. pt had good urine and bowel output.
[2019-09-24 06:07] LABS: Glucose 34 mg/dL (65-115)
--- NOTE | 2019-09-24 06:18 | PC.NURSE ---
pt's blood glucose came back critical from lab of 34. pt remained alert and oriented and was given juice per protocol. dr notified of lab result.
[2019-09-24 06:57] LABS: Glucose Point of Care 125 mg/dL (70-110)
[2019-09-24] MEDS: insulin nph human 100 units/1 mL 20 UNIT SUBCUT (08:09)
[2019-09-24] MEDS: pantoprazole DR 40 mg Tablet PO (08:09)
[2019-09-24] MEDS: mupirocin oint 22 gm 1 APPLIC TOPICAL ×2 (08:16→16:58)
[2019-09-24 10:58] LABS: Glucose Point of Care 174 mg/dL (70-110)
--- NOTE | 2019-09-24 11:33 | PM.PN ---
Subjective Subjective: Interval history: Elpidio reports he feels okay. Foot is not causing any pain. No other issues today. Medications: Reviewed: Yes Vitals/I&O/Wt Last Vital Signs Temp 98.3 F 09/24/19 11:27 Pulse 70 09/24/19 11:27 Resp 22 H 09/24/19 11:27 BP 117/65 09/24/19 11:27 Pulse Ox 100 09/24/19 11:27 09/23/19 09/24/19 09/24/19 22:59 06:59 14:59 Intake Total 710 / 710 400 / 1110 360 / 360 Output Total 300 / 300 505 / 805 Balance 410 / 410 -105 / 305 360 / 360 Weight last 48 hrs Weight 73.482 kg Physical Exam Narrative: EXAM NARRATIVE: General exam is no apparent distress Cardiovascular regular rate and rhythm without murmur. No S3 or S4 Lungs are clear no wheezing or crackles Abdomen is soft, positive bowel sounds. No obvious organomegaly. Ostomy site is noted. Extremities 1+ edema bilaterally. Right foot demonstrates erythema on the dorsal surface. Cap refill less than 2 seconds with pulses difficult to feel bilaterally. Right second toe with some erythema as well. Blister noted over dorsum of foot. Overall erythema appears improved Skin demonstrates some widespread black eschar with occasional reddish area but no significant drainage from any lesions currently Data : 09/24/19 02:50 09/24/19 02:50 A&P Assessment and plan (1) Cellulitis of foot, right: Continue Zosyn, linezolid. Vancomycin avoided secondary to renal dysfunction. He appears to be improving significantly. Status: Acute (2) Acute renal failure: Acute renal failure superimposed on chronic kidney disease. Exacerbating factors could be Celebrex which he has been using regularly. Celebrex was discontinued. He received fluids overnight. Fluids will be discontinued today and close follow-up of renal function. Status: Acute (3) Acute blistering eruption of skin: Treated for Klebsiella based on skin culture from August 09 when blistering rash.. Overall it appears improved from what the patient tells me. Could consider referral to dermatology on discharge. Was receiving mupirocin topically from the wound care clinic on some of the more problematic lesions. Will continue. Status: Acute Additional A&P Information Metabolic acidosis, secondary to renal failure Elevated lactate level, secondary to renal failure. No evidence of sepsis currently. Borderline hypotension. Discontinue Norvasc. From our list here it appears he is on Norvasc and diltiazem. Both calcium channel blockers are not needed and Norvasc could contribute to relative hypotension or peripheral edema. Blood pressures under control History of hypertension Hyperlipidemia, continue home meds Peripheral vascular disease with CTA abdominal aorta runoff June 2019 Type 2 diabetes. Sliding scale insulin. Hypoglycemic this morning. Discontinue patient's home NPH as he is on sliding scale as well. 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 Coding Level of Care Code Acute Brush Head Maker for [facility] Diagnoses Cellulitis of foot, right L03.115 Acute renal failure N17.9 Acute blistering eruption of skin R21
[2019-09-24 16:40] LABS: Glucose Point of Care 156 mg/dL (70-110)
[2019-09-24] MEDS: dilTIAZem ER (24HR) 180 mg Capsule PO (21:08)
[2019-09-24] MEDS: aspirin 81 mg EC Tablet PO (21:08)
[2019-09-24 21:38] LABS: Glucose Point of Care 146 mg/dL (70-110)
[2019-09-25] VITALS: BP 117/70; PULSE 74; RESP 20; TEMP 37.1; O2SAT 99
[2019-09-25] MEDS: piperacillin-tazobactam 3.375 GM in sodium chloride 0.9% (plus) 50 ML IV ×3 (00:20→19:46)
[2019-09-25 03:37] LABS: Basophils % 0.1 %; Eosinophils # 0.1 10^3/uL (0.0-0.8); Eosinophils % 1.1 %; Hematocrit 27.1 % (42.0-52.0); Hemoglobin 8.7 g/dL (11.7-16.6); Lymphocytes # 0.9 10^3/uL (0.8-4.8); Lymphocytes % 12.1 %; Mean Corpuscular HGB Conc 32.1 g/dL (30.0-36.0); Mean Corpuscular Hemoglobin 32.5 pg (28.0-34.0); Mean Corpuscular Volume 101.1 fL (80-94); Mean Platelet Volume 9.4 fL (7.4-10.4); Monocytes # 0.8 10^3/uL (0.2-0.9); Monocytes % 11.3 %; Neutrophils # 5.3 10^3/uL (1.8-7.7); Nucleated Red Blood Cells % 0 %; Platelet Count 187 10^3/cmm (130-400); Red Blood Count 2.68 10^6/uL (4.1-5.3); Red Cell Distribution Width 16.4 % (12.1-15.1); White Blood Count 7.1 10^3/uL (4.0-10.0)
[2019-09-25 04:00] VITALS: BP 95/64; PULSE 63; RESP 20; TEMP 36.8; O2SAT 98
[2019-09-25 04:01] LABS: Blood Urea Nitrogen 30 mg/dL (8-23); Calcium 8.3 mg/dL (8.5-10.5); Carbon Dioxide 20 mmol/L (22-29); Chloride 109 mmol/L (98-107); Glucose 52 mg/dL (65-115); Osmolality Calculated 285 mOsm/kg (285-295); Sodium 140 mmol/L (136-145)
[2019-09-25] MEDS: heparin 5,000 unit/mL INJ 1 mL 5000 UNIT SUBCUT ×2 (04:17→18:26)
[2019-09-25] MEDS: linezolid premix 600 MG/300 ML PREMIX 300 MG IV ×2 (04:17→18:31)
[2019-09-25 06:38] LABS: Glucose Point of Care 80 mg/dL (70-110)
[2019-09-25 07:44] VITALS: BP 116/70; PULSE 72; RESP 16; TEMP 37.1; O2SAT 98
[2019-09-25] MEDS: pantoprazole DR 40 mg Tablet PO (09:36)
--- NOTE | 2019-09-25 10:09 | PC.CHAP ---
Pastoral Care Encounter/Spiritual Assessment Type of Contact [] Declined data security coordinator visit [] Patient/Family/Request visit [] Outpatient visit [] Follow-up visit [] Physician referral [] Code/Alert [x] Routine visit [] Staff referral [] Actively dying [] Patient sleeping [] Family support [] [] Out of room [] Palliative care [] [] Receiving care in room [] Pre-surgical visit [] Trauma [] Long length of stay [] ICU visit [] Other: Relational/Emotional Strength [] Patient feels connected with others/family/visitors/staff [] Distress [] Loneliness/isolation [] Abandonment Spirituality of Patient [] Person of Radha [] Attends Holiness of their Radha [] Believes in Prayer [] Reads Bible or Judaism materials [] There are Spiritual issues to be addressed Hydroblaster Interventions [x] Prayer [x] Active listening [x] Non-anxious presence [x] Spiritual/emotional support [] Crisis/trauma care [] Spiritual counseling [] Bereavement support [] Provided bereavement packet [] Provided Bible/devotional materials [] Provided toy/stuffed animal, coloring book to patient or family member [] Provided Communion [] Anointing/[place] [] Salvation [x] Completed spiritual assessment [] Other: Impact on Illness or Injury [] Angry [] Fearful [] Anxious [] Often cries [] Exhaustion [] Unable to work [] Unable to attend mormonism [] Unable to walk/stand [] Unable to read [] Unable to drive [] Unable to eat/drink [] Unable to sleep [] Unable to be with family [] Patient intubated [] Other: Summary Patient understands what- but doesn't understand why. Patient looking forward to healing and returning home. Time spent with patient 15 min
[2019-09-25 11:07] VITALS: BP 128/70; PULSE 65; RESP 16; TEMP 36.9; O2SAT 98
[2019-09-25 12:14] LABS: Glucose Point of Care 133 mg/dL (70-110)
[2019-09-25] MEDS: mupirocin oint 22 gm 1 APPLIC TOPICAL ×2 (13:04→18:30)
[2019-09-25 15:21] VITALS: BP 116/74; PULSE 74; RESP 18; TEMP 36.6; O2SAT 97
[2019-09-25 16:46] LABS: Glucose Point of Care 122 mg/dL (70-110)
--- NOTE | 2019-09-25 17:55 | P.PN_ITS ---
Subjective Subjective: Interval history: No acut eovernight events. Foot changes appear to be stable Medications: Reviewed: Yes Vitals/I&O/Wt Last Vital Signs Temp 97.8 F 09/25/19 15:21 Pulse 74 09/25/19 15:21 Resp 18 09/25/19 15:21 BP 116/74 09/25/19 15:21 Pulse Ox 97 09/25/19 15:21 09/25/19 09/25/19 09/25/19 06:59 14:59 22:59 Intake Total 50 / 1530 600 / 600 Output Total 375 / 925 350 / 350 Balance -325 / 605 600 / 600 -350 / 250 Data : 09/25/19 02:54 09/25/19 02:54 A&P Assessment and plan (1) Cellulitis of foot, right: Continue Zosyn, linezolid. . He appears to be improving though bianca eredness persisting around the dorsum of left foot. Patient still reports significant pain on weight bearing Status: Acute (2) Acute renal failure: Acute renal failure superimposed on chronic kidney disease. Exacerbating factors could be Celebrex which he has been using regularly. Celebrex was discontinued. Status: Acute (3) Acute blistering eruption of skin: Treated for Klebsiella based on skin culture from August 09 when blistering rash.. Overall it appears improved from what the patient tells me. Will be seeing dermatology. Overall, secondary bacterial infections more likely rather than being the primary cause. Has f/up with Dr. Bhakta. If undergoes skin biopsy, will need tissue gram stain and cx, including fungal and AFB cultures. Was receiving mupirocin topically from the wound care clinic on some of the more problematic lesions. Will continue. Status: Acute Additional A&P Information Metabolic acidosis, secondary to renal failure Elevated lactate level, secondary to renal failure. No evidence of sepsis cu rrently. Borderline hypotension. Discontinue Norvasc. From our list here it appears he is on Norvasc and diltiazem. Both calcium channel blockers are not needed and Norvasc could contribute to relative hypotension or peripheral edema. Blood pressures under control History of hypertension Hyperlipidemia, continue home meds Peripheral vascular disease with CTA abdominal aorta runoff June 2019 Type 2 diabetes. Sliding scale insulin. Hypoglycemic this morning. Discontinue patient's home NPH as he is on sliding scale as well. 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
[2019-09-25 20:00] VITALS: BP 142/80; PULSE 79; RESP 24; TEMP 37.1; O2SAT 99
[2019-09-25 20:08] LABS: Glucose Point of Care 259 mg/dL (70-110)
[2019-09-25] MEDS: aspirin 81 mg EC Tablet PO (20:40)
[2019-09-25] MEDS: dilTIAZem ER (24HR) 180 mg Capsule PO (20:40)
--- NOTE | 2019-09-25 21:17 | PC.NURSE ---
Wound Care- Assessment Patient has cellulitis to right leg/foot. Serous fluid drainage noted. Extensive blistering to generalized body with eschar/scabbing noted to feet, legs, arms, hands, groin, abdomen and generalized body. SOLUTION DEVELOPER. Dressings have been applied to certain body areas by wound care who sees patient for this issue. Specifically on left thigh and right arm. Specifically right 2nd digit has blister that is not open skin, but scabbing/eschar noted. Top of foot has fluid filled blister. Abdomen/groin has multiple blisters/scabs/skin openings that are red, raw and have black scabs and some drainage. Dressings were applied by wound care.
[2019-09-26] VITALS: BP 114/65; PULSE 79; RESP 16; TEMP 37.9; O2SAT 98
[2019-09-26] MEDS: piperacillin-tazobactam 3.375 GM in sodium chloride 0.9% (plus) 50 ML IV ×3 (03:56→20:25)
[2019-09-26 04:00] VITALS: BP 103/59; PULSE 75; RESP 20; TEMP 38.1; O2SAT 97
[2019-09-26] MEDS: heparin 5,000 unit/mL INJ 1 mL 5000 UNIT SUBCUT ×2 (04:45→16:59)
[2019-09-26 04:53] LABS: Basophils % 0.3 %; Eosinophils # 0.1 10^3/uL (0.0-0.8); Eosinophils % 0.9 %; Hematocrit 26.1 % (42.0-52.0); Hemoglobin 8.5 g/dL (11.7-16.6); Lymphocytes # 1.3 10^3/uL (0.8-4.8); Lymphocytes % 16.9 %; Mean Corpuscular HGB Conc 32.6 g/dL (30.0-36.0); Mean Corpuscular Hemoglobin 32.2 pg (28.0-34.0); Mean Corpuscular Volume 98.9 fL (80-94); Mean Platelet Volume 9.6 fL (7.4-10.4); Monocytes % 12.6 %; Neutrophils # 5.3 10^3/uL (1.8-7.7); Neutrophils % 68.9 %; Nucleated Red Blood Cells % 0 %; Platelet Count 159 10^3/cmm (130-400); Red Blood Count 2.64 10^6/uL (4.1-5.3); Red Cell Distribution Width 15.9 % (12.1-15.1); White Blood Count 7.6 10^3/uL (4.0-10.0)
[2019-09-26 05:07] LABS: Alanine Aminotransferase 11 U/L (0-41); Albumin Level 2.8 g/dL (3.5-5.2); Alkaline Phosphatase 47 IU/L (40-130); Anion Gap 16.1 (5-19); Aspartate Amino Transferase 16 U/L (0-40); Blood Urea Nitrogen 22 mg/dL (8-23); Calcium 8.3 mg/dL (8.5-10.5); Carbon Dioxide 19 mmol/L (22-29); Chloride 106 mmol/L (98-107); Globulin 2.7 g/dL (1.3-4.6); Glucose 91 mg/dL (65-115); Osmolality Calculated 280 mOsm/kg (285-295); Potassium 4.1 mmol/L (3.5-5.1); Sodium 137 mmol/L (136-145); Total Bilirubin 0.4 mg/dL (0.15-1.2); Total Protein 5.5 g/dL (6.6-8.7)
[2019-09-26 06:37] LABS: Glucose Point of Care 89 mg/dL (70-110)
[2019-09-26 07:17] VITALS: BP 107/62; PULSE 65; RESP 18; TEMP 36.4; O2SAT 65
[2019-09-26] MEDS: linezolid premix 600 MG/300 ML PREMIX 300 MG IV ×2 (09:23→20:25)
[2019-09-26] MEDS: pantoprazole DR 40 mg Tablet PO (09:23)
--- NOTE | 2019-09-26 09:47 | PC.NURSE ---
Wound Assessment------ Patient has cellulitis to right leg/foot. Serous fluid drainage noted. Extensive blistering to generalized body with eschar/scabbing noted to feet, legs, arms, hands, groin, abdomen and generalized body. TSO. Dressings have been applied to certain body areas by wound care who sees patient for this issue. Specifically on left thigh and right arm. Specifically right 2nd digit has blister that is not open skin, but scabbing/eschar noted. Top of foot has fluid filled blister. Abdomen/groin has multiple blisters/scabs/skin openings that are red, raw and have black scabs and some drainage. Dressing pink in color noted to some of the area applied by wound care. Optifoam applied to small open area found to be seeping serous fluid to LLQ. Physician notified that wound care orders are needed or wound care consultation may be needed for continued care.
[2019-09-26 10:45] VITALS: BP 124/57; PULSE 65; RESP 16; TEMP 37.1; O2SAT 95
[2019-09-26 11:34] LABS: Glucose Point of Care 203 mg/dL (70-110)
--- NOTE | 2019-09-26 12:00 | PC.SOCIAL ---
Pg 2 IMM Explained to pt Pg 2 IMM. Pt verbally understands. No questions voiced. Provided pt a copy & left on pt's bedside table. Signed, dated, & timed a copy & placed in pt's chart.
[2019-09-26 15:02] VITALS: BP 114/68; PULSE 65; RESP 18; TEMP 36.6; O2SAT 98
[2019-09-26 16:48] LABS: Glucose Point of Care 110 mg/dL (70-110)
[2019-09-26 19:16] VITALS: BP 124/71; PULSE 75; RESP 20; TEMP 37.6; O2SAT 97
[2019-09-26 20:20] LABS: Glucose Point of Care 230 mg/dL (70-110)
[2019-09-26] MEDS: aspirin 81 mg EC Tablet PO (20:25)
[2019-09-26] MEDS: dilTIAZem ER (24HR) 180 mg Capsule PO (20:25)
--- NOTE | 2019-09-26 21:40 | P.PN_ITS ---
Subjective Subjective: Interval history: seen and examined earlier this morning. overnight developed fever to 100.8F, some new lesions npw over axilla, otherwise none new. Medications: Reviewed: Yes Vitals/I&O/Wt Last Vital Signs Temp 99.7 F H 09/26/19 19:16 Pulse 75 09/26/19 19:16 Resp 20 H 09/26/19 19:16 BP 124/71 09/26/19 19:16 Pulse Ox 97 09/26/19 19:16 09/26/19 09/26/19 09/26/19 06:59 14:59 22:59 Intake Total 50.000 / 1504.375 805.625 / 805.625 290 / 1095.625 Output Total 550 / 1550 550 / 550 200 / 750 Balance -500.000 / -45.625 255.625 / 255.625 90 / 345.625 Physical Exam Narrative: EXAM NARRATIVE: GEN: Awake, alert and oriented, no acute distress CVS: S1S2 N RS: CTA B/L Abd: Soft, nt/nd , bs+ PERSONAL COMPUTER NETWORK ANALYST: no focal neuro deficits Data : 09/26/19 03:55 09/26/19 03:55 Micro: Microbiology 09/26/19 03:55 Blood Culture - Preliminary Blood SPECIMEN COLLECTED 09/26/19 03:55 Blood Culture - Preliminary Blood SPECIMEN COLLECTED A&P Assessment and plan (1) Cellulitis of foot, right: Continue Zosyn, linezolid. . Cellulitis improving however developed fever overnight without any overt changes in symptoms. No cough, stoma output unchanged, no c/o dysuria. Blood cx taken. New bullous lesions over B/L axilla, but otherwise unchanged Status: Acute (2) Acute renal failure: Acute renal failure superimposed on chronic kidney disease. Exacerbating factors could be Celebrex which he has been using regularly. Celebrex was discontinued. Status: Acute (3) Acute blistering eruption of skin: Treated for Klebsiella based on skin culture from August 09 when blistering rash.. Overall it appears improved from what the patient tells me. Will be seeing dermatology. Overall, secondary bacterial infections more likely rather than being the primary cause. Has f/up with Dr. Bhakta. If undergoes skin biopsy, will need tissue gram stain and cx, including fungal and AFB cultures. Was receiving mupirocin topically from the wound care clinic on some of the more problematic lesions. Will continue. Status: Acute Additional A&P Information Metabolic acidosis, secondary to renal failure Elevated lactate level, secondary to renal failure. No evidence of sepsis currently. History of hypertension Hyperlipidemia, continue home meds Peripheral vascular disease with CTA abdominal aorta runoff June 2019 Type 2 diabetes. Sliding scale insulin. DJD History of squamous cell carcinoma of the anus Multiple other medical problems as listed in past medical history DNR Heparin for DVT prophylaxis Attestations Medical Necessity Statement*: developed fever overnight,ongoing evaluation Coding Level of Care Code Acute Medical Case Manager for [facility] Diagnoses Cellulitis of foot, right L03.115 Acute renal failure N17.9 Acute blistering eruption of skin R21
[2019-09-27] VITALS (7 sets, daily range): BP systolic 107–135; BP diastolic 45–76; PULSE 68–84; RESP 18–20; TEMP 36.8–37.8; O2SAT 90–99
[2019-09-27] MEDS: piperacillin-tazobactam 3.375 GM in sodium chloride 0.9% (plus) 50 ML IV ×3 (04:00→21:26)
[2019-09-27] MEDS: heparin 5,000 unit/mL INJ 1 mL 5000 UNIT SUBCUT ×2 (05:32→17:40)
[2019-09-27 05:51] LABS: Basophils % 0.1 %; Eosinophils # 0.1 10^3/uL (0.0-0.8); Eosinophils % 0.9 %; Hematocrit 25.5 % (42.0-52.0); Hemoglobin 8.4 g/dL (11.7-16.6); Lymphocytes # 1.3 10^3/uL (0.8-4.8); Lymphocytes % 16.9 %; Mean Corpuscular HGB Conc 32.9 g/dL (30.0-36.0); Mean Corpuscular Hemoglobin 33.3 pg (28.0-34.0); Mean Corpuscular Volume 101.2 fL (80-94); Mean Platelet Volume 9.7 fL (7.4-10.4); Monocytes % 12.8 %; Neutrophils # 5.4 10^3/uL (1.8-7.7); Nucleated Red Blood Cells % 0 %; Platelet Count 131 10^3/cmm (130-400); Red Blood Count 2.52 10^6/uL (4.1-5.3); Red Cell Distribution Width 15.9 % (12.1-15.1); White Blood Count 7.8 10^3/uL (4.0-10.0)
[2019-09-27 06:04] LABS: Alanine Aminotransferase 12 U/L (0-41); Albumin Level 2.8 g/dL (3.5-5.2); Alkaline Phosphatase 57 IU/L (40-130); Aspartate Amino Transferase 20 U/L (0-40); Blood Urea Nitrogen 20 mg/dL (8-23); Calcium 8.3 mg/dL (8.5-10.5); Carbon Dioxide 20 mmol/L (22-29); Chloride 103 mmol/L (98-107); Globulin 2.9 g/dL (1.3-4.6); Glucose 90 mg/dL (65-115); Osmolality Calculated 278 mOsm/kg (285-295); Sodium 136 mmol/L (136-145); Total Bilirubin 0.6 mg/dL (0.15-1.2); Total Protein 5.7 g/dL (6.6-8.7)
[2019-09-27 06:35] LABS: Glucose Point of Care 100 mg/dL (70-110)
--- NOTE | 2019-09-27 06:41 | PC.NURSE ---
Shift Summary Patient rested well through the night. New IV inserted in Left FA. Ostomy bag was replaced due to busted seal. The skin is peeling off when old bag is removed. Patient did have increased temp of 100.1
--- NOTE | 2019-09-27 07:00 | CT_ITS ---
WS: [id number] CT CHEST, ABDOMEN, AND PELVIS TECHNIQUE: Noncontrast CT of the chest, abdomen, and pelvis with coronal and sagittal reformatted andre ges. CLINICAL INFORMATION: ongoing fever,source evaluation COMPARISON: CT June 23, 2019 DLP: 1161.[address] scans at [facility] use at least one of these dose optimization techniques: automat ed exposure control; mA and/or kV adjustment per patient size (includes targeted exams where dose is matched to clinical indication); or iterative reconstruction. CT CHEST: Stable spiculated left upper lobe mass measuring 3.7 x 2.0 cm is unchanged since . 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 Stable postoperative changes inv olving the right lower lobe. 3 mm nodule right upper 6 lobe is stable. Tiny right pleural effusion. P leural thickening both lung bases. No mediastinal or hilar lymphadenopathy. Normal caliber thoracic aorta. Coronary calcification. No ax illary lymphadenopathy. Multiple chronic left rib fractures. CT ABDOMEN AND PELVIS: Stable small hepatic cyst. Noncontrast liver otherwise unremarkable. Vascular calcification. Adrenal glands are normal. Bilateral renal cortical atrophy. Small splenule. Fatty atr ophy of the pancreas. Small esophageal hiatal hernia. No abdominal lymphadenopathy. Urine distended b ladder. Previously described right anterior pelvic wall fluid collection has significantly improved and nearl y resolved. Today this collection measures 4.3 x 2.8 cm. Right lower quadrant ileostomy appears stabl e.No evidence of obstruction. Additional left abdominal wall hernia containing fat only. Postoperative changes the rectosigmoid junction. No recurrent mass or lesion. No evidence of recurren t disease. Slight retrolisthesis L1 on L2. Advanced lytic changes lumbar spine with multilevel degenerative disc disease. CT/CT chest abd pel wo con IMPRESSION: 1. Previously described fluid collection subcutaneous tissues of the right low er pelvic wall has significantly decreased in size today measuring 4.3 x 2.8 cm . Small amount of residual induration in the subcutaneous soft tissues. 2. Otherwise stable right lower quadrant ileostomy. No obstruction. 3. Cholelithiasis. 4. No free fluid in the abdomen or pelvis. 5. Urine distended bladder. 6. Enlarged prostate. Recommend correlation PSA. 7. 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 Neoplasm is less likely. Recomme nd continued surveillance. 8. No mediastinal or hilar lymphadenopathy.
[2019-09-27] MEDS: pantoprazole DR 40 mg Tablet PO (08:06)
[2019-09-27] MEDS: linezolid premix 600 MG/300 ML PREMIX 300 MG IV ×2 (08:07→20:14)
[2019-09-27] MEDS: mupirocin oint 22 gm 1 APPLIC TOPICAL ×2 (08:08→18:05)
[2019-09-27 11:14] LABS: Glucose Point of Care 173 mg/dL (70-110)
--- NOTE | 2019-09-27 13:27 | PM.PN ---
Subjective Subjective: Interval history: No new complaints today. Continues to have low-grade fever. Underwent CT chest abdomen of the pelvis this morning without any overt source of infection noted. Abdominal wall cellulitis is noted to be improving. His foot cellulitis also appears to be the same. There is a new lesion that is seen in the posterior axilla today. More of ulcerated lesions noted on the foot. Medications: Reviewed: Yes Vitals/I&O/Wt Last Vital Signs Temp 99.0 F 09/27/19 12:00 Pulse 68 09/27/19 12:00 Resp 18 09/27/19 12:00 BP 121/74 09/27/19 12:00 Pulse Ox 98 09/27/19 12:00 09/26/19 09/27/19 09/27/19 22:59 06:59 14:59 Intake Total 290 / 1095.625 350 / 1445.625 200 / 200 Output Total 200 / 750 600 / 1350 200 / 200 Balance 90 / 345.625 -250 / 95.625 0 / 0 Physical Exam Narrative: EXAM NARRATIVE: GEN: Awake, alert and oriented, no acute distress HEENT few aphthous-looking ulcerations present over the lower lip and left buccal mucosa. CVS: S1S2 N RS: CTA B/L Abd: Soft, nt/nd , bs+, multiple excoriated blistering lesions seen over the anterior abdominal wound, grossly unchanged since previous exams. 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 Some older lesions over his bilateral tibial shins appear to be improving. Data : 09/27/19 04:28 09/27/19 04:28 Micro: Microbiology 09/26/19 03:55 Blood Culture - Preliminary Blood NEGATIVE TO DATE 09/26/19 03:55 Blood Culture - Preliminary Blood NEGATIVE TO DATE A&P Assessment and plan (1) Cellulitis of foot, right: Continue Zosyn, linezolid for now. Cellulitis improving however developed fever overnight without any overt changes in symptoms. CT chest abdomen and pelvis without any new causes of fever. No evidence of pneumonia or atelectasis. Stable spiculated lesion is seen on previous CTs. No intra-abdominal collections. Abdominal wall cellulitis and inflammation appears to be improving. No cough, stoma output unchanged, no c/o dysuria. Blood cx taken, thus far negative to date New bullous lesions over B/L axilla, but otherwise unchanged Status: Acute (2) Acute renal failure: Acute renal failure superimposed on chronic kidney disease. Exacerbating factors could be Celebrex which he has been using regularly. Celebrex was discontinued. Status: Acute (3) Acute blistering eruption of skin: New lesions are still appearing over the skin. Overall appearance appears to be that of bullous disease which often tends to be either filled with clear fluid or hemorrhagic fluid. These then burst and ulcerate over. Some areas of secondary skin inflammation and infection are noted. Though overall the cellulitis part appears to be well controlled. My concern is that for pemphigus vulgaris versus bullous pemphigoid. Wonder if paraneoplastic process may be at work year. We will contact Dr. Lay to perform a skin biopsy today. Once the skin biopsy is taken we will start patient on prednisone and monitor for improvement. Patient states that he had previously received an empiric 5-day course of prednisone which appears to have improved his rash. Overall, secondary bacterial infections more likely rather than being the primary cause. Klebsiella isolated from a blister in close proximity to the para stoma is likely to be a GI colonizer. In the absence of positive blood cultures, I do not think this is a disseminated Klebsiella infection. We will start him on prednisone 30 mg daily and monitor for improvement. Was receiving mupirocin topically from the wound care clinic on some of the more problematic lesions. Will continue. Status: Acute Additional A&P Information Metabolic acidosis, secondary to renal failure Elevated lactate level, secondary to renal failure. No evidence of sepsis currently. History of hypertension Hyperlipidemia, continue home meds Peripheral vascular disease with CTA abdominal aorta runoff June 2019 Type 2 diabetes. Sliding scale insulin. DJD History of squamous cell carcinoma of the anus Multiple other medical problems as listed in past medical history DNR Heparin for DVT prophylaxis Attestations Medical Necessity Statement*: Getting skin biopsy today. Starting oral steroids as a trial to see if skin changes improved. Coding Level of Care Code Acute Inventory Control Coordinator for Stephanie Fwthomas Diagnoses Cellulitis of foot, right L03.115 Acute renal failure N17.9 Acute blistering eruption of skin R21
--- NOTE | 2019-09-27 15:01 | PM.ACPR ---
Procedure/Consent Time out: Time Out Performed: Yes Consent: Consent for Procedure: Consent obtained from patient Procedure Narrative: The left lower quadrant of the patient's abdomen was prepped and draped in a sterile manner. 1% lidocaine was infiltrated around the area of skin excoriation and using 4 mm punch biopsy blade, 2 specimens were obtained and sent in formalin. Pressure dressings were applied. Patient tolerated the procedure well. Acute Procedures Epistaxis Control: Time out performed: Yes
--- NOTE | 2019-09-27 15:02 | PM.CONSULT ---
Providers/Reason For Consult Consulting Physican/Specialty*: Dr. Moraes Reason for Consult*: Skin biopsy to rule out pemphigoid disease Attending Physician: Brigid Moraes MD Primary Care Provider: Alicia Barrera DO History of Present Illness History of Present Illness Elpidio Hoffmann is a 78 year old male who had previously been my patient where I had performed a laparoscopic parastomal hernia repair. Patient had been doing well until 4 weeks after surgery when he developed severe excoriating skin lesions involving his abdomen groin and bilateral lower extremity. Patient was recently admitted to the hospital with worsening lesions in the right foot. I was consulted for skin biopsy before being started on steroids. Review of Systems General: Reports: 10 or more systems reviewed and unremarkable except in HPI and below Meds/Allergies Home Medications and Allergies Home Medications Medication Instructions Recorded Confirmed Last Taken Type aspirin 81 mg tablet,delayed 81 mg PO BEDTIME 05/03/19 09/23/19 09/22/19 History release diltiazem HCl 180 mg 180 mg PO BEDTIME 05/03/19 09/23/19 09/22/19 History tablet,extended release 24 hr pantoprazole 40 mg tablet,delayed 40 mg PO DAILY 05/03/19 09/23/19 09/23/19 History release amlodipine 10 mg PO BEDTIME 05/05/19 09/23/19 09/22/19 History ascorbic acid (vitamin C) [Vitamin 1,000 mg PO 1315 05/05/19 09/23/19 09/22/19 History C] cholecalciferol (vitamin D3) 2,000 unit PO 1830 05/05/19 09/23/19 09/22/19 History [Vitamin D3] cyanocobalamin (vitamin B-12) 1,000 mcg PO 1315 05/05/19 09/23/19 09/22/19 History [Vitamin B-12] multivitamin 1 tab PO DAILY 05/05/19 09/23/19 09/23/19 History vitamin A 2,400 mcg PO 1830 05/05/19 09/23/19 09/22/19 History vitamin B complex 1 tab PO 1830 05/05/19 09/23/19 09/22/19 History vitamin E 400 unit PO DAILY 05/05/19 09/23/19 09/23/19 History SHOWER CHAIR #1 ea 05/12/19 09/23/19 Unknown Rx celecoxib 200 mg capsule 200 mg PO BID PRN #60 cap 05/23/19 09/23/19 09/23/19 Rx acetaminophen 500 mg tablet 500 - 1,000 mg PO PRN tab 05/25/19 09/23/19 09/23/19 History 500 mg furosemide 20 mg tablet 20 mg PO DAILY #30 tab 05/26/19 09/23/19 09/23/19 Rx levofloxacin 750 mg PO DAILY 08/22/19 09/23/19 09/21/19 History blood sugar diagnostic #300 each 08/24/19 09/23/19 Unknown Rx nystatin 100,000 unit/gram topical 1 applic TOPICAL BID PRN #15 gm 09/05/19 09/23/19 Unknown Rx powder cetirizine 10 mg capsule 10 mg PO DAILY #30 cap 09/13/19 09/23/19 09/23/19 Rx insulin NPH isoph U-100 human 20 unit SUBCUT BID 09/23/19 09/23/19 09/23/19 History [Humulin N NPH U-100 Insulin] 15 units iron 325 mg PO DAILY 09/23/19 09/23/19 09/22/19 History mupirocin 1 applic TOPICAL BID 09/23/19 09/23/19 Unknown History triamcinolone acetonide 1 applic TOPICAL BID 09/23/19 09/23/19 Unknown History Allergies Allergy/AdvReac Type Severity Reaction Status Date / Time No Known Allergies Allergy Verified 09/23/19 13:21 Current Medications Current Medications Generic Name Dose Route Start Last Admin Trade Name Freq PRN Reason Stop Dose Admin Aspirin 81 mg 09/23/19 21:00 09/26/19 20:25 Aspirin Ec PO 81 mg BEDTIME ADAM Administration Diltiazem HCl 180 mg 09/23/19 21:00 09/26/19 20:25 Cardizem Cd (24hr) PO 180 mg BEDTIME ADAM Administration Heparin Sodium (Beef Lung) 5,000 unit 09/23/19 16:00 09/27/19 05:32 Heparin SUBCUT 5,000 unit Q12H ADAM Administration Piperacillin Sod/Tazobactam 50 mls @ 12.5 mls/hr 09/23/19 17:00 09/27/19 13:26 Sod 3.375 gm/ Sodium Chloride IV 12.5 mls/hr Q8H ADAM Administration Protocol Linezolid 600 mg in 300 mls @ 300 mls/hr 09/23/19 16:00 09/27/19 08:07 Zyvox Premix IV 300 mls/hr Q12H ADAM Administration Protocol Insulin Aspart 0 unit 09/23/19 18:00 09/27/19 13:25 Novolog SUBCUT 1 unit WM&BEDTIME ADAM Administration Protocol Mupirocin 1 applic 09/23/19 18:00 09/27/19 08:08 Bactroban TOPICAL 1 applic BID ADAM Administration Pantoprazole Sodium 40 mg 09/24/19 09:00 09/27/19 08:06 Protonix PO 40 mg DAILY ADAM Administration Zinc Oxide 1 applic 09/27/19 09:00 09/27/19 08:08 Zinc Oxide TOPICAL 1 applic DAILY ADAM Administration PFSH Acute PFSH: Medical History Anal squamous cell carcinoma Chronic kidney disease Renal function stable GERD (gastroesophageal reflux disease) Continue home medication Hyperlipidemia Continue current meds Hypertension Continue current medications Insulin dependent type 2 diabetes mellitus Bring list of blood sugars to primary care provider Para-ileostomy hernia Postoperative surgical repair, by Dr. Lay. Now tolerating p.o. feedings without difficulty. 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 Surgical History H/O ileostomy History of hernia repair 05/05/2019: Laparoscopic parastomal hernia repair S/P colostomy takedown S/P tonsillectomy Status post Judd procedure Family History Other Diabetes Hypertension Social History Smoking and tobacco status: former smoker Alcohol intake: current Alcohol intake frequency: 0-2 Drinks per Day Vitals/I&O/Wt Last Vital Signs Temp 99.0 F 09/27/19 12:00 Pulse 68 09/27/19 12:00 Resp 18 09/27/19 12:00 BP 121/74 09/27/19 12:00 Pulse Ox 98 09/27/19 12:00 09/27/19 09/27/1920 06:59 14:59 22:59 Intake Total 350 / 1445.625 250 / 250 Output Total 600 / 1350 200 / 200 Balance -250 / 95.625 50 / 50 Physical Exam Narrative: EXAM NARRATIVE: HEENT: Normocephalic Eye: Sclera /conjunctiva normal Respiratory and chest: Bilateral clear breath sounds on auscultation Cardiovascular: Normal S1 and S2 heart sounds Abdomen: Soft to palpation extensive skin excoriation involving the anterior abdominal wall the compared to the last time I had seen him it is improved significantly. Neurological: Oriented to place person and time Skin: Intact, pemphigoid lesions involving bilateral lower extremities. Data Micro: Micro: Microbiology 09/26/19 03:55 Blood Culture - Pr eliminary Blood NEGATIVE TO GLADYS E 09/26/19 03:55 Blood Culture - Pr eliminary Blood NEGATIVE TO GLADYS E A&P Assessment and plan (1) Acute blistering eruption of skin: 78-year-old gentleman is been dealing with excoriated lesions of the abdominal wall and lower extremities for the last few weeks. Patient is recently admitted to the hospital for right lower extremity cellulitis. I was consulted for skin biopsy prior to being started on steroids. Procedure risks and benefits of been discussed with the patient who agrees to proceed with the biopsy. Status: Acute Coding Level of Care Code Acute Vegetable Picker for Stephanie Mazariegos Diagnoses Acute blistering eruption of skin R21
[2019-09-27] MEDS: lidocaine 1% INJ 20 mL 5 ML IV (15:08)
--- NOTE | 2019-09-27 16:17 | PC.NURSE ---
CHANGED PTS DRESSING ON HIS ABDOMEN, ISLAND DRESSING TO LOWER ABDOMEN AND COVERDERM TO THE UPPER ABDOMEN.
[2019-09-27 17:19] LABS: Glucose Point of Care 119 mg/dL (70-110)
[2019-09-27] MEDS: aspirin 81 mg EC Tablet PO (20:16)
[2019-09-27] MEDS: dilTIAZem ER (24HR) 180 mg Capsule PO (20:16)
[2019-09-27 20:22] LABS: Glucose Point of Care 199 mg/dL (70-110)
[2019-09-28 04:00] VITALS: BP 104/61; PULSE 61; RESP 18; TEMP 36.9; O2SAT 96
[2019-09-28 04:51] LABS: Basophils % 0.1 %; Eosinophils % 0.1 %; Hematocrit 25.1 % (42.0-52.0); Hemoglobin 8.2 g/dL (11.7-16.6); Lymphocytes # 0.8 10^3/uL (0.8-4.8); Lymphocytes % 8.9 %; Mean Corpuscular HGB Conc 32.7 g/dL (30.0-36.0); Mean Corpuscular Hemoglobin 33.1 pg (28.0-34.0); Mean Corpuscular Volume 101.2 fL (80-94); Mean Platelet Volume 9.3 fL (7.4-10.4); Monocytes % 11.1 %; Neutrophils # 6.8 10^3/uL (1.8-7.7); Neutrophils % 79.2 %; Nucleated Red Blood Cells % 0 %; Platelet Count 111 10^3/cmm (130-400); Red Blood Count 2.48 10^6/uL (4.1-5.3); Red Cell Distribution Width 15.3 % (12.1-15.1); White Blood Count 8.6 10^3/uL (4.0-10.0)
[2019-09-28] MEDS: piperacillin-tazobactam 3.375 GM in sodium chloride 0.9% (plus) 50 ML IV ×2 (04:54→13:06)
[2019-09-28] MEDS: heparin 5,000 unit/mL INJ 1 mL 5000 UNIT SUBCUT ×2 (04:58→17:58)
[2019-09-28 05:08] LABS: Alanine Aminotransferase 12 U/L (0-41); Albumin Level 2.6 g/dL (3.5-5.2); Alkaline Phosphatase 59 IU/L (40-130); Anion Gap 17.1 (5-19); Aspartate Amino Transferase 14 U/L (0-40); Blood Urea Nitrogen 19 mg/dL (8-23); Calcium 8.3 mg/dL (8.5-10.5); Carbon Dioxide 21 mmol/L (22-29); Chloride 100 mmol/L (98-107); Globulin 3.1 g/dL (1.3-4.6); Glucose 150 mg/dL (65-115); Osmolality Calculated 277 mOsm/kg (285-295); Potassium 4.1 mmol/L (3.5-5.1); Sodium 134 mmol/L (136-145); Total Bilirubin 0.7 mg/dL (0.15-1.2); Total Protein 5.7 g/dL (6.6-8.7)
[2019-09-28 07:08] LABS: Glucose Point of Care 131 mg/dL (70-110)
[2019-09-28 07:13] VITALS: BP 112/58; PULSE 72; RESP 20; TEMP 37; O2SAT 96
[2019-09-28] MEDS: pantoprazole DR 40 mg Tablet PO (08:30)
[2019-09-28] MEDS: predniSONE 20 mg Tablet 30 MG PO (08:30)
[2019-09-28] MEDS: mupirocin oint 22 gm 1 APPLIC TOPICAL ×2 (08:31→17:58)
[2019-09-28] MEDS: linezolid premix 600 MG/300 ML PREMIX 300 MG IV (08:46)
[2019-09-28 10:46] LABS: Glucose Point of Care 214 mg/dL (70-110)
[2019-09-28 11:29] VITALS: BP 115/70; PULSE 72; RESP 18; TEMP 36.8; O2SAT 96
--- NOTE | 2019-09-28 11:40 | PC.SOCIAL ---
IMM Update Pg 2 of IMM updated. Patient resting with both eyes closed, copy left at bedside for patient.
[2019-09-28 14:05] LABS: Anti-Nuclear Antibody Screen NEGATIVE (NEGATIVE)
[2019-09-28 14:57] VITALS: BP 118/70; PULSE 76; RESP 18; TEMP 36.9; O2SAT 96
[2019-09-28 16:51] LABS: Glucose Point of Care 237 mg/dL (70-110)
--- NOTE | 2019-09-28 18:43 | PM.PN ---
Subjective Subjective: Interval history: Fever is now resolved today. Remains afebrile. Itching is somewhat better. No new lesions noted today. 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 Discontinue Zosyn and linezolid. CT chest abdomen and pelvis without any new causes of fever. No evidence of pneumonia or atelectasis. Stable spiculated lesion is seen on previous CTs. No intra-abdominal collections. Abdominal wall cellulitis and inflammation appears to be improving. No cough, stoma output unchanged, no c/o dysuria. Blood cx taken, thus far negative to date New bullous lesions over B/L axilla, but otherwise unchanged Monitor for autoimmune process from possible pemphigus vulgaris may have been contributing. Status: Acute (2) Acute renal failure: Acute renal failure superimposed on chronic kidney disease. Exacerbating factors could be Celebrex which he has been using regularly. Celebrex was discontinued. Status: Acute (3) Acute blistering eruption of skin: New lesions are still appearing over the skin. Overall appearance appears to be that of bullous disease which often tends to be either filled with clear fluid or hemorrhagic fluid. These then burst and ulcerate over. Some areas of secondary skin inflammation and infection are noted. Though overall the cellulitis part appears to be well controlled. My concern is that for pemphigus vulgaris versus bullous pemphigoid. Leaning more towards pemphigus vulgaris here appear to be flaccid blister over. Wonder if paraneoplastic process may be at work here. Status post skin biopsy performed on September 27, 2019. Started presumptively on prednisone 30 mg p.o. daily after skin biopsy. Results of the biopsy are awaited and will be followed up on schedule appointment with Dr. Bhakta. Multiple pictures have been taken and placed on patient's phone which he can take for his follow-up appointment with dermatology. Overall, secondary bacterial infections more likely rather than being the primary cause. Klebsiella isolated from a blister in close proximity to the para stoma is likely to be a GI colonizer. In the absence of positive blood cultures, this is unlikely to be a disseminated Klebsiella infection. Blood cultures additionally remain negative for any fungal organisms. As such he does not have any gross immunocompromising conditions such as being on active chemotherapy or being on chronic steroids that puts him at a higher risk for such infections. Was receiving mupirocin topically from the wound care clinic on some of the more problematic lesions. Will continue. We will also resume zinc oxide island dressing and he will resume calamine wraps once he discharges from here. Status: Acute Additional A&P Information Metabolic acidosis, secondary to renal failure, resolved now Elevated lactate level, secondary to renal failure. Resolved now History of hypertension Hyperlipidemia, continue home meds Peripheral vascular disease with CTA abdominal aorta runoff June 2019 Type 2 diabetes. Sliding scale insulin. DJD History of squamous cell carcinoma of the anus, no new evidence of disease on recent CT CAP Multiple other medical problems as listed in past medical history DNR Heparin for DVT prophylaxis Attestations Medical Necessity Statement*: Cellulitis improving, skin biopsy taken, fever resolved, likely discharge in the upcoming 24 to 48 hours. Coding Level of Care Code Acute Construction Sales Representative for [facility] Fwd Diagnoses Cellulitis of foot, right L03.115 Acute renal failure N17.9 Acute blistering eruption of skin R21
[2019-09-28 19:16] VITALS: BP 118/58; PULSE 78; RESP 25; TEMP 36.7; O2SAT 98
[2019-09-28] MEDS: dilTIAZem ER (24HR) 180 mg Capsule PO (20:25)
[2019-09-28] MEDS: aspirin 81 mg EC Tablet PO (20:25)
[2019-09-28 21:03] LABS: Glucose Point of Care 321 mg/dL (70-110)
[2019-09-29] VITALS: BP 93/45; PULSE 57; RESP 18; TEMP 36.8; O2SAT 98
[2019-09-29 04:00] VITALS: BP 93/57; PULSE 57; RESP 12; TEMP 36.6; O2SAT 97
[2019-09-29] MEDS: heparin 5,000 unit/mL INJ 1 mL 5000 UNIT SUBCUT (05:26)
[2019-09-29 06:56] VITALS: BP 94/57; PULSE 58; RESP 20; TEMP 36.7; O2SAT 95
[2019-09-29 07:07] LABS: Glucose Point of Care 149 mg/dL (70-110)
[2019-09-29] MEDS: predniSONE 20 mg Tablet 30 MG PO (08:54)
[2019-09-29] MEDS: pantoprazole DR 40 mg Tablet PO (08:55)
[2019-09-29 10:51] LABS: Glucose Point of Care 188 mg/dL (70-110)
[2019-09-29 11:22] VITALS: BP 101/60; PULSE 62; RESP 22; TEMP 36.7; O2SAT 98
--- NOTE | 2019-09-29 13:58 | P.DS_ITS ---
Discharge Providers Date of Admission: 09/23/19 14:15 Date of Discharge: September 29, 2019 Attending Provider at Admission: Amado Ely MD Attending Provider at Discharge: Brigid Moraes MD Primary Care Provider: Alicia Barrera DO Diagnoses at Discharge Discharge Diagnosis (1) Cellulitis of foot, right: Status: Acute (2) Acute blistering eruption of skin: Status: Acute (3) Chronic kidney disease: Status: Acute Qualifiers: Chronic kidney disease stage: unspecified stage Qualified Code(s): N18.9 - Chronic kidney disease, unspecified (4) Peripheral Vascular Disease: Status: Acute (5) History of hernia repair: Status: Resolved Problem details: 05/05/2019: Laparoscopic parastomal hernia repair (6) H/O ileostomy: Status: Acute (7) History of squamous cell carcinoma: Status: Acute Reason for Visit Reason for Visit: INFECTION IN FEET Hospital Course Discharge Summary: Elpidio Hoffmann is a 78 year old male who presented on 09/22 with concerns of redness in his right foot, worsening in the last 2 to 5 days. He has had a widespread bullous rash about 6 weeks ago for which he has been followed by wound care. This rash started 4 weeks after parastomal hernia repair surgery with biological mesh placement. He was receiving outpatient care at wound care with zinc oxide nystatin and 2 rounds of levofloxacin for Klebsiella from 1 of these blister cultures. He reports that his foot may be infected by some sandals he was wearing rubbing across the top. He denies any severe discomfort foot. Exam was notable for right foot cellulitis, for which he received empiric antibiotics with IV Zosyn and linezolid for a 7-day course with significant improvement in the resolution of the cellulitis by the time of discharge. He continues to have several blistering lesions with New lesions are still appearing over the skin. Overall appearance appears to be that of bullous disease which often tends to be either filled with clear fluid or hemorrhagic fluid. These then burst and ulcerate over. Some areas of secondary skin inflammation and infection are noted. Though overall the cellulitis part appears to be well controlled. My concern is that for pemphigus vulgaris versus bullous pemphigoid. Wonder if paraneoplastic process may be at work given his history of squamous cell carcinoma. Punch biopsy was taken on September 26 from 1 of these abdominal lesions for diagnostic purposes and patient was started on presumptive steroids. He is currently on prednisone 30 mg p.o. daily. Wound care clinic had referred him to infectious disease in [place] due to concern for this Klebsiella that was isolated from a blister culture.Overall, secondary bacterial infections more likely rather than being the primary cause. Klebsiella isolated from a blister in close proximity to the para stoma is likely to be a GI colonizer. In the absence of positive blood cultures, this is highly unlikely to be a disseminated Klebsiella infection. Blood cultures additionally remain negative for any fungal organisms. As such he does not have any gross immunocompromising conditions such as being on active chemotherapy or being on chronic steroids that puts him at a higher risk for invasive fungal infections. Was receiving mupirocin topically from the wound care clinic on some of the more problematic lesions. Will continue. He will resume calamine wraps once he discharges. Home health services with wound care arranged. He has a f/up appointment with dermatology scheduled already. Hospital course was notable for low-grade fevers prior to the onset of steroids.CT chest abdomen and pelvis without any new causes of fever. No evidence of pneumonia or atelectasis. Stable spiculated lesion is seen on previous CTs. No intra-abdominal collections. Abdominal wall cellulitis and inflammation appears to be improving. No cough, stoma output unchanged, no c/o dysuria. Blood cx taken, thus far negative to date. Possible that autoimmune process leading to skin blistering may have been contributing to low-grade fev ers as well. Patient is feeling well on the day of discharge and eager to go home at this point. He also had some JUANA upon admission which has now resolved. Metabolic acidosis which is now resolved as well. His hypertension remained well controlled during admission. His antibiotics have been discontinued upon discharge, however since he remains at high risk of secondary infection of his blistering skin lesions, I will provide him with a prescription for Augmentin and levofloxacin, to be initiated at the first sign of cellulitis recurring. If cellulitis does not settle down in spite of of empiric antibiotic, he is instructed to return to the ED. Physical Exam Narrative: EXAM NARRATIVE: GEN: Awake, alert and oriented, no acute distress CVS: S1S2 N RS: CTA B/L Abd: Soft, nt/nd , bs+ TECHNOLOGY PROFESSIONAL: no focal neuro deficits Discharge Data Data Completed and Pending: Completed Studies During Hospitalization Category Date Time Status CT chest abd pel wo con Routine Cat Scan 09/27/19 07:00 Completed XR foot RT min 3V * [id number] Stat Exams 09/23/19 11:44 Completed Pending at discharge Category Date Time Status Blood Culture AM LABS Lab 09/26/19 03:55 Results Pathology: Surgic al [PTH] Routine Pth 09/27/19 14:00 Ordered Labs from last 24 hours 09/29/19 09/29/19 09/28/19 10:40 06:49 21:00 POC Glucose 188 149 321 NATALIIA Screen 09/28/19 09/27/19 16:34 06:28 POC Glucose 237 NTAALIIA Screen Negative Vitals: Last Vital Signs Temp 98.1 F 09/29/19 11:22 Pulse 62 09/29/19 11:22 Resp 22 H 09/29/19 11:22 BP 101/60 09/29/19 11:22 Pulse Ox 98 09/29/19 11:22 Discharge Plan Discharge Patient Disposition: Home Health Service Condition: Stable Prescriptions: New nystatin [Nyamyc] 100,000 unit/gram Powder 1 applic topical BID PRN (Reason: rash) Qty: 0 RF: 0 amoxicillin-pot clavulanate [Augmentin] 875-125 mg tablet 1 tab PO BID Qty: 14 RF: 1 levofloxacin [Levaquin] 500 mg tablet 500 mg PO DAILY 7 Days RF: 1 prednisone 20 mg Tablet 30 mg PO DAILY 14 Days Qty: 14 RF: 1 Continued aspirin [Adult Low Dose Aspirin] 81 mg tablet,delayed release (DR/EC) 81 mg PO BEDTIME RF: 0 diltiazem HCl [Cardizem LA] 180 mg tablet extended release 24 hr 180 mg PO BEDTIME RF: 0 pantoprazole [Protonix] 40 mg tablet,delayed release (DR/EC) 40 mg PO DAILY RF: 0 furosemide [Lasix] 20 mg tablet 20 mg PO DAILY Qty: 30 RF: 4 (DME) SHOWER CHAIR Qty: 1 RF: 0 (DME) Accu-Chek Guide test strips Strip See Rx Instructions .ROUTE .MEDSUPPLY Qty: 300 RF: 3 nystatin 100,000 unit/gram powder 1 applic TOPICAL BID PRN (Reason: rash) Qty: 15 RF: 2 multivitamin Tablet 1 tab PO DAILY RF: 0 ascorbic acid (vitamin C) [Vitamin C] 1,000 mg Tablet 1,000 mg PO 1315 RF: 0 cyanocobalamin (vitamin B-12) [Vitamin B-12] 1,000 mcg Tablet 1,000 mcg PO 1315 RF: 0 cholecalciferol (vitamin D3) [Vitamin D3] 2,000 unit Tablet 2,000 unit PO 1830 RF: 0 acetaminophen 500 mg tablet 500 - 1,000 mg PO PRN RF: 0 triamcinolone acetonide 0.1 % cream 1 applic TOPICAL BID RF: 0 iron 325 mg (65 mg iron) Tablet 325 mg PO DAILY RF: 0 Humulin N NPH U-100 Insulin 100 unit/mL Suspension 20 unit SUBCUT BID RF: 0 mupirocin 2 % ointment 1 applic TOPICAL BID RF: 0 Changed Zyrtec 10 mg capsule 10 mg PO DAILY PRN (Reason: itching) Qty: 30 RF: 2 amlodipine 10 mg Tablet 5 mg PO BEDTIME Qty: 0 RF: 0 Discontinued celecoxib [Celebrex] 200 mg capsule 200 mg PO BID PRN (Reason: pain) Qty: 60 RF: 0 levofloxacin 750 mg PO DAILY RF: 0 vitamin B complex Tablet 1 tab PO 1830 RF: 0 vitamin E 400 unit Capsule 400 unit PO DAILY RF: 0 vitamin A 2,400 mcg PO 1830 RF: 0 Discharge Orders: Discharge Order (Routine); Ordered 09/29/19 Ordered By: Brigid Moraes Referrals: [facility] [Outside] Alicia Barrera DO [Primary Care Provider] - 10/05/19 9:45 am Melba Bhakta MD [Physician] - (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 Pictures on patient phone. Presumptive steroids started. Skin biopsy done 09/27/19. ) Discharge Diet: Diabetic Discharge Activity: Resume usual activity Discharge Attestations Time Spent in Discharge Care*: greater than 30 min Quality Metrics Clinical Quality Measures During this hospital stay, did patient experience: None Coding Level of Care Code Acute Pad Hand for Chg Fwd Diagnoses Cellulitis of foot, right L03.115 Acute blistering eruption of skin R21 Chronic kidney disease N18.9 Chronic kidney disease stage: unspecified stage Peripheral Vascular Disease I73.9 History of hernia repair Z98.890; Z87.19 H/O ileostomy Z98.890 History of squamous cell carcinoma Z85.89
[2019-09-29 15:08] VITALS: BP 101/60; BP 121/67; PULSE 53; PULSE 62; RESP 20; RESP 22; TEMP 36.7; TEMP 36.9; O2SAT 98
[2019-09-29 15:51] LABS: Glucose Point of Care 261 mg/dL (70-110)
[2019-09-29] MEDS: mupirocin oint 22 gm 1 APPLIC TOPICAL (16:25)
[2019-09-29 16:34] VITALS: BP 121/67; PULSE 53; RESP 20; TEMP 36.9; O2SAT 98
--- NOTE | 2019-09-29 16:37 | PC.NURSE ---
Discharge instructions given. IV DC'd cath intact, bleeding controlled with 2x2's and coban
== END 2019-09-29 17:13 | disposition home health service (06) | DRG 580 ==
LOC: ER 13:45 → MEDSURG 14:52
PROVIDERS: Emergency Medicine; Admitting Provider Internal Medicine; PCP Family Medicine; Visit Provider Student in an Organized Health Care Education/Training Program
DX: L03.115 Cellulitis of right lower limb (principal); N17.9 Acute kidney failure, unspecified; E87.2 Acidosis; N18.9 Chronic kidney disease, unspecified; C44.520 Squamous cell carcinoma of anal skin; Z79.82 Long term (current) use of aspirin; E11.51 Type 2 diabetes mellitus with diabetic peripheral angiopathy without gangrene; E11.22 Type 2 diabetes mellitus with diabetic chronic kidney disease; M19.90 Unspecified osteoarthritis, unspecified site; E78.5 Hyperlipidemia, unspecified; I12.9 Hypertensive chronic kidney disease with stage 1 through stage 4 chronic kidney disease, or unspecified chronic kidney disease; K21.9 Gastro-esophageal reflux disease without esophagitis; Z79.4 Long term (current) use of insulin; Z87.891 Personal history of nicotine dependence
CPT/HCPCS: 12345; 36415; 36416; 71250; 73630; 74176; 80048; 80053; 81003; 82274; 82962; 83605; 84145; 85025; 85651; 86038; 86140; 87040; 88305; 96372; 99283; J1644; J1815; J2001; J2020; J2543; J7030; J7512

== ENCOUNTER 2019-10-11 10:25 | Outpatient (CLI) | payer MEDICARE, SELFPAY ==
[2019-10-11 11:37] LABS: Basophils % 0.1 %; Eosinophils % 0.1 %; Hematocrit 34.5 % (42.0-52.0); Hemoglobin 11.2 g/dL (11.7-16.6); Lymphocytes # 2.3 10^3/uL (0.8-4.8); Lymphocytes % 15.9 %; Mean Corpuscular HGB Conc 32.5 g/dL (30.0-36.0); Mean Corpuscular Hemoglobin 34.4 pg (28.0-34.0); Mean Corpuscular Volume 105.8 fL (80-94); Mean Platelet Volume 9.7 fL (7.4-10.4); Monocytes # 1.2 10^3/uL (0.2-0.9); Monocytes % 8.3 %; Neutrophils # 10.83 10^3/uL (1.8-7.7); Neutrophils % 74.8 %; Nucleated Red Blood Cells % 0 %; Platelet Count 355 10^3/cmm (130-400); Red Blood Count 3.26 10^6/uL (4.1-5.3); Red Cell Distribution Width 17.6 % (12.1-15.1); White Blood Count 14.5 10^3/uL (4.0-10.0)
[2019-10-11 12:04] LABS: Urine Creatinine 153 mg/dL (39-259)
[2019-10-11 12:12] LABS: Parathyroid Hormone 79.2 pg/mL (15-65)
[2019-10-11 12:16] LABS: UPRO/UCREAT Ratio 0.16 mg/mg CR; Urine Protein Random 24 mg/dL
[2019-10-11 12:22] LABS: 25 Hydroxy Vitamin D 37 ng/mL (30-100); Albumin Level 3.7 g/dL (3.5-5.2); Blood Urea Nitrogen 31 mg/dL (8-23); Calcium 8.7 mg/dL (8.5-10.5); Carbon Dioxide 19 mmol/L (22-29); Chloride 106 mmol/L (98-107); Glucose 96 mg/dL (65-115); Phosphorus 3.1 mg/dL (2.5-4.5); Sodium 139 mmol/L (136-145)
== END 2019-10-11 10:26 | disposition home or self-care (01) ==
LOC: LAB 10:33
PROVIDERS: PCP Family Medicine; Visit Provider Dermatology
DX: N18.3 Chronic kidney disease, stage 3 (moderate) (principal); R21 Rash and other nonspecific skin eruption; L13.9 Bullous disorder, unspecified
CPT/HCPCS: 11104; 36415; 80069; 82306; 82310; 82570; 83970; 84156; 85025; 88305; 99203; 99204

== ENCOUNTER 2019-10-19 13:47 | Outpatient (CLI) | payer MEDICARE, SELFPAY | END 2019-10-19 13:48 | disposition home or self-care (01) | LOC: WOUND 13:51 | PROVIDERS: PCP Family Medicine; Visit Provider Nurse Practitioner Family | DX: Z09 Encounter for follow-up examination after completed treatment for conditions other than malignant neoplasm (principal) | CPT/HCPCS: 99212 ==

== ENCOUNTER 2019-10-23 17:51 | Emergency (ER) | payer MEDICARE, SELFPAY ==
[2019-10-23 18:09] VITALS: BP 83/53; PULSE 91; RESP 20; TEMP 36.4; O2SAT 100; BMI 22.9
--- NOTE | 2019-10-23 18:31 | CTR_ITS ---
PROCEDURE INFORMATION: Exam: CT Head Without Contrast Exam date and time: 10/23/2019 6:43 PM Age: 79 years old Clinical indication: Injury or trauma; Fall; Initial encounter; Blunt trauma (contusions or hematomas); Additional info: Trauma/fall/struck head TECHNIQUE: Imaging protocol: Computed tomography of the head without contrast. Radiation optimization: All CT scans at this facility use at least one of these dose optimization techniques: automated exposure control; mA and/or kV adjustment per patient size (includes targeted exams where dose is matched to clinical indication); or iterative reconstruction. COMPARISON: No relevant prior studies available. RADIATION DOSE METRICS: Total DLP (mGy-cm): 991.02 FINDINGS: Brain: There is volume loss and periventricular low density compatible with chronic small vessel disease changes. There is no acute hemorrhage, edema or mass effect. Tiny chronic appearing basal ganglia lacunar infarcts are noted. Ventricles: Normal. No ventriculomegaly. Bones/joints: Unremarkable. No acute fracture. Sinuses: There is mild mucosal thickening in the sinuses. No air-fluid levels. Mastoid air cells: Visualized mastoid air cells are well aerated. Soft tissues: Unremarkable. CT/CT head wo con* [id number] IMPRESSION: No acute intracranial abnormality. Radiation Dose CTDIVOL = (mGy): DLP = 991.02 (mGy-cm)
--- NOTE | 2019-10-23 18:31 | CTR_ITS ---
PROCEDURE INFORMATION: Exam: CT Cervical Spine Without Contrast Exam date and time: 10/23/2019 6:43 PM Age: 79 years old Clinical indication: Injury or trauma; Fall; Additional info: Trauma/fall TECHNIQUE: Imaging protocol: Computed tomography images of the cervical spine without contrast. Radiation optimization: All CT scans at this facility use at least one of these dose optimization techniques: automated exposure control; mA and/or kV adjustment per patient size (includes targeted exams where dose is matched to clinical indication); or iterative reconstruction. COMPARISON: No relevant prior studies available. RADIATION DOSE METRICS: Total DLP (mGy-cm): 784.14 FINDINGS: Vertebrae: The vertebral body heights are maintained. Degenerative appearing anterior listhesis of C4 on C5 and C5 on C6 are noted. There is no acute fracture. [id number] degenerative changes throughout the cervical spine are noted mostly due to bony endplate and facet proliferative changes. Discs/Spinal canal/Neural foramina: There are diffuse moderate to severe degenerative changes. There is disc space narrowing with endplate osteophytes and sclerosis especially at C3-C4, C5-C6 and C6-C7. Soft tissues: Unremarkable. Lungs: There is partial imaging of a large spiculated mass in the medial left upper lobe that measures at least 4.1 cm in greatest dimension. No prior studies are available for direct comparison but this has been described on multiple prior CT reports. CT/CT cervical spin wo con* [id number] IMPRESSION: 1. There is partial imaging of a large spiculated mass in the medial left upper lobe that measures at least 4.1 cm in greatest dimension. This has been described on prior exams including the chest CT November 08, 2017. 2. No acute bony abnormality. Degenerative changes are noted. Radiation Dose CTDIVOL = (mGy): DLP = 784.14 (mGy-cm)
--- NOTE | 2019-10-23 18:31 | XRR_ITS ---
PROCEDURE INFORMATION: Exam: XR Right Ankle Exam date and time: 10/23/2019 7:09 PM Age: 79 years old Clinical indication: Injury or trauma; Initial encounter; Blunt trauma; Right; Patient HX: C/O fall 10/22/19. C/O RT ankle pain and swelling medial aspect; Additional info: Trauma/fall TECHNIQUE: Imaging protocol: XR Right ankle. Views: 3 or more views. COMPARISON: CR 09/23/2019 11:57 AM FINDINGS: Bones/joints: Medial and lateral malleoli are normal. Ankle mortise is symmetrical. No fracture. Hindfoot is unremarkable. subtalar joint appears normal. Mild degenerative changes within the tibiotalar joint. Spur formation at the insertion of the Achilles' tendon and plantar aponeurosis. Soft tissues: Extensive soft tissue swelling edema about the ankle medially greater than laterally. XR/XR ankle RT min 3V* [id number] IMPRESSION: 1. Mild degenerative changes within the tibiotalar joint. 2. Spur formation at the insertion of the Achilles' tendon and plantar aponeurosis. 3. Extensive soft tissue swelling edema about the ankle medially greater than laterally.
[2019-10-23 20:42] VITALS: BP 108/77; PULSE 100; RESP 18; O2SAT 100
--- NOTE | 2019-10-23 20:55 | ED_ITS ---
HPI - Fall General: Chief Complaint: Fall Stated Complaint: foot pain Time Seen by Provider: 10/23/19 20:32 Source: patient Mode of arrival: ambulatory Limitations: no limitations History of Present Illness: HPI Narrative: Patient is an 79-year-old male who states he fell earlier today and injured his right ankle. The large blister to the left medial aspect of his ankle. Patient does have a history of blisters dermatology working him up for bullous pemphigoid. He states that he has pain with walking. He states his pain is sharp in nature and rates it a 5 out of 10. complaint: fall Onset (ago): hour(s) Associated symptoms-after fall: Denies abdominal pain, chest pain, headache(s) or neck pain Review of Systems Const: Denies: fever(s), chills, body aches or change in appetite Eyes: Denies: blurry vision or eye discomfort ENMT: Denies: throat pain or dental pain Card: Denies: chest pain Resp: Denies: dyspnea GI: Denies: abdominal pain, nausea, vomiting or diarrhea : Denies: dysuria Musc: Denies: neck pain or back pain Skin/Breast: Denies: rash Neuro: Denies: headache(s) Psych: Denies: depression Trae/Lymph: Denies: easy bruising All/Imm: Denies: urticaria PFSH ED PFSH: Medical History (Updated 10/23/19 @ 20:56 by Rosina Ferris MD) Anal squamous cell carcinoma Chronic kidney disease Renal function stable GERD (gastroesophageal reflux disease) Continue home medication Hyperlipidemia Continue current meds Hypertension Continue current medications Insulin dependent type 2 diabetes mellitus Bring list of blood sugars to primary care provider Para-ileostomy hernia Postoperative surgical repair, by Dr. Lay. Now tolerating p.o. feedings without difficulty. 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 Surgical History H/O ileostomy History of hernia repair 05/05/2019: Laparoscopic parastomal hernia repair S/P colostomy takedown S/P tonsillectomy Status post Judd procedure Family History Other Diabetes Hypertension Social History Smoking and tobacco status: former smoker Alcohol intake: current Alcohol intake frequency: 0-2 Drinks per Day Physical Exam Const: COMMON NORMALS: no acute distress, patient oriented x3 and healthy appearing HENMT: COMMON NORMALS: normocephalic and atraumatic HEAD & SCALP: normocephalic and atraumatic Eye: COMMON NORMALS: Equal, round and reactive pupils present and EOMs intact bilaterally PUPIL: Yes Equal, round and reactive pupils present Neck/C-Spine: COMMON NORMALS: full ROM and supple Chest: COMMONS NORMALS: normal inspection of the chest and normal palpation of entire chest wall Resp: COMMON NORMALS: normal respiratory effort, No retractions, No use of accessory muscles and clear to auscultation bilaterally AUSCULTATION: clear to auscultation bilaterally Cardio: COMMON NORMALS: regular rate, regular rhythm and No murmurs present (Cardio) RATE: regular rate RHYTHM: regular rhythm GI: COMMON NORMALS: Normal to inspection, nondistended, normoactive bowel sounds present, Soft to palpation, non-tender and no masses PALPATION: Yes Soft to palpation Extremity: COMMON NORMALS: full ROM NARRATIVE EXTREMITY EXAM: Large blister formation that is draining to the medial portion of his right ankle. He has tenderness and swelling to the ankle. No obvious deformity. Distal pulses intact. Neuro: COMMON NORMALS: patient oriented x3, moves all extremities and no focal motor deficits Psych: COMMON NORMALS: mental status grossly normal, Normal thought process present and cooperative THOUGHT PROCESS: Normal thought process present Skin: COMMON NORMALS: no rashes or lesions noted and no wounds GENERAL SKIN EXAM: no rashes or lesions noted Course Vital Signs: Vital signs: Vital Signs Temperature 97.6 F 10/23/19 18:09 Pulse Rate 100 10/23/19 20:42 Respiratory Rate 18 10/23/19 20:42 Blood Pressure 108/77 10/23/19 20:42 Pulse Oximetry 100 10/23/19 20:42 MDM - Fall MDM Narrative: Medical decision making narrative: Patient presents with an ankle sprain from a fall. Patient placed in a splint and is to follow-up with dermatology along with orthopedics. Patient is to be nonweightbearing. Patient's head CT and C-spine CT are negative. Imaging Data^: CT Head: Radiologist's impression: [facility] [address] [place] [address] CT Scan Report Signed Patient: Elpidio Hoffmann Unit #: [id number] : 1940 Age/Sex: 79 / M ADM Date: 10/23/19 Loc: ER Room/Bed: Attending Dr: Ordering Provider/Ordering MD: Lizbeth Perez Date of Service: 10/23/19 Procedure(s): CT head wo con* [id number] Accession Number(s): [id number] Report Number: [id number] PROCEDURE INFORMATION: Exam: CT Head Without Contrast Exam date and time: 10/23/2019 6:43 PM Age: 79 years old Clinical indication: Injury or trauma; Fall; Initial encounter; Blunt trauma (contusions or hematomas); Additional info: Trauma/fall/struck head TECHNIQUE: Imaging protocol: Computed tomography of the head without contrast. Radiation optimization: All CT scans at this facility use at least one of these dose optimization techniques: automated exposure control; mA and/or kV adjustment per patient size (includes targeted exams where dose is matched to clinical indication); or iterative reconstruction. COMPARISON: No relevant prior studies available. RADIATION DOSE METRICS: Total DLP (mGy-cm): 991.02 FINDINGS: Brain: There is volume loss and periventricular low density compatible with chronic small vessel disease changes. There is no acute hemorrhage, edema or mass effect. Tiny chronic appearing basal ganglia lacunar infarcts are noted. Ventricles: Normal. No ventriculomegaly. Bones/joints: Unremarkable. No acute fracture. Sinuses: There is mild mucosal thickening in the sinuses. No air-fluid levels. Mastoid air cells: Visualized mastoid air cells are well aerated. Soft tissues: Unremarkable. CT/CT head wo con* [id number] IMPRESSION: No acute intracranial abnormality. CT C-spine: Attestation: I personally reviewed and interpreted this imaging study as follows: Radiologist's impression: [address] [place] [address] CT Scan Report Signed Patient: Elpidio Hoffmann Unit #: [id number] : 1940 Age/Sex: 79 / M ADM Date: 10/23/19 Loc: ER Room/Bed: Attending Dr: Ordering Provider/Ordering MD: Lizbeth Perez Date of Service: 10/23/19 Procedure(s): CT cervical spin wo con* [id number] Accession Number(s): [id number] Report Number: [id number] PROCEDURE INFORMATION: Exam: CT Cervical Spine Without Contrast Exam date and time: 10/23/2019 6:43 PM Age: 79 years old Clinical indication: Injury or trauma; Fall; Additional info: Trauma/fall TECHNIQUE: Imaging protocol: Computed tomography images of the cervical spine without contrast. Radiation optimization: All CT scans at this facility use at least one of these dose optimization techniques: automated exposure control; mA and/or kV adjustment per patient size (includes targeted exams where dose is matched to clinical indication); or iterative reconstruction. COMPARISON: No relevant prior studies available. RADIATION DOSE METRICS: Total DLP (mGy-cm): 784.14 FINDINGS: Vertebrae: The vertebral body heights are maintained. Degenerative appearing anterior listhesis of C4 on C5 and C5 on C6 are noted. There is no acute fracture. Aeel-km-ynzgnogc degenerative changes throughout the cervical spine are noted mostly due to bony endplate and facet proliferative changes. Discs/Spinal canal/Neural foramina: There are diffuse moderate to severe degenerative changes. There is disc space narrowing with endplate osteophytes and sclerosis especially at C3-C4, C5-C6 and C6-C7. Soft tissues: Unremarkable. Lungs: There is partial imaging of a large spiculated mass in the medial left upper lobe that measures at least 4.1 cm in greatest dimension. No prior studies are available for direct comparison but this has been described on multiple prior CT reports. CT/CT cervical spin wo con* [id number] IMPRESSION: 1. There is partial imaging of a large spiculated mass in the medial left upper lobe that measures at least 4.1 cm in greatest dimension. This has been described on prior exams including the chest CT November 08, 2017. 2. No acute bony abnormality. Degenerative changes are noted. X-ray right ankle: Attestation: I personally reviewed and interpreted this imaging study as follows: My impression: No acute abnormality Discharge Plan Discharge Patient Disposition: Home Clinical Impression: Ankle sprain Qualifiers: Encounter type: initial encounter Involved ligament of ankle: unspecified ligament Laterality: right Qualified Code(s): S93.401A - Sprain of unspecified ligament of right ankle, initial encounter Condition: Stable Prescriptions: No Action aspirin [Adult Low Dose Aspirin] 81 mg tablet,delayed release (DR/EC) 81 mg PO BEDTIME RF: 0 diltiazem HCl [Cardizem LA] 180 mg tablet extended release 24 hr 180 mg PO BEDTIME RF: 0 pantoprazole [Protonix] 40 mg tablet,delayed release (DR/EC) 40 mg PO DAILY RF: 0 prednisone 10 mg tablet 10 mg PO DAILY Qty: 63 RF: 0 (DME) SHOWER CHAIR Qty: 1 RF: 0 (DME) Accu-Chek Guide test strips Strip See Rx Instructions .ROUTE .MEDSUPPLY Qty: 300 RF: 3 furosemide 20 mg tablet 20 mg PO DAILY Qty: 30 RF: 5 multivitamin Tablet 1 tab PO DAILY RF: 0 ascorbic acid (vitamin C) [Vitamin C] 1,000 mg Tablet 1,000 mg PO 1315 RF: 0 cyanocobalamin (vitamin B-12) [Vitamin B-12] 1,000 mcg Tablet 1,000 mcg PO 1315 RF: 0 cholecalciferol (vitamin D3) [Vitamin D3] 2,000 unit Tablet 2,000 unit PO 1830 RF: 0 acetaminophen 500 mg tablet 500 - 1,000 mg PO PRN RF: 0 triamcinolone acetonide 0.1 % cream 1 applic TOPICAL BID RF: 0 iron 325 mg (65 mg iron) Tablet 325 mg PO DAILY RF: 0 Humulin N NPH U-100 Insulin 100 unit/mL Suspension 20 unit SUBCUT BID RF: 0 mupirocin 2 % ointment 1 applic TOPICAL BID RF: 0 Nyamyc 100,000 unit/gram Powder 1 applic topical BID PRN (Reason: rash) Qty: 0 RF: 0 Augmentin 875-125 mg tablet 1 tab PO BID Qty: 14 RF: 1 amlodipine 10 mg Tablet 5 mg PO BEDTIME Qty: 0 RF: 0 Zyrtec 10 mg capsule 10 mg PO DAILY PRN (Reason: itching) Qty: 30 RF: 2 Discharge Orders: Discharge Order (Routine); Ordered 10/23/19 Ordered By: Rosina Ferris Referrals: Elvia Patino MD [Physician] - 1-3 days Alicia Barrera DO [Primary Care Provider] - Discharge Diet: Advance as tolerated Discharge Activity: Resume usual activity Patient Instructions: Ankle Sprain (ED) Coding Level of Care Code ED [employer] for Stephanie Mazariegos
[2019-10-23] MEDS: HYDROcodone-acetaminophen 5-325 mg Tablet 1 TAB PO (21:02)
--- NOTE | 2019-10-23 22:00 | PC.NURSE ---
Patient and refuse split due to being too heavy and bulky for getting around home. Request bulky dressing and july wrap only. MD Ferris aware
--- NOTE | 2019-10-24 09:27 | PC.SOCIAL ---
Referral received from ED. Called Ortho clinic spoke with Elizabeth. She will print off information for Pat and have provider to review. Will call this nurse if unable to schedule appointment.
--- NOTE | 2019-11-01 11:25 | DCPLANNER ---
Patient had a follow up appointment scheduled for 10.26.[address] Méndez at ortho. Patient did attend the appointment.
== END 2019-10-23 22:43 | disposition home or self-care (01) ==
LOC: ER 20:56 → CCL 10-27 09:01
PROVIDERS: Emergency Provider Emergency Medicine; PCP Family Medicine
DX: S93.401A Sprain of unspecified ligament of right ankle, initial encounter (principal); Z79.82 Long term (current) use of aspirin; Z79.4 Long term (current) use of insulin; E78.5 Hyperlipidemia, unspecified; I10 Essential (primary) hypertension; E11.9 Type 2 diabetes mellitus without complications; Z85.118 Personal history of other malignant neoplasm of bronchus and lung; Z87.891 Personal history of nicotine dependence; X58.XXXA Exposure to other specified factors, initial encounter
CPT/HCPCS: 12345; 70450; 72125; 73610; 99281; 99283; J0610

== ENCOUNTER → 2019-10-25 15:55 | Outpatient (BNVA) | payer MEDICARE, SELFPAY | PROVIDERS: PCP Family Medicine; Visit Provider Dermatology | DX: D48.9 Neoplasm of uncertain behavior, unspecified (principal); R21 Rash and other nonspecific skin eruption; T14.8XXA Other injury of unspecified body region, initial encounter; X58.XXXA Exposure to other specified factors, initial encounter | CPT/HCPCS: 11104; 88304; 99203; 99204 ==

== ENCOUNTER 2019-10-26 11:08 | Inpatient (IN) | payer MEDICARE, SELFPAY ==
[2019-10-26] VITALS (29 sets, daily range): BP systolic 53–99; BP diastolic 42–67; PULSE 96–119; RESP 6–41; TEMP 36.2–36.8; O2SAT 88–98; BMI 22.9
--- NOTE | 2019-10-26 | XACV_ITS ---
Ht: 178 cm Wt: 73 kg BSA: 1.90 m2 Gender: Male : 1940 Exam Priority: Routine Procedure(s): Procedure Description: Diagnostic procedure Procedure Description: Diagnostic procedure Diagnostic Cath Status: Emergency Diagnostic Findings LM has 0% stenosis. CX has 0% stenosis. RCA has 0% stenosis. pLAD: Mild 30% stenosis, ARAVIND: 3 flow. Ramus: Mild 30% stenosis, ARAVIND: 3 flow. Coronary angiography shows right dominance. Conclusions Elpidio Hoffmann is a 79 year old male brought in by aid who helps him at home through wound care/orthopedic office as patient does not appear to look good. Please note that source of history during this emergent case is through ER physician. ST elevation [place] pager was alerted, patient past medical history is complicated for being bedridden bilateral lower extremity edema multiple ulcers on the legs rash on the buttock he was soiled in diarrhea from ileostomy bag. He appeared to be short of breath cold clammy and in moderate distress. He was complaining of chest pressure. Systolic blood pressure was in the 60s. Twelve-lead EKG was concerned about inferior and high lateral ST elevation. Patient denies any prior history of coronary artery disease other history may relevant are hypertension hyperlipidemia. According to the source for the last 2 to 3 days he was not eating drinking well his legs continue to swell he continues to became short of breath, today he was brought to orthopedics for his appointment for his broken hip who sent the patient to ER where EKG was performed and asked how we were involved. We saw immediately patient in the ER and started him on pressor after stabilizing him on BiPAP and with pressor we moved him to the Preparation Department Supervisor. Through radial approach emergent coronary angiogram was performed which showed moderate proximal LAD lesion there was 30 to 40% proximal ramus otherwise no significant RCA left main or diagonal or obtuse marginal significant stenosis observed. Patient was in acute renal failure with creatinine of more than 2.0 therefore we did not perform LV gram and thought we will ask for echocardiogram to assess LV function. Patient later in relatively stable condition and with blood pressure of more than 120/80 on 10 mics of Levophed was transferred to ICU. There is mild coronary artery disease with two vessel disease. Recommendations 1-Return to inpatient for close monitoring and routine cath care 2-Risk factor modification for secondary prevention 3-Statin and aspirin 81 mg life--long, if tolerated 4-Transfer patient to medicine service for treatment of extracardiac causes of hypotension/sepsis 5-Continue optimal medical management 6-Follow up with Dr. Day in four weeks and your primary care in 10 days . Diagnostic RX Recommendation: medical therapy and/or counseling Pressures Phase:Rest AO : 141 mmHg / 84 mmHg ( 108 mmHg ) @ 7:01:00 AM 140 mmHg / 84 mmHg ( 108 mmHg ) @ 7:01:00 AM 137 mmHg / 84 mmHg ( 107 mmHg ) @ 7:01:00 AM Clinical Evaluation EBL: 5mL-10mL Procedural Details Procedure Consent Obtained. Pre-Procedure Time Out. Identified patient by full name and date of as verbalized by the patient/guarantor. Does the consent match the physician's order: N/A Emergent. Accurate & Complete Informed Consent: N/A Emergent. Inpatient/Outpatient History & Physical on Chart: N/A Emergent. If H&P is completed, is and addenduem needed: Yes; If yes, is the addendum complete: N/A Emergent. Visualize and Verify Site with Patient/Guarantor: N/A. Relevant Radiology Images available: N/A Emergent. Pre-op teaching completed and patient verbalized understanding. The risks, benefits, and alternatives of sedation and/or procedure were discussed by physician. The patient agrees to continue. Procedure started. [facility] Clinical Fraility Score: 6: Moderately Frail. Preparation Department Supervisor Indications: New Onset Angina. Chest Pain Symptom Assessment: Typical Angina Symptoms. Cardiovascular Instability: Yes, if yes, Hemodynamic Instability. Correct patient, site and procedure confirmed by cath team. Current diagnosis: STEMI. PERRLA. Strong, equal hand frame coverer bilaterally. Lungs clear x 5 lobes. IV Site on Arrival: 18 gauge in the left anticubital. IV Site on Arrival: 18 gauge in the right anticubital. IV Fluids: 0.9% NaCl at KVO. 0 mL infused prior to labeler. Pre Procedural Pulses: bilateral dorsalis pedis was 1+. Pre Procedural Pulses: bilateral posterior tibial was 1+. Pre Procedural Pulses: right radial was 1+. Oxygen started on by PAP via mask. bilateral groins was prepped with chloroprep then draped in the usual sterile fashion. right radial was prepped with chloroprep then draped in the usual sterile fashion. Physician notified. Baseline sample Acquired. HR: 174 BPM. Patient arrived to labeler and prepped to put on a ventilator and will be managed by respiratiory. Equipment: 6F - Radial. Physician arrived. Physician scrubbed in. Immediate Pre-Procedure Time Out. Lidocaine 1% infiltrated to the right radial. patient diagnosis hemodynamically unstable. AP pads applied. NS discontinued. Arterial access obtained. A 6 azerbaijani TIG catheter in over wire. drawing ABG. Catheter redirected to the RCA. Multiple views taken of right coronary artery. Catheter out. 6 azerbaijani XB 3.5 guide catheter was inserted over the wire. DOCUSYS guidewire was advanced through the guide catheter to lesion in the mid Circ. Guidewire advanced across lesion. BMW repositioned to Ramus. 1 gram calcium gluconate. Wire out. Guide catheter out. 6 azerbaijani JR 4 guide catheter was inserted over the wire. cines performed of RCA. TR band placed. Hemostasis obtained. Post Procedure: Pulses reassessed and unchanged. PERRLA. Strong, equal hand frame coverer bilaterally. No VTE prophylaxis required. Fluoro: 7:00. Contrast type used: Omnipaque 300 mgI/mL, 500 mL bottle. [id number]. Post-op diagnosis: Takotsubo. Complications: none. Estimated blood loss: 5mL-10mL. Procedure completed. Patient transferred by bed to ICU. Accurate & Complete Informed Consent: N/A Emergent. Inpatient/Outpatient History & Physical on Chart: N/A Emergent. If H&P is completed, is and addenduem needed: Yes; If yes, is the addendum complete: N/A Emergent. Site: Right Radial artery Sheath Size: 6 Fr Hemostasis Success: Unsuccessful Site: Right Radial artery Sheath Size: 6 Fr Hemostasis Success: Unsuccessful Procedure Medications Start: 11:35 AM Stop: 11:35 AM Medication: Lasix (furosemide) Amount: 60 mg Route: I.V. Start: 11:43 AM Stop: :43 AM Medication: Levophed (norepinephrine) Amount: 10 mcg/min Route: I.V. drip Start: 11:48 AM Stop: 11:48 AM Medication: Levophed (norepinephrine) Amount: 12 mcg/min Route: I.V. drip Start: 11:51 AM Stop: 11:51 AM Medication: D50W Amount: 2 Route: I.V. Start: 11:53 AM Stop: 11:53 AM Medication: Heparin Amount: 4000 units Route: I.V. Start: 11:56 AM Stop: 11:56 AM Medication: Levophed (norepinephrine) Amount: 10 mcg/min Route: I.V. drip Start: 11:35 AM Stop: 11:35 AM Medication: Lasix (furosemide) Amount: 60 mg Route: I.V. Start: 11:43 AM Stop: 11:43 AM Medication: Levophed (norepinephrine) Amount: 10 mcg/min Route: I.V. drip Start: 11:48 AM Stop: 11:48 AM Medication: Levophed (norepinephrine) Amount: 12 mcg/min Route: I.V. drip Start: 11:51 AM Stop: 11:51 AM Medication: D50W Amount: 2 Route: I.V. Start: 11:53 AM Stop: 11:53 AM Medication: Heparin Amount: 4000 units Route: I.V. Start: 11:56 AM Stop: 11:56 AM Medication: Levophed (norepinephrine) Amount: 10 mcg/min Route: I.V. deb Franks, the attending physician, have reviewed and verified all procedure medications. Yes, all medications given per verbal order Report Signatures Finalized by:Willard Day MD on 11/05/2019 6:21:01 PM DEB
--- NOTE | 2019-10-26 11:05 | XRR_ITS ---
PROCEDURE INFORMATION: Exam: XR Chest, 1 View Exam date and time: 10/26/2019 11:23 AM Age: 79 years old Clinical indication: Chest pain; Type not specified TECHNIQUE: Imaging protocol: XR of the chest Views: 1 view. COMPARISON: 1. CT CHEST 09/27/2019 11:14 AM 2. XR CHEST 05/05/2019 12:19 PM FINDINGS: Lungs: Interval decreased aeration of the lateral left lung base which could be due to lung consolidation and/or small pleural effusion. The previously described mass in the left upper lobe is not readily apparent on the current exam perhaps due to interference by the medial left clavicle and overlying ribs. Pleural space: No pneumothorax. Heart/Mediastinum: The heart is not enlarged when allowing for patient rotation. Vasculature: The thoracic aorta is tortuous. Bones/joints: There are old, healed upper left posterior rib fractures. XR/XR chest 1V portable [id number] IMPRESSION: Left basilar consolidation and/or small pleural effusion.
--- NOTE | 2019-10-26 11:05 | ECG_ITS ---
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 Measurements Intervals [place] Rate: 118 P: ID: -1 QRS: -3 QRSD: 94 T: 1 QT: 286 QTc: 402 Interpretive Statements Sinus tachycardia INFERIOR MYOCARDIAL INFARCTION , OF INDETERMINATE AGE [30 ms Q WAVE IN II/aVF] ST ELEVATION, CONSIDER LATERAL INJURY [MARKED ST ELEVATION W/O NORMALLY INFLECTED T WAVE IN V3-V6] ACUTE [place] Compared to ECG 10/28/2017 09:18:45 Myocardial infarct finding now present ST (T wave) deviation now present Sinus rhythm no longer present Electronically Signed On 10-27-2019 15:58:32 CDT by Lloyd Valdez M.D. [id number] f
--- NOTE | 2019-10-26 11:15 | ECG_ITS ---
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 Measurements Intervals [place] Rate: 116 P: -12 ME: 164 QRS: 0 QRSD: 94 T: 14 QT: 300 QTc: 417 Interpretive Statements SINUS TACHYCARDIA WITH OCCASIONAL VENTRICULAR PREMATURE COMPLEXES MARKED ST ELEVATION, CONSIDER INFERIOR INJURY [MARKED ST ELEVATION W/O NORMALLY INFLECTED T WAVE IN II/aVF] ST ELEVATION, CONSIDER ANTEROLATERAL INJURY [MARKED ST ELEVATION W/O NORMALLY INFLECTED T WAVE IN V3-V6] ACUTE [place] Compared to ECG 10/26/2019 11:07:31 Ventricular premature complex(es) now present Supraventricular tachycardia no longer present ST (T wave) deviation still present Myocardial infarct finding still present Electronically Signed On 10-27-2019 16:09:57 CDT by Lloyd Valdez M.D. [id number] andrews
--- NOTE | 2019-10-26 11:27 | ED_ITS ---
HPI - Chest Pain General: Chief Complaint: Chest Pain Stated Complaint: CP/HYPOTENSION/confusion Source: patient and family Mode of arrival: wheelchair Limitations: altered mental status and physical limitation History of Present Illness: HPI narrative: Mr. Hoffmann is a nice 79-year-old male who comes in complaining of chest pain that began last night. Patient states she also feels shortness of breath and has generalized weakness. Denies any fevers or chills or cough. Patient is very ill to base clinical exam. Wound patient is placed on the engine monitor he exhibits ST segment elevation. Patient does complain of active chest pain. He denies any previous cardiac history. Associated symptoms: Reports dyspnea, nausea and vomiting Review of Systems Const: Reports: body aches, fatigue and malaise Eyes: Denies: eye discomfort ENMT: Denies: throat pain, dental pain or dry mouth Card: Reports: chest pain, edema and swelling of feet/ankles Resp: Reports: dyspnea and chest congestion GI: Reports: nausea and vomiting : Denies: flank pain, difficulty urinating, urinary frequency or urinary urgency Musc: Reports: extremity swelling Neuro: Denies: headache(s), numbness in extremities, weakness in extremities or sensory changes Trae/Lymph: Reports: easy bruising and easy bleeding PFSH ED PFSH: Medical History Anal squamous cell carcinoma Chronic kidney disease Renal function stable GERD (gastroesophageal reflux disease) Continue home medication Hyperlipidemia Continue current meds Hypertension Continue current medications Insulin dependent type 2 diabetes mellitus Bring list of blood sugars to primary care provider Para-ileostomy hernia Postoperative surgical repair, by Dr. Lay. Now tolerating p.o. feedings without difficulty. 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 Surgical History H/O ileostomy History of hernia repair 05/05/2019: Laparoscopic parastomal hernia repair S/P colostomy takedown S/P tonsillectomy Status post Judd procedure Family History Other Diabetes Hypertension Social History Smoking and tobacco status: former smoker Alcohol intake: current Alcohol intake frequency: 0-2 Drinks per Day Physical Exam Const: COMMON NORMALS: no acute distress, patient oriented x3, no limitations, healthy appearing and well nourished GENERAL APPEARANCE: cooperative, well kempt and well developed HENMT: COMMON NORMALS: normocephalic, atraumatic, external ears normal, EAC's normal and Normal external nose present HEAD & SCALP: normal to inspection, normocephalic and atraumatic FACE & SINUS: normal facial exam and face symmetric NOSE: Normal external nose present and Normal nares present EXTERNAL EAR: Yes external ears normal EXTERNAL AUDITORY CANAL: EAC's normal MOUTH: Normal oral and palatal mucosa present, lip normal and tongue normal Eye: COMMON NORMALS: Equal, round and reactive pupils present and conjunctivae normal GENERAL EYE: appearance normal, both eyes and all related structures ALIGNMENT: Yes alignment normal PERIORBITAL: periorbital findings normal EYELID: eyelids normal CONJUNCTIVA: Yes conjunctivae normal SCLERA: sclerae normal PUPIL: Yes Equal, round and reactive pupils present Neck/C-Spine: COMMON NORMALS: full ROM, no lymphadenopathy, supple, no meningeal signs and no JVD GENERAL: Yes normal visual inspection and Yes trachea midline Chest: COMMONS NORMALS: normal inspection of the chest and normal palpation of entire chest wall Resp: COMMON NORMALS: normal respiratory effort, No retractions and No use of accessory muscles EFFORT & INSPECTION: Yes able to speak in complete sentences and Yes symmetric chest movement AUSCULTATION: no crackles, no rales, no rhonchi and no wheezes Cardio: COMMON NORMALS: no JVD, regular rate, regular rhythm, S1 normal heart sound present and S2 normal heart sound present RATE: regular rate RHYTHM: regular rhythm HEART SOUNDS: S1 normal heart sound present, S2 normal heart sound present, no click, no gallops, no murmurs, no rubs and abnormal split S2 GI: COMMON NORMALS: Soft to palpation and No hepatosplenomegaly present PALPATION: Yes Soft to palpation, No Tenderness to palpation present (GI), No Guarding due to palpation present (GI), No Rigid due to palpation, Yes No hepatosplenomegaly present, No Hernia present, No Palpable mass present and No Pulsatile mass present : COMMON NORMALS: Yes no CVA tenderness BLADDER/KIDNEY EXAM: Yes no CVA tenderness Back/Pelvis: COMMON NORMALS: no CVA tenderness, thoracic and lumbar spine normal to inspection, no thoracic nor lumbar tenderness and thoraco-lumbar ROM normal Extremity: COMMON NORMALS: normal to inspection, full ROM, capillary refill normal, no joint enlargement and no calf tenderness NARRATIVE EXTREMITY EXAM: Bilateral lower extremity edema. Neuro: COMMON NORMALS: patient oriented x3, CN's II-XII intact bilaterally, moves all extremities, no focal motor deficits and no sensory deficits noted MENINGEAL SIGNS: Yes no meningeal signs SPEECH: speech normal Psych: COMMON NORMALS: mental status grossly normal, Normal thought process present, cooperative, normal affect, speech normal and activity/motor behavior normal APPEARANCE: Yes well kempt SPEECH: Yes normal speech THOUGHT PROCESS: Normal thought process present Skin: COMMON NORMALS: no rashes or lesions noted, turgor normal, no jaundice, no petechiae and no mottling GENERAL SKIN EXAM: no rashes or lesions noted and turgor normal Course Vital Signs: Vital signs: Vital Signs Temperature 97.2 F L 10/26/19 14:45 Pulse Rate 119 H 10/26/19 19:00 Respiratory Rate 30 H 10/26/19 19:00 Blood Pressure 95/65 10/26/19 18:00 Pulse Oximetry 95 10/26/19 19:00 MDM - Chest Pain MDM Narrative: Medical decision making narrative: Elpidio is an 79-year-old male who comes in with chest pain and generalized weakness. Telemetry revealed ST segment elevation this was confirmed with EKGs. Stimulant was called immediately. Patient was given aspirin, Plavix and heparin. Patient was seen by Dr. Day and taken to the [facility] emergently. Lab Data: Labs: Lab Results 10/26/19 10/26/19 10/26/19 Range/Units 11:12 11:12 11:12 WBC Cancelled Corrected WBC Cancelled RBC Cancelled Hgb Cancelled Hct Cancelled MCV Cancelled MCH Cancelled MCHC Cancelled RDW Cancelled Plt Count Cancelled MPV Cancelled Gran % Cancelled Neut % (Auto) Cancelled Lymph % (Auto) Cancelled [place] % (Auto) Cancelled Eos % (Auto) Cancelled Baso % (Auto) Cancelled Neut # (Auto) Cancelled Lymph # (Auto) Cancelled [place] # (Auto) Cancelled Eos # (Auto) Cancelled Baso # (Auto) Cancelled Absolute Gran (aut o) Cancelled Nucleated RBC % (a uto) Cancelled Nucleated RBCs # Cancelled PT Cancelled INR Cancelled APTT Cancelled Specimen Type ABG pH (7.35-7.45) ABG pCO2 (35-45) mmHg ABG pO2 (80.0-100.0) mmH g ABG HCO3 (22-26) mmol/L ABG O2 Saturation ABG Base Excess (-2.0-2.0) mmol/ L Fer Test A-a O2 Gradient (5-10) mmHg Hematocrit (42-52) % Hgb O2 Saturation (95-100) % Carboxyhemoglobin (0.4-20.1) %THgb Methemoglobin (0.4-1.5) % Total Hemoglobin (14-18) g/dL Ionized Calcium (1.1-1.4) mmol/L O2 Delivery Device FiO2 % Mathematical Engineer ID Sodium Cancelled Potassium Cancelled Chloride Cancelled Carbon Dioxide Cancelled Anion Gap Cancelled BUN Cancelled Creatinine Cancelled GFR Calculation Cancelled Glucose Cancelled Calculated Osmolal ity Cancelled Calcium Cancelled Total Bilirubin Cancelled AST Cancelled ALT Cancelled Alkaline Phosphata se Cancelled Troponin T Baselin e Total Protein Cancelled Albumin Cancelled Globulin Cancelled Lipase Cancelled 10/26/19 10/26/19 Range/Units 11:12 11:40 WBC Corrected WBC RBC Hgb Hct MCV MCH MCHC RDW Plt Count MPV Gran % Neut % (Auto) Lymph % (Auto) [place] % (Auto) Eos % (Auto) Baso % (Auto) Neut # (Auto) Lymph # (Auto) [place] # (Auto) Eos # (Auto) Baso # (Auto) Absolute Gran (aut o) Nucleated RBC % (a uto) Nucleated RBCs # PT INR APTT Specimen Type Arterial ABG pH 7.25 L (7.35-7.45) ABG pCO2 18.7 L* (35-45) mmHg ABG pO2 441.0 H (80.0-100.0) mmH g ABG HCO3 8.1 L (22-26) mmol/L ABG O2 Saturation > 100.0 ABG Base Excess -17.0 L (-2.0-2.0) mmol/ L Fer Test N/a A-a O2 Gradient 29.9 H (5-10) mmHg Hematocrit 37.2 L (42-52) % Hgb O2 Saturation 98.9 (95-100) % Carboxyhemoglobin 0.8 (0.4-20.1) %THgb Methemoglobin 0.6 (0.4-1.5) % Total Hemoglobin 12.1 L (14-18) g/dL Ionized Calcium 1.2 (1.1-1.4) mmol/L O2 Delivery Device Bipap FiO2 100.0 % Mathematical Engineer ID Amh Sodium 129.0 L Potassium 6.0 H Chloride Carbon Dioxide Anion Gap BUN Creatinine GFR Calculation Glucose 65.0 L Calculated Osmolal ity Calcium Total Bilirubin AST ALT Alkaline Phosphata se Troponin T Baselin e Cancelled Total Protein Albumin Globulin Lipase Imaging Data^: CXR: My impression: Cardiomegaly with mild pulmonary vascular congestion. EKG Data^: EKG 1: Attestation: I personally reviewed and interpreted this EKG as follows: EKG interpretation date: 10/26/19 EKG interpretation time: 11:07 Interpretation: Normal sinus rhythm at 118 beats a minute, ST segment elevation in 1, 2, V5 and V6. EKG 2: Attestation: I personally reviewed and interpreted this EKG as follows: EKG interpretation date: 10/26/19 EKG interpretation time: 11:14 Interpretation: Normal sinus rhythm at 115 beats a minute, single baseline artifact, ST segment elevation V2, V4 through V6 EKG 3: Attestation: I personally reviewed and interpreted this EKG as follows: EKG interpretation date: 10/26/19 EKG interpretation time: 11:15 Interpretation: Normal sinus rhythm 116 beats a minute, 6 elevation 1, 2, aVL, V4 through V6. Discharge Plan Discharge Admit Provider: Willard Day Clinical Impression: ST elevation myocardial infarction (STEMI) Qualifiers: Involved coronary artery: unspecified coronary artery Qualified Code(s): I21.3 - ST elevation (STEMI) myocardial infarction of unspecified site Condition: Stable Coding Level of Care Code ED Meter Repairer for g Fwd Exam Comprehensive
[2019-10-26] MEDS: dextrose 5% 250 ML 15 ML (11:28)
[2019-10-26] MEDS: aspirin 325 mg Tablet PO (11:28)
[2019-10-26] MEDS: heparin 5,000 unit/mL INJ 1 mL 4000 UNIT IVP (11:29)
[2019-10-26] MEDS: sodium chloride 0.9% 1,000 ML 999 ML IV (11:29)
--- NOTE | 2019-10-26 11:30 | PC.NURSE ---
Repeat EKGs were done to capture an accurate read, shown to ER and cardiology physicians.
[2019-10-26] MEDS: clopidogrel 300 mg Tablet 600 MG PO (11:32)
--- NOTE | 2019-10-26 12:16 | USCV_ITS ---
Elpidio Hoffmann Age: 79 Gender: M : 1940 Exam Date: 10/26/2019 14:54 Ordering Phys: Willard Day MD ([email or web address]) Technologist: Laura Rosenthal [place] [facility] [place]: STEMI BP: 95 / 63 HR: 115 Rhythm: Sinus Technical Quality: Technically difficult study MEASUREMENTS (Male / Female) Normal Values 2D ECHO LV Diastolic Diameter PLAX 3.4 cm 4.2 - 5.9 / 3.9 - 5.3 cm LV Systolic Diameter PLAX 2.2 cm IVS Diastolic Thickness 1.7 cm 0.6 - 1.0 / 0.6 - 0.9 cm IVS Systolic Thickness 1.5 cm LVPW Diastolic Thickness 1.4 cm 0.6 - 1.0 / 0.6 - 0.9 cm LVPW Systolic Thickness 1.3 cm LVOT Diameter 2.0 cm LV Ejection Fraction 2D Teich 66.4 % LA Diameter 3.0 cm LA Width 2.8 cm LA Height 4.6 cm RA Width 1.9 cm RA Height 4.3 cm Aorta at Sinotubular Diameter 2.5 cm M-MODE LV Diastolic Diameter MM 5.8 cm 4.2 - 5.9 / 3.9 - 5.3 cm LV Systolic Diameter MM 3.9 cm LV Ejection Fraction MM Teich 60.1 % IVS Diastolic Thickness MM 0.4 cm 0.6 - 1.0 / 0.6 - 0.9 cm IVS Systolic Thickness MM 0.7 cm LVPW Diastolic Thickness MM 1.0 cm 0.6 - 1.0 / 0.6 - 0.9 cm LVPW Systolic Thickness MM 1.8 cm Aortic Annulus Diameter 3.4 cm LA Ao Ratio MM 0.9 MV E Point Septal Separation 1.0 cm DOPPLER AV Peak Velocity 157.0 cm/s LVOT Peak Velocity 137.0 cm/s AV Area Cont Eq vti 2.5 cm squared AV Area Cont Eq pk 2.8 cm squared MV Area PHT 5.0 cm squared Mitral E to A Ratio 0.7 MV E' Velocity 7.0 cm/s Mitral E to MV E' Ratio 8.1 Mitral E to LV E' Lateral Ratio 9.3 Mitral E to LV E' Septal Ratio 7.2 Right Atrial Pressure 8.0 mmHg PV Peak Velocity 90.0 cm/s FINDINGS Left Ventricle Normal left ventricular size and systolic function, EF 65%.mild left ventricular hypertrophy. No gross wall motion normalities Right Ventricle Normal right ventricular size and systolic function. Right Atrium Possibly of normal size Left Atrium Possibly of normal size Mitral Valve No gross abnormalities noted Aortic Valve Thickened aortic valve. Tricuspid Valve Could not be visualized well Pulmonic Valve Not visualized well Pericardium Trivial pericardial effusion. Aorta Aortic root appears to be of normal size CONCLUSIONS Normal left ventricular size and systolic function, EF 65%. mild left ventricular hypertrophy. No gross wall motion normalities. Thickened aortic valve. Trivial pericardial effusion. There are no intracardiac masses. Technically somewhat difficult study because of the poor ultrasonic window. Dr Melissa Barrientos MD FACC (Electronically Signed) Final Date: 27 October 2019 12:16 S
[2019-10-26 12:41] LABS: ABG PH Result 7.25 (7.35-7.45); Alveolar-Arterial Oxygen Gradi 29.9 mmHg (5-10); Arterial Blood Gas Hematocrit 37.2 % (42-52); Blood Gas Operator Identificat AMH; Blood Gas Sample Type Arterial; Carboxyhemoglobin 0.8 %THgb (0.4-20.1); HCO3 ABG 8.1 mmol/L (22-26); HGB O2 Sat 98.9 % (95-100); Ionized Calcium Level - ABG 1.2 mmol/L (1.1-1.4); Methemoglobin 0.6 % (0.4-1.5); Oxygen Device BIPAP; Oxygen Saturation ABG > 100.0; Total Hemoglobin 12.1 g/dL (14-18)
[2019-10-26 12:42] LABS: ABG PCO2 18.7 mmHg (35-45)
[2019-10-26 14:38] LABS: Hematocrit 34.1 % (42.0-52.0); Hemoglobin 10.9 g/dL (11.7-16.6); Mean Corpuscular Hemoglobin 32.7 pg (28.0-34.0); Mean Corpuscular Volume 102.4 fL (80-94); Mean Platelet Volume 10.8 fL (7.4-10.4); Nucleated Red Blood Cells # 0.1 /100WBC; Nucleated Red Blood Cells % 0.8 %; Platelet Count 102 10^3/cmm (130-400); Red Blood Count 3.33 10^6/uL (4.1-5.3); Red Cell Distribution Width 16.5 % (12.1-15.1); White Blood Count 6.2 10^3/uL (4.0-10.0)
[2019-10-26 14:58] LABS: Slide Review Slide Review Perform
[2019-10-26 15:12] LABS: INR 1.12 (0.8-1.2)
[2019-10-26 15:13] LABS: Absolute Neutrophil 5.5 10^3/cmm (1.4-6.5); Absolute Segmented Neutrophil 4.4 10/cmm (1.6-7.1); Band Neutrophils Absolute 1.1 10^3/cmm (0.0-1.2); Lymphocytes 3 %; Monocytes Absolute 0.1 10^3/cmm (0.1-0.6); Platelet Estimate Decreased (Normal); Segmented Neutrophils 71 %; Total Cells Counted 100 (0-100)
[2019-10-26 15:19] LABS: Alanine Aminotransferase 38 U/L (0-41); Albumin Level 1.9 g/dL (3.5-5.2); Alkaline Phosphatase 68 IU/L (40-130); Anion Gap 25.5 (5-19); Aspartate Amino Transferase 67 U/L (0-40); Blood Urea Nitrogen 72 mg/dL (8-23); Calcium 8.5 mg/dL (8.5-10.5); Carbon Dioxide 10 mmol/L (22-29); Chloride 97 mmol/L (98-107); Glucose 189 mg/dL (65-115); Lipase 8 U/L (13-60); Osmolality Calculated 269 mOsm/kg (285-295); Potassium 5.5 mmol/L (3.5-5.1); Sodium 127 mmol/L (136-145); Total Bilirubin 1.1 mg/dL (0.15-1.2); Total Protein 4.9 g/dL (6.6-8.7)
[2019-10-26 15:21] LABS: Troponin(5th) Baseline 57 ng/L (0-15)
[2019-10-26] MEDS: FUROsemide 10 mg/mL SDV 4mL 40 MG IVP (15:50)
--- NOTE | 2019-10-26 16:07 | PC.NURSE ---
pt. came with numerous areas with no skin. states lasix done it. hx. of chemo . had colostomy 1st. now ileostomy. areas to penis, legs, groin. coccyx reddened also.
--- NOTE | 2019-10-26 16:10 | P.HP_ITS ---
Providers/Chief Complaint Admitting Physician: Willard Day MD Primary Care Provider: Alicia Barrera DO Chief Complaint: CP/HYPOTENSION/confusion History of Present Illness Elpidio Hoffmann is a 79 year old male brought in by aid who helps him at home through wound care/orthopedic office as patient does not appear to look good. Please note that source of history during this emergent case is through ER physician. ST elevation [place] pager was alerted, patient past medical history is complicated for being bedridden bilateral lower extremity edema multiple ulcers on the legs rash on the buttock he was soiled in diarrhea from ileostomy bag. He appeared to be short of breath cold clammy and in moderate distress. He was complaining of chest pressure. Systolic blood pressure was in the 60s. Twelve- lead EKG was concerned about inferior and high lateral ST elevation. Patient denies any prior history of coronary artery disease other history may relevant are hypertension hyperlipidemia. According to the source for the last 2 to 3 days he was not eating drinking well his legs continue to swell he continues to became short of breath, today he was brought to orthopedics for his appointment for his broken hip who sent the patient to ER where EKG was performed and asked how we were involved. We saw immediately patient in the ER and started him on pressor after stabilizing him on BiPAP and with pressor we moved him to the Commercial Carpet Installer. Through radial approach emergent coronary angiogram was performed which showed moderate proximal LAD lesion there was 30 to 40% proximal ramus otherwise no significant RCA left main or diagonal or obtuse marginal significant stenosis observed. Patient was in acute renal failure with creatinine of more than 2.0 therefore we did not perform LV gram and thought we will ask for echocardiogram to assess LV function. Patient later in relatively stable condition and with blood pressure of more than 120/80 on 10 mics of Levophed was transferred to ICU. I also consulted my medicine colleagues to help us in maintaining his other comorbidities. He was also noted to have hyperkalemia of 6.0 for which she was given calcium gluconate and IV Lasix 60 mg. His blood sugar was 65 therefore dextrose was given. Medications/Allergies Home Medications Medication Instructions Recorded Confirmed Last Taken Type aspirin 81 mg tablet,delayed 81 mg PO BEDTIME 05/03/19 10/26/19 09/22/19 History release diltiazem HCl 180 mg 180 mg PO BEDTIME 05/03/19 10/26/19 09/22/19 History tablet,extended release 24 hr pantoprazole 40 mg tablet,delayed 40 mg PO DAILY 05/03/19 10/26/19 09/23/19 History release ascorbic acid (vitamin C) [Vitamin 1,000 mg PO 1315 05/05/19 10/26/19 09/22/19 History C] cholecalciferol (vitamin D3) 2,000 unit PO 1830 05/05/19 10/26/19 09/22/19 History [Vitamin D3] cyanocobalamin (vitamin B-12) 1,000 mcg PO 1315 05/05/19 10/26/19 09/22/19 History [Vitamin B-12] multivitamin 1 tab PO DAILY 05/05/19 10/26/19 09/23/19 History SHOWER CHAIR #1 ea 05/12/19 10/26/19 Unknown Rx acetaminophen 500 mg tablet 500 - 1,000 mg PO PRN tab 05/25/19 10/26/19 09/23/19 History 500 mg blood sugar diagnostic #300 each 08/24/19 10/26/19 Unknown Rx Humulin N NPH U-100 Insulin 20 unit SUBCUT BID 09/23/19 10/26/19 09/23/19 History 15 units iron 325 mg PO DAILY 09/23/19 10/26/19 09/22/19 History mupirocin 1 applic TOPICAL BID 09/23/19 10/26/19 Unknown History triamcinolone acetonide 1 applic TOPICAL BID 09/23/19 10/26/19 Unknown History Zyrtec 10 mg PO DAILY PRN #30 cap 09/29/19 10/26/19 09/23/19 Rx amlodipine 5 mg PO BEDTIME #0 tab 09/29/19 10/26/19 09/22/19 Rx amoxicillin-pot clavulanate 1 tab PO BID #14 tab 09/29/19 10/26/19 Unknown Rx [Augmentin] nystatin [Nyamyc] 1 applic TOPICAL BID PRN #0 g 09/29/19 10/26/19 Unknown Rx prednisone 10 mg tablet 10 mg PO DAILY #63 tab 10/11/19 10/26/19 Unknown Rx prednisone 10 mg tablet 10 mg PO DAILY #63 tab 10/25/19 10/26/19 Unknown Rx Allergies Allergy/AdvReac Type Severity Reaction Status Date / Time No Known Allergies Allergy Verified 10/26/19 10:21 PFSH Acute PFSH: Medical History Anal squamous cell carcinoma Chronic kidney disease Renal function stable GERD (gastroesophageal reflux disease) Continue home medication Hyperlipidemia Continue current meds Hypertension Continue current medications Insulin dependent type 2 diabetes mellitus Bring list of blood sugars to primary care provider Para-ileostomy hernia Postoperative surgical repair, by Dr. Lay. Now tolerating p.o. feedings without difficulty. 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 Surgical History H/O ileostomy History of hernia repair 05/05/2019: Laparoscopic parastomal hernia repair S/P colostomy takedown S/P tonsillectomy Status post Judd procedure Family History Other Diabetes Hypertension Social History Smoking and tobacco status: former smoker Alcohol intake: current Alcohol intake frequency: 0-2 Drinks per Day Vitals/I&O/Wt Last Vital Signs Temp 97.2 F L 10/26/19 14:45 Pulse 109 H 10/26/19 15:30 Resp 31 H 10/26/19 15:30 BP 85/61 10/26/19 15:30 Pulse Ox 96 10/26/19 15:30 10/26/19 10/26/19 10/26/19 06:59 14:59 22:59 Output Total 300 / 300 Balance -300 / -300 Weight last 48 hrs Weight 160 lb Physical Exam Narrative: EXAM NARRATIVE: GENERAL: Patient is lethargic fatigue but he would like to do everything for him he is full code. He has abrasion on the forehead he has multiple bruising on the hands. NECK: No jugular vein distension. HEENT: No cyanosis. No icterus. No pallor. HEART: Regular S1 and S2. No murmur, rub or gallop. LUNGS: Inspiratory mid to basal crackles bilaterally. ABDOMEN: Soft, nontender and nondistended. Positive bowel sounds. No guarding, rebound or tenderness. Patient is soiled and diarrhea through ileostomy bag CENTRAL NERVOUS SYSTEM: Grossly nonfocal. EXTREMITIES: Lower extremities with 2+ edema bilaterally. Bilateral multiple ulcers on the leg. Data : 10/26/19 14:00 10/26/19 14:29 A&P Assessment and plan (1) Acute coronary syndrome: As above patient was taken to the Commercial Carpet Installer he did not have significant lesions in the coronary bed. Most likely could be stress-induced cardiomyopathy or during this time if stress hypotension shock is moderate LAD lesion may have caused ischemia but there was no significant mechanical blockage. Once blood pressure improved his chest pressure resolved. We will continue to monitor him. He was given load of Plavix aspirin. Status: Acute (2) Shock: Currently resolved after Levophed and diuresis. Status: Acute (3) Pulmonary edema: 60 mg of IV Lasix was given patient is tolerating BiPAP and feeling bet ter. We will ask for echocardiogram to assess LV function. He will be requiring further diuresis Status: Acute (4) Acute renal failure (ARF): Patient has underlying chronic kidney disease. Today he presented with hyperkalemia. Hopefully with improvement in blood pressure and IV diuresis creatinine will improve along with potassium. We will also involve renal. Status: Acute (5) Hyperkalemia: Calcium gluconate and IV Lasix was given will repeat potassium. Status: Acute Attestations Medical Necessity Statement*: Patient will be requiring continuation hospitalization. I will transfer the care to my other colleagues since I will be going out of town. Coding Level of Care Code New Pt Acute Shoe Folder for Stephanie Mazariegos Patient Type New History Comprehensive Exam Comprehensive Medical Decision Making High Complexity Diagnoses Acute coronary syndrome I24.9 Shock R57.9 Pulmonary edema J81.1 Acute renal failure (ARF) N17.9 Hyperkalemia E87.5
[2019-10-26 17:11] LABS: Troponin 5 2HR 61.38 ng/L (0-15); Troponin 5 2HR Delta 4.38 ABS# (0-10)
--- NOTE | 2019-10-26 17:29 | PM.CONSULT ---
Providers/Reason For Consult Consulting Physican/Specialty*: Dr. Day Reason for Consult*: Medical management. Attending Physician: Willard Day MD Primary Care Provider: Alicia Barrera DO History of Present Illness History of Present Illness Elpidio Hoffmann is a 79 year old male presents to emerge department with chest pain pointed to mid chest with some pleuritic component and shortness of breath. Patient had ST elevations and was taken to the Steward/Stewardess showing no no evidence of obstructive coronary artery disease requiring intervention. He has been having some cough but nonproductive. During my evaluation patient is lethargic with BiPAP on and difficult to speak. His niece at bedside provided most of the history. Patient was started on Lasix approximately 3 months ago and shortly after started having significant desquamative skin lesions involving his lower extremities and abdomen. Patient was seen by dermatology but no apparent cause was found. For the last 3 months he continued taking Lasix. Because of significant lesions he has been on large amount of antibiotics including recent Levaquin and Augmentin. Patient has previous history of rectal cancer and lung cancer and has colostomy and needs reports normal output but she also mentioned stool being tarry black. He is currently hypotensive requiring Levophed support. He received what appears to be 1.5 L of normal saline since admission. He also received 600 mg Plavix loading dose prior to procedure. He received 4000 units of heparin IV in ER and some heparin in Steward/Stewardess. 5000 units was removed from Pyxis but we do not know how much he got. Clinically patient appears to be dry but has significant lower extremity swelling which felt to be likely related to significant hypoalbuminemia. His skin lesion appears to be allergic in etiology and I think Lasix is likely a prime suspect. He could possibly have coexisting sulfa allergy. He appears to have bibasilar pneumonia on x-ray. He does have minimal bibasilar Rales on exam. Clinically he appears to be dry and septic with evidence of anasarca because of hypoalbuminemia. Review of Systems Const: Reports: chills; Denies: fever(s) Eyes: Denies: change in vision ENMT: Denies: throat pain or change in hearing Card: Reports: chest pain and edema; Denies: lightheadedness Resp: Reports: dyspnea; Denies: productive cough GI: Denies: abdominal pain, nausea, vomiting, dysphagia or change in bowel habits (Continues to have normal ostomy output.) Musc: Denies: joint pain or joint swelling Skin/Breast: Denies: rash (Except as mentioned.) or erythema Neuro: Reports: weakness in extremities (Bilateral without focal findings. Generally weak); Denies: headache(s) Psych: Denies: depression Endo: Denies: excessive sweating Trae/Lymph: Denies: easy bleeding or tender lymph nodes All/Imm: Denies: throat swelling Meds/Allergies Home Medications and Allergies Home Medications Medication Instructions Recorded Confirmed Last Taken Type aspirin 81 mg tablet,delayed 81 mg PO BEDTIME 05/03/19 10/26/19 09/22/19 History release diltiazem HCl 180 mg 180 mg PO BEDTIME 05/03/19 10/26/19 09/22/19 History tablet,extended release 24 hr pantoprazole 40 mg tablet,delayed 40 mg PO DAILY 05/03/19 10/26/19 09/23/19 History release ascorbic acid (vitamin C) [Vitamin 1,000 mg PO 1315 05/05/19 10/26/19 09/22/19 History C] cholecalciferol (vitamin D3) 2,000 unit PO 1830 05/05/19 10/26/19 09/22/19 History [Vitamin D3] cyanocobalamin (vitamin B-12) 1,000 mcg PO 1315 05/05/19 10/26/19 09/22/19 History [Vitamin B-12] multivitamin 1 tab PO DAILY 05/05/19 10/26/19 09/23/19 History SHOWER CHAIR #1 ea 05/12/19 10/26/19 Unknown Rx acetaminophen 500 mg tablet 500 - 1,000 mg PO PRN tab 05/25/19 10/26/19 09/23/19 History 500 mg blood sugar diagnostic #300 each 08/24/19 10/26/19 Unknown Rx Humulin N NPH U-100 Insulin 20 unit SUBCUT BID 09/23/19 10/26/19 09/23/19 History 15 units iron 325 mg PO DAILY 09/23/19 10/26/19 09/22/19 History mupirocin 1 applic TOPICAL BID 09/23/19 10/26/19 Unknown History triamcinolone acetonide 1 applic TOPICAL BID 09/23/19 10/26/19 Unknown History Zyrtec 10 mg PO DAILY PRN #30 cap 09/29/19 10/26/19 09/23/19 Rx amlodipine 5 mg PO BEDTIME #0 tab 09/29/19 10/26/19 09/22/19 Rx amoxicillin-pot clavulanate 1 tab PO BID #14 tab 09/29/19 10/26/19 Unknown Rx [Augmentin] nystatin [Nyamyc] 1 applic TOPICAL BID PRN #0 g 09/29/19 10/26/19 Unknown Rx prednisone 10 mg tablet 10 mg PO DAILY #63 tab 10/11/19 10/26/19 Unknown Rx prednisone 10 mg tablet 10 mg PO DAILY #63 tab 10/25/19 10/26/19 Unknown Rx Allergies Allergy/AdvReac Type Severity Reaction Status Date / Time furosemide [From Lasix] AdvReac Severe exanthem Verified 10/26/19 18:09 PFSH Acute PFSH: Medical History Anal squamous cell carcinoma Chronic kidney disease Renal function stable GERD (gastroesophageal reflux disease) Continue home medication Hyperlipidemia Continue current meds Hypertension Continue current medications Insulin dependent type 2 diabetes mellitus Bring list of blood sugars to primary care provider Para-ileostomy hernia Postoperative surgical repair, by Dr. Lay. Now tolerating p.o. feedings without difficulty. 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 Surgical History H/O ileostomy History of hernia repair 05/05/2019: Laparoscopic parastomal hernia repair S/P colostomy takedown S/P tonsillectomy Status post Judd procedure Family History Other Diabetes Hypertension Social History Smoking and tobacco status: former smoker Alcohol intake: current Alcohol intake frequency: 0-2 Drinks per Day Vitals/I&O/Wt Last Vital Signs Temp 97.2 F L 10/26/19 14:45 Pulse 115 H 10/26/19 16:56 Resp 31 H 10/26/19 15:30 BP 85/61 10/26/19 16:00 Pulse Ox 97 10/26/19 16:56 10/26/19 10/26/19 10/26/19 06:59 14:59 22:59 Output Total 300 / 300 Balance -300 / -300 Weight last 48 hrs Weight 72.575 kg Physical Exam Const: COMMON NORMALS: patient oriented x3; apparent distress (Appears in mild distress with BiPAP on.) EXAM LIMITATIONS: altered mental status (Lethargic) HENMT: COMMON NORMALS: normocephalic and atraumatic HEAD & SCALP: normocephalic and atraumatic Eye: COMMON NORMALS: EOMs intact bilaterally, conjunctivae normal and no scleral icterus CONJUNCTIVA: Yes conjunctivae normal Neck/C-Spine: COMMON NORMALS: no lymphadenopathy and no meningeal signs Lymph: LYMPHATIC: no lymphadenopathy noted Chest: COMMONS NORMALS: normal palpation of entire chest wall Resp: COMMON NORMALS: negative for No use of accessory muscles (Bibasilar Rales) Cardio: COMMON NORMALS: regular rate, regular rhythm and No murmurs present (Cardio) RATE: regular rate RHYTHM: regular rhythm OTHER: 2+ lower extremity edema GI: COMMON NORMALS: Soft to palpation and non-tender PALPATION: Yes Soft to palpation RECTAL EXAM: Yes deferred OTHER: Ostomy is functioning. : OTHER: Unable to evaluate back. Extremity: COMMON NORMALS: normal to inspection and capillary refill normal Neuro: COMMON NORMALS: patient oriented x3 and no focal motor deficits MENINGEAL SIGNS: Yes no meningeal signs Psych: COMMON NORMALS: mental status grossly normal, Normal thought process present and cooperative THOUGHT PROCESS: Normal thought process present Skin: OTHER: Severe desquamative rash/lesions involving both lower extremities and abdominal wall. Some areas appear to be locally infected especially right lower extremity around ankle. A&P Assessment and plan (1) Acute kidney injury: Appears prerenal. 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 Status: Acute (5) Macrocytic anemia: Status: Acute (6) Thrombocytopenia: Most likely related to infection. Status: Acute (7) Dehydration with hyponatremia: Status: Acute (8) Hyperkalemia: Status: Acute (9) Drug exanthem: Status: Acute (10) Sepsis: As exhibited by tachycardia and tachypnea. Patient's WBC count was 6.2 and patient was afebrile. Status: Acute (11) Septic shock: Status: Acute Additional A&P Information PLAN: Will hydrate patient aggressively with fluids and add albumin. Monitor closely cardiorespiratory status. Awaiting echocardiogram. Obtain blood cultures and start patient on Zosyn, Levaquin and vancomycin. We will add Lasix to allergy list and use ethacrynic acid if diuretic is needed as I suspect that patient may have sulfa allergy as well. Check lactic acid and DIC panel. We will avoid any anticoagulation at this point due to large amount of Plavix and heparin in view of thrombocytopenia and anemia. We will request peripheral smear and haptoglobin to make sure patient has no TTP Continue Levophed and titrate as needed. We will give 1 dose Kayexalate. Discussed case with Dr. Day who agrees with treatment. Protonix for GI protection. Obtain UA to rule out UTI. PE cannot be completely ruled out but felt unlikely. Depending on patient's progress VQ scan could be considered. Will request bilateral lower extremity venous ultrasound. Consult Attestations Medical Necessity Statement: Patient with severe illness requires close ICU monitoring and treatment. I expect patient will require more than 2 midnights. 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
--- NOTE | 2019-10-26 17:32 | PC.NURSE ---
did not tolerate bipap at this time. back to n.c.
[2019-10-26 17:53] LABS: Bilirubin Urine Neg (NEGATIVE); Blood Urine 3+ (Negative); Glucose Urine UA Norm (Normal); Ketones Urine Negative (Negative); Leukocyte Esterase Urine Negative (Negative); Nitrate Urine Negative (Negative); Protein Urine Neg (Negative); Specific Gravity, Urine 1.005 (1.005-1.030); Urine Color Yellow (Yellow); Urobilinogen Urine Neg (Negative); pH Urine 5 (5-7)
[2019-10-26 17:54] LABS: Amorphous Sediment Urine 3+; Bacteria Urine 1+; Mucus Urine 1+
[2019-10-26 17:55] LABS: Add Urine Culture? No; Coarse Granular Casts Urine 0-4 /lpf; Fine Granular Casts Urine 0-4 /lpf
[2019-10-26] MEDS: sodium chloride 0.9% 1,000 ML 150 ML IV ×2 (18:02→20:13)
--- NOTE | 2019-10-26 18:06 | PC.NURSE ---
lab in. stool collected
[2019-10-26 18:51] LABS: LAB Peripheral Smear Sent for Review
[2019-10-26 19:01] LABS: Lactic Sepsis W/Reflex 6.6 mmol/L (0.5-2.2)
--- NOTE | 2019-10-26 19:30 | XRR_ITS ---
PROCEDURE INFORMATION: Exam: XR Chest, 1 View Exam date and time: 10/26/2019 8:00 PM Age: 79 years old Clinical indication: Device placement; Other: Central line placement TECHNIQUE: Imaging protocol: XR of the chest Views: 1 view. COMPARISON: CR XR chest 1V portable [id number] 10/26/2019 11:06 AM FINDINGS: Tubes, catheters and devices: Central vascular catheter tip resides at the low superior vena cava. Lungs: Diffuse interstitial thickening. Lower lung areas of consolidation. Small left pleural effusion. Pleural space: See Lungs finding. Heart/Mediastinum: Cardiomegaly. Bones/joints: Osteopenia. Degenerative change of the spine. Fracture deformities posterior left upper ribs. XR/XR chest 1V portable [id number] IMPRESSION: 1. Increasing consolidation of the lower lungs concerning for pneumonia. 2. Small left effusion.
[2019-10-26] MEDS: piperacillin-tazobactam 3.375 GM in sodium chloride 0.9% (plus) 50 ML IV (19:36)
[2019-10-26] MEDS: levofloxacin-dextrose 5 % 750 MG/150 ML PREMIX 100 MG IV (19:37)
[2019-10-26] MEDS: pantoprazole 40 mg SDV IVP (19:37)
[2019-10-26] MEDS: sodium polystyrene sulfonate 15 gm/60 mL Btl PO (19:38)
[2019-10-26] MEDS: vancomycin 1,000 MG in sodium chloride 0.9% 250 ML 250 MG IV (19:51)
[2019-10-26] MEDS: HYDROcodone-acetaminophen 5-325 mg Tablet 1 TAB PO (20:12)
[2019-10-26 20:26] LABS: Reflex Lactate Order REFLEX LACTIC ORDERD
--- NOTE | 2019-10-26 20:34 | W.ED.CHESTPA ---
HPI - Chest Pain General: Chief Complaint: Chest Pain Stated Complaint: CP/HYPOTENSION/confusion Source: patient and family Mode of arrival: wheelchair Limitations: altered mental status and physical limitation [facility] ED PFSH: Medical History Anal squamous cell carcinoma Chronic kidney disease Renal function stable GERD (gastroesophageal reflux disease) Continue home medication Hyperlipidemia Continue current meds Hypertension Continue current medications Insulin dependent type 2 diabetes mellitus Bring list of blood sugars to primary care provider Para-ileostomy hernia Postoperative surgical repair, by Dr. Lay. Now tolerating p.o. feedings without difficulty. 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 Surgical History H/O ileostomy History of hernia repair 05/05/2019: Laparoscopic parastomal hernia repair S/P colostomy takedown S/P tonsillectomy Status post Judd procedure Family History Other Diabetes Hypertension Social History Smoking and tobacco status: former smoker Alcohol intake: current Alcohol intake frequency: 0-2 Drinks per Day Procedures Central Line Placement Right IJ: Time Out Performed: Yes Patient Placed on Monitor/Pulse Ox: Yes Prep: mask, gown and gloves Central Line Prep: Chlorhexidine scrub Local Anesthetic: lidocaine 1% Amount of anesthesia used (mL): 5 Ultrasound Used for Placement: Yes Central Line Lumen Inserted: triple Post Procedure: sutured in place, good blood return, all ports aspirated, flushed, capped and sterile dressing applied Post Procedure X-Ray: tip of catheter in good position and no pneumothorax seen Patient Tolerated Procedure: well and no complications Course Vital Signs: Vital signs: Vital Signs Temperature 97.2 F L 10/26/19 14:45 Pulse Rate 119 H 10/26/19 19:00 Respiratory Rate 30 H 10/26/19 19:00 Blood Pressure 95/65 10/26/19 18:00 Pulse Oximetry 95 10/26/19 19:00 MDM - Chest Pain Lab Data: Labs: Lab Results 10/26/19 10/26/19 10/26/19 Range/Units 11:12 11:12 11:12 WBC Cancelled Corrected WBC Cancelled RBC Cancelled Hgb Cancelled Hct Cancelled MCV Cancelled MCH Cancelled MCHC Cancelled RDW Cancelled Plt Count Cancelled MPV Cancelled Gran % Cancelled Neut % (Auto) Cancelled Lymph % (Auto) Cancelled [place] % (Auto) Cancelled Eos % (Auto) Cancelled Baso % (Auto) Cancelled Neut # (Auto) Cancelled Lymph # (Auto) Cancelled [place] # (Auto) Cancelled Eos # (Auto) Cancelled Baso # (Auto) Cancelled Absolute Gran (aut o) Cancelled Nucleated RBC % (a uto) Cancelled Nucleated RBCs # Cancelled PT Cancelled INR Cancelled APTT Cancelled Specimen Type ABG pH (7.35-7.45) ABG pCO2 (35-45) mmHg ABG pO2 (80.0-100.0) mmH g ABG HCO3 (22-26) mmol/L ABG O2 Saturation ABG Base Excess (-2.0-2.0) mmol/ L Fer Test A-a O2 Gradient (5-10) mmHg Hematocrit (42-52) % Hgb O2 Saturation (95-100) % Carboxyhemoglobin (0.4-20.1) %THgb Methemoglobin (0.4-1.5) % Total Hemoglobin (14-18) g/dL Ionized Calcium (1.1-1.4) mmol/L O2 Delivery Device FiO2 % Account Development Manager ID Sodium Cancelled Potassium Cancelled Chloride Cancelled Carbon Dioxide Cancelled Anion Gap Cancelled BUN Cancelled Creatinine Cancelled GFR Calculation Cancelled Glucose Cancelled Calculated Osmolal ity Cancelled Calcium Cancelled Total Bilirubin Cancelled AST Cancelled ALT Cancelled Alkaline Phosphata se Cancelled Troponin T Baselin e Total Protein Cancelled Albumin Cancelled Globulin Cancelled Lipase Cancelled 10/26/19 10/26/19 Range/Units 11:12 11:40 WBC Corrected WBC RBC Hgb Hct MCV MCH MCHC RDW Plt Count MPV Gran % Neut % (Auto) Lymph % (Auto) [place] % (Auto) Eos % (Auto) Baso % (Auto) Neut # (Auto) Lymph # (Auto) [place] # (Auto) Eos # (Auto) Baso # (Auto) Absolute Gran (aut o) Nucleated RBC % (a uto) Nucleated RBCs # PT INR APTT Specimen Type Arterial ABG pH 7.25 L (7.35-7.45) ABG pCO2 18.7 L* (35-45) mmHg ABG pO2 441.0 H (80.0-100.0) mmH g ABG HCO3 8.1 L (22-26) mmol/L ABG O2 Saturation > 100.0 ABG Base Excess -17.0 L (-2.0-2.0) mmol/ L Fer Test N/a A-a O2 Gradient 29.9 H (5-10) mmHg Hematocrit 37.2 L (42-52) % Hgb O2 Saturation 98.9 (95-100) % Carboxyhemoglobin 0.8 (0.4-20.1) %THgb Methemoglobin 0.6 (0.4-1.5) % Total Hemoglobin 12.1 L (14-18) g/dL Ionized Calcium 1.2 (1.1-1.4) mmol/L O2 Delivery Device Bipap FiO2 100.0 % Account Development Manager ID Amh Sodium 129.0 L Potassium 6.0 H Chloride Carbon Dioxide Anion Gap BUN Creatinine GFR Calculation Glucose 65.0 L Calculated Osmolal ity Calcium Total Bilirubin AST ALT Alkaline Phosphata se Troponin T Baselin e Cancelled Total Protein Albumin Globulin Lipase Discharge Plan Discharge Admit Provider: Willard Day Clinical Impression: ST elevation myocardial infarction (STEMI) Qualifiers: Involved coronary artery: unspecified coronary artery Qualified Code(s): I21.3 - ST elevation (STEMI) myocardial infarction of unspecified site Condition: Stable Coding Level of Care Code ED Water Quality Analyst for Stephanie Mazariegos
[2019-10-26 20:38] LABS: NT Pro B Type Natriuretic Pept 4737 pg/mL (0-450); Procalcitonin 31.94 ng/mL (0-0.5)
[2019-10-26 20:46] LABS: INR 1.17 (0.8-1.2)
[2019-10-26 20:47] LABS: Fibrinogen 719 mg/dL (184-529); Partial Thromboplastin Time 30.3 SECONDS (23.9-36.7); Troponin 5 6HR 55.93 ng/L (0-15)
[2019-10-26 20:56] LABS: Troponin 5 6HR Delta -1.07 ng/L (0-12)
[2019-10-26 21:01] LABS: Creatine Phosphokinase 167 U/L (39-308)
[2019-10-26 21:16] LABS: C Reactive Protein 415.9 mg/L (0.0-4.9)
[2019-10-26] MEDS: haloperidol inj 5 mg/mL INJ 1 mL IVP (21:19)
[2019-10-26 21:30] LABS: Lactic Acid level (Lactate) 5.2 mmol/L (0.5-2.2)
[2019-10-26] MEDS: HYDROmorphone 1 mg/mL INJ 1 mL 2 MG IVP (22:47)
[2019-10-27] VITALS (30 sets, daily range): BP systolic 58–114; BP diastolic 42–82; PULSE 81–118; RESP 14–34; TEMP 35.1–36.3; O2SAT 76–100
[2019-10-27] MEDS: sodium chloride 0.9% 1,000 ML 150 ML IV (00:29)
[2019-10-27] MEDS: HYDROmorphone 1 mg/mL INJ 1 mL 2 MG IVP ×2 (02:21→06:02)
[2019-10-27] MEDS: phenylephrine inj 25 MG in sodium chloride 0.9% 250 ML 24.2 MG IV (03:12)
[2019-10-27] MEDS: pantoprazole 40 mg SDV IVP ×2 (05:12→18:01)
[2019-10-27] MEDS: sodium chloride 0.9% 1,000 ML 999 ML IV (05:38)
--- NOTE | 2019-10-27 05:47 | PC.NURSE ---
[facility] baseline: CI 3.3, SV 31, TPR 756 200 mL fluid bolus challenge given to pt. Within 45 seconds, SVI changed 14.3%. Pt fluid responsive. CI changed to 3.8. SVI changed to 36. 1000 mL NS bolus orders rcd and began.
[2019-10-27] MEDS: hydrocortisone 100 mg/2 mL SDV 50 MG IVP (05:59)
[2019-10-27 06:05] LABS: ABG PCO2 30.6 mmHg (35-45); Alveolar-Arterial Oxygen Gradi 4.4 mmHg (5-10); Arterial Blood Gas Hematocrit 26.2 % (42-52); Base Excess ABG -16.3 mmol/L (-2.0-2.0); Blood Gas LPM 4.5 %; Blood Gas Sample Site Brachial, left; Blood Gas Sample Type Arterial; Carboxyhemoglobin 0.4 %THgb (0.4-20.1); HGB O2 Sat 95.6 % (95-100); Ionized Calcium Level - ABG 1.1 mmol/L (1.1-1.4); Methemoglobin < 0.0 % (0.4-1.5); Oxygen Device NC; PO2 ABG 75.8 mmHg (80.0-100.0); Potassium Level - ABG 5.6 mmol/L (3.5-5.0); Total Hemoglobin 8.5 g/dL (14-18)
[2019-10-27 06:06] LABS: ABG PH Result 7.16 (7.35-7.45)
[2019-10-27] MEDS: sodium bicarbonate 150 MEQ in dextrose 5% 1,000 ML IV (06:26)
[2019-10-27] MEDS: piperacillin-tazobactam 3.375 GM in sodium chloride 0.9% (plus) 50 ML IV ×2 (06:31→17:56)
--- NOTE | 2019-10-27 07:00 | USCV_ITS ---
Elpidio Hoffmann Age: 79 Gender: M : 1940 Exam Date: 10/27/2019 06:41 Ordering Phys: Ruslan Montague MD Technologist: Rick Krueger [place]am [place] [facility] [place] Indication: SWELLING HISTORY: Lower extremity swelling. PROCEDURES: The venous duplex Doppler examination of both lower extremities was performed in the standard fashion. The following venous structures were evaluated: common femoral vein, profunda vein, proximal portion of the greater saphenous vein, superficial femoral vein, and the popliteal vein. In addition, the posterior tibial and peroneal trunk were evaluated. FINDINGS: Normal 2-D Doppler and augmentation and compressibility throughout the lower extremity venous structures. Additional imaging through the proximal calf veins also reveals no thrombus. Limited evaluation of the greater saphenous vein is patent with no thrombus.. CONCLUSIONS No evidence of DVT in the above-mentioned identifiable veins. Dr Melissa Barrientos MD [facility] (Electronically Signed) Final Date: 27 October 2019 12:19 S
[2019-10-27] MEDS: hydrocortisone 100 mg/2 mL SDV IVP ×2 (08:02→18:55)
[2019-10-27] MEDS: fentaNYL 50 mcg/mL INJ 2mL 25 MCG IVP ×2 (08:04→20:26)
--- NOTE | 2019-10-27 08:23 | P.PN_ITS ---
Subjective Subjective: Interval history: Patient remains critically ill. He had 2 more pressors added last night including Leon-Synephrine and vasopressin. He is very lethargic this morning and barely can communicate. He is on BiPAP and saturates in the mid 90s on 2 L. His arterial gas is suggestive of metabolic process. His pH was 7.16 and bicarb was added to fluids. Microbiology so far negative. Morning labs are pending. With hydration patient's bibasilar pneumonia is more pronounced on chest x-ray. He had approximately 250 mL of urinary output overnight. I have discussed last evening with Dr. Godfrey who placed right IJ central line. Vitals/I&O/Wt Last Vital Signs Temp 98.3 F 10/26/19 21:56 Pulse 81 10/27/19 07:32 Resp 23 H 10/27/19 08:04 BP 114/69 10/27/19 07:27 Pulse Ox 96 10/27/19 08:04 10/26/19 10/27/19 10/27/19 22:59 06:59 14:59 Intake Total 2895.210 / 2895.210 2056.895 / 4952.105 Output Total 300 / 300 350 / 650 Balance 2595.210 / 2595.210 1706.895 / 4302.105 Weight last 48 hrs Weight 72.575 kg Physical Exam Const: COMMON NORMALS: no acute distress GENERAL APPEARANCE: lethargic ORIENTATION/CONSCIOUSNESS: Yes lethargic Resp: COMMON NORMALS: normal respiratory effort OTHER: Bibasilar rhonchi/Rales Cardio: COMMON NORMALS: regular rate, regular rhythm and S2 normal heart sound present RATE: regular rate RHYTHM: regular rhythm HEART SOUNDS: S2 normal heart sound present OTHER: No lower extremity edema GI: COMMON NORMALS: Normal to inspection, nondistended, normoactive bowel sounds present, Soft to palpation and non-tender PALPATION: Yes Soft to palpation Neuro: COMMON NORMALS: no focal motor deficits (On gross examination.) S ENSORIUM/ORIENTATION: Yes lethargic Data : 10/26/19 14:00 10/26/19 14:29 Micro: Microbiology 10/26/19 20:00 Blood Culture - Preliminary Blood SPECIMEN COLLECTED 10/26/19 18:10 Occult Blood (FIT) - Final Stool 10/26/19 18:15 Blood Culture - Preliminary Blood SPECIMEN COLLECTED A&P Assessment and plan (1) Acute kidney injury: Appears prerenal. ATN cannot be ruled out at this point Status: Acute (2) Community acquired pneumonia: Bibasilar. Postobstructive process cannot be completely ruled out. 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 Status: Acute (5) Macrocytic anemia: Status: Acute (6) Thrombocytopenia: Most likely related to infection. Status: Acute (7) Dehydration with hyponatremia: Status: Acute (8) Hyperkalemia: Status: Acute (9) Drug exanthem: Skin with significant desquamative lesion throughout mostly involving his lower extremities, abdomen and some in the armpits. Back appears to be clear. Status: Acute (10) Sepsis: As exhibited by tachycardia and tachypnea. Patient's WBC count was 6.2 and patient was afebrile. Status: Acute (11) Septic shock: Status: Acute Additional A&P Information PLAN: Continue close monitoring and treatment including antibiotics. Awaiting echocardiogram and morning labs. Add hydrocortisone. Avoid any sulfa drug including diuretics with sulfa moiety. Ethacrynic acid can be used down the road if needed. Discussed with Kalyn JEFFREY and we will give bolus of normal saline and hopefully can gradually wean off drips. Attestations Medical Necessity Statement*: Patient is critically ill requiring close ICU monitoring and treatment. 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
[2019-10-27 08:46] LABS: Basophils % 0.6 %; Eosinophils % 0.2 %; Hematocrit 29.3 % (42.0-52.0); Hemoglobin 9.1 g/dL (11.7-16.6); Lymphocytes # 0.1 10^3/uL (0.8-4.8); Lymphocytes % 1.7 %; Mean Corpuscular HGB Conc 31.1 g/dL (30.0-36.0); Mean Corpuscular Hemoglobin 33.3 pg (28.0-34.0); Mean Corpuscular Volume 107.3 fL (80-94); Mean Platelet Volume 10.7 fL (7.4-10.4); Monocytes # 0.1 10^3/uL (0.2-0.9); Monocytes % 0.9 %; Neutrophils # 6.17 10^3/uL (1.8-7.7); Neutrophils % 95.4 %; Nucleated Red Blood Cells % 0.3 %; Platelet Count 47 10^3/cmm (130-400); Red Blood Count 2.73 10^6/uL (4.1-5.3); Red Cell Distribution Width 17.1 % (12.1-15.1); White Blood Count 6.5 10^3/uL (4.0-10.0)
[2019-10-27 09:17] LABS: Alanine Aminotransferase 29 U/L (0-41); Albumin Level 2.1 g/dL (3.5-5.2); Alkaline Phosphatase 83 IU/L (40-130); Anion Gap 20.7 (5-19); Aspartate Amino Transferase 53 U/L (0-40); Blood Urea Nitrogen 66 mg/dL (8-23); Calcium 6.9 mg/dL (8.5-10.5); Carbon Dioxide 12 mmol/L (22-29); Chloride 99 mmol/L (98-107); Glucose 103 mg/dL (65-115); Magnesium 1.4 mg/dL (1.7-2.3); Osmolality Calculated 261 mOsm/kg (285-295); Potassium 5.7 mmol/L (3.5-5.1); Sodium 126 mmol/L (136-145); Total Bilirubin 1.1 mg/dL (0.15-1.2); Total Protein 4.1 g/dL (6.6-8.7)
[2019-10-27 09:26] LABS: Slide Review Slide Review Perform
[2019-10-27] MEDS: sodium chloride 0.9% 250 ML IV (10:00)
--- NOTE | 2019-10-27 10:07 | PC.CHAP ---
Pastoral Care Encounter/Spiritual Assessment Type of Contact [] Declined manager golf visit [] Patient/Family/Request visit [] Outpatient visit [] Follow-up visit [] Physician referral [] Code/Alert [x] Routine visit [] Staff referral [] Actively dying [] Patient sleeping [] Family support [] [] Out of room [] Palliative care [] [] Receiving care in room [] Pre-surgical visit [] Trauma [] Long length of stay [] ICU visit [] Other: Relational/Emotional Strength [] Patient feels connected with others/family/visitors/staff [] Distress [] Loneliness/isolation [] Abandonment Spirituality of Patient [] Person of Radha [] Attends Amish of their Radha [] Believes in Prayer [] Reads Bible or Islam materials [] There are Spiritual issues to be addressed Relay Checker Interventions [x] Prayer [] Active listening [x] Non-anxious presence [] Spiritual/emotional support [] Crisis/trauma care [] Spiritual counseling [] Bereavement support [] Provided bereavement packet [] Provided Bible/devotional materials [] Provided toy/stuffed animal, coloring book to patient or family member [] Provided Communion [] Anointing/[place] [] Salvation [x] Completed spiritual assessment [] Other: Impact on Illness or Injury [] Angry [] Fearful [] Anxious [] Often cries [] Exhaustion [] Unable to work [] Unable to attend zoroastrianism [] Unable to walk/stand [] Unable to read [] Unable to drive [] Unable to eat/drink [] Unable to sleep [] Unable to be with family [] Patient intubated [] Other: Summary patient resting Time spent with patient 5 min
--- NOTE | 2019-10-27 11:08 | XRR_ITS ---
PROCEDURE INFORMATION: Exam: XR Chest, 1 View Exam date and time: 10/27/2019 11:24 AM Age: 79 years old Clinical indication: Device placement; Ett placement (vent status); Additional info: Intubation icu 12/dr. Montague TECHNIQUE: Imaging protocol: XR of the chest Views: 1 view. COMPARISON: CR XR chest 1V portable [id number] 10/26/2019 7:45 PM FINDINGS: Tubes, catheters and devices: Endotracheal tube is slightly above the chad. Central venous catheter via the right jugular approach with the tip projecting over the superior vena cava. Lungs: central pulmonary vasculature is prominent and indistinct. airspace consolidation within the lung bases left greater than right. Pleural space: Pleural effusions left greater than right. Heart/Mediastinum: cardiac silhouette is enlarged. Bones/joints: Unremarkable. XR/XR chest 1V portable [id number] IMPRESSION: Mild edema with mild basilar consolidation and pleural effusions left greater than right. Findings are progressive
[2019-10-27] MEDS: magnesium sulfate premix 2 GM/50 ML PIGGYBACK IV (12:31)
[2019-10-27 13:04] LABS: ABG PH Result 7.19 (7.35-7.45); Alveolar-Arterial Oxygen Gradi 59.3 mmHg (5-10); Arterial Blood Gas Hematocrit 27.8 % (42-52); Base Excess ABG -14.5 mmol/L (-2.0-2.0); Blood Gas Allen Test Pos; Blood Gas Operator Identificat GD; Blood Gas Sample Site Radial, right; Blood Gas Sample Type Arterial; Carboxyhemoglobin 0.4 %THgb (0.4-20.1); HCO3 ABG 12.5 mmol/L (22-26); HGB O2 Sat 98.4 % (95-100); Oxygen Device VENT; Oxygen Saturation ABG 99.8; Potassium Level - ABG 5.4 mmol/L (3.5-5.0); Total Hemoglobin 9.1 g/dL (14-18)
--- NOTE | 2019-10-27 13:36 | PC.NURSE ---
1045- WAS IN ROOM WITH RESP THERAPY D/T PT PULLED MASK OFF FACE, PLACED BACK ON PT. I LEFT ROOM & RESP THEN CALLED ME BACK INTO ROOM D/T CHANGE IN MENTATION. PT NOT RESPONDING TO VERBAL STIMULI, AGONAL RESP. DR ZHANG AT BEDSIDE, & NIECE NOTIFIED TO COME TO HOSPITAL TO VISIT WITH DR ZHANG. PT INTUBATED BY DR MACARIO AFTER 30MG OF ETOMEDATE GIVEN IVP. RESP TX AT BEDSIDE. WILL CONTINUE TO MONITOR CLOSELY
[2019-10-27] MEDS: norepinephrine 8 MG in dextrose 5 % 500 ML 68.6 MG IV ×2 (14:14→22:14)
--- NOTE | 2019-10-27 15:03 | PM.CONSULT ---
Providers/Reason For Consult Consulting Physican/Specialty*: General Surgery Bjorn Hudson MD Reason for Consult*: Lower extremity blistering/edema. 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 He was seen in the emergency room and was started on pressors for hypotension as he was reportedly clearly septic. He went to the [employer] which revealed no major coronary disease but consideration was given to ischemia from intermediate coronary artery disease associated with hypotension. He was found to have pneumonia and to be in acute renal failure, as well. He is currently in the ICU on pressors and intubated. The patient's history is interesting in that several months ago he started developing some bullous lesions across his lower extremities, abdomen, as well as to a lesser degree on his back and upper extremities. Biopsies have been done and the patient was seen in dermatologic consultation. 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 The patient has been through some steroid tapers. Apparently he has had more swelling in his lower extremities recently was started on Lasix 3 months ago. His right lower extremity below the leg has reportedly become a little bit more erythematous in the past days. The patient is currently severely ill in the ICU, by Dr. Montague had asked if I would take a look at his legs. Review of Systems General: Reports: ROS unobtainable due to endotracheal tube Meds/Allergies Home Medications and Allergies Home Medications Medication Instructions Recorded Confirmed Last Taken Type aspirin 81 mg tablet,delayed 81 mg PO BEDTIME 05/03/19 10/26/19 09/22/19 History release diltiazem HCl 180 mg 180 mg PO BEDTIME 05/03/19 10/26/19 09/22/19 History tablet,extended release 24 hr pantoprazole 40 mg tablet,delayed 40 mg PO DAILY 05/03/19 10/26/19 09/23/19 History release ascorbic acid (vitamin C) [Vitamin 1,000 mg PO 1315 05/05/19 10/26/19 09/22/19 History C] cholecalciferol (vitamin D3) 2,000 unit PO 1830 05/05/19 10/26/19 09/22/19 History [Vitamin D3] cyanocobalamin (vitamin B-12) 1,000 mcg PO 1315 05/05/19 10/26/19 09/22/19 History [Vitamin B-12] multivitamin 1 tab PO DAILY 05/05/19 10/26/19 09/23/19 History SHOWER CHAIR #1 ea 05/12/19 10/26/19 Unknown Rx acetaminophen 500 mg tablet 500 - 1,000 mg PO PRN tab 05/25/19 10/26/19 09/23/19 History 500 mg blood sugar diagnostic #300 each 08/24/19 10/26/19 Unknown Rx Humulin N NPH U-100 Insulin 20 unit SUBCUT BID 09/23/19 10/26/19 09/23/19 History 15 units iron 325 mg PO DAILY 09/23/19 10/26/19 09/22/19 History mupirocin 1 applic TOPICAL BID 09/23/19 10/26/19 Unknown History triamcinolone acetonide 1 applic TOPICAL BID 09/23/19 10/26/19 Unknown History Zyrtec 10 mg PO DAILY PRN #30 cap 09/29/19 10/26/19 09/23/19 Rx amlodipine 5 mg PO BEDTIME #0 tab 09/29/19 10/26/19 09/22/19 Rx amoxicillin-pot clavulanate 1 tab PO BID #14 tab 09/29/19 10/26/19 Unknown Rx [Augmentin] nystatin [Nyamyc] 1 applic TOPICAL BID PRN #0 g 09/29/19 10/26/19 Unknown Rx prednisone 10 mg tablet 10 mg PO DAILY #63 tab 10/11/19 10/26/19 Unknown Rx prednisone 10 mg tablet 10 mg PO DAILY #63 tab 10/25/19 10/26/19 Unknown Rx Allergies Allergy/AdvReac Type Severity Reaction Status Date / Time furosemide [From Lasix] AdvReac Severe exanthem Verified 10/26/19 18:09 Current Medications Current Medications Generic Name Dose Route Start Last Admin Trade Name Freq PRN Reason Stop Dose Admin Hydrocodone Bitart/Acetaminophen 1 tab 10/26/19 20:01 10/26/19 20:12 [place] 5-325 Mg PO 1 tab Q6H PRN Administration MODERATE PAIN Fentanyl 25 mcg 10/27/19 07:23 10/27/19 08:04 Sublimaze IVP 25 mcg Q4H PRN Administration SEVERE PAIN Hydrocortisone Sodium Succinate 50 mg 10/27/19 06:00 10/27/19 05:59 Solu-Cortef Inj IVP 50 mg Q12H ADAM Administration Hydrocortisone Sodium Succinate 100 mg 10/27/19 07:30 10/27/19 08:02 Solu-Cortef Inj IVP 100 mg Q6H ADAM Administration Norepinephrine Bitartrate 4 mg 254 mls @ 0 mls/hr 10/26/19 16:00 10/27/19 08:52 / Dextrose IV 12 mcg/min .Q0M ADAM 45.7 mls/hr Administration Protocol Per Protocol Sodium Chloride 1,000 mls @ 150 mls/hr 10/26/19 17:30 10/27/19 07:00 Sodium Chloride 0.9% IV 0 mls/hr .Q6H40M ADAM Infusion Albumin Human 25 gm in 100 mls @ 60 mls/hr 10/26/19 17:30 10/27/19 11:00 Albumin IV Infused Q8H ADAM Infusion Piperacillin Sod/Tazobactam 50 mls @ 12.5 mls/hr 10/26/19 19:30 10/27/19 11:00 Sod 3.375 gm/ Sodium Chloride IV Infused Q12H ADAM Infusion Protocol Phenylephrine HCl 25 mg/ 252.5 mls @ 0 mls/hr 10/27/19 03:00 10/27/19 07:00 Sodium Chloride IV Infused .Q0M ADAM Titration Protocol Per Protocol Vasopressin 40 unit/ Sodium 40 mls @ 0.03 mls/min 10/27/19 05:30 10/27/19 09:00 Chloride IV 1.3 mls/min CONT ADAM Administration Sodium Chloride 250 mls @ 250 mls/hr 10/27/19 10:00 10/27/19 11:00 Sodium Chloride 0.9% IV Infused .Q1H ADAM Infusion Midazolam HCl 100 mg/ Sodium 100 mls @ 0 mls/hr 10/27/19 11:15 10/27/19 12:41 Chloride IV 1 mg/hr .Q0M ADAM 1 mls/hr Administration Protocol Per Protocol Fentanyl 1,000 mcg/ Sodium 100 mls @ 0 mls/hr 10/27/19 11:15 10/27/19 11:10 Chloride IV 4 mcg/hr .Q0M ADAM 0.4 mls/hr Administration Protocol Per Protocol Norepinephrine Bitartrate 8 mg 508 mls @ 0 mls/hr 10/27/19 14:15 10/27/19 14:14 / Dextrose IV 18 mcg/min .Q0M ADAM 68.6 mls/hr Administration Protocol Per Protocol Pantoprazole Sodium 40 mg 10/26/19 17:45 10/27/19 05:12 Protonix IVP 40 mg Q12H ADAM Administration PFSH Acute PFSH: Medical History Anal squamous cell carcinoma Chronic kidney disease Renal function stable GERD (gastroesophageal reflux disease) Continue home medication Hyperlipidemia Continue current meds Hypertension Continue current medications Insulin dependent type 2 diabetes mellitus Bring list of blood sugars to primary care provider Para-ileostomy hernia Postoperative surgical repair, by Dr. Lay. Now tolerating p.o. feedings without difficulty. 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 Surgical History (Updated 10/27/19 @ 15:04 by Bjorn Hudson MD) H/O ileostomy History of hernia repair 05/05/2019: Laparoscopic parastomal hernia repair S/P colostomy takedown / diverting ileostomy S/P tonsillectomy Status post Judd procedure Family History Other Diabetes Hypertension Social History Smoking and tobacco status: former smoker Alcohol intake: current Alcohol intake frequency: 0-2 Drinks per Day Vitals/I&O/Wt Last Vital Signs Temp 95.7 F L 10/27/19 14:08 Pulse 92 10/27/19 14:08 Resp 15 10/27/19 14:08 BP 65/43 10/27/19 14:08 Pulse Ox 97 10/27/19 14:08 10/27/19 10/27/19 10/27/19 06:59 14:59 22:59 Intake Total 2096.895 / 7114.950 2814.122 / 2814.122 Output Total 350 / 650 150 / 150 Balance 1746.895 / 6464.950 2664.122 / 2664.122 Weight last 48 hrs Weight 160 lb Physical Exam Narrative: EXAM NARRATIVE: The right extremity is edematous and somewhat erythematous below the knee. He has bullous lesions in different stages of healing. He has some desquamation of the epidermis over part of the calf. He actually has a few maggots over his lower leg but there is no obvious tissue anywhere that I can identify. The left lower extremity has similar although fewer bullous lesions. There is some edema but no erythema. The patient has desquamation and some bullous lesions along the lower abdomen. Data Micro: Micro: Microbiology 10/27/19 11:30 Gram Stain - Final Sputum - Endotrac heal Tube Aspirate 10/26/19 18:15 Blood Culture - Pr eliminary Blood Gram positive c occi 10/26/19 20:00 Blood Culture - Pr eliminary Blood Gram positive c occi 10/26/19 18:10 Occult Blood (FIT) - Final Stool A&P Assessment and plan (1) Blistered skin: The patient's blistering/desquamation has been going on for several months. He has had worsening swelling of his lower extremities more recently. I cannot see any obvious tissue to debride today, and I am not sure how effective or helpful that would be, anyway. One always has to worry about necrotizing fasciitis but in this patient with a chronic blistering condition of his skin, edema, some erythema, etc., it is difficult to know how much is new or due to a secondary process. He was already critically ill and septic from documented pneumonia, has renal failure, pulmonary edema, etc. He is obviously a very poor surgical candidate and may not tolerate the stress of even a minor procedure at this point, even if we found something obvious that needed to be done. Status: Acute Consult Attestations Medical Necessity Statement: See admitting service's notation. Coding Level of Care Code Acute Clinical Informaticist for [facility] Diagnoses Blistered skin T14.8XXA
--- NOTE | 2019-10-27 15:50 | P.PN_ITS ---
Subjective Subjective: Interval history: This 79-year-old white male was initially admitted to the emergency room under the care of Dr. Day with a presumptive diagnosis of acute myocardial infarction complicated with cardiogenic shock. He was emergently taken to the cardiac Business Objects Developer and coronary angiogram was performed. He was found to have around 30 to 40% lesion in the intermedius artery. Otherwise the coronary angiogram was unremarkable. The patient also was found to have features of acute renal failure, pulmonary edema and cellulitis of the lower abdomen and lower extremities. So it turned out to be the patient has septic shock. 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 The hospitalist service was consulted for management of his noncardiac issues. Patient is respiratory status got worse today and for that reason, he had to be intubated. Currently he is on a ventilator and is sedated. Medications: Reviewed: Yes Medication Review Details: Current Medications Hydrocodone Bitart/Acetaminophen (Western 5-325 Mg) 1 tab PO Q6H PRN PRN Reason: MODERATE PAIN Last Admin: 10/26/19 20:12 Dose: 1 tab Documented by: Fentanyl (Sublimaze) 25 mcg IVP Q4H PRN PRN Reason: SEVERE PAIN Last Admin: 10/27/19 08:04 Dose: 25 mcg Documented by: Hydrocortisone Sodium Succinate (Solu-Cortef Inj) 50 mg IVP Q12H ADAM Last Admin: 10/27/19 05:59 Dose: 50 mg Documented by: Hydrocortisone Sodium Succinate (Solu-Cortef Inj) 100 mg IVP Q6H ADAM Last Admin: 10/27/19 08:02 Dose: 100 mg Documented by: Norepinephrine Bitartrate 4 mg (/ Dextrose) 254 mls @ 0 mls/hr IV .Q0M ADAM; Protocol Last Admin: 10/27/19 08:52 Dose: 12 mcg/min, 45.7 mls/hr Documented by: Sodium Chloride (Sodium Chloride 0.9%) 1,000 mls @ 150 mls/hr IV .Q6H40M [facility] Last Infusion: 10/27/19 07:00 Dose: 0 mls/hr Documented by: Albumin Human (Albumin) 25 gm in 100 mls @ 60 mls/hr IV Q8H [facility] Last Infusion: 10/27/19 11:00 Dose: Infused Documented by: Piperacillin Sod/Tazobactam (Sod 3.375 gm/ Sodium Chloride) 50 mls @ 12.5 mls/hr IV Q12H ADAM; Protocol Last Infusion: 10/27/19 11:00 Dose: Infused Documented by: Levofloxacin/Dextrose (Levaquin-D5w) 500 mg in 100 mls @ 100 mls/hr IV Q48H ADAM Vancomycin HCl 1,000 mg/ (Sodium Chloride) 250 mls @ 250 mls/hr IV Q48H ADAM; Protocol Phenylephrine HCl 25 mg/ (Sodium Chloride) 252.5 mls @ 0 mls/hr IV .Q0M ADAM; Protocol Last Titration: 10/27/19 07:00 Dose: Infused Documented by: Vasopressin 40 unit/ Sodium (Chloride) 40 mls @ 0.03 mls/min IV CONT ADAM Last Admin: 10/27/19 09:00 Dose: 1.3 mls/min Documented by: Sodium Chloride (Sodium Chloride 0.9%) 250 mls @ 250 mls/hr IV .Q1H ADAM Last Infusion: 10/27/19 11:00 Dose: Infused Documented by: Midazolam HCl 100 mg/ Sodium (Chloride) 100 mls @ 0 mls/hr IV .Q0M ADAM; Protocol Last Admin: 10/27/19 12:41 Dose: 1 mg/hr, 1 mls/hr Documented by: Fentanyl 1,000 mcg/ Sodium (Chloride) 100 mls @ 0 mls/hr IV .Q0M ADAM; Protocol Last Admin: 10/27/19 11:10 Dose: 4 mcg/hr, 0.4 mls/hr Documented by: Norepinephrine Bitartrate 8 mg (/ Dextrose) 508 mls @ 0 mls/hr IV .Q0M ADAM; Protocol Last Admin: 10/27/19 14:14 Dose: 18 mcg/min, 68.6 mls/hr Documented by: Lidocaine HCl (Lidocaine 1%) 0.1 ml INTRADERMA PRN PRN PRN Reason: Anesthetic Catheter Placement Ondansetron HCl (Zofran) 4 mg IVP Q4H PRN PRN Reason: NAUSEA AND VOMITING Pantoprazole Sodium (Protonix) 40 mg IVP Q12H ADAM Last Admin: 10/27/19 05:12 Dose: 40 mg Documented by: Sodium Chloride (Sodium Chloride 0.9 % (Flush)) 5 - 10 ml IV PRN PRN PRN Reason: Central line flush Vitals/I&O/Wt Last Vital Signs Temp 95.7 F L 10/27/19 14:08 Pulse 92 10/27/19 14:08 Resp 14 10/27/19 15:38 BP 65/43 10/27/19 14:08 Pulse Ox 97 10/27/19 14:08 10/27/19 10/27/19 10/27/19 06:59 14:59 22:59 Intake Total 2096.895 / 4992.105 2814.122 / 2814.122 Output Total 350 / 650 150 / 150 Balance 1746.895 / 4342.105 2664.122 / 2664.122 Weight last 48 hrs Weight 160 lb Physical Exam Narrative: EXAM NARRATIVE: GENERAL: The patient is on the ventilator and is sedated. HEENT: No significant pallor, icterus or lymphadenopathy.Oral cavity: There are no mucous membrane lesions. NECK: Trachea appears to be central. No masses noted. No JVD or thyromegaly appreciated. RESPIRATORY: Breath sounds are bilaterally with scattered coarse crackles. BREASTS: Deferred. [] HEART: The heart sounds are normal. No S3 or S4. [No significant murmurs] []. No pericardial rub ABDOMEN: Patient has an ileostomy bag. Extensive skin excoriation in the lower abdomen with features of cellulitis : Deferred. [] RECTAL: Deferred. [] LYMPHATIC: No lymphadenopathy noted in the neck or groin. [] EXTREMITIES: 2-3+2+ edema of the lower extremities with ruptured skin blisters and cellulitis. MUSCULOSKELETAL: No acute joint deformities or swelling SKIN: As mentioned above NEUROPSYCHIATRIC: Patient is intubated and sedated. Data : 10/27/19 08:19 10/27/19 08:19 Other Labs: Laboratory Last Values WBC 6.5 10^3/uL (4.0-10.0) 10/27/19 08:19 Corrected WBC Cancelled 10/26/19 11:12 RBC 2.73 10^6/uL (4.1-5.3) L 10/27/19 08:19 Hgb 9.1 g/dL (11.7-16.6) L 10/27/19 08:19 Hct 29.3 % (42.0-52.0) L 10/27/19 08:19 MCV 107.3 fL (80-94) H 10/27/19 08:19 MCH 33.3 pg (28.0-34.0) 10/27/19 08:19 MCHC 31.1 g/dL (30.0-36.0) 10/27/19 08:19 RDW 17.1 % (12.1-15.1) H 10/27/19 08:19 Plt Count 47 10^3/cmm (130-400) L 10/27/19 08:19 MPV 10.7 fL (7.4-10.4) H 10/27/19 08:19 Gran % Cancelled 10/26/19 11:12 Neut % (Auto) 95.4 % 10/27/19 08:19 Lymph % (Auto) 1.7 % 10/27/19 08:19 Limestone % (Auto) 0.9 % 10/27/19 08:19 Eos % (Auto) 0.2 % 10/27/19 08:19 Baso % (Auto) 0.6 % 10/27/19 08:19 Neut # (Auto) 6.17 10^3/uL (1.8-7.7) 10/27/19 08:19 Lymph # (Auto) 0.1 10^3/uL (0.8-4.8) L 10/27/19 08:19 [place]estone # (Auto) 0.1 10^3/uL (0.2-0.9) L 10/27/19 08:19 Eos # (Auto) 0.0 10^3/uL (0.0-0.8) 10/27/19 08:19 Baso # (Auto) 0.0 10^3/uL (0.0-0.1) 10/27/19 08:19 Absolute Gran (auto) Cancelled 10/26/19 11:12 Nucleated RBC % (auto) 0.3 % 10/27/19 08:19 Total Counted 100 (0-100) 10/26/19 14:00 Absolute Neutrophils 5.5 10^3/cmm (1.4-6.5) 10/26/19 14:00 Segmented Neutrophils 71 % 10/26/19 14:00 Abs Segm Neuts (Man) 4.4 10/cmm (1.6-7.1) 10/26/19 14:00 Band Neutrophils 17.0 % 10/26/19 14:00 Abs Band Neuts (Man) 1.1 10^3/cmm (0.0-1.2) 10/26/19 14:00 Lymphocytes (Manual) 3 % 10/26/19 14:00 Monocytes (Manual) 1.0 % 10/26/19 14:00 Absolute Monocytes 0.1 10^3/cmm (0.1-0.6) 10/26/19 14:00 Metamyelocytes 8.0 % 10/26/19 14:00 Nucleated RBCs # 0.0 /100WBC 10/27/19 08:19 Platelet Estimate Decreased (Normal) 10/26/19 14:00 Haptoglobin 305.0 mg/L (30-200) H 10/26/19 14:29 PT 15.30 SECONDS (10.5-13.3) H 10/26/19 20:00 INR 1.17 (0.8-1.2) 10/26/19 20:00 APTT 30.3 SECONDS (23.9-36.7) 10/26/19 20:00 Fibrinogen 719 mg/dL (184-529) H 10/26/19 20:00 Fibrin Degrad Products Pos, >=40 ug/mL (NEG) H 10/26/19 20:00 D-Dimer 10.10 ug/mIFEU (0-0.59) H 10/26/19 20:00 Specimen Type Arterial 10/27/19 12:45 Sample Site Radial, right 10/27/19 12:45 ABG pH 7.19 (7.35-7.45) L 10/27/19 12:45 ABG pCO2 33.0 mmHg (35-45) L 10/27/19 12:45 ABG pO2 205.0 mmHg (80.0-100.0) H 10/27/19 12:45 ABG HCO3 12.5 mmol/L (22-26) L 10/27/19 12:45 ABG O2 Saturation 99.8 10/27/19 12:45 ABG Base Excess -14.5 mmol/L (-2.0-2.0) L 10/27/19 12:45 Fer Test Pos 10/27/19 12:45 A-a O2 Gradient 59.3 mmHg (5-10) H 10/27/19 12:45 Hematocrit 27.8 % (42-52) L 10/27/19 12:45 Hgb O2 Saturation 98.4 % (95-100) 10/27/19 12:45 Carboxyhemoglobin 0.4 %THgb (0.4-20.1) 10/27/19 12:45 Methemoglobin 1.0 % (0.4-1.5) 10/27/19 12:45 Total Hemoglobin 9.1 g/dL (14-18) L 10/27/19 12:45 Sodium 125.0 mmol/L (131-143) L 10/27/19 12:45 Potassium 5.4 mmol/L (3.5-5.0) H 10/27/19 12:45 Glucose 163.0 mg/dL (70-115) H 10/27/19 12:45 Ionized Calcium 1.0 mmol/L (1.1-1.4) L 10/27/19 12:45 O2 Delivery Device Vent 10/27/19 12:45 O2 Liters/Min 4.5 % 10/27/19 05:48 Mechanical Rate 14.0 10/27/19 12:45 FiO2 100.0 % 10/27/19 12:45 Tidal Volume 0.50 10/27/19 12:45 PEEP 8.0 cmH20 10/27/19 12:45 Field Service Consultant ID Gd 10/27/19 12:45 Sodium 126 mmol/L (136-145) L 10/27/19 08:19 Potassium 5.7 mmol/L (3.5-5.1) H 10/27/19 08:19 Chloride 99 mmol/L (98-107) 10/27/19 08:19 Carbon Dioxide 12 mmol/L (22-29) L 10/27/19 08:19 Anion Gap 20.7 (5-19) H 10/27/19 08:19 BUN 66 mg/dL (8-23) H 10/27/19 08:19 Creatinine 3.8 mg/dL (0.7-1.2) H 10/27/19 08:19 GFR Calculation Not Reportable 10/27/19 08:19 Glucose 103 mg/dL (65-115) 10/27/19 08:19 Calculated Osmolality 261 mOsm/kg (285-295) L 10/27/19 08:19 Lactic Acid 6.6 mmol/L (0.5-2.2) H* 10/26/19 18:15 Lactic Acid (Sepsis) 5.2 mmol/L (0.5-2.2) H* 10/26/19 21:07 Calcium 6.9 mg/dL (8.5-10.5) L 10/27/19 08:19 Magnesium 1.4 mg/dL (1.7-2.3) L 10/27/19 08:19 Total Bilirubin 1.1 mg/dL (0.15-1.2) 10/27/19 08:19 AST 53 U/L (0-40) H 10/27/19 08:19 ALT 29 U/L (0-41) 10/27/19 08:19 Alkaline Phosphatase 83 IU/L (40-130) 10/27/19 08:19 Creatine Kinase 167 U/L (39-308) 10/26/19 14:29 Troponin T Baseline 57 ng/L (0-15) H 10/26/19 14:29 Troponin T 120 Minute 61.38 ng/L (0-15) H 10/26/19 16:36 Delta Troponin T 4.38 ABS# (0-10) 10/26/19 16:36 Troponin T Hi Sens 6Hr 55.93 ng/L (0-15) H 10/26/19 20:00 Troponin T Hi Sens 6Hr Delta -1.07 ng/L (0-12) L 10/26/19 20:00 C-Reactive Protein 415.9 mg/L (0.0-4.9) H 10/26/19 14:29 NT-Pro-B Natriuret Pep 4737 pg/mL (0-450) H 10/26/19 14:29 Total Protein 4.1 g/dL (6.6-8.7) L 10/27/19 08:19 Albumin 2.1 g/dL (3.5-5.2) L 10/27/19 08:19 Globulin 2.0 g/dL (1.3-4.6) 10/27/19 08:19 Lipase 8 U/L (13-60) L 10/26/19 14:29 Procalcitonin 31.94 ng/mL (0-0.5) H 10/26/19 14:29 Urine Color Yellow (Yellow) 10/26/19 16:50 Urine Appearance Sl cloudy (CLEAR) A 10/26/19 16:50 Urine pH 5 (5-7) 10/26/19 16:50 Ur Specific Carrier 1.005 (1.005-1.030) 10/26/19 16:50 Urine Protein Neg (Negative) 10/26/19 16:50 Urine Glucose (UA) Norm (Normal) 10/26/19 16:50 Urine Ketones Negative (Negative) 10/26/19 16:50 Urine Blood 3+ (Negative) H 10/26/19 16:50 Urine Nitrate Negative (Negative) 10/26/19 16:50 Urine Bilirubin Neg (NEGATIVE) 10/26/19 16:50 Urine Urobilinogen Neg mg/dL (Negative) 10/26/19 16:50 Ur Leukocyte Esterase Negative (Negative) 10/26/19 16:50 Urine RBC 5-10 /hpf (0-2) H 10/26/19 16:50 Urine WBC None /hpf (0-5) 10/26/19 16:50 Ur Squamous Epith Cells 5-10 (0-5) H 10/26/19 16:50 Amorphous Sediment 3+ 10/26/19 16:50 Urine Bacteria 1+ (NONE) H 10/26/19 16:50 Fine Granular Casts 0-4 /lpf H 10/26/19 16:50 Coarse Granular Casts 0-4 /lpf H 10/26/19 16:50 Urine Mucus 1+ 10/26/19 16:50 Micro: Microbiology 10/27/19 11:30 Gram Stain - Final Sputum - Endotracheal Tube Aspirate 10/26/19 18:15 Blood Culture - Preliminary Blood Gram positive cocci 10/26/19 20:00 Blood Culture - Preliminary Blood Gram positive cocci 10/26/19 18:10 Occult Blood (FIT) - Final Stool Echo: My impression: Echocardiogram done on 10/26/2019 revealed Normal left ventricular size and systolic function, EF 65%. mild left ventricular hypertrophy. No gross wall motion normalities. Thickened aortic valve. Trivial pericardial effusion. There are no intracardiac masses. Technically somewhat difficult study because of the poor ultrasonic window. A&P Assessment and plan (1) Septic shock: The patient is currently on multiple antibiotics. Possibly related to the extensive cellulitis Status: Acute (2) Atherosclerotic heart disease of [place] coronary artery without angina pectoris: She has only mild coronary artery disease. Status: Acute (3) Acute renal failure (ARF): Appears that the patient has acute on chronic kidney disease. The sepsis right have contributed to this. Status: Acute Qualifiers: Acute renal failure type: with acute tubular necrosis Qualified Code(s): N17.0 - Acute kidney failure with tubular necrosis (4) Edema, peripheral: This could be multifactorial. His renal failure , possible diastolic heart failure, hypoalbuminemia, etc. are contributing factors Status: Acute (5) Sepsis with acute hypoxic respiratory failure: Currently on the ventilator. Oxygenation seems to be improving Status: Acute Qualifiers: Sepsis type: sepsis due to unspecified organism Severe sepsis shock status: with septic shock Qualified Code(s): A41.9 - Sepsis, unspecified organism; R65.21 - Severe sepsis with septic shock; J96.01 - Acute respiratory failure with hypoxia Additional A&P Information Since the patient's problems are primarily noncardiac, Dr. Montague was kind enough to take over this patient's care and be the primary attending. Please feel free to contact us for any cardiac issues. Attestations Medical Necessity Statement*: Patient requires continued hospital stay for close monitoring and further management Coding Level of Care Code Acute Bituminous Paving Machine Operator for [facility] Fwd Diagnoses Septic shock A41.9; R65.21 Atherosclerotic heart disease of [place] coronary artery without angina pectoris I25.10 Acute renal failure (ARF) N17.0 Acute renal failure type: with acute tubular necrosis Edema, peripheral R60.9 Sepsis with acute hypoxic respiratory failure A41.9; R65.21; J96.01 Sepsis type: sepsis due to unspecified organism Severe sepsis shock status: with septic shock
[2019-10-27] MEDS: sodium chloride 0.9% 500 ML 999 ML IV (17:45)
--- NOTE | 2019-10-27 18:15 | PC.NURSE ---
TELEMETRY SHOWS AFIB, RATE <110 CURRENTLY. VICENTE NOTIFIED, NEW ORDER RECEIVED.
--- NOTE | 2019-10-27 19:18 | PC.NURSE ---
1430- notified dr christian that maggots were found crawling on pts RLE & UNDERNEATH SKIN. DR LEE IN TO SEE PT. FAMILY AT BEDSIDE. BROUGHT IN COPY OF ADVANCE DIRECTIVES, COPY PLACED IN CHART. COMPLETE BED BATH/LINEN CHANGE DONE. ILEOSTOMY BAG/WAFER CHANGED. STOMAPASTE & POWDER USED ON SKIN. INTERDRY PLACED IN BILAT GROIN & AROUND SAC & PENIS.
[2019-10-28] VITALS (37 sets, daily range): BP systolic 78–121; BP diastolic 51–69; PULSE 82–128; RESP 14–20; TEMP 36.2–38.1; O2SAT 94–96
[2019-10-28] MEDS: fentaNYL 50 mcg/mL INJ 2mL 25 MCG IVP ×3 (00:19→19:44)
[2019-10-28] MEDS: hydrocortisone 100 mg/2 mL SDV IVP ×4 (01:52→19:44)
[2019-10-28] MEDS: digoxin 250 mcg/ml INJ 2 mL 500 MCG IVP (02:00)
[2019-10-28 03:41] LABS: ABG PCO2 28.7 mmHg (35-45); ABG PH Result 7.31 (7.35-7.45); Alveolar-Arterial Oxygen Gradi 13.9 mmHg (5-10); Arterial Blood Gas Hematocrit 27.5 % (42-52); Base Excess ABG -10.6 mmol/L (-2.0-2.0); Blood Gas Allen Test Pos; Blood Gas Sample Site Radial, left; Blood Gas Sample Type Arterial; Carboxyhemoglobin 0.8 %THgb (0.4-20.1); HCO3 ABG 14.5 mmol/L (22-26); HGB O2 Sat 92.9 % (95-100); Methemoglobin 0.9 % (0.4-1.5); Oxygen Device VENT; Oxygen Saturation ABG 94.5; PO2 ABG 69.1 mmHg (80.0-100.0); Potassium Level - ABG 5.4 mmol/L (3.5-5.0)
[2019-10-28 04:29] LABS: Hematocrit 25.2 % (42.0-52.0); Hemoglobin 8.3 g/dL (11.7-16.6); Lymphocytes # 0.2 10^3/uL (0.8-4.8); Mean Corpuscular HGB Conc 32.9 g/dL (30.0-36.0); Mean Corpuscular Hemoglobin 33.2 pg (28.0-34.0); Mean Corpuscular Volume 100.8 fL (80-94); Mean Platelet Volume 11.8 fL (7.4-10.4); Monocytes # 0.2 10^3/uL (0.2-0.9); Monocytes % 1.8 %; Neutrophils # 9.49 10^3/uL (1.8-7.7); Neutrophils % 93.8 %; Nucleated Red Blood Cells % 0 %; Red Cell Distribution Width 16.7 % (12.1-15.1); White Blood Count 10.1 10^3/uL (4.0-10.0)
[2019-10-28 04:59] LABS: Alanine Aminotransferase 24 U/L (0-41); Albumin Level 2.9 g/dL (3.5-5.2); Alkaline Phosphatase 83 IU/L (40-130); Anion Gap 24.6 (5-19); Aspartate Amino Transferase 39 U/L (0-40); Blood Urea Nitrogen 68 mg/dL (8-23); Calcium 6.8 mg/dL (8.5-10.5); Carbon Dioxide 15 mmol/L (22-29); Chloride 92 mmol/L (98-107); Globulin 1.9 g/dL (1.3-4.6); Glucose 224 mg/dL (65-115); Osmolality Calculated 268 mOsm/kg (285-295); Potassium 5.6 mmol/L (3.5-5.1); Sodium 126 mmol/L (136-145); Total Bilirubin 1.9 mg/dL (0.15-1.2); Total Protein 4.8 g/dL (6.6-8.7)
[2019-10-28] MEDS: pantoprazole 40 mg SDV IVP ×2 (05:18→16:22)
[2019-10-28 05:53] LABS: Slide Review Slide Review Perform
[2019-10-28 05:54] LABS: Platelet Count 24 10^3/cmm (130-400)
[2019-10-28] MEDS: norepinephrine 8 MG in dextrose 5 % 500 ML 68.6 MG IV (06:35)
--- NOTE | 2019-10-28 07:33 | PM.PN ---
Subjective Subjective: Interval history: Patient remains intubated. Vitals/I&O/Wt Last Vital Signs Temp 99 F 10/28/19 06:00 Pulse 90 10/28/19 06:00 Resp 17 10/28/19 06:14 BP 111/57 10/28/19 06:00 Pulse Ox 95 10/28/19 06:00 10/27/19 10/28/19 10/28/19 22:59 06:59 14:59 Intake Total 1112.153 / 6174.122 753.847 / 6174.122 Output Total 200 / 550 200 / 550 Balance 912.153 / 5624.122 553.847 / 5624.122 Weight last 48 hrs Weight 160 lb Physical Exam Narrative: EXAM NARRATIVE: The right leg actually looks a little bit better to me this morning, although he has an area on the medial aspect of his ankle measuring perhaps 15 x 10 cm that looks like it is going to turn into an eschar. Data : 10/28/19 03:20 10/28/19 03:20 Micro: Microbiology 10/27/19 11:30 Gram Stain - Final Sputum - Endotracheal Tube Aspirate 10/26/19 18:15 Blood Culture - Preliminary Blood Gram positive cocci 10/26/19 20:00 Blood Culture - Preliminary Blood Gram positive cocci A&P Assessment and plan (1) Blistered skin: Continue present management. If the wound on the ankle eventually turns into an eschar, this will need to be removed, but it is not an urgency at the present time, especially given the patient's thrombocytopenia. Status: Acute Attestations Medical Necessity Statement*: See admitting service's notation. Coding Level of Care Code Acute Income Tax Preparer for Stephanie Mazariegos Diagnoses Blistered skin T14.8XXA
[2019-10-28] MEDS: piperacillin-tazobactam 3.375 GM in sodium chloride 0.9% (plus) 50 ML IV (07:34)
--- NOTE | 2019-10-28 08:01 | P.PN_ITS ---
Subjective Subjective: Interval history: Patient appears to be improving. He is off some pressors and only on Levophed this morning. He had slightly more than 200 mL of urinary output overnight. He is bilateral lower extremities slightly more swollen. Unfortunately we do not have ethacrynic acid available in our pharmacy and on Wednesday would be the earliest when we can find out if we can get. Several attempts to place OG tube was made yesterday but not successful. Platelets are down to 24 and hemoglobin down to 8.3. Creatinine slightly down to 3.5. Bilirubin is up to 1.9 which appears to be related to sepsis and possibly medication/infection induced cholestasis. Haptoglobin was 305 so hemolysis is highly unlikely. Discussed with microbiology lab and it appears that patient's blood culture is positive with strep and likely Enterococcus. Additional tests are being performed currently for identification. Discussed with Dr. Barrientos yesterday. Patient's echocardiogram showed normal EF therefore we have decided to transition patient's care to hospitalist service. Had discussion with patient's and niece yesterday who are both make decisions in patient's care. (DPOA). They both agreed to proceed with intubation and wanted to continue with treatment but they did not want to have chest compressions. Vitals/I&O/Wt Last Vital Signs Temp 99.0 F 10/28/19 07:00 Pulse 90 10/28/19 07:00 Resp 16 10/28/19 07:38 BP 109/57 10/28/19 07:00 Pulse Ox 96 10/28/19 07:00 10/27/19 10/28/19 10/28/19 22:59 06:59 14:59 Intake Total 1112.153 / 5420.275 753.847 / 6174.122 9.667 / 9.667 Output Total 200 / 350 200 / 550 Balance 912.153 / 5070.275 553.847 / 5624.122 9.667 / 9.667 Weight last 48 hrs Weight 72.575 kg Physical Exam Const: COMMON NORMALS: no acute distress (Intubated and sedated.) Resp: OTHER: Very minimal right basilar Rales. Left base is clear. Cardio: COMMON NORMALS: regular rate, regular rhythm and S2 normal heart sound present RATE: regular rate RHYTHM: regular rhythm HEART SOUNDS: S2 normal heart sound present OTHER: 2+ lower extremity edema GI: COMMON NORMALS: Soft to palpation PALPATION: Yes Soft to palpation OTHER: Significant exfoliative dermatitis which appears to be getting better over the last couple days. Ostomy with minimal greenish fluid. Neuro: OTHER: Neurological exam is limited. Data : 10/28/19 03:20 10/28/19 03:20 Micro: Microbiology 10/27/19 11:30 Gram Stain - Final Sputum - Endotracheal Tube Aspirate 10/26/19 18:15 Blood Culture - Preliminary Blood Gram positive cocci 10/26/19 20:00 Blood Culture - Preliminary Blood Gram positive cocci A&P Assessment and plan (1) Acute kidney injury: Appears prerenal. ATN cannot be ruled out at this point Status: Acute (2) Community acquired pneumonia: Bibasilar. Postobstructive process cannot be completely ruled out. 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 Status: Acute (5) Macrocytic anemia: Status: Acute (6) Thrombocytopenia: Most likely related to infection. Status: Acute (7) Dehydration with hyponatremia: Status: Acute (8) Hyperkalemia: Status: Acute (9) Drug exanthem: Skin with significant desquamative lesion throughout mostly involving his lower extremities, abdomen and some in the armpits. Back appears to be clear. Status: Acute (10) Sepsis: As exhibited by tachycardia and tachypnea. Patient's WBC count was 6.2 and patient was afebrile. Status: Acute (11) Septic shock: Status: Acute (12) Bacteremia: Appears to be Enterococcus faecalis. Present on admission. Status: Acute Additional A&P Information PLAN: Continue close ICU monitoring and treatment. Continue current antibiotics. Awaiting culture identification and susceptibility prior to adjusting antibiotics. Patient is currently off IV fluids and gets fluids with his medications only. Continue albumin hopefully we can prevent third spacing. Continue gradual weaning of Levophed drip. Patient will need to have diuresis down the road and hopefully on Wednesday we can get ethacrynic acid. We will go ahead and give 1 unit of platelets as I am worried that patient may develop bleeding complication which could be devastating at this point. Once platelets are given we will try placing OG tube 1 more time and hopefully start tube feeds. Will change CODE STATUS per my discussion with family. 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
--- NOTE | 2019-10-28 08:25 | ED_ITS ---
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 Lay. Now tolerating p.o. feedings without difficulty. 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 Surgical History (Updated 10/27/19 @ 15:04 by Bjorn Hudson MD) H/O ileostomy History of hernia repair 05/05/2019: Laparoscopic parastomal hernia repair S/P colostomy takedown / diverting ileostomy S/P tonsillectomy Status post Judd procedure Family History Other Diabetes Hypertension Social History Smoking and tobacco status: former smoker Alcohol intake: current Alcohol intake frequency: 0-2 Drinks per Day Procedures Intubation Time out performed: Yes sedative: Etomidate Mg Given: 30 Laryngoscope: fiber optic video scope Assist Device Used: fiber optic device ET Tube Size: 8 ET Tube Uncuffed: No Tube Secured Depth (cm): 23 Tube Secured Location: teeth Tube Placement Confirmation: visualized tube passing through cords, equal breath sounds bilaterally, no breath sounds over epigastrium and confirmation by capnometry Patient Tolerated Procedure: well Intubation Complications: none Additional Comments: Dr. Montague had discussed with family and patient and patient wished to be intubated was feeling BiPAP for his respiratory distress. He is moderately hypokalemic so we did not give any succinylcholine after dose of etomidate he was adequately sedated we were able to intubate on the first attempt without any complications patient tolerated well. Dr. Montague will manage and continue to manage the patient in the ICU. Course Vital Signs: Vital signs: Vital Signs Temperature 99.0 F 08/01/20 07:00 Pulse Rate 90 10/28/19 07:00 Respiratory Rate 16 10/28/19 07:38 Blood Pressure 109/57 10/28/19 07:00 Pulse Oximetry 96 10/28/19 07:00 MDM - Chest Pain Lab Data: Labs: Lab Results 10/26/19 10/26/19 10/26/19 Range/Units 11:12 11:12 11:12 WBC Cancelled Corrected WBC Cancelled RBC Cancelled Hgb Cancelled Hct Cancelled MCV Cancelled MCH Cancelled MCHC Cancelled RDW Cancelled Plt Count Cancelled MPV Cancelled Gran % Cancelled Neut % (Auto) Cancelled Lymph % (Auto) Cancelled Smyth % (Auto) Cancelled Eos % (Auto) Cancelled Baso % (Auto) Cancelled Neut # (Auto) Cancelled Lymph # (Auto) Cancelled Smyth # (Auto) Cancelled Eos # (Auto) Cancelled Baso # (Auto) Cancelled Absolute Gran (aut o) Cancelled Nucleated RBC % (a uto) Cancelled Nucleated RBCs # Cancelled PT Cancelled INR Cancelled APTT Cancelled Specimen Type ABG pH (7.35-7.45) ABG pCO2 (35-45) mmHg ABG pO2 (80.0-100.0) mmH g ABG HCO3 (22-26) mmol/L ABG O2 Saturation ABG Base Excess (-2.0-2.0) mmol/ L Fer Test A-a O2 Gradient (5-10) mmHg Hematocrit (42-52) % Hgb O2 Saturation (95-100) % Carboxyhemoglobin (0.4-20.1) %THgb Methemoglobin (0.4-1.5) % Total Hemoglobin (14-18) g/dL Ionized Calcium (1.1-1.4) mmol/L O2 Delivery Device FiO2 % Promotional Demonstrator ID Sodium Cancelled Potassium Cancelled Chloride Cancelled Carbon Dioxide Cancelled Anion Gap Cancelled BUN Cancelled Creatinine Cancelled GFR Calculation Cancelled Glucose Cancelled Calculated Osmolal ity Cancelled Calcium Cancelled Total Bilirubin Cancelled AST Cancelled ALT Cancelled Alkaline Phosphata se Cancelled Troponin T Baselin e Total Protein Cancelled Albumin Cancelled Globulin Cancelled Lipase Cancelled 10/26/19 10/26/19 Range/Units 11:12 11:40 WBC Corrected WBC RBC Hgb Hct MCV MCH MCHC RDW Plt Count MPV Gran % Neut % (Auto) Lymph % (Auto) Smyth % (Auto) Eos % (Auto) Baso % (Auto) Neut # (Auto) Lymph # (Auto) Smyth # (Auto) Eos # (Auto) Baso # (Auto) Absolute Gran (aut o) Nucleated RBC % (a uto) Nucleated RBCs # PT INR APTT Specimen Type Arterial ABG pH 7.25 L (7.35-7.45) ABG pCO2 18.7 L* (35-45) mmHg ABG pO2 441.0 H (80.0-100.0) mmH g ABG HCO3 8.1 L (22-26) mmol/L ABG O2 Saturation > 100.0 ABG Base Excess -17.0 L (-2.0-2.0) mmol/ L Fer Test N/a A-a O2 Gradient 29.9 H (5-10) mmHg Hematocrit 37.2 L (42-52) % Hgb O2 Saturation 98.9 (95-100) % Carboxyhemoglobin 0.8 (0.4-20.1) %THgb Methemoglobin 0.6 (0.4-1.5) % Total Hemoglobin 12.1 L (14-18) g/dL Ionized Calcium 1.2 (1.1-1.4) mmol/L O2 Delivery Device Bipap FiO2 100.0 % Promotional Demonstrator ID Amh Sodium 129.0 L Potassium 6.0 H Chloride Carbon Dioxide Anion Gap BUN Creatinine GFR Calculation Glucose 65.0 L Calculated Osmolal ity Calcium Total Bilirubin AST ALT Alkaline Phosphata se Troponin T Baselin e Cancelled Total Protein Albumin Globulin Lipase Discharge Plan Discharge Admit Provider: Willard Day Clinical Impression: ST elevation myocardial infarction (STEMI) Qualifiers: Involved coronary artery: unspecified coronary artery Qualified Code(s): I21.3 - ST elevation (STEMI) myocardial infarction of unspecified site Condition: Stable Coding Level of Care Code ED Insurance Operations Rep for Stephanie Mazariegos
--- NOTE | 2019-10-28 09:21 | PC.NURSE ---
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 PAD CHANGED UNDER LEG. OGT PLACED WITH SOME DIFFICULTY PER DRS ORDER. 200 OF GREENISH FLUID WITH COFFEE GROUND DEBRIS PRESENT. LAB CAME FOR TYPE AND SCREEN TO GIVE PLATELETTS WHEN AVAILABLE. TUBING DATED. PATIENT TURNED AT 0730 AND AT THIS TIME.
[2019-10-28] MEDS: cefTRIAXone 2,000 MG in sodium chloride 0.9% (plus) 50 ML 100 MG IV (09:32)
[2019-10-28 10:09] LABS: Magnesium 1.8 mg/dL (1.7-2.3)
[2019-10-28 10:44] LABS: Glucose Point of Care 195 mg/dL (70-110)
[2019-10-28] MEDS: norepinephrine 8 MG in dextrose 5 % 500 ML 72.4 MG IV (13:08)
--- NOTE | 2019-10-28 13:11 | PC.NURSE ---
PLATLETTS INFUSED WITHOUT INCIDENT. SLOW DECREASE IN BP OVER THE LAST 4 HRS, WEANED FENTANYL AND VERSED DOWN. THEN INCREASED LEVOPHED GRAUALLY AFTER PLATELETS AND CURRENTLY AM MAXED AT 21MCG. PATIENT BEING TURNED Q2 HRS. PATIENTS UOP AVERAGE IS APPOXIMATELY 15/HR. WILL NOTIFY
[2019-10-28] MEDS: sodium chloride 0.9% 1,000 ML 50 ML IV (13:31)
--- NOTE | 2019-10-28 14:31 | PC.NURSE ---
versed and fentanyl on minimal settings, patient asked if he is in pain, he did not open his eyes but knodded NO. patient is in a mostly controlled afib, is ogt has put out over 300 in the last 3 hrs. blood sugars schedualled for 3x a day as he is not recieving food.
[2019-10-28 14:51] LABS: Glucose Point of Care 145 mg/dL (70-110)
--- NOTE | 2019-10-28 16:12 | PC.NURSE ---
patients niece and nephew came to visit at 1515, they were asked to wait till 4pm. the charge nurse JOSE noted that it was the and neice that were authorized. the family thought they had customer service advocate visitation. we explained that once we withdraw care he can have up to 5 people in the room with him if necessary for his last hours. his nephew could not stand to see him with so much equiptment and sores on him so the niece left early and was told she could return. the sons of the patient will be here tomorrow and the discussion of withdrawal will take place.
[2019-10-28] MEDS: levofloxacin-dextrose 5 % 500 MG/100 ML PREMIX 100 MG IV (17:25)
[2019-10-28] MEDS: vancomycin 1,000 MG in sodium chloride 0.9% 250 ML 250 MG IV (17:26)
[2019-10-28] MEDS: acetaminophen 650 mg/20.3 mL UDC PO ×2 (17:51→23:17)
--- NOTE | 2019-10-28 18:14 | PC.NURSE ---
patients fever is up to 100.7 and his bp has het 140 systolic more than once so i increased the pain med/ fentanyl and levophed decreased. tylenol given for fever. uop has not improved. dr orellana
[2019-10-28] MEDS: norepinephrine 8 MG in dextrose 5 % 500 ML 64.8 MG IV (20:51)
[2019-10-28 20:58] LABS: Glucose Point of Care 133 mg/dL (70-110)
[2019-10-29] VITALS (66 sets, daily range): BP systolic 80–179; BP diastolic 47–95; PULSE 71–113; RESP 4–21; TEMP 34.9–38.3; O2SAT 90–100
[2019-10-29] MEDS: hydrocortisone 100 mg/2 mL SDV IVP ×4 (00:42→18:56)
--- NOTE | 2019-10-29 01:24 | PC.NURSE ---
Pt has had a steady fever of 100.9. Tylenol was given, a fan was placed at bedside, and cool wash cloths were placed. Pt MAP has been trending in the high 60's and low 70's. Pt is wincing when he is being repositioned as well as when noises are made or pt is spoken to. Nurse believes pain is the cause for the furrowed brows and wincing. Levophed will be increased so that a PRN dose of fentanyl can be given.
[2019-10-29] MEDS: fentaNYL 50 mcg/mL INJ 2mL 25 MCG IVP ×2 (01:29→20:13)
[2019-10-29 04:21] LABS: ABG PCO2 25.4 mmHg (35-45); ABG PH Result 7.33 (7.35-7.45); Arterial Blood Gas Hematocrit 27.9 % (42-52); Base Excess ABG -11.1 mmol/L (-2.0-2.0); Blood Gas Allen Test Pos; Blood Gas Operator Identificat JB; Blood Gas Sample Site Radial, right; Blood Gas Sample Type Arterial; HCO3 ABG 13.5 mmol/L (22-26); Oxygen Device VENT; PO2 ABG 72.7 mmHg (80.0-100.0)
[2019-10-29 04:51] LABS: Basophils # 0.1 10^3/uL (0.0-0.1); Basophils % 0.6 %; Hematocrit 22.6 % (42.0-52.0); Hemoglobin 7.6 g/dL (11.7-16.6); Lymphocytes # 0.4 10^3/uL (0.8-4.8); Lymphocytes % 3.5 %; Mean Corpuscular HGB Conc 33.6 g/dL (30.0-36.0); Mean Corpuscular Volume 98.3 fL (80-94); Mean Platelet Volume 10.6 fL (7.4-10.4); Monocytes # 0.6 10^3/uL (0.2-0.9); Monocytes % 5.6 %; Nucleated Red Blood Cells % 0 %; Positive C 1; Positive M 1; Red Cell Distribution Width 16.6 % (12.1-15.1); White Blood Count 10.5 10^3/uL (4.0-10.0)
[2019-10-29 05:03] LABS: Alanine Aminotransferase 17 U/L (0-41); Albumin Level 3.2 g/dL (3.5-5.2); Alkaline Phosphatase 82 IU/L (40-130); Anion Gap 23.7 (5-19); Aspartate Amino Transferase 28 U/L (0-40); Blood Urea Nitrogen 72 mg/dL (8-23); Calcium 7.3 mg/dL (8.5-10.5); Carbon Dioxide 15 mmol/L (22-29); Chloride 90 mmol/L (98-107); Globulin 1.9 g/dL (1.3-4.6); Glucose 113 mg/dL (65-115); Osmolality Calculated 256 mOsm/kg (285-295); Potassium 5.7 mmol/L (3.5-5.1); Sodium 123 mmol/L (136-145); Total Bilirubin 2.4 mg/dL (0.15-1.2); Total Protein 5.1 g/dL (6.6-8.7)
[2019-10-29] MEDS: norepinephrine 8 MG in dextrose 5 % 500 ML 64.8 MG IV (05:34)
[2019-10-29] MEDS: pantoprazole 40 mg SDV IVP ×2 (05:34→17:36)
[2019-10-29 05:37] LABS: Platelet Count 21 10^3/cmm (130-400)
[2019-10-29 05:38] LABS: Slide Review Slide Review Perform
--- NOTE | 2019-10-29 07:34 | P.PN_ITS ---
Subjective Subjective: Interval history: Patient appears to have 1000 output. He continues to have some bilious OG tube output as well as urine. His creatinine is down to 3.3. He is getting significant third spacing. His scrotum/penis are swollen. His skin appears to be improving but right lower extremity much worse. More necrotic tissue appearing and I have discussed with Dr. rose this morning and we will try to perform bedside debridement. We will give 2 units of platelets to hopefully minimize bleeding. Levophed is down to 13 mcg/min. He requires minimal respiratory support on vimal tilator. Had fever last night with T-max 100.9. His blood is growing strep pyogenous. Hemoglobin is gradually declining and given gradually climbing BUN slow GI bleed cannot be ruled out. Medications: Reviewed: Yes Medication Review Details: Current Medications Hydrocodone Bitart/Acetaminophen ([place] 5-325 Mg) 1 tab PO Q6H PRN PRN Reason: MODERATE PAIN Last Admin: 10/26/19 20:12 Dose: 1 tab Documented by: Fentanyl (Sublimaze) 25 mcg IVP Q4H PRN PRN Reason: SEVERE PAIN Last Admin: 10/27/19 08:04 Dose: 25 mcg Documented by: Hydrocortisone Sodium Succinate (Solu-Cortef Inj) 50 mg IVP Q12H [facility] Last Admin: 10/27/19 05:59 Dose: 50 mg Documented by: Hydrocortisone Sodium Succinate (Solu-Cortef Inj) 100 mg IVP Q6H [facility] Last Admin: 10/27/19 08:02 Dose: 100 mg Documented by: Norepinephrine Bitartrate 4 mg (/ Dextrose) 254 mls @ 0 mls/hr IV .Q0M [facility]; Protocol Last Admin: 10/27/19 08:52 Dose: 12 mcg/min, 45.7 mls/hr Documented by: Sodium Chloride (Sodium Chloride 0.9%) 1,000 mls @ 150 mls/hr IV .Q6H40M [facility] Last Infusion: 10/27/19 07:00 Dose: 0 mls/hr Documented by: Albumin Human (Albumin) 25 gm in 100 mls @ 60 mls/hr IV Q8H [facility] Last Infusion: 10/27/19 11:00 Dose: Infused Documented by: Piperacillin Sod/Tazobactam (Sod 3.375 gm/ Sodium Chloride) 50 mls @ 12.5 mls/hr IV Q12H [facility]; Protocol Last Infusion: 10/27/19 11:00 Dose: Infused Documented by: Levofloxacin/Dextrose (Levaquin-D5w) 500 mg in 100 mls @ 100 mls/hr IV Q48H [facility] Vancomycin HCl 1,000 mg/ (Sodium Chloride) 250 mls @ 250 mls/hr IV Q48H [facility]; Protocol Phenylephrine HCl 25 mg/ (Sodium Chloride) 252.5 mls @ 0 mls/hr IV .Q0M [facility]; Protocol Last Titration: 10/27/19 07:00 Dose: Infused Documented by: Vasopressin 40 unit/ Sodium (Chloride) 40 mls @ 0.03 mls/min IV CONT ADAM Last Admin: 10/27/19 09:00 Dose: 1.3 mls/min Documented by: Sodium Chloride (Sodium Chloride 0.9%) 250 mls @ 250 mls/hr IV .Q1H [facility] Last Infusion: 10/27/19 11:00 Dose: Infused Documented by: Midazolam HCl 100 mg/ Sodium (Chloride) 100 mls @ 0 mls/hr IV .Q0M [facility]; Protocol Last Admin: 10/27/19 12:41 Dose: 1 mg/hr, 1 mls/hr Documented by: Fentanyl 1,000 mcg/ Sodium (Chloride) 100 mls @ 0 mls/hr IV .Q0M [facility]; Protocol Last Admin: 10/27/19 11:10 Dose: 4 mcg/hr, 0.4 mls/hr Documented by: Norepinephrine Bitartrate 8 mg (/ Dextrose) 508 mls @ 0 mls/hr IV .Q0M AD[facility]; Protocol Last Admin: 10/27/19 14:14 Dose: 18 mcg/min, 68.6 mls/hr Documented by: Lidocaine HCl (Lidocaine 1%) 0.1 ml INTRADERMA PRN PRN PRN Reason: Anesthetic Catheter Placement Ondansetron HCl (Zofran) 4 mg IVP Q4H PRN PRN Reason: NAUSEA AND VOMITING Pantoprazole Sodium (Protonix) 40 mg IVP Q12H ADAM Last Admin: 10/27/19 05:12 Dose: 40 mg Documented by: Sodium Chloride (Sodium Chloride 0.9 % (Flush)) 5 - 10 ml IV PRN PRN PRN Reason: Central line flush Vitals/I&O/Wt Last Vital Signs Temp 100.2 F H 10/29/19 02:00 Pulse 100 10/29/19 06:00 Resp 16 10/29/19 07:19 BP 149/74 10/29/19 06:00 Pulse Ox 96 10/29/19 06:00 10/28/19 10/29/19 10/29/19 22:59 06:59 14:59 Intake Total 1294.763 / 2287.930 662.322 / 2950.252 Output Total 325 / 620 400 / 1020 Balance 969.763 / 1667.930 262.322 / 1930.252 Physical Exam Const: COMMON NORMALS: no acute distress and patient oriented x3 Resp: COMMON NORMALS: normal respiratory effort and clear to auscultation bilaterally AUSCULTATION: clear to auscultation bilaterally Cardio: COMMON NORMALS: regular rate, regular rhythm and S2 normal heart sound present RATE: regular rate RHYTHM: regular rhythm HEART SOUNDS: S2 normal heart sound present OTHER: 2-3+ lower extremity edema. Right lower extremity is worsening with more necrotic tissue appearing. Left side actually improving. GI: COMMON NORMALS: Normal to inspection, nondistended, normoactive bowel sounds present, Soft to palpation and non-tender PALPATION: Yes Soft to palpation Neuro: COMMON NORMALS: patient oriented x3 and no focal motor deficits Data : 10/29/19 03:32 10/29/19 03:32 Micro: Microbiology 10/27/19 11:30 Gram Stain - Final Sputum - Endotracheal Tube Aspirate Sputum Culture - Preliminary 10/26/19 18:15 Blood Culture - Preliminary Blood Strep pyogenes (grp a) 10/26/19 20:00 Blood Culture - Preliminary Blood Strep pyogenes (grp a) A&P Assessment and plan (1) Acute kidney injury: Appears prerenal. ATN cannot be ruled out at this point Status: Acute (2) Community acquired pneumonia: Bibasilar. Postobstructive process cannot be completely ruled out. 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 Status: Acute (5) Macrocytic anemia: Status: Acute (6) Thrombocytopenia: Most likely related to infection. Status: Acute (7) Dehydration with hyponatremia: Status: Acute (8) Hyperkalemia: Status: Acute (9) Drug exanthem: Skin with significant desquamative lesion throughout mostly involving his lower extremities, abdomen and some in the armpits. Back appears to be clear. Status: Acute (10) Sepsis: As exhibited by tachycardia and tachypnea. Patient's WBC count was 6.2 and patient was afebrile. Status: Acute (11) Septic shock: Status: Acute (12) Bacteremia: Strep pyogenous. Present on admission. Status: Acute Additional A&P Information Probable toxic shock syndrome. Possible necrotizing fasciitis. PLAN: Discussed with RN this morning and we will initiate tube feeds. Continue Levophed and wean off as blood pressure permits. Proceed with 2 units of platelets. Will continue ceftriaxone with increased dose to 2 g every 12 and vancomycin for now and add clindamycin to hopefully interfere with toxin production. Awaiting debridement procedure. Discontinue Levaquin. Consider IVIG tomorrow for 2 days. Discussed with pharmacy and this will need to be approved. Consider trying 1 dose Bumex as unfortunately we do not have ethacrynic acid. Will check ostomy output for bleeding. Monitor hemoglobin and platelets. 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
--- NOTE | 2019-10-29 08:06 | PM.PN ---
Subjective Subjective: Interval history: Patient remains intubated and sedated. Vitals/I&O/Wt Last Vital Signs Temp 100.2 F H 10/29/19 02:00 Pulse 100 10/29/19 06:00 Resp 16 10/29/19 07:19 BP 149/74 10/29/19 06:00 Pulse Ox 96 10/29/19 06:00 10/28/19 10/29/19 10/29/19 22:59 06:59 14:59 Intake Total 1294.763 / 2950.252 662.322 / 2950.252 Output Total 325 / 1020 400 / 1020 Balance 969.763 / 1930.252 262.322 / 1930.252 Physical Exam Narrative: EXAM NARRATIVE: As expected, the area on the medial aspect of the right ankle has progressed into a sloughing eschar. Data : 10/29/19 03:32 10/29/19 03:32 Micro: Microbiology 10/27/19 11:30 Gram Stain - Final Sputum - Endotracheal Tube Aspirate Sputum Culture - Preliminary 10/26/19 18:15 Blood Culture - Preliminary Blood Strep pyogenes (grp a) 10/26/19 20:00 Blood Culture - Preliminary Blood Strep pyogenes (grp a) A&P Assessment and plan (1) Blistered skin: The patient is receiving platelets this morning. Given his positive blood cultures, I think it would be reasonable to attempt a bedside debridement of the eschar at the ankle. This will be done today. Status: Acute Attestations Medical Necessity Statement*: See admitting service's notation. Coding Level of Care Code Acute Transactional Paralegal for Stephanie Mazariegos Diagnoses Blistered skin T14.8XXA
--- NOTE | 2019-10-29 08:25 | PC.NURSE ---
Report received. Care assumed.
--- NOTE | 2019-10-29 09:27 | PC.SOCIAL ---
Pg 2 IMM Explained to pt's , via phone, Pg 2 IMM. She verbally understands. No questions voiced. Provided pt a copy. Signed, dated, & timed a copy & placed in chart.
[2019-10-29] MEDS: clindamycin 900 MG/50 ML PREMIX 100 MG IV ×2 (09:30→15:57)
[2019-10-29] MEDS: cefTRIAXone 2,000 MG in sodium chloride 0.9% (plus) 50 ML 100 MG IV ×2 (09:54→22:00)
[2019-10-29 09:59] LABS: Glucose Point of Care 159 mg/dL (70-110)
--- NOTE | 2019-10-29 11:20 | PC.NURSE ---
Family: Dre Gallagher and Jorge Hoffmann. Fide Tineo. All here to discussed plan of care with Dr Montague. Family decided to continue with care, debridement of leg to help pt fight off infection. Discussed with all 4 visitation, they could stay and check on pt after the debridement then they ( the 4 of them) can come back at visiting hours to see pt. (2 at a time , per ICU visiting policy).
--- NOTE | 2019-10-29 12:45 | PC.NURSE ---
Dr Hudson at bedside, debriding right leg.
--- NOTE | 2019-10-29 12:45 | PM.OP ---
Operative Report Date of procedure: October 29, 2019 Pre-op Diagnosis: Forming eschar on right lower extremity. Post-op diagnosis: same Procedure Done: Sharp debridement of 160 cm? of skin and subcutaneous tissue. Pathology: none sent Surgeon: Bjorn Hudson Anesthesia: None (Local. The patient is intubated and also under sedation in the ICU.) Estimated blood loss (mL): 5 Complications: None. Condition: stable Disposition: ICU Procedure: The patient was already in the ICU intubated and under sedation. The right lower leg was prepped with Betadine. 1% lidocaine with 1:100,000 parts epinephrine (the patient is thrombocytopenic) was used for local anesthetic at the large eschar site on the medial aspect of the ankle and the smaller more anterior site more proximally. Sharp debridement was then carried out removing the entire eschar at both sites. This encompassed about 160 cm? of skin and partial subcutaneous tissue at the sites. The underlying fascia appeared white. Silvadene ointment was placed over the wounds and sterile nonstick bandages were then applied.
--- NOTE | 2019-10-29 13:00 | PC.NURSE ---
No family waiitng to check on pt after debridement.
[2019-10-29] MEDS: silver sulfadiazine cream 1% 50 gm 1 APPLIC TOPICAL (13:11)
[2019-10-29] MEDS: sodium chloride 0.9% 1,000 ML 50 ML IV (13:12)
[2019-10-29 15:49] LABS: Glucose Point of Care 193 mg/dL (70-110)
--- NOTE | 2019-10-29 17:00 | PC.NURSE ---
Family : Both sons came to visit. Fide came to visit, there were 2 other visitors with Fide. Reminded Fide that it was just to be her, the sons and the . Fide called this back out to waiting area, someone replied Why, are they just being assholes? Family stayed for maybe 15 minutes of visiting time.
--- NOTE | 2019-10-29 18:00 | PC.NURSE ---
Temp. low. Rechecked positoning of rectal probe. In correct position.
--- NOTE | 2019-10-29 18:41 | PC.NURSE ---
Shift summary: Pt remains intubated and on vent. He is on Fentanyl at 40mcg/hr and 0.5mg hr of Versed. NO changes to theses drips except briefly during debridement. IV fluids and Levophed also infusing into right IJ central line. Levophed was 11mcg/min now at 7mcg/min. Oral care has been blood tinged throughout the day. Lungs sound clear. Pt has a multitude of sores covering his body in varying stages of depths and eschar. Dr Hudson debrided 2 of the larger areas on his right leg, then covered with silvadene, telfa, kerlix then july wrap. VSS throughout procedure. Bath provided and Intradry applied to groin, left underarm and around ileostomy, as it was sticking to abdominal sores. Pt received 2 units of platelets prior to debridement. Minimal urine output noted, 150ml of pale yellow urine. Family in for discussing with Dr. Montague on plan of care. Family to visit consists of , 2 sons and niece.
--- NOTE | 2019-10-29 19:21 | PC.NURSE ---
Report given to WOJCIECH Sesay.
[2019-10-29 23:21] LABS: Glucose Point of Care 183 mg/dL (70-110)
[2019-10-30] VITALS (39 sets, daily range): BP systolic 80–144; BP diastolic 46–82; PULSE 73–103; RESP 13–26; TEMP 34.9–36.6; O2SAT 69–95
[2019-10-30] MEDS: clindamycin 900 MG/50 ML PREMIX 100 MG IV ×2 (00:49→09:24)
[2019-10-30] MEDS: hydrocortisone 100 mg/2 mL SDV IVP ×3 (01:18→14:15)
[2019-10-30] MEDS: norepinephrine 8 MG in dextrose 5 % 500 ML 26.7 MG IV (01:26)
[2019-10-30 04:35] LABS: Basophils # 0.1 10^3/uL (0.0-0.1); Basophils % 0.9 %; Hematocrit 22.1 % (42.0-52.0); Hemoglobin 7.1 g/dL (11.7-16.6); Lymphocytes # 0.2 10^3/uL (0.8-4.8); Lymphocytes % 1.8 %; Mean Corpuscular HGB Conc 32.1 g/dL (30.0-36.0); Mean Corpuscular Hemoglobin 32.1 pg (28.0-34.0); Mean Platelet Volume 12.3 fL (7.4-10.4); Monocytes # 1.9 10^3/uL (0.2-0.9); Monocytes % 17.3 %; Neutrophils # 8.47 10^3/uL (1.8-7.7); Neutrophils % 79.4 %; Nucleated Red Blood Cells % 0.2 %; Platelet Count 43 10^3/cmm (130-400); Positive M 1; Red Blood Count 2.21 10^6/uL (4.1-5.3); White Blood Count 10.7 10^3/uL (4.0-10.0)
[2019-10-30 04:59] LABS: Alanine Aminotransferase 14 U/L (0-41); Albumin Level 3.3 g/dL (3.5-5.2); Alkaline Phosphatase 80 IU/L (40-130); Aspartate Amino Transferase 20 U/L (0-40); Calcium 7.9 mg/dL (8.5-10.5); Carbon Dioxide 15 mmol/L (22-29); Chloride 91 mmol/L (98-107); Globulin 2.1 g/dL (1.3-4.6); Glucose 178 mg/dL (65-115); Osmolality Calculated 264 mOsm/kg (285-295); Sodium 125 mmol/L (136-145); Total Bilirubin 2.5 mg/dL (0.15-1.2); Total Protein 5.4 g/dL (6.6-8.7)
[2019-10-30 05:15] LABS: Slide Review Slide Review Perform
[2019-10-30 05:20] LABS: Blood Urea Nitrogen 83 mg/dL (8-23)
[2019-10-30] MEDS: pantoprazole 40 mg SDV IVP (05:52)
[2019-10-30] MEDS: fentaNYL 50 mcg/mL INJ 2mL 25 MCG IVP ×4 (06:28→17:43)
--- NOTE | 2019-10-30 06:42 | PC.NUTR ---
NUTR TF RECOMMENDATIONS: Glucerna with a continuous goal rate of 40 ml/hr providing 1152 kcal (83%), 58 g PRO (100%), and 773 ml fluid (65%)(%NEEDS). Suggest starting TF at 20 ml/hr and increase by 10 ml Q6H as tolerated till goal rate is met. Suggest H2O flushes of 50 ml Q4H to approach fluid needs or per physician.
[2019-10-30] MEDS: sodium chloride 0.9% 1,000 ML 50 ML IV (06:45)
--- NOTE | 2019-10-30 07:14 | P.PN_ITS ---
Subjective Subjective: Interval history: Patient remains intubated and sedated. Vitals/I&O/Wt Last Vital Signs Temp 96.3 F L 10/30/19 04:00 Pulse 78 10/30/19 06:00 Resp 13 10/30/19 04:42 BP 123/82 10/30/19 06:00 Pulse Ox 91 10/30/19 06:00 10/29/19 10/30/19 10/30/19 22:59 06:59 14:59 Intake Total 246.488 / 3836.218 1566.810 / 3836.218 Output Total 275 / 325 50 / 325 Balance -28.512 / 3511.218 1516.810 / 3511.218 Physical Exam Narrative: EXAM NARRATIVE: Right lower extremity remains dressed. No saturation on the dressing. Data : 10/30/19 03:20 10/30/19 03:20 Micro: Microbiology 10/29/19 20:30 Occult Blood (FIT) - Final Stool Routine Collection 10/27/19 11:30 Gram Stain - Final Sputum - Endotracheal Tube Aspirate Sputum Culture - Preliminary Staphylococcus aureus A&P Assessment and plan (1) Blistered skin: Eschars removed on 10/29/2019. Patient remains critically ill. Hemoglobin remains low. Status: Acute Attestations Medical Necessity Statement*: See admitting service's notation. Coding Level of Care Code Acute Retort Operator for Stephanie Mazariegos Diagnoses Blistered skin T14.8XXA
[2019-10-30 08:29] LABS: Glucose Point of Care 182 mg/dL (70-110)
[2019-10-30] MEDS: cefTRIAXone 2,000 MG in sodium chloride 0.9% (plus) 50 ML 100 MG IV (09:22)
--- NOTE | 2019-10-30 10:13 | PC.CHAP ---
Pastoral Care Encounter/Spiritual Assessment Type of Contact [] Declined butcher or smallgoods maker visit [] Patient/Family/Request visit [] Outpatient visit [] Follow-up visit [] Physician referral [] Code/Alert [x] Routine visit [] Staff referral [] Actively dying [x] Patient sleeping [] Family support [] [] Out of room [] Palliative care [] [] Receiving care in room [] Pre-surgical visit [] Trauma [] Long length of stay [] ICU visit [] Other: Relational/Emotional Strength [] Patient feels connected with others/family/visitors/staff [] Distress [] Loneliness/isolation [] Abandonment Spirituality of Patient [] Person of Radha [] Attends Pentecostalism of their Radha [] Believes in Prayer [] Reads Bible or Yazidi materials [] There are Spiritual issues to be addressed Police Chief Deputy Interventions [x] Prayer [] Active listening [] Non-anxious presence [] Spiritual/emotional support [] Crisis/trauma care [] Spiritual counseling [] Bereavement support [] Provided bereavement packet [] Provided Bible/devotional materials [] Provided toy/stuffed animal, coloring book to patient or family member [] Provided Communion [] Anointing/[place] [] Salvation [x] Completed spiritual assessment [] Other: Impact on Illness or Injury [] Angry [] Fearful [] Anxious [] Often cries [] Exhaustion [] Unable to work [] Unable to attend moravian [] Unable to walk/stand [] Unable to read [] Unable to drive [] Unable to eat/drink [] Unable to sleep [] Unable to be with family [] Patient intubated [] Other: Summary Patient resting... on breathing device Time spent with patient 5 min
--- NOTE | 2019-10-30 10:42 | PC.NURSE ---
Pt Ostomy bag was changed this AM. Pt pain increased, so 0.5 mL Fentanyl was pushed over 5 mins, and waste was placed in hazard container.
--- NOTE | 2019-10-30 10:45 | PC.NURSE ---
Silverdene Sulfate topical ointment is being held based on previous orders from MD Clari. Pt has documented and verified Sulfa allergy. Hydrocortisone Injection admin was held. Pyxis states med was due at 0730. Pt Mar states med is due at 1330. Calling to clarify.
[2019-10-30 11:23] LABS: Glucose Point of Care 156 mg/dL (70-110)
--- NOTE | 2019-10-30 11:41 | PC.NURSE ---
New orders from Dr. Heart recieved. He is on unit and staff rounded with him. Proceeding with sedation vacation. Cancelling Dietary consult at this time.
--- NOTE | 2019-10-30 11:46 | USCV_ITS ---
Elpidio Hoffmann Age: 79 Gender: M : 1940 Exam Date: 10/30/2019 13:47 Ordering Phys: Kar Jensen MD Technologist: Rick Krueger Exam Location: [facility] Indication: PAD Risk Factors: Previous Vascular Surgery: RIGHT LEFT BP: 111.0 / 72.00 BP: 110.0/ 70.00 0 0 Waveform Velocity (cm/s) Velocity (cm/s) Waveform Biphasic 63.4 Iliac Prox 72.5 Biphasic Biphasic 75.5 Iliac Mid 72.5 Monophasic Monophasic 71.2 Iliac Distal 91.8 Monophasic Monophasic 67.8 ANODISER 94.3 Monophasic Monophasic 88.2 SFA Prox 99.1 Monophasic Monophasic 101.5 SFA Mid 91.8 Monophasic Monophasic SFA Dist Monophasic 102.7 85.8 Monophasic 64.1 POP 43.2 Monophasic Monophasic 25.6 CONTROL CLERK REPAIRS 95.7 Monophasic Monophasic 26.0 DPA 48.0 Monophasic FINDINGS COULD NOT DO ALO DUE TO ULCERS ON LEGS Monophasic and continuous Doppler waveforms in the infrapopliteal vessels bilaterally. CONCLUSIONS Abnormal Doppler waveforms in the infrapopliteal vessels, may suggest collateral filling in these vessels Because of the ulcers, ABIs were not performed. Consider TBI or CTAs, to further evaluate the peripheral arteries, if clinically indicated. Because of the differences in the technical qualities, comparison with the previous study is difficult Dr Melissa Barrientos MD [facility] (Electronically Signed) Final Date: 30 October 2019 20:23 S
--- NOTE | 2019-10-30 11:46 | CT_ITS ---
WS: [id number] CT ABDOMEN AND PELVIS NONCONTRAST HISTORY: Sepsis, pneumonia. History of colon cancer. TECHNIQUE: Imaging performed through the abdomen and pelvis. Coronal and sagittal reformats are submi tted. All CT scans at [facility] use at least one of these dose optimization techniques: automated exposure control; mA and/or kV adjustment per patient size (includes targeted exams where d ose is matched to clinical indication); or iterative reconstruction. DLP: 913.02 mGy.cm COMPARISON: 09/27/2019 Lower thorax: New small bilateral loculated pleural effusions. Compressive atelectasis bilaterally gr eatest at the lung lung base. Small circumferential pericardial effusion. Nasogastric tube is present with tip in the stomach. Liver: Liver is normal size. LEFT hepatic cyst is better seen on the postcontrast examinations. No bi le duct dilatation. Gallbladder: Mildly contracted gallbladder with stones. Pancreas: Peripancreatic edema. Spleen: Normal size spleen. Adrenal glands: Normal. Right kidney: Mild atrophy and perinephric stranding. Left kidney: Mild atrophy and perinephric stranding. Atherosclerosis aorta. No aneurysm. There is extensive soft tissue anasarca. Small amount of ascites. Small amount of free fluid extends along the paracolic gutters. No definite adenopathy. GI tract: RIGHT lower quadrant ostomy site. Significant improvement in the fluid collection along adj acent to the ostomy site. No GI tract obstruction. Postoperative changes at the rectosigmoid junction are stable. There is no mass or obstruction. No adjacent localized abscess. Abdominal wall: Extensive anasarca. RIGHT lower quadrant ostomy. Pelvis: Galaviz catheter present in a nondistended bladder. There is a small amount of air in the bladd er from recent catheterization most likely. Small amount of free fluid. No obstruction. Osseous structures: Severe degenerative changes throughout the lumbar spine. Slight retrolisthesis of L1 on L2. CT/CT abdomen pelvis wo con [id number] IMPRESSION: 1. Interval development of small loculated bilateral pleural effusions and com pressive atelectasis. 2. Interval development of a small pericardial effusion. 3. Interval development of a small amount of ascites with anasarca and mesente chad edema. 4. RIGHT lower quadrant ostomy site and stable postsurgical changes at the rec tosigmoid junction. 5. Cholelithiasis. 6. Galaviz catheter in a nondistended bladder. 7. Nasogastric tube in good position.
--- NOTE | 2019-10-30 11:55 | PM.CONSULT ---
Providers/Reason For Consult Consulting Physican/Specialty*: Brigid Moraes MD/Infectious Disease Reason for Consult*: Strep pyogenes septic shock Attending Physician: Kar Jensen MD Primary Care Provider: Alicia Barrera DO History of Present Illness History of Present Illness Elpidio Hoffmann is a 79 year old male ith past medical history of bullous pemphigoid for which he follows up with dermatology, CKD, penoscrotal carcinoma, hyperlipidemia, GERD, hypertension, type 2 diabetes mellitus, thyroid ostomy hernia, post ileostomy presented to the ER on October 25 from podiatry clinic where he was found to have low blood pressures. Initially was thought to have had a STEMI with cardiogenic shock and underwent angiography in the Lump Machine Operator however this did not show any evidence of any acute obstruction. Subsequently he was transferred to the ICU where he was quickly intubated and started on vasopressors with overall picture concerning of septic shock. He was also found to have acute kidney injury with creatinine up to 3, this was new, new bilateral chest infiltrates concerning for pneumonia. His blood culture subsequently grew Streptococcus pyogenes. Over his right lower extremity it there was concern that his recently diagnosed pemphigus may have worsened and caused some necrosis with ulceration. Due to concern for possible necrotizing fasciitis once blood cultures returned positive for Streptococcus, he underwent OR debridement. Overall patient's condition has failed to improve. He is currently on ceftriaxone and vancomycin. His sepsis appears to be worsening with also evidence of coagulopathy developing and DIC. Infectious disease consult is requested to assist with management of streptococcal septic shock. On the last admission he was given Augmentin and levofloxacin to start at the first instance of developing cellulitis, however it is unclear to me if patient was taking this more recently. While it has been reported that maggots were found in his leg wound this time. Review of Systems General: Reports: ROS unobtainable due to endotracheal tube and ROS unobtainable due to medical condition GI: Denies: diarrhea Meds/Allergies Home Medications and Allergies Home Medications Medication Instructions Recorded Confirmed Last Taken Type aspirin 81 mg tablet,delayed 81 mg PO BEDTIME 05/03/19 10/28/19 09/22/19 History release diltiazem HCl 180 mg 180 mg PO BEDTIME 05/03/19 10/28/19 09/22/19 History tablet,extended release 24 hr pantoprazole 40 mg tablet,delayed 40 mg PO DAILY 05/03/19 10/28/19 09/23/19 History release ascorbic acid (vitamin C) [Vitamin 1,000 mg PO 1315 05/05/19 10/28/19 09/22/19 History C] cholecalciferol (vitamin D3) 2,000 unit PO 1830 05/05/19 10/28/19 09/22/19 History [Vitamin D3] cyanocobalamin (vitamin B-12) 1,000 mcg PO 1315 05/05/19 10/28/19 09/22/19 History [Vitamin B-12] multivitamin 1 tab PO DAILY 05/05/19 10/28/19 09/23/19 History SHOWER CHAIR #1 ea 05/12/19 10/28/19 Unknown Rx acetaminophen 500 mg tablet 500 - 1,000 mg PO PRN tab 05/25/19 10/28/19 09/23/19 History 500 mg blood sugar diagnostic #300 each 08/24/19 10/28/19 Unknown Rx Humulin N NPH U-100 Insulin 20 unit SUBCUT BID 09/23/19 10/28/19 09/23/19 History 15 units ferrous sulfate [iron] 325 mg PO DAILY 09/23/19 10/28/19 09/22/19 History mupirocin 1 applic TOPICAL BID 09/23/19 10/28/19 Unknown History triamcinolone acetonide 1 applic TOPICAL BID 09/23/19 10/28/19 Unknown History Zyrtec 10 mg PO DAILY PRN #30 cap 09/29/19 10/28/19 09/23/19 Rx amlodipine 5 mg PO BEDTIME #0 tab 09/29/19 10/28/19 09/22/19 Rx nystatin [Nyamyc] 1 applic TOPICAL BID PRN #0 g 09/29/19 10/28/19 Unknown Rx prednisone 10 mg tablet 10 mg PO DAILY #63 tab 10/11/19 10/28/19 Unknown Rx Allergies Allergy/AdvReac Type Severity Reaction Status Date / Time furosemide [From Lasix] AdvReac Severe exanthem Verified 10/26/19 18:09 SULFA Allergy Unknown ALGY-Bliste Uncoded 10/27/19 18:18 r Current Medications Current Medications Generic Name Dose Route Start Last Admin Trade Name Freq PRN Reason Stop Dose Admin Acetaminophen 650 mg 08/01/20 17:38 10/28/19 23:17 Tylenol Liquid PO 650 mg Q4H PRN Administration MILD PAIN OR INCREASE TEMP Hydrocodone Bitart/Acetaminophen 1 tab 10/26/19 20:01 10/26/19 20:12 [place] 5-325 Mg PO 1 tab Q6H PRN Administration MODERATE PAIN Fentanyl 25 mcg 10/27/19 07:23 10/30/19 10:29 Sublimaze IVP 25 mcg Q4H PRN Administration SEVERE PAIN Hydrocortisone Sodium Succinate 100 mg 10/27/19 07:30 10/30/19 06:29 Solu-Cortef Inj IVP 100 mg Q6H ADAM Administration Norepinephrine Bitartrate 4 mg 254 mls @ 0 mls/hr 10/26/19 16:00 10/30/19 05:42 / Dextrose IV Infused .Q0M ADAM Titration Protocol Per Protocol Albumin Human 25 gm in 100 mls @ 60 mls/hr 10/26/19 17:30 10/30/19 09:24 Albumin IV 125 mls/hr Q8H ADAM Administration Vancomycin HCl 1,000 mg/ 250 mls @ 250 mls/hr 10/28/19 18:30 10/28/19 19:20 Sodium Chloride IV Infused Q48H ADAM Infusion Protocol Phenylephrine HCl 25 mg/ 252.5 mls @ 0 mls/hr 10/27/19 03:00 10/27/19 07:00 Sodium Chloride IV Infused .Q0M ADAM Titration Protocol Per Protocol Vasopressin 40 unit/ Sodium 40 mls @ 0.03 mls/min 10/27/19 05:30 10/30/19 05:41 Chloride IV Not Given CONT ADAM Midazolam HCl 100 mg/ Sodium 100 mls @ 0 mls/hr 10/27/19 11:15 10/30/19 11:40 Chloride IV 0 mg/hr .Q0M ADAM 0 mls/hr Titration Protocol Per Protocol Fentanyl 1,000 mcg/ Sodium 100 mls @ 0 mls/hr 10/27/19 11:15 10/30/19 11:39 Chloride IV 15 mcg/hr .Q0M ADAM 1.5 mls/hr Titration Protocol Per Protocol Norepinephrine Bitartrate 8 mg 508 mls @ 0 mls/hr 10/27/19 14:15 08/03/20 06:14 / Dextrose IV 3 mcg/min .Q0M ADAM 11.4 mls/hr Titration Protocol Per Protocol Sodium Chloride 1,000 mls @ 50 mls/hr 10/28/19 13:30 10/30/19 06:45 Sodium Chloride 0.9% IV 50 mls/hr .Q20H ADAM Administration Clindamycin HCl/Dextrose 900 mg in 50 mls @ 100 mls/hr 10/29/19 08:30 10/30/19 09:24 Cleocin IV 100 mls/hr Q8H ADAM Administration Ceftriaxone Sodium 2,000 mg/ 50 mls @ 100 mls/hr 10/29/19 09:00 10/30/19 09:22 Sodium Chloride IV 100 mls/hr Q12H ADAM Administration Protocol Insulin Aspart 0 unit 10/28/19 12:00 10/30/19 08:36 Novolog SUBCUT 4 unit TID ADAM Administration Protocol Pantoprazole Sodium 40 mg 10/26/19 17:45 10/30/19 05:52 Protonix IVP 40 mg Q12H ADAM Administration Silver Sulfadiazine 1 applic 10/29/19 09:00 10/30/19 10:48 Silvadene TOPICAL Not Given DAILY ADAM PFSH Acute PFSH: Medical History 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 Lay. Now tolerating p.o. feedings without difficulty. 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 Surgical History H/O ileostomy History of hernia repair 05/05/2019: Laparoscopic parastomal hernia repair S/P colostomy takedown / diverting ileostomy S/P tonsillectomy Status post Judd procedure Family History Other Diabetes Hypertension Social History Smoking and tobacco status: former smoker Alcohol intake: current Alcohol intake frequency: 0-2 Drinks per Day Vitals/I&O/Wt Last Vital Signs Temp 97.5 F L 10/30/19 07:00 Pulse 82 10/30/19 10:00 Resp 13 10/30/19 11:04 BP 144/78 10/30/19 10:00 Pulse Ox 92 10/30/19 10:00 10/29/19 10/30/19 10/30/19 22:59 06:59 14:59 Intake Total 246.488 / 2269.408 1566.810 / 3836.218 37.358 / 37.358 Output Total 275 / 275 50 / 325 Balance -28.512 / 9748.563 0476.810 / 3511.218 17.358 / 17.358 Physical Exam Narrative: EXAM NARRATIVE: GEN: Intubated sedated, extremities appear to be developing some degree of mottling. HEENT: NGT and tracheostomy in place. RS: Bilateral crackles at both lung bases. 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: no focal neuro deficits Data Micro: Micro: Microbiology 10/29/19 20:30 Occult Blood (FIT) - Final Stool Routine Col lection 10/27/19 11:30 Gram Stain - Final Sputum - Endotrac heal Tube Aspirate Sputum Culture - P reliminary Staphylococcus aureus A&P Assessment and plan (1) Septicemia due to group A Streptococcus: Status: Acute (2) Toxic shock syndrome: Status: Acute (3) DIC (disseminated intravascular coagulation): Status: Acute (4) Bullous pemphigoid: Status: Acute (5) Sepsis with acute hypoxic respiratory failure: Status: Acute Qualifiers: Sepsis type: sepsis due to unspecified organism Severe sepsis shock status: with septic shock Qualified Code(s): A41.9 - Sepsis, unspecified organism; R65.21 - Severe sepsis with septic shock; J96.01 - Acute respiratory failure with hypoxia (6) Septic shock: Status: Acute (7) Chronic kidney disease: Status: Acute Qualifiers: Chronic kidney disease stage: unspecified stage Qualified Code(s): N18.9 - Chronic kidney disease, unspecified (8) Acute renal failure (ARF): Status: Acute Qualifiers: Acute renal failure type: with acute tubular necrosis Qualified Code(s): N17.0 - Acute kidney failure with tubular necrosis (9) Hospital-acquired pneumonia: Status: Acute Additional A&P Information Patient currently admitted in the ICU in view of septic shock. Patient is most likely experiencing toxic shock syndrome as a result of septicemia from group A streptococcus. Strep pyogenes have been isolated on his blood cultures, repeat blood cultures have been sent and remain pending at this time. Most likely cause of bacteremia at this present time is likely to be the skin. Overall compared to last admission, I do not see any overt changes of his pemphigoid lesions. They in fact appear to be improving over the abdomen and the left lower extremity and hands and axilla. However it is certainly possible due to skin friability, skin is the most likely portal of entry. I am uncertain if the patient was taking his pill in pocket approach with Augmentin and levofloxacin as prescribed on the last admission. Would recommend at this time to continue clindamycin and vancomycin. Change ceftriaxone to Zosyn to maintain anaerobic coverage and include gram-negative such as Pseudomonas given that patient also is experiencing H CAP at this present time. Clindamycin for antitoxin effect. Since patient has not significantly improved after surgical debridement, continues to have signs of deterioration including continuous need for vasopressors, acute renal failure, hyperkalemia and DIC, prognosis remains extremely poor. Thank you for this consult we will continue to follow with you. Coding Level of Care Code Acute Paper Sales [facility] Diagnoses Septicemia due to group A Streptococcus A40.0 Toxic shock syndrome A48.3 DIC (disseminated intravascular coagulation) D65 Bullous pemphigoid L12.0 Sepsis with acute hypoxic respiratory failure A41.9; R65.21; J96.01 Sepsis type: sepsis due to unspecified organism Severe sepsis shock status: with septic shock Septic shock A41.9; R65.21 Chronic kidney disease N18.9 Chronic kidney disease stage: unspecified stage Acute renal failure (ARF) N17.0 Acute renal failure type: with acute tubular necrosis Hospital-acquired pneumonia J18.9; Y95
--- NOTE | 2019-10-30 11:58 | P.PN_ITS ---
Subjective Subjective: Interval history: In last 24 hours patient underwent fistulotomy by Dr. Hudson. On examination today patient is on 4 mics of Levophed, 0.5 of Versed, fentanyl drip of 25, on ventilator with settings of FiO2 30%, tidal volume of 500, PEEP of 8 saturating 96% with mean arterial pressures of 65 mmHg. Patient has remained afebrile in last 24 hours. Urine output has been on the lower side. Vitals/I&O/Wt Last Vital Signs Temp 97.5 F L 10/30/19 07:00 Pulse 82 10/30/19 10:00 Resp 13 10/30/19 11:04 BP 144/78 10/30/19 10:00 Pulse Ox 92 10/30/19 10:00 10/29/19 10/30/19 10/30/19 22:59 06:59 14:59 Intake Total 246.488 / 2269.408 1566.810 / 3836.218 237.358 / 237.358 Output Total 275 / 275 50 / 325 Balance -28.512 / 5477.858 2408.810 / 3511.218 217.358 / 217.358 Physical Exam Narrative: EXAM NARRATIVE: General: Fair not arousable, pupils bilaterally equal and reactive HEENT: PERRLA, pupils bilaterally equal and reactive Chest: Bilateral normal vesicular breath sounds, bronchial breath sounds in the right middle and lower zone, rhonchi present right middle and lower zone CVS: S1-S2 regular, no murmurs, no tachycardia, no gallops, no rubs Abdomen: Soft, nontender, no organomegaly, bowel sounds present Neuro: No focal deficits, no facial deformity, AO x3, power 5/5 in all limbs Skin: Multiple bullous lesion present in both legs and lower abdomen in various stages of healing with some having black eschar. Data : 10/30/19 03:20 10/30/19 03:20 Micro: Microbiology 10/29/19 20:30 Occult Blood (FIT) - Final Stool Routine Collection 10/27/19 11:30 Gram Stain - Final Sputum - Endotracheal Tube Aspirate Sputum Culture - Preliminary Staphylococcus aureus A&P Assessment and plan (1) DIC (disseminated intravascular coagulation): Status: Acute (2) Toxic shock syndrome: Status: Acute (3) Bacteremia: Strep pyogenous. Present on admission. 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 Status: Acute (12) Dehydration with hyponatremia: Status: Acute (13) Hyperkalemia: Status: Acute Additional A&P Information Fever septic shock: Most likely toxic shock syndrome: Strep pyogenes bacteremia: MRSA pneumonia: DIC: Neuro: Patient is sedated with Versed and fentanyl for now. Sedation vacation. We will try to discontinue Versed and start patient on Precedex. We will try to assess patient's mentation once sedation is off. Cardiac: Keep mean arterial pressure over 65 mmHg. We will try to wean off Levophed accordingly. Continue with IV fluids at 75 cc/h. Continue holding off any antihypertensives for now. Lungs: Patient sputum culture growing MRSA. Patient's oxygenation have remained stable on current vent settings. Patient's x-ray today consistent with mild pulmonary congestion. Will give Bumex 2 mg IV and continue to monitor ins and out. Infectious: Blood cultures consistent with strep pyogenes. Sputum culture growing MRSA staph. Patient's presentation and hospital course consistent with toxic shock syndrome leading to DIC. Recheck DIC panel. Check sputum culture, procalcitonin, urinalysis, stool for C. difficile, CT abdomen chest pelvis without contrast. Continue with vancomycin. Will change the antibiotics from ceftriaxone and clindamycin to Zosyn. We will consult infectious disease for further assistance. Most likely it is possible because of lateral scar that patient might be having fungal involvement as well. We will hold off on starting antifungal till confirmed on skin biopsy done and October 25. Renal: Kidney functions getting worse. Urine output adequate but decreasing. Check urinalysis, urine lites, urine creatinine. Most likely because of ATN from severe sepsis. Continue IV hydration. Overall patient is 15 L positive since admission. Will give IV Bumex as stated above. Hematology: Patient having DIC as per the DIC panel results couple of days ago. Thrombocytopenia getting worse. Anemia: 7.1 today. Start patient on IV iron. 2 units stat PRBC transfusion. Check DIC panel again. Continue to monitor hemoglobin closely. NG tube having coffee-ground emesis. Minimal. Check stool for occult blood. Continue Protonix 40 mg IV twice daily. GI: Patient most likely having slow upper GI bleed at present given coffee- ground emesis and decreasing hemoglobin. Continue with Protonix as above. N.p.o. for now. CODE STATUS: Sedation. Patient has severely guarded prognosis. Will discuss with family regarding further goals of care. N.p.o. No therapeutic anticoagulation given thrombocytopenia and low hemoglobin at present., SCDs. Attestations Medical Necessity Statement*: Septic shock, toxic shock syndrome, possible DIC, JUANA Critical Care Time: Vent settings, sedation setting, Levophed, discussion with family. Critical Care Time (min): 80 Coding Level of Care Code Acute Aviation Survival Technician for 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
[2019-10-30] MEDS: piperacillin-tazobactam 3.375 GM in sodium chloride 0.9% (plus) 50 ML IV (12:22)
[2019-10-30 12:42] LABS: Lactate Dehydrogenase 168 U/L (135-225); Vancomycin Random 12.7 ug/mL (20.0-40.0)
[2019-10-30 13:13] LABS: Fibrinogen 508 mg/dL (184-529); INR 1.47 (0.8-1.2)
[2019-10-30 13:28] LABS: Procalcitonin 26.44 ng/mL (0-0.5)
[2019-10-30 13:45] LABS: Potassium, Radom Urine 32 mmol/L; Urine Creatinine 57 mg/dL (39-259); Urine Random Sodium 23 mmol/L
[2019-10-30 13:46] LABS: Urine Random Chloride 14 mmol/L
[2019-10-30] MEDS: sodium chloride 0.9% (100 ml) 100 ML 50 ML (14:24)
[2019-10-30 15:05] LABS: Urine Eosinophil Count 0 (0-0)
[2019-10-30 15:06] LABS: Eosinophil Urine No Eosinophils Seen
--- NOTE | 2019-10-30 17:53 | PC.NURSE ---
program or project administrator of PM meds was discontinued because of family decision to move forward with comfort care. Pt was extubated at 1800. Family is at bedside.
--- NOTE | 2019-10-30 18:55 | PM.EVENT ---
Event Note Event Note: Had goals of care discussion with family. Discussed that patient has severely guarded prognosis given toxic shock syndrome, possible DIC, worsening renal functions and decreased urine output. Patient's family which includes patient's and her children including his daughter and 2 sons state that patient's wishes was never to be alive on machines. They state given his poor baseline functionality it would be best that we let nature takes its own course. Patient's family have opted for comfort care measures. We will extubate the patient and stop any further antibiotics or blood draws. Morphine as needed for pain. Scopolamine for secretions. CODE STATUS changed to comfort measures only. Event Notes Attestations Time Spent in Patient Care: Greater than 35 minutes
--- NOTE | 2019-10-30 21:52 | PC.NURSE ---
TOD [id number]
--- NOTE | 2019-10-30 22:53 | PC.NURSE ---
Per Rick at [facility] - pt is not a candidate for donation. MTS to notify [facility].
--- NOTE | 2019-10-30 23:03 | PC.NURSE ---
[facility] declined donation.
--- NOTE | 2019-10-30 23:06 | PC.NURSE ---
[facility] declined donation
--- NOTE | 2019-10-31 04:21 | PC.NURSE ---
Received pt after terminal extubation and on comfort care. HR a fib, 90s and SpO2 high 70s. Family at bedside. Family declined repo and given time to ask questions. Reassured that if they left for the night that RN would call with any changes. Pt in no acute distress. After family left, repo'd pillows and oral care done. Had called [facility] and spoke with Maeve about pt's extubation and she stated to call after pt passed. Called pt's to ask if a home had been decided on a home and stated that pt was to go to [facility] and that he could go to [place] if needed. then stated that she wanted pt's wedding band before he left. Approx 30 mins later, pt's HR began slowing down. Called family at 2137 and informed them of change and pt's stated that a son would be returning to the hosp. RN went into pt's rm to be with him and he began to sheldon down and agonally breathe. Lasted about 12 mins and pt right before his niece and 2 sons arrived. TOD at 2151 and verified by 2 RNs, myself and João JEFFREY charge. RN removed pt's gold wedding band and gave to oldest son, Dre. Called [facility] in [place], [place] and sales representative [employer] stated that they would decline pt bc of sepsis. Dr. Ely was messaged by João JEFFREY at 2209 to make aware of pt's expiration. Carl Dumont called [facility] and was told that they would decline also as did [employer] [employer]. Family informed of decision by [facility]. They stayed with pt for approx 90 mins before leaving. They left behind pt's dentures and took the ring and his glasses. Removed right IJ central line, winslow without diff. Ileostomy bag empty and left in place. Dressing removed from debridement area on LLE and pt cleaned and new gown applied and bed linens changed. Called [facility] [place] at [phone] and Mr. Parks returned the call at [phone]. He arrived at 0200 and took pt to home.
--- NOTE | 2019-10-31 08:23 | PC.NURSE ---
Versed and Fentanyl not returned to pharmacy at the end of shift as nurse writing note left medication hanging at bedside. Night nurses, João RN and Radha Rn(both travel nurses) wasted the medication. Fentanyl 90ml and Versed 60ml. Pharmacy made aware.
--- NOTE | 2019-10-31 11:57 | PM.DDS ---
Discharge Providers DDS Date of Admission: 10/26/19 12:38 Date Summary Completed: 10/31/19 Attending Provider at Admission: Willard Day MD Time of : 21:52 Attending Provider at Discharge: Kar Jensen MD Consults: Surgery: Dr. Hudson. ID: Dr. 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: (8) Bullous pemphigoid: (9) Insulin dependent type 2 diabetes mellitus: (10) Macrocytic anemia: (11) Thrombocytopenia: (12) Dehydration with hyponatremia: (13) Hyperkalemia: Reason for Visit Reason for Visit: CP/HYPOTENSION/confusion Summary Date and Time of : Date of : 10/30/19 Time of : 21:52 Summary: Summary: 79-year-old man with past medical history of bullous pemphigoid for which he follows up with dermatology, CKD, penoscrotal carcinoma, hyperlipidemia, GERD, hypertension, type 2 diabetes mellitus, thyroid ostomy hernia, post ileostomy presented to the ER on October 25 from podiatry clinic where he was found to have low blood pressures. On presentation to the ER he was thought to have ST elevation [place] with cardiogenic shock so cardiology was consulted and patient was taken to [facility] where he underwent cardiac angiogram to radial approach which showed moderate proximal LAD lesion of 30 to 40%, proximal ramus otherwise no significant RCA, left main or diagonal or obtuse margin stenosis. After this patient was transferred to the ICU because he was on mechanical intubation. Patient was started on broad-spectrum antibiotics along with vasopressors because of septic shock. He was found to have acute kidney injury with creatinine up to 3. His blood cultures grew strep pyogenes. His sputum culture grew MRSA. Patient had CT chest which was concerning for pneumonia. Patient's clinical picture and lab work were concerning for toxic shock syndrome from superinfections of his bullae on the leg where he was found to have few maggots and there was some concern for necrotizing fasciitis so surgery was consulted and he was taken to the OR for fasciotomy. Patient's blood work was also concerning for worsening thrombocytopenia, low hemoglobin for which he required 2 units of PRBC transfusion, elevated FDP, fibrinogen abnormalities concerning for DIC. Patient's urine output continues to remain borderline. Patient's mentation was poor even off sedation. Given all the above with patient possibly going into DIC because of severe septic shock, renal failure goals of care were discussed with the patient's family. It was explained to them that patient has severely guarded prognosis due to severe shock and worsening renal functions along with poor mentation. I discussed with them of possibly continuing medical management for next 24 to 48 hours to see how his clinical picture response to the medical treatment but patient's family including his and children stated that even mechanical ventilation is against his wishes and he never would have liked to live on support so they decided for comfort care measures because of poor baseline mental and social functionality. Patient was extubated on October 29 evening and comfort measures were initiated. During night patient started having bradycardia and abdominal breathing and eventually on October 29 at 9:52 PM. Additional Data: Advance directives?: Yes Discharge Plan Discharge Patient Disposition: Condition: Stable Prescriptions: No Action aspirin [Adult Low Dose Aspirin] 81 mg tablet,delayed release (DR/EC) 81 mg PO BEDTIME RF: 0 diltiazem HCl [Cardizem LA] 180 mg tablet extended release 24 hr 180 mg PO BEDTIME RF: 0 pantoprazole [Protonix] 40 mg tablet,delayed release (DR/EC) 40 mg PO DAILY RF: 0 prednisone 10 mg tablet 10 mg PO DAILY Qty: 63 RF: 0 (DME) SHOWER CHAIR Qty: 1 RF: 0 (DME) Accu-Chek Guide test strips Strip See Rx Instructions .ROUTE .MEDSUPPLY Qty: 300 RF: 3 multivitamin Tablet 1 tab PO DAILY RF: 0 ascorbic acid (vitamin C) [Vitamin C] 1,000 mg Tablet 1,000 mg PO 1315 RF: 0 cyanocobalamin (vitamin B-12) [Vitamin B-12] 1,000 mcg Tablet 1,000 mcg PO 1315 RF: 0 cholecalciferol (vitamin D3) [Vitamin D3] 2,000 unit Tablet 2,000 unit PO 1830 RF: 0 acetaminophen 500 mg tablet 500 - 1,000 mg PO PRN RF: 0 triamcinolone acetonide 0.1 % cream 1 applic TOPICAL BID RF: 0 ferrous sulfate [iron] 325 mg (65 mg iron) Tablet 325 mg PO DAILY RF: 0 Humulin N NPH U-100 Insulin 100 unit/mL Suspension 20 unit SUBCUT BID RF: 0 mupirocin 2 % ointment 1 applic TOPICAL BID RF: 0 nystatin [Nyamyc] 100,000 unit/gram Powder 1 applic topical BID PRN (Reason: rash) Qty: 0 RF: 0 amlodipine 10 mg Tablet 5 mg PO BEDTIME Qty: 0 RF: 0 Zyrtec 10 mg capsule 10 mg PO DAILY PRN (Reason: itching) Qty: 30 RF: 2 Referrals: Alicia Barrera DO [Primary Care Provider] - Discharge Date/Time: 10/31/19 02:00 DS Attestations Time Spent in /Discharge Care*: less than 30 min Quality - AMI: AMI present?: No Quality - Stroke: CVA present?: No Quality - VTE: VTE present?: No Deep Vein Thrombosis/Pulmonary Embolism Present on Admission: No Coding Level of Care Code Acute [employer] for g Fwd Diagnoses DIC (disseminated intravascular coagulation) D65 Toxic shock syndrome A48.3 Bacteremia R78.81 Septic shock A41.9; R65.21 Community acquired pneumonia J18.9 Acute kidney injury N17.9 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
== END 2019-10-30 21:52 | disposition designated cancer center or children's hospital (05) | DRG 853 ==
LOC: ER 12:36 → ICU 12:40
PROVIDERS: Family Medicine; Internal Medicine; Student in an Organized Health Care Education/Training Program; Admitting Provider Internal Medicine Cardiovascular Disease; Emergency Provider Emergency Medicine; PCP Family Medicine; Visit Provider Student in an Organized Health Care Education/Training Program
DX: A48.3 Toxic shock syndrome (principal); R65.21 Severe sepsis with septic shock; D65 Disseminated intravascular coagulation [defibrination syndrome]; J18.9 Pneumonia, unspecified organism; N17.0 Acute kidney failure with tubular necrosis; I24.9 Acute ischemic heart disease, unspecified; C34.31 Malignant neoplasm of lower lobe, right bronchus or lung; J81.1 Chronic pulmonary edema; E87.1 Hypo-osmolality and hyponatremia; E87.5 Hyperkalemia; Z51.5 Encounter for palliative care; D53.9 Nutritional anemia, unspecified; E86.0 Dehydration; L27.0 Generalized skin eruption due to drugs and medicaments taken internally; N18.9 Chronic kidney disease, unspecified; Z79.82 Long term (current) use of aspirin; K21.9 Gastro-esophageal reflux disease without esophagitis; E78.5 Hyperlipidemia, unspecified; Z79.4 Long term (current) use of insulin; Z85.048 Personal history of other malignant neoplasm of rectum, rectosigmoid junction, and anus; Z87.891 Personal history of nicotine dependence
CPT/HCPCS: 11104; 12345; 31500; 36415; 36416; 36430; 36592; 36600; 70450; 71045; 72125; 73610; 74176; 80051; 80053; 80202; 80500; 81001; 82274; 82436; 82550; 82570; 82803; 82810; 82955; 82962; 83010; 83605; 83615; 83690; 83735; 83880; 83986; 84133; 84145; 84300; 84484; 85007; 85025; 85362; 85378; 85384; 85610; 85730; 85999; 86140; 86850; 86900; 86920; 87040; 87070; 87077; 87186; 87205; 87449; 87641; 88304; 93005; 93306; 93454; 93925; 93970; 94002; 94003; 94660; 94799; 96372; 96375; 99203; 99204; 99281; 99283; C1751; C1769; C1887; C1894; C9113; J0610; J0696; J1160; J1170; J1630; J1644; J1720; J1815; J1940; J1953; J1956; J2250; J2370; J2543; J3010; J3370; J3475; J3490; J7030; J7040; J7050; P9016; P9035; P9047; Q9967